=== PATIENT | female | born 1940 | race Caucasian/White ===

== ENCOUNTER 2019-12-07 14:29 | Observation (INO) ==
[2019-12-07 16:28] LABS: Basophils # (auto) 0.02 K/uL (0-0.2); Basophils % (auto) 0.3 %; Eosinophils # (auto) 0.17 K/uL (0-0.5); Eosinophils % (auto) 2.5 %; Hemoglobin 13.8 g/dL (12.0-16.0); Immature Granulocytes # (auto) 0.02 K/uL (0.00-0.02); Immature Granulocytes % (auto) 0.3 %; Lymphocytes # (auto) 1.48 K/uL (1.2-3.4); Lymphocytes % (auto) 22.1 %; Mean Corpuscular Hemoglobin 30.4 pg (25-34); Mean Corpuscular Hgb Conc 33.7 g/dL (32-36); Mean Corpuscular Volume 90.3 fL (80-100); Mean Platelet Volume 10.7 fL (7.4-10.4); Monocytes # (auto) 0.48 K/uL (0.11-0.59); Monocytes % (auto) 7.2 %; Neutrophils # (auto) 4.54 K/uL (1.4-6.5); Neutrophils % (auto) 67.6 %; Platelet Count 214 K/uL (130-400); RDW Coefficient of Variation 13.4 % (11.5-14.5); RDW Standard Deviation 44.2 fL (36.4-46.3); Red Blood Count 4.54 M/uL (4.2-5.4); White Blood Count 6.71 K/uL (4.8-10.8)
[2019-12-07 16:42] LABS: Partial Thromboplastin Ratio 0.8; Partial Thromboplastin Time 22.4 Seconds (21.0-31.0); Prothrombin Time 9.8 Seconds (9.0-12.0)
[2019-12-07] MEDS ORDERED: LABETALOL HCL IV 5 MG/ML 20ML IV STA ×2 (16:42→20:29)
[2019-12-07 16:46] LABS: Albumin Level 3.6 gm/dl (3.4-5.0); Aspartate Aminotransferase 15 U/L (15-37); BUN Creatinine Ratio 26.3 (10-20); Blood Urea Nitrogen 27 mg/dl (7-18); Calcium 9.4 mg/dl (8.5-10.1); Carbon Dioxide 31 mmol/L (21-32); Chloride 103 mmol/L (98-107); Est GFR (African American) 60.2; Est GFR (Non-African American) 51.9; Glucose 171 mg/dl (70-99); Magnesium 2.2 mg/dl (1.8-2.4); Potassium 4.3 mmol/L (3.5-5.1); Sodium 136 mmol/L (136-145)
[2019-12-07 16:51] LABS: Alanine Aminotransferase 18 U/L (12-78); Albumin Globulin Ratio 0.9 (0.9-2); Alkaline Phosphatase 70 U/L (45-117); Bilirubin,Total 0.3 mg/dl (0.2-1); Globulin 4.1 gm/dl (2.5-4.0); Total Protein 7.7 gm/dl (6.4-8.2); Troponin I < 0.015 ng/ml (0-0.045)
[2019-12-07] MEDS ORDERED: OPTIRAY 320 125ml IV PRN (17:33)
--- NOTE | 2019-12-07 18:11 | CT Scan Report ---
HEAD & NECK CTA HISTORY: Memory loss. Stroke symptoms. TECHNIQUE: Multiaxial CT images of the head were performed both before and after the intravenous admi nistration of contrast to evaluate the major cerebral vessels. Multiaxial CT images of the neck were also performed following the intravenous administration of contrast to evaluate the major cervical ve ssels. Maximum intensity projection images were also obtained. A dose lowering technique was utilized adhering to the principles of ALARA. COMPARISON: Head CT 12/05/2019. FINDINGS: There is no mass, hematoma, midline shift, or acute infarct. Moderate atrophy and microvascular ische brian changes are again noted. 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 Mild narrowing within the bilateral carotid siphons due to the atherosclerotic plaque. No significant alex nosis, occlusion, or aneurysm within the bilateral ACAs are MCAs. Hypoplastic bilateral distal verteb ral arteries, right greater than left. The basilar artery and bilateral metal drilling machine operator are also hypoplastic. Th ere is a persistent left posterior circulation considered to be a normal variant. Possible 2 mm aneurysm at the takeoff of the left posterior communicating artery best seen on image 110. The major dural venous sinuses appear patent. Mild calcified plaque within the normal caliber aortic arch. Mild focal narrowing at the takeoff of the left subclavian artery due to the calcified plaque. There is no significant stenosis, occlusion, or dissection identified within the bilateral common carotid, internal carotid, or vertebral arteries . The right vertebral artery is hypoplastic in comparison to the left. Mild calcified plaque within t he bilateral carotid bifurcations. Bilateral thyroid nodules with the largest on the left measuring 1 1 mm. IMPRESSION: 1. Mild narrowing within the bilateral carotid siphons due to the calcified plaque. Otherwise, no sig nificant stenosis or occlusion within the [facility]. 2. No significant stenosis, occlusion, or dissection identified within the carotid or vertebral arter ies. 3. Hypoplastic posterior circulation within the brain. 4. Possible 2 mm aneurysm at the takeoff of the left posterior communicating artery. ACT 112: Negative or not required by law. Electronically signed by: Rm Clay M.D. 12/07/2019 6:10 PM
--- NOTE | 2019-12-07 18:11 | CT Scan Report ---
HEAD & NECK CTA HISTORY: Memory loss. Stroke symptoms. TECHNIQUE: Multiaxial CT images of the head were performed both before and after the intravenous admi nistration of contrast to evaluate the major cerebral vessels. Multiaxial CT images of the neck were also performed following the intravenous administration of contrast to evaluate the major cervical ve ssels. Maximum intensity projection images were also obtained. A dose lowering technique was utilized adhering to the principles of ALARA. COMPARISON: Head CT 12/05/2019. FINDINGS: There is no mass, hematoma, midline shift, or acute infarct. Moderate atrophy and microvascular ische brian changes are again noted. 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 Mild narrowing within the bilateral carotid siphons due to the atherosclerotic plaque. No significant alex nosis, occlusion, or aneurysm within the bilateral ACAs are MCAs. Hypoplastic bilateral distal verteb ral arteries, right greater than left. The basilar artery and bilateral medical language specialist are also hypoplastic. Th ere is a persistent left posterior circulation considered to be a normal variant. Possible 2 mm aneurysm at the takeoff of the left posterior communicating artery best seen on image 110. The major dural venous sinuses appear patent. Mild calcified plaque within the normal caliber aortic arch. Mild focal narrowing at the takeoff of the left subclavian artery due to the calcified plaque. There is no significant stenosis, occlusion, or dissection identified within the bilateral common carotid, internal carotid, or vertebral arteries . The right vertebral artery is hypoplastic in comparison to the left. Mild calcified plaque within t he bilateral carotid bifurcations. Bilateral thyroid nodules with the largest on the left measuring 1 1 mm. IMPRESSION: 1. Mild narrowing within the bilateral carotid siphons due to the calcified plaque. Otherwise, no sig nificant stenosis or occlusion within the [place]. 2. No significant stenosis, occlusion, or dissection identified within the carotid or vertebral arter ies. 3. Hypoplastic posterior circulation within the brain. 4. Possible 2 mm aneurysm at the takeoff of the left posterior communicating artery. ACT 112: Negative or not required by law. Electronically signed by: Rm Clay M.D. 12/07/2019 6:10 PM
[2019-12-07] MEDS ORDERED: ACETAMINOPHEN 325 MG TAB PO PRN (18:48)
[2019-12-07] MEDS ORDERED: PHARMACIST DISCHARGE MED REC CONSULT PRN (18:48)
[2019-12-07] MEDS ORDERED: DEXTROSE 50% 50 ML SYRINGE IV PRN (18:48)
[2019-12-07] MEDS ORDERED: CARBOHYDRATES FOR HYPOGLYCEMIA PO PRN (18:48)
[2019-12-07] MEDS ORDERED: GLUCOSE 40% GEL 15 GM TUBE PO PRN (18:48)
[2019-12-07] MEDS ORDERED: GLUCAGON FOR INJ 1 MG VIAL SQ PRN (18:48)
[2019-12-07] MEDS ORDERED: GLUCOSE 10 TABS/TUBE PO PRN (18:48)
--- NOTE | 2019-12-07 19:31 | Emergency Department Note ---
Entered by Becky Moncada acting as a scribe for Juno Levy M.D. History of Present Illness General Chief complaint: Referred by Doctor Stated complaint: Referred by Doctor Time Seen by Provider: 12/07/19 15:40 Source: patient History of Present Illness Provider complaint: Stroke Onset (ago): day(s) 3 Location: head Relieved By: + none Exacerbated By: + none Associated symptoms: + confusion and + other (Numbness in extremity) The patient is a 79 year old female who presents to the Emergency Room with complaints of a stroke that occurred it is believed 3 days ago. The patient's states that the patient woke up confused 2 days ago and was not able to find her words. The patient states that her symptoms are not relieved nor exacerbated by anything specific. The patient reports experiencing numbness in extremities but the patient notes that she does have chronic neuropathy. The patient's notes that she did have a fall and hit her head about 2 weeks ago. Home Medications Home Medications Medication Instructions Recorded Confirmed Type acetaminophen [Tylenol Arthritis 650 mg PO TID PRN 03/05/19 12/07/19 History Pain] aspirin 81 mg PO QDL 03/05/19 12/07/19 History calcium carbonate-vitamin D3 1 tab PO DAILY 03/05/19 12/07/19 History [Caltrate 600 + D] metformin 1,000 mg PO DAILY 03/05/19 12/07/19 History metoprolol tartrate 50 mg PO BID 03/05/19 12/07/19 History quinapril 20 mg PO BID 03/05/19 12/07/19 History repaglinide See Rx Instructions .ROUTE .COMPLEX 03/05/19 12/07/19 History vitamin B complex-folic acid 1 tab PO HS 03/05/19 12/07/19 History [Super B Maxi Complex] ascorbic acid (vitamin C) 1,000 mg PO BID 12/07/19 12/07/19 History coenzyme [id number] [Co Q-10 1 cap PO DAILY 12/07/19 12/07/19 History (with Vit E)] cyclobenzaprine 5 mg PO HS PRN 12/07/19 12/07/19 History fexofenadine [Allergy Relief 180 mg PO DAILY 12/07/19 12/07/19 History (fexofenadine)] glucosamine-chondroitin [Cosamin 2 tab PO QDL 12/07/19 12/07/19 History DS] red yeast rice 600 mg PO BID 12/07/19 12/07/19 History triamcinolone acetonide [Nasacort] 1 spray INTRANASAL DAILY 12/07/19 12/07/19 History vitamin A 0 unit PO DAILY 12/07/19 12/07/19 History Allergies Allergy/AdvReac Type Severity Reaction Status Date / Time ragweed pollen Allergy Severe Breathing Verified 12/07/19 16:41 issues house dust mite Allergy Unknown Breathing Verified 12/07/19 16:41 issues Bevtekt-Iju-Tzy Reductase AdvReac Unknown Foot cramps Verified 12/07/19 16:41 Inhibitor Past Med/Surg History Medical History (Updated 12/07/19 @ 19:31 by Juno Levy M.D.) Diabetes type 2, controlled (Chronic) Hypertension (Chronic) Surgical History No pertinent past surgical history Family History Other Family history non-contributory Social History Preferred Language: Spanish Communication Ability: Effective 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 and A total of 10 systems reviewed and were otherwise negative Physical Exam Vital Signs Vital Signs - 24 hr 12/07/19 14:50 12/07/19 16:30 Temperature 36.3 C L Temperature Source Oral Pulse Rate 75 Pulse Rate [Apical] 69 Pulse Rhythm Regular Pulse Rhythm [Apical] Regular Pulse Strength Normal Pulse Strength [Apical] Normal Respiratory Rate 20 20 Respiratory Effort / Characteristics Non-Labored Spontaneous Non-Labored Spontaneous Respiratory Depth Normal Normal Respiratory Pattern Regular Regular Blood Pressure 208/78 H Blood Pressure [Right Arm] 166/78 H Blood Pressure Mean 121 Blood Pressure Mean [Right Arm] 107 Blood Pressure Position [Right Arm] Lying Pulse Oximetry 97 98 Oxygen Delivery Method Room Air Room Air Sepsis Recent Fever Within 48 Hours No Sepsis Action Taken by Nursing No Action Required GENERAL: Awake, alert, well-appearing, in no distress HENT: Normocephalic, atraumatic. EYES: Normal conjunctiva. Sclera non-icteric. RESPIRATORY: Clear to auscultation. No wheezes. Normal respiratory effort. CARDIAC: Normal rate. Normal rhythm. Extremities warm and well perfused. GI: Soft, non-distended. No tenderness to palpation. No rebound or guarding. MUSCULOSKELETAL: Atraumatic. Chest examination reveals no tenderness. LOWER EXTREMITIES: Calves are equal size bilaterally and non-tender. No edema NEURO: No sensory or motor deficits noted. No facial droop. No slurred speech. SKIN: Warm and dry. No jaundice noted. Course Course 1545: Past medical records reviewed. The patient was evaluated in room C02B. A complete history and physical exam was performed. 1625: I spoke with Susanna Lees PA-C about the patient's case and Dr. Booker- Hospitalist will accept the patient for further evaluation. Administered Medications Discontinued Medications Ioversol (Optiray 320 125ml) 120 ml IV ONCE PRN PRN Reason: Interaction Checking Stop: 12/11/19 17:32 Last Admin: 12/07/19 17:38 Dose: 120 ml Documented by: [id number] Labetalol HCl (Normodyne) 10 mg IV NOW STA Stop: 12/07/19 16:43 Last Admin: 12/07/19 16:48 Dose: Not Given Documented by: [id number] Medical Decision Making Differential Diagnosis Differential diagnoses includes but is not limited to toxic, metabolic, infectious, traumatic, cardiac, neurologic, hematologic, psychiatric and infl ammatory etiologies. Medical Records Attestation: I reviewed the patient's medical records. Home Medications Current Medication List: was personally reviewed by me Laboratory Data Attestation: I reviewed the patient's lab results. Result diagrams: 12/07/19 16:15 12/07/19 16:15 Lab Results 12/07/19 12/07/19 12/07/19 Range/Units 16:15 16:15 16:15 WBC 6.71 (4.8-10.8) K/uL RBC 4.54 (4.2-5.4) M/uL Hgb 13.8 (12.0-16.0) g/dL Hct 41.0 (37-47) % MCV 90.3 (80-100) fL MCH 30.4 (25-34) pg MCHC 33.7 (32-36) g/dL RDW Std Deviation 44.2 (36.4-46.3) fL RDW Coeff of Abner 13.4 (11.5-14.5) % Plt Count 214 (130-400) K/uL MPV 10.7 H (7.4-10.4) fL Immature Gran % (Auto) 0.3 % Neut % (Auto) 67.6 % Lymph % (Auto) 22.1 % [place] % (Auto) 7.2 % Eos % (Auto) 2.5 % Baso % (Auto) 0.3 % Immature Gran # (Auto) 0.02 (0.00-0.02) K/uL Neut # (Auto) 4.54 (1.4-6.5) K/uL Lymph # (Auto) 1.48 (1.2-3.4) K/uL [place] # (Auto) 0.48 (0.11-0.59) K/uL Eos # (Auto) 0.17 (0-0.5) K/uL Baso # (Auto) 0.02 (0-0.2) K/uL PT 9.8 (9.0-12.0) Seconds INR 1.0 (0.9-1.1) APTT 22.4 (21.0-31.0) Seconds PTT Ratio 0.8 Sodium 136 (136-145) mmol/L Potassium 4.3 (3.5-5.1) mmol/L Chloride 103 (98-107) mmol/L Carbon Dioxide 31 (21-32) mmol/L Anion Gap 2.0 L (3-11) BUN 27 H (7-18) mg/dl Creatinine 1.02 (0.6-1.2) mg/dl Est Cr Clr Drug Dosing Not Reportable Est GFR ( Amer) 60.2 Est GFR (Non-Af Amer) 51.9 BUN/Creatinine Ratio 26.3 H (10-20) Glucose 171 H (70-99) mg/dl Calcium 9.4 (8.5-10.1) mg/dl Magnesium 2.2 (1.8-2.4) mg/dl Total Bilirubin 0.3 (0.2-1) mg/dl AST 15 (15-37) U/L ALT 18 (12-78) U/L Alkaline Phosphatase 70 (45-117) U/L Troponin I < 0.015 (0-0.045) ng/ml Total Protein 7.7 (6.4-8.2) gm/dl Albumin 3.6 (3.4-5.0) gm/dl Globulin 4.1 H (2.5-4.0) gm/dl Albumin/Globulin Ratio 0.9 (0.9-2) Imaging Data Radiologist's Impression: Radiology results as stated below per my review and the radiologist's interpretation: HEAD & NECK CTA HISTORY: Memory loss. Stroke symptoms. TECHNIQUE: Multiaxial CT images of the head were performed both before and after the intravenous administration of contrast to evaluate the major cerebral vessels. Multiaxial CT images of the neck were also performed following the intravenous administration of contrast to evaluate the major cervical vessels. Maximum intensity projection images were also obtained. A dose lowering technique was utilized adhering to the principles of ALARA. COMPARISON: Head CT 12/05/2019. FINDINGS: There is no mass, hematoma, midline shift, or acute infarct. Moderate atrophy and microvascular ischemic changes are again noted. 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 Mild narrowing within the bilateral carotid siphons due to the atherosclerotic plaque. No significant stenosis, occlusion, or aneurysm within the bilateral ACAs are MCAs. Hypoplastic bilateral distal vertebral arteries, right greater than left. The basilar artery and bilateral blanket cutter hand are also hypoplastic. There is a persistent left posterior circulation considered to be a normal variant. Possible 2 mm aneurysm at the takeoff of the left posterior communicating artery best seen on image 110. The major dural venous sinuses appear patent. Mild calcified plaque within the normal caliber aortic arch. Mild focal narrowing at the takeoff of the left subclavian artery due to the calcified plaque. There is no significant stenosis, occlusion, or dissection identified within the bilateral common carotid, internal carotid, or vertebral arteries. The right vertebral artery is hypoplastic in comparison to the left. Mild calcified plaque within the bilateral carotid bifurcations. Bilateral thyroid nodules with the largest on the left measuring 11 mm. IMPRESSION: 1. Mild narrowing within the bilateral carotid siphons due to the calcified plaque. Otherwise, no significant stenosis or occlusion within the [place]. 2. No significant stenosis, occlusion, or dissection identified within the carotid or vertebral arteries. 3. Hypoplastic posterior circulation within the brain. 4. Possible 2 mm aneurysm at the takeoff of the left posterior communicating artery. ACT 112: Negative or not required by law. Electronically signed by: Rm Clay M.D. 12/07/2019 6:10 PM ECG Data Attestation: I personally reviewed and interpreted this ECG as follows: Indication: + other (Stroke) Rate (beats per minute): 67 Rhythm: + normal sinus ECG Intervals/blocks: + Normal QT-c ECG ST segments: no ST depression and no ST elevation ECG Findings: no PVCs Blood Pressure Blood Pressure Findings: Elevated blood pressure Blood Pressure Disposition: further management by hospitalist GÉNESIS Narrative Patient is a 79-year-old female presenting today with concerns for a stroke. Patient does have a past medical history significant for diabetes, hypertension seen in the outpatient setting by neurology and reportedly had an MRI this morning finding a stroke. There is been several days of confusional this recently but improving. Basic labs are completed here. No significant anemia, leukocytosis, or severe electrolyte abnormality. CT angiograms of the head and neck were completed. No significant stenosis or occlusion was noted. Blood pressure has been elevated varying degrees while here and she did not take her new medication. Patient was admitted for further stroke evaluation. Hospitalist contacted. Impression & Plan Stroke, Hypertension Discharge Plan Visit Data *Final* Discharge Date/Time: 12/07/19 17:44 Chief Complaint: Referred by Doctor Stated Complaint: Referred by Doctor ED Provider: Juno Levy Discharge Problem: Stroke, Hypertension Patient Disposition: Admitted As Inpatient Discharge Instructions Interventions: ED Discharge Assessment Last Done: 12/07/19 17:44 Discharge Problem: Stroke Qualifiers: CVA mechanism: unspecified Qualified Code(s): I63.9 - Cerebral infarction, unspecified Hypertension Qualifiers: Hypertension type: essential hypertension Qualified Code(s): I10 - Essential (primary) hypertension The scribe's documentation has been prepared under my direction and personally reviewed by me in its entirety. I confirm that the note above accurately reflects all work, treatment, procedures, and medical decision making performed by me.
[2019-12-07] MEDS: CLOPIDOGREL BISULFATE 75 MG TAB PO SCH (20:19)
[2019-12-07] MEDS: METOPROLOL TARTRATE 50 MG TAB PO SCH (20:19)
[2019-12-07] MEDS: ENALAPRIL MALEATE 10 MG TAB PO SCH (20:19)
--- NOTE | 2019-12-07 20:29 | History & Physical Report ---
Date of Service December 07, 2019 Assessment & Plan (1) CVA (cerebral vascular accident): -Admit to telemetry -Patient presenting by referral of outpatient neurologist after outpatient brain MRI showed small subacute left striatocapsular infarction -2 days ago, patient was experiencing confusion and word finding. Currently at baseline without any deficits. -Head and neck CTA negative for significant stenosis, possible small 2 mm aneurysm noted at the takeoff of the left posterior communicating artery -Currently takes aspirin 81 mg daily, will add Plavix -Patient is statin intolerant -Echo -Neurology consult, case discussed with Dr. Krishna (2) Hypertensive urgency: -Presenting BP 208/78 -Given that patient is 48 hours post acute CVA, will treat for BP 140/90 -Continue home doses of metoprolol and quinapril, Norvasc 10 mg added -PRN labetalol (3) Diabetes type 2, controlled: -Hgb A1c 7.3 11/2019 -Hold oral agents and utilize NovoLog per protocol while hospitalized (4) DVT prophylaxis: -SQ Lovenox History of Present Illness Chief Complaint: Referred by neurologist for CVA Primary Care Provider: Jhoan Maki DO 79-year-old female who was referred to the ED by outpatient neurologist for evaluation after outpatient brain MRI demonstrated a small subacute left striatocapsular infarct. Patient's is the bedside who provides some history. He reports that 2 days ago, the patient had a confusion and word finding. Reports that her symptoms had resolved by the evening. She was seen at her PCPs office where head CT was obtained that was negative for acute findings. She was referred to neurology. Brain MRI was obtained today demonstrating aforementioned findings. Patient symptoms have mostly resolved with the exception of some mild, occasional word finding. No reported unilateral weakness, numbness, tingling. Denies facial droop or drooling. No headache or blurred vision. Denies lightheadedness, dizziness, diaphoresis, syncopal events. Patient reports he otherwise been feeling well recently. No chest pain or shortness of breath. Has abdominal pain, nausea, vomiting, diarrhea. No urinary symptoms. In the ED, patient is found to be hypertensive. She was given labetalol 10 mg IV. Allergies Allergy/AdvReac Type Severity Reaction Status Date / Time ragweed pollen Allergy Severe Breathing Verified 12/07/19 16:41 issues house dust mite Allergy Unknown Breathing Verified 12/07/19 16:41 issues Kvtkdzk-Ljx-Leb Reductase AdvReac Unknown Foot cramps Verified 12/07/19 16:41 Inhibitor Home Medications Home Medications Medication Instructions Recorded Confirmed Type acetaminophen [Tylenol Arthritis 650 mg PO TID PRN 03/05/19 12/07/19 History Pain] aspirin 81 mg PO QDL 03/05/19 12/07/19 History calcium carbonate-vitamin D3 1 tab PO DAILY 03/05/19 12/07/19 History [Caltrate 600 + D] metformin 1,000 mg PO DAILY 03/05/19 12/07/19 History metoprolol tartrate 50 mg PO BID 03/05/19 12/07/19 History quinapril 20 mg PO BID 03/05/19 12/07/19 History repaglinide See Rx Instructions .ROUTE .COMPLEX 03/05/19 12/07/19 History vitamin B complex-folic acid 1 tab PO HS 03/05/19 12/07/19 History [Super B Maxi Complex] ascorbic acid (vitamin C) 1,000 mg PO BID 12/07/19 12/07/19 History coenzyme [id number] E [Co Q-10 1 cap PO DAILY 12/07/19 12/07/19 History (with Vit E)] cyclobenzaprine 5 mg PO HS PRN 12/07/19 12/07/19 History fexofenadine [Allergy Relief 180 mg PO DAILY 12/07/19 12/07/19 History (fexofenadine)] glucosamine-chondroitin [Cosamin 2 tab PO QDL 12/07/19 12/07/19 History DS] red yeast rice 600 mg PO BID 12/07/19 12/07/19 History triamcinolone acetonide [Nasacort] 1 spray INTRANASAL DAILY 12/07/19 12/07/19 History vitamin A 0 unit PO DAILY 12/07/19 12/07/19 History Past Med/Surg History Medical History CKD (chronic kidney disease), stage III Diabetes type 2, controlled (Chronic) Hypertension (Chronic) Neuropathy Surgical History No pertinent past surgical history Family History Mother Lung disease Father Lung disease Social History Preferred Language: Taiwanese Communication Ability: Effective 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 Beliefs That Will Affect Care: None marital status: Current Living Situation: Spouse current occupational status: retired Other Information That Helps Us Care for You: No Feels Safe at Home: Yes Safety Concerns: Feels Safe At This Time Smoking Status: Never smoker Do You Dip or Chew Tobacco: No ; Second Hand Exposure: No ; Tobacco Cessation Education Requested by Patient: No Hx Alcohol Use: Yes Alcohol Intake Frequency: Rarely Hx Substance Use: No Review of Systems Review of Systems: ROS per HPI, all other systems reviewed and negative Physical Exam Constitutional: WD/WN, vitals as above Eyes: PERRL, conjunctivae normal, anicteric sclerae ENMT: external ear and nose normal, oropharynx normal Respiratory: normal respiratory effort, lungs clear to auscultation Cardiovascular: Rate/Rhythm: regular rate and regular rhythm Vessels: normal peripheral pulses Extremities: + edema (Trace ankle edema noted) Gastrointestinal (Abdomen): normal bowel sounds, soft, nontender, no hepatosplenomegaly Musculoskeletal: no cyanosis or clubbing, extremities motor strength 5/5 Skin: no rashes, warm and dry Neurologic: PERRL, EOMI, accommodation nl, no face palsy, no dysarthria Psychiatric: A+Ox3, euthymic affect Results & Data Vital Signs (Past 12 Hours) Vital Signs Temp Pulse Pulse Pulse Resp BP BP 12/07/19 18:40 36.7 C 98 H 16 185/84 H 12/07/19 16:30 69 20 12/07/19 14:50 36.3 C L 75 20 208/78 H BP Pulse Ox 12/07/19 18:40 235/103 H 98 12/07/19 16:30 166/78 H 98 12/07/19 14:50 97 Laboratory Results Short CBC 12/07/19 Range/Units 16:15 WBC 6.71 (4.8-10.8) K/uL Hgb 13.8 (12.0-16.0) g/dL Hct 41.0 (37-47) % Plt Count 214 (130-400) K/uL BMP 12/07/19 16:15 Sodium 136 Potassium 4.3 Chloride 103 Carbon Dioxide 31 BUN 27 H Creatinine 1.02 Glucose 171 H Calcium 9.4 Cardiac Enzymes 12/07/19 Range/Units 16:15 Troponin I < 0.015 (0-0.045) ng/ml Liver Function 12/07/19 Range/Units 16:15 Total Bilirubin 0.3 (0.2-1) mg/dl AST 15 (15-37) U/L ALT 18 (12-78) U/L Alkaline Phosphatase 70 (45-117) U/L Albumin 3.6 (3.4-5.0) gm/dl Diagnostic Findings BRAIN MRI IMPRESSION ([facility]) 1. Small subacute left striatocapsular infarct without associated mass effect or hemorrhagic transformation. HEAD AND NECK CTA IMPRESSION: 1. Mild narrowing within the bilateral carotid siphons due to the calcified plaque. Otherwise, no significant stenosis or occlusion within the [place] of [place]. 2. No significant stenosis, occlusion, or dissection identified within the carotid or vertebral arteries. 3. Hypoplastic posterior circulation within the brain. 4. Possible 2 mm aneurysm at the takeoff of the left posterior communicating artery. Code Status & VTE Plan Code Status Patient is a full code as per my discussion with her. VTE Prophylaxis Plan VTE Prophylaxis will be ordered: Yes Supervising Physician Co-Signing Physician Notes I have seen and examined the patient and have discussed the case with the provider above. I agree with the assessment and plan as stated. 79 yo F presents for workup after acute stroke as outpatient. Persistent expressive aphasia that is sporadic but otherwise she is communicating well. My physical exam findings reflect those listed above. Agree with plan. Appreciate Neuro recommendations. DO Jhony
[2019-12-07] MEDS ORDERED: AMLODIPINE BESYLATE 5 MG TAB PO STA (20:32)
[2019-12-07] MEDS ORDERED: LABETALOL HCL IV 5 MG/ML 20ML IV PRN (20:48)
[2019-12-07] MEDS: ENOXAPARIN INJ 40 MG/0.4 ML SYR SQ SCH (21:23)
[2019-12-07] MEDS: INSULIN ASPART 100 UNITS/ML 3 ML PEN SC SCH (21:46)
[2019-12-08 06:11] LABS: Basophils # (auto) 0.02 K/uL (0-0.2); Basophils % (auto) 0.4 %; Eosinophils # (auto) 0.27 K/uL (0-0.5); Eosinophils % (auto) 5.2 %; Hematocrit (blood only) 40.3 % (37-47); Hemoglobin 13.4 g/dL (12.0-16.0); Immature Granulocytes # (auto) 0.01 K/uL (0.00-0.02); Immature Granulocytes % (auto) 0.2 %; Lymphocytes % (auto) 40.3 %; Mean Corpuscular Hemoglobin 30.2 pg (25-34); Mean Corpuscular Hgb Conc 33.3 g/dL (32-36); Mean Corpuscular Volume 90.8 fL (80-100); Mean Platelet Volume 10.9 fL (7.4-10.4); Monocytes # (auto) 0.43 K/uL (0.11-0.59); Monocytes % (auto) 8.3 %; Neutrophils # (auto) 2.38 K/uL (1.4-6.5); Neutrophils % (auto) 45.6 %; Platelet Count 208 K/uL (130-400); RDW Coefficient of Variation 13.5 % (11.5-14.5); RDW Standard Deviation 44.8 fL (36.4-46.3); Red Blood Count 4.44 M/uL (4.2-5.4); White Blood Count 5.21 K/uL (4.8-10.8)
[2019-12-08 06:45] LABS: Appearance Urine Clear (Clear); Bacteria Urine Automated Negative (Negative); Bilirubin Urine Negative (Negative); Blood Urine Negative (Negative); Cast Urine Automated 0 /lpf (0-5); Color Urine Yellow; Glucose Urine UA Negative (Negative); Ketones Urine Negative (Negative); Leukocyte Esterase Urine 1+ (Negative); Nitrite Urine Negative (Negative); Protein Urine Negative (Negative); RBC Urine Automated 0-4 /hpf (0-4); Specific Gravity Urine 1.043 (1.000-1.030); Urobilinogen Urine Negative (Negative); pH Urine 6.5 (4.5-7.5)
[2019-12-08 06:47] LABS: Calcium 9.4 mg/dl (8.5-10.1); Creatinine Clr Calc Pharmacy 37.6 ml/min; Est GFR (African American) 59.5; Est GFR (Non-African American) 51.3; Potassium 3.8 mmol/L (3.5-5.1)
[2019-12-08] MEDS: INSULIN ASPART 100 UNITS/ML 3 ML PEN SC SCH ×4 (08:10→20:30)
[2019-12-08] MEDS: AMLODIPINE BESYLATE 5 MG TAB PO SCH (08:11)
[2019-12-08] MEDS: METOPROLOL TARTRATE 50 MG TAB PO SCH ×2 (08:12→20:31)
[2019-12-08] MEDS: CLOPIDOGREL BISULFATE 75 MG TAB PO SCH (08:12)
[2019-12-08] MEDS: FEXOFENADINE HCL 180 MG TAB PO SCH (08:12)
[2019-12-08] MEDS: ENALAPRIL MALEATE 10 MG TAB PO SCH ×2 (08:12→20:31)
[2019-12-08 09:04] LABS: Estimated Average Glucose 163 mg/dl; Hemoglobin A1C 7.3 % (4.5-5.6)
--- NOTE | 2019-12-08 11:36 | CT Scan Report ---
HEAD CT NONCONTRAST CT DOSE: 614.27 mGy.cm HISTORY: L mca infarct, mild increase in aphasia, r/o bleed TECHNIQUE: Multiaxial CT images of the head were performed without the use of intravenous contrast. A utomated exposure control was utilized for this study. A dose lowering technique was utilized adheri ng to the principles of ALARA. Comparison: Head CT 12/05/2019. Findings: The paranasal sinuses and mastoid air cells are clear. The calvarium and skull base are int act. There is no mass, hematoma, midline shift, acute infarct. White matter hypodensity is nonspecifi c but suggestive of microvascular ischemic change. The ventricles and sulci demonstrate mild age-rela nils involutional changes. Stable hypodensity at the left caudate on image 18. Therefore, this favors an old lacunar infarct. Impression: No significant change compared to the prior study. No acute intracranial abnormality. Hypodensity wit hin the left caudate remains unchanged and favors an old lacunar infarct. ACT 112: Negative or not required by law. Electronically signed by: Rm Clay M.D. 12/08/2019 11:35 AM
--- NOTE | 2019-12-08 11:55 | Progress Note ---
DATE: 12/08/2019 REASON FOR CONSULTATION: Subacute left striatocapsular infarction, hypertensive urgency. HISTORY OF PRESENT ILLNESS: The patient is an 79-year-old female who was seen by my partner Dr. Krishna at an outside office visit on Tuesday because of the sudden onset of confusion and word finding difficulty. Symptoms have improved somewhat, although perhaps she has a little more word finding difficulty over the evening. An outpatient MRI was obtained showing the aforementioned findings. The patient has no prior history of transient ischemic attack or stroke. She has no history of rheumatic fever, murmur. No family history of stroke. PAST MEDICAL HISTORY: Notable for chronic kidney disease, diabetes, hypertension and neuropathy with statin intolerance. SURGICAL HISTORY: Not pertinent. FAMILY HISTORY: No family history of stroke. Family history of lung disease. SOCIAL HISTORY: Does not smoke, very rarely drinks alcohol. HOME MEDICATIONS: Tylenol, aspirin 81, Caltrate, metformin, metoprolol, quinapril, repaglinide, vitamin B complex, ascorbic acid, CoQ10, fexofenadine, cyclobenzaprine p.r.n., glucosamine-chondroitin, red yeast rice, Nasacort and vitamin A. Electrocardiogram on admission, normal sinus rhythm. LABORATORY DATA: White count, H and H and platelet count are normal. Glucose was 123, BUN and creatinine 30/1.0. Hemoglobin A1c 7.3. Total cholesterol 245, triglycerides 247, LDL 153. Urinalysis notable for 1+ leukocyte esterase, 10-30 white blood cells, 5-10 epithelial cells. CTA of head and neck showed a possible 2 mm aneurysm at the takeoff of the left [employer] SPECIALIST. No significant stenosis within the [place] of [place]. Hypoplastic posterior circulation. A followup CT this morning because of subjective worsening has not yet been read, but shows no acute infarction and no hemorrhage. Echo has not yet been performed. PHYSICAL EXAMINATION: GENERAL: The patient is awake and alert. There is a paucity of spontaneous speech. She is oriented x2. She has marked difficulty with expressive language, mild to moderate difficulty with receptive language, although repetitions are intact. NECK: There are no carotid bruits. HEART: No heart murmurs. Heart is regular rate and rhythm. VITAL SIGNS: Blood pressure 172/80, 72, 20, 36.6, 92%. NEUROLOGIC: Pupils are equal. There is no field cut. There is normal motility, facial sensation. Slight flattening of the right nasolabial fold. Strength appears symmetric. There is minor right drift and decreased rapid alternating movements. Lower extremity strength is full. Reflexes are symmetric. Toes are downgoing. Gcmjyb-kv-uwbe and vtij-cm-kdva are normal. Sensation is intact to light touch and temperature bilaterally. IMPRESSION: Left striatocapsular infarction with language dysfunction. No high grade MCA stenosis. PLAN: Permissive hypertension with gradual reduction of blood pressure over time. Agree with statin therapy as discussed with Dr. Agarwal. Dual antiplatelet therapy with aspirin and Plavix for 3 weeks and then Plavix alone. Echocardiography with a bubble study. Zio patch as an outpatient. 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 This is of no clinical significance, but may need to be followed as an outpatient. The patient can follow up with Dr. Krishna post-discharge. I do believe the patient will need a PT and a speech consult and may need inpatient therapy. CHRISTI
[2019-12-08] MEDS: ATORVASTATIN 40 MG TAB PO SCH (11:59)
[2019-12-08] MEDS: ASPIRIN 81 MG ECTAB PO SCH (11:59)
--- NOTE | 2019-12-08 15:28 | Hospitalist Progress Note ---
Date of Service December 08, 2019 Assessment & Plan (1) CVA (cerebral vascular accident): Dyslipidemia -Neuro deficit(s), subacute; slurring of words and trouble finding words x 36hrs, Fall Tuesday11/25/2019 on ASA with head trauma -patient subsequently had followed with outpatient [facility] Neurology. Dr. Krishna who ordered outpatient Brain MRI -BRAIN MRI WITHOUT AND WITH CONTRAST - 12/07/2019: Small subacute left striatocapsular infarct without associated mass effect or hemorrhagic trans formation. -admission 12/07/2019 Head and neck CTA negative for significant stenosis, possible small 2 mm aneurysm noted at the takeoff of the left posterior communicating artery -patient also noted to have hypertensive urgency on 12/07/2019 presentation -patient had been on aspirin and admitting medical team added clopidogrel as well, will continue dual anti-platelet therapy (aspirin and clopidogrel for 3 weeks and then clopidogrel alone.) -patient reports intolerance to statins such as leg cramps but given Dyslipidemia of Trigylceride 247 and Cholesterol 245 and LDL of 153 in context of stroke, the patient is agree able for trial of atorvastatin 40 mg daily patient able to eat the meals without dysphagia awaiting echocardiogram. awaiting formal PT/OT evaluations no acute telemetry events at this time; neurology recommends Zio patch as an outpatient. (2) Hypertensive urgency: -Presenting BP 208/78 on admission on 12/07/2019 -blood pressures are improved by 12/08/2019 -continue amlodidpine 10 mg daily as started on 12/07/2019 -Continue home doses of metoprolol 50 mg BID. Patient's home dose of quinapril 20 mg BID is currently substituted in the hospital as enalapril 20 mg BID (3) Diabetes type 2, controlled: -Hgb A1c 7.3 12/08/2019 -Hold oral agents and utilize NovoLog per protocol while hospitalized (4) DVT prophylaxis: -SQ Lovenox Admission and Anticipated Discharge Date Admission Date: December 07, 2019, discharge day undertemined Subjective no acute distress. no dizziness. no headache. patient able to speak without slurring speech but sometimes is poor historian. otherwise answers questions appropriately. no distress. no chest pain. no shortness of breath. no palpitations. no nause. no vomiting Review of Systems Review of Systems: All systems reviewed & are unremarkable except as noted in HPI & below Physical Exam 2 Constitutional: WD/WN, vitals as above comfortable Eyes: PERRL, conjunctivae normal, anicteric sclerae + conjunctival abnormality ENMT: external ear and nose normal, oropharynx normal Neck: normal visual inspection Respiratory: normal respiratory effort, lungs clear to auscultation Cardiovascular: Rate/Rhythm: regular rate and regular rhythm Gastrointestinal (Abdomen): normal bowel sounds, soft, nontender, no hepatosplenomegaly Musculoskeletal: Head/Neck/Chest: normocephalic and head atraumatic Neurologic: PERRL, EOMI, accommodation nl, no face palsy, no dysarthria moves all extremities Psychiatric: A+Ox3, euthymic affect Results & Data ([facility]) Vital Signs (Past 12 Hours) Vital Signs Temp Pulse Resp BP BP Pulse Ox 12/08/19 15:14 36.7 C 76 16 126/68 92 12/08/19 12:09 36.6 C 77 18 150/66 H 93 12/08/19 08:06 72 20 172/80 H 92
--- NOTE | 2019-12-08 18:03 | Electrocardiogram Report ---
Test Reason : Blood Pressure : / mmHG Vent. Rate : 067 BPM Atrial Rate : 067 BPM P-R Int : 130 ms QRS Dur : 080 ms QT Int : 412 ms P-R-T Axes : 063 032 083 degrees QTc Int : 435 ms Normal sinus rhythm Normal ECG When compared with ECG of 09-MAR-2019 09:51, No significant change was found Confirmed by Mychal Leiva ([id number]) on 12/08/2019 6:03:30 PM Referred By: Piyush Krishna Confirmed By:Aguilar Leiva
[2019-12-08] MEDS: ENOXAPARIN INJ 40 MG/0.4 ML SYR SQ SCH (20:32)
[2019-12-09 05:51] LABS: Basophils # (auto) 0.02 K/uL (0-0.2); Basophils % (auto) 0.3 %; Eosinophils # (auto) 0.36 K/uL (0-0.5); Eosinophils % (auto) 5.9 %; Hematocrit (blood only) 39.7 % (37-47); Hemoglobin 13.3 g/dL (12.0-16.0); Immature Granulocytes # (auto) 0.01 K/uL (0.00-0.02); Immature Granulocytes % (auto) 0.2 %; Lymphocytes % (auto) 26.1 %; Mean Corpuscular Hemoglobin 30.3 pg (25-34); Mean Corpuscular Hgb Conc 33.5 g/dL (32-36); Mean Corpuscular Volume 90.4 fL (80-100); Mean Platelet Volume 10.8 fL (7.4-10.4); Monocytes # (auto) 0.45 K/uL (0.11-0.59); Monocytes % (auto) 7.4 %; Neutrophils # (auto) 3.68 K/uL (1.4-6.5); Neutrophils % (auto) 60.1 %; Platelet Count 182 K/uL (130-400); RDW Coefficient of Variation 13.4 % (11.5-14.5); RDW Standard Deviation 44.4 fL (36.4-46.3); Red Blood Count 4.39 M/uL (4.2-5.4); White Blood Count 6.12 K/uL (4.8-10.8)
[2019-12-09 06:22] LABS: BUN Creatinine Ratio 29.3 (10-20); Calcium 9.1 mg/dl (8.5-10.1); Creatinine Clr Calc Pharmacy 39.1 ml/min; Est GFR (African American) 62.4; Est GFR (Non-African American) 53.8; Potassium 4.2 mmol/L (3.5-5.1)
[2019-12-09] MEDS: INSULIN ASPART 100 UNITS/ML 3 ML PEN SC SCH ×2 (08:30→12:03)
[2019-12-09] MEDS: ATORVASTATIN 40 MG TAB PO SCH (08:31)
[2019-12-09] MEDS: ENALAPRIL MALEATE 10 MG TAB PO SCH (08:31)
[2019-12-09] MEDS: METOPROLOL TARTRATE 50 MG TAB PO SCH (08:31)
[2019-12-09] MEDS: CLOPIDOGREL BISULFATE 75 MG TAB PO SCH (08:31)
[2019-12-09] MEDS: FEXOFENADINE HCL 180 MG TAB PO SCH (08:31)
[2019-12-09] MEDS: AMLODIPINE BESYLATE 5 MG TAB PO SCH (08:32)
--- NOTE | 2019-12-09 12:01 | Progress Note ---
DATE: 12/09/2019 SUBJECTIVE: I am seeing the patient in followup of a left striatocapsular infarct. A followup CT of the head was performed yesterday because of waxing and waning mental status that was unremarkable. It was unchanged. The patient is in a sinus rhythm. Echocardiogram interpretation summary; moderate concentric LVH, normal left ventricular wall motion, EF of 65-70. Minimal sclerotic changes of the aortic and mitral valve with otherwise normal valve structures. Left atrium is mildly enlarged, no ASD detected. PHYSICAL EXAMINATION: The patient is awake and alert, still with some lmkz-kx-pqalxvxh expressive language dysfunction. She had some hesitancy, but was able to name the items which were presented to her. Repetitions are normal and 3-step commands are mildly slow. There is a flattening of the right nasolabial fold. No dysarthria. No asymmetric weakness. There is a mild upward drift of the right hand and mildly decreased right rapid alternating movements. Lower extremities are symmetric. Reflexes are symmetric. Toes are downgoing. IMPRESSION AND PLAN: Left striatocapsular capsular infarction. Recommend dual antiplatelet therapy for 21 days and then Plavix. The patient will need a Zio patch as an outpatient. The patient has been agreeable to start a statin to which she previously had had an intolerance. The patient should see Dr. Krishna post discharge.
[2019-12-09] MEDS: ASPIRIN 81 MG ECTAB PO SCH (12:03)
[2019-12-09] MEDS ORDERED: STROKE PATIENT DISCHARGE STA (12:50)
--- NOTE | 2019-12-09 12:58 | Hospitalist Progress Note ---
Date of Service December 09, 2019 Assessment & Plan (1) CVA (cerebral vascular accident): Dyslipidemia -Neuro deficit(s), subacute; slurring of words and trouble finding words x 36hrs, Fall Tuesday11/25/2019 on ASA with head trauma -patient subsequently had followed with outpatient [facility]. Dr. Krishna who ordered outpatient Brain MRI -BRAIN MRI WITHOUT AND WITH CONTRAST - 12/07/2019: Small subacute left striatocapsular infarct without associated mass effect or hemorrhagic trans formation. -admission 12/07/2019 Head and neck CTA negative for significant stenosis, possible small 2 mm aneurysm noted at the takeoff of the left posterior communicating artery -patient also noted to have hypertensive urgency on 12/07/2019 presentation -patient had been on aspirin and admitting medical team added clopidogrel as well, will continue dual anti-platelet therapy (aspirin and clopidogrel for 3 weeks and then clopidogrel alone.) -patient reports intolerance to statins such as leg cramps but given Dyslipidemia of Trigylceride 247 and Cholesterol 245 and LDL of 153 in context of stroke, the patient is agree able for trial of atorvastatin 40 mg daily patient able to eat the meals without dysphagia awaiting echocardiogram. patient did well with formal PT/OT evaluations no acute telemetry events at this time; neurology recommends Zio patch as an outpatient. (2) Hypertensive urgency: -Presenting BP 208/78 on admission on 12/07/2019 -blood pressures are improved by 12/08/2019 -continue amlodidpine 10 mg daily as started on 12/07/2019 -Continue home doses of metoprolol 50 mg BID. Patient's home dose of quinapril 20 mg BID is currently substituted in the hospital as enalapril 20 mg BID (3) Diabetes type 2, controlled: -Hgb A1c 7.3 12/08/2019 -can resume home dose diabetes medications on discharge (4) DVT prophylaxis: -SQ Lovenox while inpatient Admission and Anticipated Discharge Date Admission Date: December 07, 2019 Subjective Patient seen and examined at bedside.no headache. no dizziness. no chest pain. no palpitations. no nausea. no vomiting Review of Systems Review of Systems: All systems reviewed & are unremarkable except as noted in HPI & below Physical Exam Constitutional: WD/WN, vitals as above comfortable Eyes: PERRL, conjunctivae normal, anicteric sclerae ENMT: external ear and nose normal, oropharynx normal Neck: normal visual inspection Respiratory: normal respiratory effort, lungs clear to auscultation Cardiovascular: Rate/Rhythm: regular rate and regular rhythm Gastrointestinal (Abdomen): normal bowel sounds, soft, nontender, no hepatosplenomegaly Musculoskeletal: Head/Neck/Chest: normocephalic and head atraumatic Neurologic: PERRL, EOMI, accommodation nl, no face palsy, no dysarthria moves all extremities Psychiatric: A+Ox3, euthymic affect Results & Data ([facility]) Vital Signs (Past 12 Hours) Vital Signs Temp Pulse Resp BP Pulse Ox 12/09/19 08:00 36.9 C 94 H 16 160/69 H 94 12/09/19 03:55 36.4 C L 77 18 155/68 H 95 12/09/19 02:49 36.4 C L 73 16 163/78 H 96
[2019-12-09] MEDS ORDERED: lisinopriL 5 MG TAB PO SCH (13:00)
--- NOTE | 2019-12-09 13:04 | Discharge Summary ---
Date of Service December 09, 2019 Admission HPI Per Admitting Provider 79-year-old female who was referred to the ED by outpatient neurologist for evaluation after outpatient brain MRI demonstrated a small subacute left striatocapsular infarct. Patient's is the bedside who provides some history. He reports that 2 days ago, the patient had a confusion and word finding. Reports that her symptoms had resolved by the evening. She was seen at her PCPs office where head CT was obtained that was negative for acute findings. She was referred to neurology. Brain MRI was obtained today demonstrating aforementioned findings. Patient symptoms have mostly resolved with the exception of some mild, occasional word finding. No reported unilateral weakness, numbness, tingling. Denies facial droop or drooling. No headache or blurred vision. Denies lightheadedness, dizziness, diaphoresis, syncopal events. Patient reports he otherwise been feeling well recently. No chest pain or shortness of breath. Has abdominal pain, nausea, vomiting, diarrhea. No urinary symptoms. In the ED, patient is found to be hypertensive. She was given labetalol 10 mg IV. Admission Exam Per Admitting Provider WD/WN, vitals as above Eyes: PERRL, conjunctivae normal, anicteric sclerae ENMT: external ear and nose normal, oropharynx normal Respiratory: normal respiratory effort, lungs clear to auscultation Cardiovascular: Rate/Rhythm: regular rate and regular rhythm Vessels: normal peripheral pulses Extremities: + edema (Trace ankle edema noted) Gastrointestinal (Abdomen): normal bowel sounds, soft, nontender, no hepatosplenomegaly Musculoskeletal: no cyanosis or clubbing, extremities motor strength 5/5 Skin: no rashes, warm and dry Neurologic: PERRL, EOMI, accommodation nl, no face palsy, no dysarthria Psychiatric: A+Ox3, euthymic affect Principal Diagnosis CVA (cerebral vascular accident): Dyslipidemia Hypertensive urgency Type 2 diabetes mellitus without manager intermediate current use of insulin Discharge Exam Constitutional WD/WN, vitals as above comfortable Eyes PERRL, conjunctivae normal, anicteric sclerae ENMT external ear and nose normal, oropharynx normal Neck normal visual inspection Respiratory normal respiratory effort, lungs clear to auscultation Cardiovascular Rate/Rhythm: regular rate and regular rhythm Gastrointestinal (Abdomen) normal bowel sounds, soft, nontender, no hepatosplenomegaly Musculoskeletal Head/Neck/Chest: normocephalic and head atraumatic Neurologic PERRL, EOMI, accommodation nl, no face palsy, no dysarthria moves all extremities Psychiatric A+Ox3, euthymic affect Discharge Data Allergies Allergy/AdvReac Type Severity Reaction Status Date / Time ragweed pollen Allergy Severe Breathing Verified 12/07/19 16:41 issues house dust mite Allergy Unknown Breathing Verified 12/07/19 16:41 issues Oocpmoe-Hgm-Ura Reductase AdvReac Unknown Foot cramps Verified 12/07/19 16:41 Inhibitor Consultations 12/07/19 16:27 ED Decision to Admit Stat 12/07/19 18:48 Consult Case Management - Discharge Planning Routine Consult Neurology Routine Ordered Studies 12/07/19 15:56 CT angio head wo/w Stat CT angio neck with con Stat 12/08/19 10:14 CT head/brain wo con Stat Hospital Course (1) CVA (cerebral vascular accident): Dyslipidemia -Neuro deficit(s), subacute; slurring of words and trouble finding words x 36hrs, Fall Tuesday11/25/2019 on ASA with head trauma -patient subsequently had followed with outpatient [facility]. Dr. Krishna who ordered outpatient Brain MRI -BRAIN MRI WITHOUT AND WITH CONTRAST - 12/07/2019: Small subacute left striatocapsular infarct without associated mass effect or hemorrhagic transformation. -admission 12/07/2019 Head and neck CTA negative for significant stenosis, possible small 2 mm aneurysm noted at the takeoff of the left posterior communicating artery -patient also noted to have hypertensive urgency on 12/07/2019 presentation -patient had been on aspirin and admitting medical team added clopidogrel as well, will continue dual anti-platelet therapy (aspirin and clopidogrel for 3 weeks and then clopidogrel alone.) -patient reports intolerance to statins such as leg cramps but given Dyslipidemia of Trigylceride 247 and Cholesterol 245 and LDL of 153 in context of stroke, the patient is agree able for trial of atorvastatin 40 mg daily patient able to eat the meals without dysphagia awaiting echocardiogram. patient did well with formal PT/OT evaluations no acute telemetry events at this time; neurology recommends Zio patch as an outpatient. (2) Hypertensive urgency: -Presenting BP 208/78 on admission on 12/07/2019 -blood pressures are improved by 12/08/2019 -continue amlodidpine 10 mg daily as started on 12/07/2019 -Continue home doses of metoprolol 50 mg BID. Patient's home dose of quinapril 20 mg BID is currently substituted in the hospital as enalapril 20 mg BID (3) Diabetes type 2, controlled: -Hgb A1c 7.3 12/08/2019 -can resume home dose diabetes medications on discharge (4) DVT prophylaxis: -SQ Lovenox while inpatient Total Time Total Time Spent Total Time Spent (In Minutes): 40 minutes Total Time Includes: Examination of the Patient, Discharge Planning, Medication Reconciliation and Communication With Other Providers Discharge Plan Discharge Items Patient Disposition: Home - Home Health Services Reason For Visit: CVA Discharge Diagnosis: CVA (cerebral vascular accident): Dyslipidemia Hypertensive urgency Type 2 diabetes mellitus without alf current use of insulin Condition on Discharge: Good Activity: Per Instructions section Non-emergency contact: Primary Care Provider and Neurologist Call non-emergency contact if: you have any medication questions Follow-up/Referrals: Jhoan Maki DO [Primary Care Provider] - 12/10/19 12:40 pm Diet: Carb Consistent or DM2 and Heart Healthy Addtl Attending Provider Instructions: aspirin 81 mg daily and clopidogrel (plavix) 75 daily for 3 weeks and then clopidogrel (plavix) alone patient reports intolerance to statins such as leg cramps but given Dyslipidemia of Trigylceride 247 and Cholesterol 245 and LDL of 153 in context of stroke, the patient is agree able for trial of atorvastatin 40 mg daily blood pressure medication of amlodipine as 10 mg daily. continue home dose of quinapril 20 mg BID discharge medication sent electronically to [facility] [address] [place] [place] [address] Add Marketing Sales Representative Provider Instructions: 12/10/2019 12:40 PM Provider Ramonita Dudley PA-C Department Family Practice [facility] 02/14/2020 2:20 PM Provider Piyush Krishna DO Department Neurology [facility] Pending Studies at Discharge: No Stand-Alone Forms: My [employer], Smoking Cessation Medications and DC Order Prescriptions: New atorvastatin 40 mg Tablet 40 mg PO QAM 30 Days Qty: 30 RF: 0 clopidogrel 75 mg Tablet 75 mg PO QAM 30 Days Qty: 30 RF: 1 amlodipine [Norvasc] 5 mg Tablet 10 mg PO QAM 30 Days Qty: 60 RF: 0 aspirin [Ecotrin Low Strength] 81 mg Tablet,Delayed Release (Dr/Ec) 81 mg PO DAILY 30 Days Qty: 30 RF: 0 Continued ascorbic acid (vitamin C) 1,000 mg Tablet 1,000 mg PO BID RF: 0 fexofenadine [Allergy Relief (fexofenadine)] 180 mg Tablet 180 mg PO DAILY RF: 0 glucosamine-chondroitin [Cosamin DS] 500-400 mg Tablet 2 tab PO QDL RF: 0 coenzyme Q14-vdbwlig E [Co Q-10 (with Vit E)] 100-5 mg-unit Capsule 1 cap PO DAILY RF: 0 vitamin A 8,000 unit Capsule 0 unit PO DAILY RF: 0 red yeast rice 600 mg Capsule 600 mg PO BID RF: 0 triamcinolone acetonide [Nasacort] 55 mcg Aerosol,Holmen 1 spray INTRANASAL DAILY RF: 0 cyclobenzaprine 5 mg tablet 5 mg PO HS PRN (Reason: Muscle Spasm) RF: 0 repaglinide 2 mg tablet See Rx Instructions .ROUTE .COMPLEX RF: 0 acetaminophen [Tylenol Arthritis Pain] 650 mg Tablet Extended Release 650 mg PO TID PRN (Reason: Pain) RF: 0 metformin 1,000 mg tablet 1,000 mg PO DAILY RF: 0 metoprolol tartrate 50 mg tablet 50 mg PO BID RF: 0 quinapril 20 mg tablet 20 mg PO BID RF: 0 vitamin B complex-folic acid [Super B Maxi Complex] 0.4 mg Tablet 1 tab PO HS RF: 0 Caltrate 600 plus D 600 mg (1,500 mg)-800 unit Tablet,Chewable 1 tab PO DAILY RF: 0 Discontinued aspirin 81 mg Tablet,Delayed Release (Dr/Ec) 81 mg PO QDL RF: 0 Discharge Orders: Discharge Order (Routine); Ordered 12/09/19 Ordered By: Prince Agarwal Admission Data Admit Date/Time: 12/07/19 16:56 Attending Provider: Prince Agarwal Admit Provider: Sheela Booker Primary Care Provider: Jhoan Maki Other Providers: Sheela Booker ; Diana Root
--- NOTE | 2019-12-09 14:07 | Pharmacy Report ---
Pharmacist Stroke Counseling - Date of Service December 09, 2019 - Scope: Pharmacy has been consulted to provide medication discharge counseling for this patient admitted with transient ischemic attack as per the Pharmacist Discharge Counseling for Stroke Patients Protocol. - Medications on Discharge: Home Medications Medication Instructions Recorded Confirmed acetaminophen [Tylenol Arthritis 650 mg PO TID PRN 03/05/19 12/07/19 Pain] aspirin 81 mg PO QDL 03/05/19 12/07/19 calcium carbonate-vitamin D3 1 tab PO DAILY 03/05/19 12/07/19 [Caltrate 600 + D] metformin 1,000 mg PO DAILY 03/05/19 12/07/19 metoprolol tartrate 50 mg PO BID 03/05/19 12/07/19 quinapril 20 mg PO BID 03/05/19 12/07/19 repaglinide See Rx Instructions .ROUTE .COMPLEX 03/05/19 12/07/19 vitamin B complex-folic acid 1 tab PO HS 03/05/19 12/07/19 [Super B Maxi Complex] ascorbic acid (vitamin C) 1,000 mg PO BID 12/07/19 12/07/19 coenzyme [id number] E [Co Q-10 1 cap PO DAILY 12/07/19 12/07/19 (with Vit E)] cyclobenzaprine 5 mg PO HS PRN 12/07/19 12/07/19 fexofenadine [Allergy Relief 180 mg PO DAILY 12/07/19 12/07/19 (fexofenadine)] glucosamine-chondroitin [Cosamin 2 tab PO QDL 12/07/19 12/07/19 DS] red yeast rice 600 mg PO BID 12/07/19 12/07/19 triamcinolone acetonide [Nasacort] 1 spray INTRANASAL DAILY 12/07/19 12/07/19 vitamin A 0 unit PO DAILY 12/07/19 12/07/19 New Rx's Medication Instructions Recorded amlodipine [Norvasc] 10 mg PO QAM 30 Days #60 tab 12/08/19 aspirin [Ecotrin Low Strength] 81 mg PO DAILY 30 Days #30 tab 12/08/19 atorvastatin 40 mg PO QAM 30 Days #30 tab 12/08/19 clopidogrel 75 mg PO QAM 30 Days #30 tab 12/08/19 - Action: The above medications, specifically ones for stroke treatment/prophylaxis, have been reviewed in detail with the patient and/or patient customer service representative teller(s) prior to discharge. This includes indication, common adverse reactions, drug interactions, and medication administration. Medication counseling has been employed using the teach-back method to ensure understanding. - Outcome: The patient has demonstrated limited understanding of the medications. Please note, they are aware that the pharmacist will call them within 72 hours post-discharge to confirm that the appropriate medications are being taken and answer any further medication related questions the patient might have at that time. Contact information Individual to be contacted: Julio Cesar Relationship to patient (if applicable): Phone number: [phone] Best time to call: after 1000 Additional comments: Patient was VERY confused during counseling, and was not available. Nurse states patient is intermittently confused at baseline. Please reiterate counseling information to during f/u phone call. Thanks! Thank you for allowing pharmacy to be involved in the care of this patient. Please call [phone] or [phone] with any additional questions
--- NOTE | 2019-12-12 11:53 | Pharmacy Report ---
Pharmacist Post D/C Phone Note - Phone Note: Date of phone call: December 12, 2019. Individual with whom pharmacist spoke to: Julio Cesar Melgoza () The following questions were reviewed during the phone call with responses listed below each: Can you tell me the medications that you are currently taking as well as when and how you take each medication? -See Table Below What side effects are you having from your medications, specifically, the new medications you were started on? - Patient with previous intolerance (muscle aches) to statin noted. Denied statin myopathy currently. What questions do you have about your medications? - None What problems are you having obtaining your medications? - None When is your next appointment with your primary care doctor? - Saw PCP on Tuesday. No significant changes to medications noted other than changing amlodipine to PM administration. Additional comments: - Julio Cesar was able to specify times, doses, and anticipated duration of the aspirin (plan d/c in a few weeks), clopidogrel, atorvastatin, and amlodipine with no prompting on my part [id number] - He noted Janay is doing well post-discharge and expressed gratitude for the care Janay received here at [facility] As per the Pharmacist Discharge Counseling for Stroke Patients Protocol, this p jen call has been completed within 72 hours of discharge. Thank you for allowing us to be involved in the care of this patient. - Home Medications: Home Medications Medication Instructions Recorded Confirmed Caltrate 600 plus D 1 tab PO DAILY 03/05/19 12/07/19 acetaminophen [Tylenol Arthritis 650 mg PO TID PRN 03/05/19 12/07/19 Pain] metformin 1,000 mg PO DAILY 03/05/19 12/07/19 metoprolol tartrate 50 mg PO BID 03/05/19 12/07/19 quinapril 20 mg PO BID 03/05/19 12/07/19 repaglinide See Rx Instructions .ROUTE .COMPLEX 03/05/19 12/07/19 vitamin B complex-folic acid 1 tab PO HS 03/05/19 12/07/19 [Super B Maxi Complex] ascorbic acid (vitamin C) 1,000 mg PO BID 12/07/19 12/07/19 coenzyme [id number] [Co Q-10 1 cap PO DAILY 12/07/19 12/07/19 (with Vit E)] cyclobenzaprine 5 mg PO HS PRN 12/07/19 12/07/19 fexofenadine [Allergy Relief 180 mg PO DAILY 12/07/19 12/07/19 (fexofenadine)] glucosamine-chondroitin [Cosamin 2 tab PO QDL 12/07/19 12/07/19 DS] red yeast rice 600 mg PO BID 12/07/19 12/07/19 triamcinolone acetonide [Nasacort] 1 spray INTRANASAL DAILY 12/07/19 12/07/19 vitamin A 0 unit PO DAILY 12/07/19 12/07/19 New Rx's Medication Instructions Recorded amlodipine [Norvasc] 10 mg PO QAM 30 Days #60 tab 12/08/19 aspirin [Ecotrin Low Strength] 81 mg PO DAILY 30 Days #30 tab 12/08/19 atorvastatin 40 mg PO QAM 30 Days #30 tab 12/08/19 clopidogrel 75 mg PO QAM 30 Days #30 tab 12/08/19
== END 2019-12-09 15:03 | disposition home health service (06) | DRG 66 ==
LOC: ED 14:29 → SUATTDRO 16:56 → INTOOBSV 16:56 → 2S 16:56

== ENCOUNTER 2022-07-13 20:55 | Inpatient (IN) ==
[2022-07-13 22:08] LABS: Basophils # (auto) 0.03 K/uL (0-0.2); Basophils % (auto) 0.6 %; Eosinophils # (auto) 0.08 K/uL (0-0.50); Eosinophils % (auto) 1.5 %; Hematocrit (blood only) 37.7 % (34.1-44.9); Hemoglobin 12.7 g/dl (12.0-16.0); Immature Granulocytes # (auto) 0.02 K/uL (0.00-0.02); Immature Granulocytes % (auto) 0.4 %; Lymphocytes # (auto) 0.75 K/uL (1.2-3.4); Mean Corpuscular Hemoglobin 29.7 pg (25.0-34.0); Mean Corpuscular Hgb Conc 33.7 g/dL (32.0-36.0); Mean Corpuscular Volume 88.3 fL (80.0-100.0); Mean Platelet Volume 11.2 fL (9.4-12.3); Monocytes # (auto) 0.69 K/uL (0.24-0.82); Monocytes % (auto) 12.9 %; Neutrophils # (auto) 3.79 K/uL (1.4-6.5); Neutrophils % (auto) 70.6 %; Platelet Count 195 K/uL (130-400); RDW Coefficient of Variation 13.8 % (11.5-14.5); RDW Standard Deviation 44.5 fL (36.4-46.3); Red Blood Count 4.27 M/uL (3.93-5.22); White Blood Count 5.36 K/ul (4.8-10.8)
[2022-07-13 22:18] LABS: Alanine Aminotransferase 25 U/L (7-52); Albumin Level 3.9 gm/dl (3.4-5.0); Alkaline Phosphatase 57 U/L (34-104); Anion Gap 8 (3-11); Aspartate Aminotransferase 24 U/L (13-39); BUN Creatinine Ratio 29.1 (10-20); Bilirubin,Total 0.4 mg/dl (0.2-1.0); Blood Urea Nitrogen 25 mg/dl (6-23); Calcium 9.6 mg/dl (8.5-10.1); Carbon Dioxide 25 mmol/L (21-32); Chloride 100 mmol/L (98-107); Est GFR (African American) 72.4 ml/min; Est GFR (Non-African American) 62.5 ml/min; Globulin 3.9 gm/dl (2.5-4.0); Glucose 143 mg/dl (70-99(Fasting)); Magnesium 2.1 mg/dl (1.7-2.4); Potassium 3.8 mmol/L (3.5-5.1); Sodium 133 mmol/L (136-145); Total Protein 7.8 gm/dl (6.0-8.3)
[2022-07-13 22:21] LABS: Partial Thromboplastin Time 28.2 Seconds (21.0-31.0); Prothrombin Time 10.3 Seconds (9.0-12.0)
[2022-07-13] MEDS ORDERED: SODIUM CHLORIDE 0.9% 1000ML 1,000 ML IV SCH (23:30)
--- NOTE | 2022-07-13 23:30 | Emergency Department Note ---
Impression & Plan COVID, Altered mental status, Hyponatremia ED Provider Note CHIEF COMPLAINT: Altered mental status, COVID-positive HISTORY OF PRESENT ILLNESS: This 82-year-old female patient presents to the e mergency department with complaints of altered mental status. The patient's states that she was here yesterday with some confusion and urinary symptoms. She was diagnosed as COVID-positive and UA was negative. Patient was sent home. She did spike a temperature of 101.5 today. She did wake up from a nap quite altered, unable to answer questions. gave her Tylenol and called the ambulance. He states she is a bit improved from 2 hours ago when that occurred. The patient also has new dentures which she states has been quite a predicament. She has been unable to close her mouth completely and has had great difficulty recently. History is limited secondary to AMS. REVIEW OF SYSTEMS: Review of systems is limited secondary to the patient's mental status, much of the history was obtained from the . ALLERGIES: see below MEDICATIONS: see below PMH: see below SOCIAL HISTORY: see below DDx: Infection, dehydration, metabolic abnormality, hypo/hyperglycemia, electrolyte disturbance, anemia, hypoxia, cardiac sources, intracerebral event, toxicologic, neurologic, as well as other pathologies. PHYSICAL EXAM: Vital signs reviewed. Noted to have a low-grade temperature in the axilla. Hypertensive General: Elderly, chronically ill-appearing 82-year-old female, in no significant distress. HEENT: No scleral icterus, PERRLA, neck supple. Dry mucous membranes. Cardiovascular: Regular rate and rhythm, no extra sounds. Pulmonary: Clear to auscultation bilaterally, normal work of breathing. Abdomen: Soft, nontender, nondistended, positive bowel sounds. Musculoskeletal: Atraumatic, no peripheral edema. Neurologic: Patient somnolent but arousable, answers most questions. Slow and deliberate speech. Skin: Warm, dry, no rash EMERGENCY DEPARTMENT COURSE/MDM: This patient was evaluated and appeared to be in no significant distress. IV access was obtained and laboratory work was drawn. The patient was hydrated with normal saline solution. Yesterday's records were reviewed. The patient did test positive for COVID-19. CT imaging of the head was performed and is negative for acute intracranial abnormality both yesterday and again today. She is noted to be febrile and was given Tylenol prior to coming to the hospital. Urinalysis was negative yesterday. Patient is slightly hyponatremic. She was started on IV normal saline solution. COVID swab is positive again today. Given the confusion, fevers and COVID- positive status, patient will be evaluated by the hospitalist service for further care. MONITORING: An order for cardiac monitoring was placed and the patient is noted to be in a NSR at 86 beats per minute. RADIOLOGY: To my interpretation is negative for focal infiltrate and failure. EKG: Normal sinus rhythm at 95 bpm. QTc is 434. Normal ST segments. No PVC, PAC. No significant change from previous dated 07/12/2022. 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 Required: No Beliefs That Will Affect Care: None marital status: Current Living Situation: Spouse current occupational status: retired Feels Safe at Home: Yes Assistive Devices: Cane Allergies Allergies Allergy/AdvReac Type Severity Reaction Status Date / Time ragweed pollen Allergy Severe Breathing Verified 07/10/22 16:07 issues house dust mite Allergy Unknown Breathing Verified 07/10/22 16:07 issues Vebudmh-AWP-ZhD Reductase AdvReac Unknown Foot cramps Verified 07/10/22 16:07 Inhibitor [Oodvoeo-Bmw-Wur Reductase Inhibitor] Home Meds Home Medications Medication Instructions Recorded Confirmed calcium carbonate 600 mg-vitamin 1 tab PO DAILY 03/05/19 07/13/22 D3 20 mcg (800 unit) chewable tablet (Caltrate 600 plus D) metformin 1,000 mg tablet 1,000 mg PO QAM 03/05/19 07/13/22 metoprolol tartrate 50 mg tablet 50 mg PO BID 03/05/19 07/13/22 quinapril 20 mg tablet 20 mg PO BID 03/05/19 07/13/22 fexofenadine 180 mg tablet 180 mg PO QAM 12/07/19 07/13/22 (Allergy Relief (fexofenadine)) Qunol 1 tab PO DAILY 07/10/22 07/13/22 acetaminophen 325 mg tablet See Rx Instructions .Route .COMPLEX 07/10/22 07/13/22 (Tylenol) amlodipine 5 mg tablet 10 mg PO HS 07/10/22 07/13/22 amoxicillin 500 mg capsule 500 mg PO Q8 07/10/22 07/13/22 atorvastatin 40 mg tablet 40 mg PO HS 07/10/22 07/13/22 empagliflozin 25 mg tablet 25 mg PO QAM 07/10/22 07/13/22 (Jardiance) furosemide 20 mg tablet 20 mg PO QAM 07/10/22 07/13/22 glucosamine-chondroitin 500 mg-400 1 tab PO DAILY 07/10/22 07/13/22 mg tablet (Cosamin DS) insulin glargine 100 unit/mL (3 8 unit subcut HS 07/10/22 07/13/22 mL) subcutaneous pen (Lantus Solostar U-100 Insulin) tramadol 50 mg tablet 50 mg PO Q4 PRN Pain 07/10/22 07/13/22 vitamin B complex 1 tab PO DAILY 07/10/22 07/13/22 Previous Rx's Medication Instructions Recorded clopidogrel 75 mg tablet 75 mg PO QAM 30 days #30 tabs 12/08/19 Results & Data (ED) Vital Signs Vital Signs - 24 hr 07/13/22 20:49 07/13/22 21:11 07/13/22 21:57 Temperature 37.9 C H Temperature Source Axillary Pulse Rate 100 H Pulse Rate [Right Finger] Pulse Rate from SpO2 Sensor Pulse Rhythm Regular Pulse Rhythm [Right Finger] Pulse Strength Normal Pulse Strength [Right Finger] Respiratory Rate 16 Respiratory Effort / Characteristics Non-Labored Respiratory Depth Normal Respiratory Pattern Regular Blood Pressure 208/90 H Blood Pressure [Right Arm] Blood Pressure Mean 129 Blood Pressure Mean [Right Arm] Blood Pressure Position [Right Arm] Pulse Oximetry 99 Oxygen Delivery Method Room Air Room Air Room Air Sepsis Recent Fever Within 48 Hours No Sepsis New/Unexplained Change in Mental Status Yes Sepsis Action Taken by Nursing No Action Required 07/13/22 21:57 07/13/22 23:11 07/13/22 21:06 Temperature 37.9 C H Temperature Source Rectal Pulse Rate 86 Pulse Rate [Right Finger] Pulse Rate from SpO2 Sensor Pulse Rhythm Regular Pulse Rhythm [Right Finger] Pulse Strength Pulse Strength [Right Finger] Respiratory Rate Respiratory Effort / Characteristics Respiratory Depth Respiratory Pattern Blood Pressure 208/90 H Blood Pressure [Right Arm] Blood Pressure Mean 129 Blood Pressure Mean [Right Arm] Blood Pressure Position [Right Arm] Pulse Oximetry 96 Oxygen Delivery Method Room Air Sepsis Recent Fever Within 48 Hours Sepsis New/Unexplained Change in Mental Status Sepsis Action Taken by Nursing 07/13/22 22:00 07/13/22 22:30 07/13/22 23:00 Temperature Temperature Source Pulse Rate Pulse Rate [Right Finger] Pulse Rate from SpO2 Sensor Pulse Rhythm Pulse Rhythm [Right Finger] Pulse Strength Pulse Strength [Right Finger] Respiratory Rate Respiratory Effort / Characteristics Respiratory Depth Respiratory Pattern Blood Pressure 147/67 H 119/62 129/56 L Blood Pressure [Right Arm] Blood Pressure Mean 93 81 80 Blood Pressure Mean [Right Arm] Blood Pressure Position [Right Arm] Pulse Oximetry Oxygen Delivery Method Sepsis Recent Fever Within 48 Hours Sepsis New/Unexplained Change in Mental Status Sepsis Action Taken by Nursing 07/13/22 23:31 07/14/22 01:00 07/14/22 01:07 Temperature 36.8 C Temperature Source Oral Pulse Rate Pulse Rate [Right Finger] 96 H Pulse Rate from SpO2 Sensor Pulse Rhythm Pulse Rhythm [Right Finger] Regular Pulse Strength Pulse Strength [Right Finger] Normal Respiratory Rate 18 Respiratory Effort / Characteristics Non-Labored Respiratory Depth Normal Respiratory Pattern Regular Blood Pressure 178/73 H 171/81 H Blood Pressure [Right Arm] 138/54 L Blood Pressure Mean 108 111 Blood Pressure Mean [Right Arm] 82 Blood Pressure Position [Right Arm] Lying Pulse Oximetry 95 Oxygen Delivery Method Room Air Sepsis Recent Fever Within 48 Hours Sepsis New/Unexplained Change in Mental Status Sepsis Action Taken by Nursing 07/14/22 01:30 07/14/22 02:00 07/14/22 02:00 Temperature Temperature Source Pulse Rate 63 Pulse Rate [Right Finger] Pulse Rate from SpO2 Sensor 63 Pulse Rhythm Pulse Rhythm [Right Finger] Pulse Strength Pulse Strength [Right Finger] Respiratory Rate 14 Respiratory Effort / Characteristics Respiratory Depth Respiratory Pattern Blood Pressure 137/61 126/56 L Blood Pressure [Right Arm] Blood Pressure Mean 86 79 Blood Pressure Mean [Right Arm] Blood Pressure Position [Right Arm] Pulse Oximetry 98 Oxygen Delivery Method Sepsis Recent Fever Within 48 Hours Sepsis New/Unexplained Change in Mental Status Sepsis Action Taken by Nursing 07/14/22 02:10 07/14/22 02:30 Temperature Temperature Source Pulse Rate 61 Pulse Rate [Right Finger] Pulse Rate from SpO2 Sensor 61 Pulse Rhythm Pulse Rhythm [Right Finger] Pulse Strength Pulse Strength [Right Finger] Respiratory Rate 15 Respiratory Effort / Characteristics Respiratory Depth Respiratory Pattern Blood Pressure 141/59 H Blood Pressure [Right Arm] Blood Pressure Mean 86 Blood Pressure Mean [Right Arm] Blood Pressure Position [Right Arm] Pulse Oximetry 98 Oxygen Delivery Method Sepsis Recent Fever Within 48 Hours Sepsis New/Unexplained Change in Mental Status Sepsis Action Taken by Correction Medications Current Medication List: was personally reviewed by me Laboratory Data Attestation: I reviewed the patient's lab results. Result diagrams: 07/13/22 21:08 07/13/22 21:08 Lab Results 07/13/22 07/13/22 07/13/22 Range/Units 21:08 21:08 21:08 WBC 5.36 (4.8-10.8) K/ul RBC 4.27 (3.93-5.22) M/uL Hgb 12.7 (12.0-16.0) g/dl Hct 37.7 (34.1-44.9) % MCV 88.3 (80.0-100.0) fL MCH 29.7 (25.0-34.0) pg MCHC 33.7 (32.0-36.0) g/dL RDW Std Deviation 44.5 (36.4-46.3) fL RDW Coeff of Abner 13.8 (11.5-14.5) % Plt Count 195 (130-400) K/uL MPV 11.2 (9.4-12.3) fL Immature Gran % (Auto) 0.4 % Neut % (Auto) 70.6 % Lymph % (Auto) 14.0 % [place] % (Auto) 12.9 % Eos % (Auto) 1.5 % Baso % (Auto) 0.6 % Neut # (Auto) 3.79 (1.4-6.5) K/uL Lymph # (Auto) 0.75 L (1.2-3.4) K/uL [place] # (Auto) 0.69 (0.24-0.82) K/uL Eos # (Auto) 0.08 (0-0.50) K/uL Baso # (Auto) 0.03 (0-0.2) K/uL Immature Gran # (Auto) 0.02 (0.00-0.02) K/uL PT 10.3 (9.0-12.0) Seconds INR 1.0 (0.9-1.1) APTT 28.2 (21.0-31.0) Seconds PTT Ratio 1.0 Sodium 133 L (136-145) mmol/L Potassium 3.8 (3.5-5.1) mmol/L Chloride 100 (98-107) mmol/L Carbon Dioxide 25 (21-32) mmol/L Anion Gap 8 (3-11) BUN 25 H (6-23) mg/dl Creatinine 0.86 (0.6-1.2) mg/dl Est Cr Clr Drug Dosing Not Reportable Est GFR ( Amer) 72.4 ml/min Est GFR (Non-Af Amer) 62.5 ml/min BUN/Creatinine Ratio 29.1 H (10-20) Glucose 143 H (70-99(Fasting)) mg/dl Calcium 9.6 (8.5-10.1) mg/dl Magnesium 2.1 (1.7-2.4) mg/dl Total Bilirubin 0.4 (0.2-1.0) mg/dl AST 24 (13-39) U/L ALT 25 (7-52) U/L Alkaline Phosphatase 57 (34-104) U/L Total Protein 7.8 (6.0-8.3) gm/dl Albumin 3.9 (3.4-5.0) gm/dl Globulin 3.9 (2.5-4.0) gm/dl Albumin/Globulin Ratio 1.0 (0.9-2) TSH (0.300-4.500) uIu/ml Urine Color Urine Appearance (Clear) Urine pH (4.5-7.5) Ur Specific [place] (1.000-1.030) Urine Protein (Negative) Urine Glucose (UA) (Negative) Urine Ketones (Negative) Urine Blood (Negative) Urine Nitrite (Negative) Urine Bilirubin (Negative) Urine Urobilinogen (Negative) Ur Leukocyte Esterase (Negative) Urine WBC (Auto) (0-5) /hpf Urine RBC (Auto) (0-4) /hpf U Hyaline Cast (Auto) (0-5) /lpf U Epithel Cells (Auto) (0-5) /lpf Urine Bacteria (Auto) (Negative) Urine Opiates Screen (Neg) Ur Methadone, Qual (Neg) Urine Barbiturates (Neg) Ur Phencyclidine (PCP) (Neg) U Amphetamin/Meth Scrn (Neg) MDMA (Ecstasy) Screen (Neg) U Benzodiazepines Scrn (Neg) Ur Cocaine Metabolite (Neg) U Marijuana (THC) Screen (Neg) SARS-CoV-2, RNA, NAAT (NEGATIVE) 07/13/22 07/13/22 07/13/22 Range/Units 21:08 Unknown Unknown WBC (4.8-10.8) K/ul RBC (3.93-5.22) M/uL Hgb (12.0-16.0) g/dl Hct (34.1-44.9) % MCV (80.0-100.0) fL MCH (25.0-34.0) pg MCHC (32.0-36.0) g/dL RDW Std Deviation (36.4-46.3) fL RDW Coeff of Abner (11.5-14.5) % Plt Count (130-400) K/uL MPV (9.4-12.3) fL Immature Gran % (Auto) % Neut % (Auto) % Lymph % (Auto) % [place] % (Auto) % Eos % (Auto) % Baso % (Auto) % Neut # (Auto) (1.4-6.5) K/uL Lymph # (Auto) (1.2-3.4) K/uL [place] # (Auto) (0.24-0.82) K/uL Eos # (Auto) (0-0.50) K/uL Baso # (Auto) (0-0.2) K/uL Immature Gran # (Auto) (0.00-0.02) K/uL PT (9.0-12.0) Seconds INR (0.9-1.1) APTT (21.0-31.0) Seconds PTT Ratio Sodium (136-145) mmol/L Potassium (3.5-5.1) mmol/L Chloride (98-107) mmol/L Carbon Dioxide (21-32) mmol/L Anion Gap (3-11) BUN (6-23) mg/dl Creatinine (0.6-1.2) mg/dl Est Cr Clr Drug Dosing Est GFR ( Amer) ml/min Est GFR (Non-Af Amer) ml/min BUN/Creatinine Ratio (10-20) Glucose (70-99(Fasting)) mg/dl Calcium (8.5-10.1) mg/dl Magnesium (1.7-2.4) mg/dl Total Bilirubin (0.2-1.0) mg/dl AST (13-39) U/L ALT (7-52) U/L Alkaline Phosphatase (34-104) U/L Total Protein (6.0-8.3) gm/dl Albumin (3.4-5.0) gm/dl Globulin (2.5-4.0) gm/dl Albumin/Globulin Ratio (0.9-2) TSH 0.536 (0.300-4.500) uIu/ml Urine Color Yellow Urine Appearance Cloudy A (Clear) Urine pH 6.5 (4.5-7.5) Ur Specific [place] 1.021 (1.000-1.030) Urine Protein Trace H (Negative) Urine Glucose (UA) 3+ H (Negative) Urine Ketones 1+ H (Negative) Urine Blood Negative (Negative) Urine Nitrite Negative (Negative) Urine Bilirubin Negative (Negative) Urine Urobilinogen Negative (Negative) Ur Leukocyte Esterase Negative (Negative) Urine WBC (Auto) 0 (0-5) /hpf Urine RBC (Auto) 0-4 (0-4) /hpf U Hyaline Cast (Auto) 0 (0-5) /lpf U Epithel Cells (Auto) >30 H (0-5) /lpf Urine Bacteria (Auto) Negative (Negative) Urine Opiates Screen Neg (Neg) Ur Methadone, Qual Neg (Neg) Urine Barbiturates Neg (Neg) Ur Phencyclidine (PCP) Neg (Neg) U Amphetamin/Meth Scrn Neg (Neg) MDMA (Ecstasy) Screen Neg (Neg) U Benzodiazepines Scrn Neg (Neg) Ur Cocaine Metabolite Neg (Neg) U Marijuana (THC) Screen Neg (Neg) SARS-CoV-2, RNA, NAAT (NEGATIVE) 07/14/22 07/14/22 Range/Units 00:27 01:04 WBC (4.8-10.8) K/ul RBC (3.93-5.22) M/uL Hgb (12.0-16.0) g/dl Hct (34.1-44.9) % MCV (80.0-100.0) fL MCH (25.0-34.0) pg MCHC (32.0-36.0) g/dL RDW Std Deviation (36.4-46.3) fL RDW Coeff of Abner (11.5-14.5) % Plt Count (130-400) K/uL MPV (9.4-12.3) fL Immature Gran % (Auto) % Neut % (Auto) % Lymph % (Auto) % [place] % (Auto) % Eos % (Auto) % Baso % (Auto) % Neut # (Auto) (1.4-6.5) K/uL Lymph # (Auto) (1.2-3.4) K/uL [place] # (Auto) (0.24-0.82) K/uL Eos # (Auto) (0-0.50) K/uL Baso # (Auto) (0-0.2) K/uL Immature Gran # (Auto) (0.00-0.02) K/uL PT (9.0-12.0) Seconds INR (0.9-1.1) APTT (21.0-31.0) Seconds PTT Ratio Sodium (136-145) mmol/L Potassium (3.5-5.1) mmol/L Chloride (98-107) mmol/L Carbon Dioxide (21-32) mmol/L Anion Gap (3-11) BUN (6-23) mg/dl Creatinine (0.6-1.2) mg/dl Est Cr Clr Drug Dosing Est GFR ( Amer) ml/min Est GFR (Non-Af Amer) ml/min BUN/Creatinine Ratio (10-20) Glucose (70-99(Fasting)) mg/dl Calcium (8.5-10.1) mg/dl Magnesium Cancelled (1.7-2.4) mg/dl Total Bilirubin (0.2-1.0) mg/dl AST (13-39) U/L ALT (7-52) U/L Alkaline Phosphatase (34-104) U/L Total Protein (6.0-8.3) gm/dl Albumin (3.4-5.0) gm/dl Globulin (2.5-4.0) gm/dl Albumin/Globulin Ratio (0.9-2) TSH (0.300-4.500) uIu/ml Urine Color Urine Appearance (Clear) Urine pH (4.5-7.5) Ur Specific [place] (1.000-1.030) Urine Protein (Negative) Urine Glucose (UA) (Negative) Urine Ketones (Negative) Urine Blood (Negative) Urine Nitrite (Negative) Urine Bilirubin (Negative) Urine Urobilinogen (Negative) Ur Leukocyte Esterase (Negative) Urine WBC (Auto) (0-5) /hpf Urine RBC (Auto) (0-4) /hpf U Hyaline Cast (Auto) (0-5) /lpf U Epithel Cells (Auto) (0-5) /lpf Urine Bacteria (Auto) (Negative) Urine Opiates Screen (Neg) Ur Methadone, Qual (Neg) Urine Barbiturates (Neg) Ur Phencyclidine (PCP) (Neg) U Amphetamin/Meth Scrn (Neg) MDMA (Ecstasy) Screen (Neg) U Benzodiazepines Scrn (Neg) Ur Cocaine Metabolite (Neg) U Marijuana (THC) Screen (Neg) SARS-CoV-2, RNA, NAAT POSITIVE A* (NEGATIVE) Administered Medications Sodium Chloride (Nss 1000ml) 1,000 mls @ 80 mls/hr IV .[id number] ONE Stop: 07/14/22 13:33 Last Admin: 07/14/22 01:48 Dose: 80 mls/hr Documented By: ES Discontinued Medications Acetaminophen (Acetaminophen 325 Mg Tab) 650 mg PO NOW STA Stop: 07/14/22 01:03 Last Admin: 07/14/22 01:05 Dose: 650 mg Documented By: ES Sodium Chloride (Nss 1000ml) 1,000 mls @ 125 mls/hr IV .Q8H NEYDA Stop: 08/12/22 23:29 Last Admin: 07/14/22 01:02 Dose: 125 mls/hr Documented By: ES Metoprolol Tartrate (Metoprolol Tartrate 50 Mg Tab) 50 mg PO NOW STA Stop: 07/14/22 01:04 Last Admin: 07/14/22 01:48 Dose: 50 mg Documented By: ES Imaging Data Attestation: I personally reviewed and interpreted this imaging study as follows: Discharge Plan Visit Data Chief Complaint: Confusion Stated Complaint: COVID Positive, AMS, Weakness ED Provider: Lilia Candelario Discharge Problem: COVID, Altered mental status, Hyponatremia Forms Stand Alone Forms: My [facility] Prescriptions Prescriptions: No Action fexofenadine [Allergy Relief (fexofenadine)] 180 mg Tablet 180 mg PO QAM clopidogrel 75 mg Tablet 75 mg PO QAM 30 Days Qty: 30 1RF metformin 1,000 mg tablet 1,000 mg PO QAM metoprolol tartrate 50 mg tablet 50 mg PO BID quinapril 20 mg tablet 20 mg PO BID Caltrate 600 plus D 600 mg (1,500 mg)-800 unit Tablet,Chewable 1 tab PO DAILY Rx Instructions: take with lunch amoxicillin 500 mg capsule 500 mg PO Q8 Rx Instructions: ordered 07/05/22 take for 7 days tramadol 50 mg tablet 50 mg PO Q4 PRN (Reason: Pain) atorvastatin 40 mg tablet 40 mg PO HS amlodipine 5 mg tablet 10 mg PO HS furosemide 20 mg tablet 20 mg PO QAM insulin glargine [Lantus Solostar U-100 Insulin] 100 unit/mL (3 mL) insulin pen 8 unit SUBCUT HS Jardiance 25 mg tablet 25 mg PO QAM vitamin B complex [Super B Complex] Tablet 1 tab PO DAILY Rx Instructions: take with lunch glucosamine-chondroitin [Cosamin DS] 500-400 mg Tablet 1 tab PO DAILY Rx Instructions: take with lunch Qunol 1 tab PO DAILY Rx Instructions: take with lunch acetaminophen [Tylenol] 325 mg Tablet See Rx Instructions .ROUTE .COMPLEX Rx Instructions: take 2 tablets orally in the morning, 1 tablet at 4pm and 2 tablets at bedtime Referrals Referrals: Jhoan Maki, [Primary Care Provider] -
[2022-07-14 00:03] LABS: Appearance Urine Cloudy (Clear); Bacteria Urine Automated Negative (Negative); Bilirubin Urine Negative (Negative); Blood Urine Negative (Negative); Cast Urine Automated 0 /lpf (0-5); Color Urine Yellow; Epithelial Cell Urine Auto >30 /lpf (0-5); Glucose Urine UA 3+ (Negative); Ketones Urine 1+ (Negative); Leukocyte Esterase Urine Negative (Negative); Nitrite Urine Negative (Negative); Protein Urine Trace (Negative); RBC Urine Automated 0-4 /hpf (0-4); Specific Gravity Urine 1.021 (1.000-1.030); Urobilinogen Urine Negative (Negative); WBC Urine Automated 0 /hpf (0-5); pH Urine 6.5 (4.5-7.5)
[2022-07-14 00:50] LABS: Amphetamines+Metham, Urine Neg (Neg); Barbiturates, Urine Neg (Neg); Benzodiazepine, Urine Neg (Neg); Cocaine, Urine Neg (Neg); MDMA (Ecstacy), Urine Neg (Neg); Methadone, Urine Neg (Neg); Opiate, Urine Neg (Neg); Phencyclidine, Urine Neg (Neg)
[2022-07-14] MEDS ORDERED: ACETAMINOPHEN 325 MG TAB PO STA (01:02)
[2022-07-14] MEDS ORDERED: METOPROLOL TARTRATE 50 MG TAB PO STA (01:03)
[2022-07-14] MEDS ORDERED: SODIUM CHLORIDE 0.9% 1000ML 1,000 ML IV ONE (01:04)
--- NOTE | 2022-07-14 01:55 | History & Physical Report ---
Date of Service July 14, 2022 Assessment & Plan (1) Encephalopathy: Plan: COVID-19 illness without respiratory symptoms in an elderly patient. Resolved after IVF administration at the ER. hx CVA hx cerebral aneurysm as per records, intervention not recommended as per [place] [facility] hypertension, currently elevated hyperlipidemia, statin intolerance hx PVD DM2 insulin requiring, reasonable control as of recent hemoglobin A1c of 7.21 June 2022 [facility] Supportive management for COVID-19 illness. No indication for antibiotics or antiviral Rx for now IVF Basal bolus insulin, ISS BG goal 1939, carb count coverage PT OT eval DVT prophylaxis. Lovenox subcu Full code Patient son requesting updates from providers. Mr. Julio Cesar Melgoza, contact #[phone]. Text document was generated using [employer] voice recognition software. It may contain grammatical or spelling errors. Kindly contact undersigned for clarification of any documentation item in question. History of Present Illness Chief Complaint: Confusion as per records Primary Care Provider: Jhoan Maki, History obtained from patient, family, and records. Limited history from patient secondary to chronic cognitive and hearing impairment Medical history significant for CVA, cerebral aneurysm as per records, hypertension, hyperlipidemia, statin intolerance, PVD, DM2 insulin requiring Last confinement November 2019 for CVA. MRI showed small subacute left posterior radial capsular infarct without associated mass-effect or hemorrhagic transformation. Patient had dental surgery last week. 2 ER visits since last week. July 10, patient seen for chest pain attributed to esophageal spasm. Patient discharged home. July 12, patient evaluated for confusion, fever, chills. Frequent urination. Symptoms attributed to COVID-19 infection. Patient completed COVID- 19 vaccination. Not sure about sick contacts. Patient sent home. Yesterday, patient noted to be febrile, 101.5. Patient took a nap and woke up somewhat confused as per . Patient denies headache, chest pain, s hortness of breath, cough, abdominal pain, dysuria symptoms. Improved mentation after receiving IVF bolus at the ER. 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 Allergies Allergy/AdvReac Type Severity Reaction Status Date / Time ragweed pollen Allergy Severe Breathing Verified 07/10/22 16:07 issues house dust mite Allergy Unknown Breathing Verified 07/10/22 16:07 issues Idiobop-GNT-NvZ Reductase AdvReac Unknown Foot cramps Verified 07/10/22 16:07 Inhibitor [Rbfordp-Mhz-Ahq Reductase Inhibitor] Home Medications Medication Instructions Recorded Confirmed Type calcium carbonate 600 mg-vitamin 1 tab PO DAILY 03/05/19 07/13/22 History D3 20 mcg (800 unit) chewable tablet (Caltrate 600 plus D) metformin 1,000 mg tablet 1,000 mg PO QAM 03/05/19 07/13/22 History metoprolol tartrate 50 mg tablet 50 mg PO BID 03/05/19 07/13/22 History quinapril 20 mg tablet 20 mg PO BID 03/05/19 07/13/22 History fexofenadine 180 mg tablet 180 mg PO QAM 12/07/19 07/13/22 History (Allergy Relief (fexofenadine)) clopidogrel 75 mg tablet 75 mg PO QAM 30 days #30 tabs 12/08/19 07/13/22 Rx Qunol 1 tab PO DAILY 07/10/22 07/13/22 History acetaminophen 325 mg tablet See Rx Instructions .Route .COMPLEX 07/10/22 07/13/22 History (Tylenol) amlodipine 5 mg tablet 10 mg PO HS 07/10/22 07/13/22 History amoxicillin 500 mg capsule 500 mg PO Q8 07/10/22 07/13/22 History atorvastatin 40 mg tablet 40 mg PO HS 07/10/22 07/13/22 History empagliflozin 25 mg tablet 25 mg PO QAM 07/10/22 07/13/22 History (Jardiance) furosemide 20 mg tablet 20 mg PO QAM 07/10/22 07/13/22 History glucosamine-chondroitin 500 mg-400 1 tab PO DAILY 07/10/22 07/13/22 History mg tablet (Cosamin DS) insulin glargine 100 unit/mL (3 8 unit subcut HS 07/10/22 07/13/22 History mL) subcutaneous pen (Lantus Solostar U-100 Insulin) tramadol 50 mg tablet 50 mg PO Q4 PRN Pain 07/10/22 07/13/22 History vitamin B complex 1 tab PO DAILY 07/10/22 07/13/22 History Past Med/Surg History Medical History (Updated 07/14/22 @ 08:30 by Rodriguez Walls MD) Anxiety CKD (chronic kidney disease), stage III Diabetes type 2, controlled Hypertension Neuropathy Surgical History No pertinent past surgical history Family History Mother Lung disease Father Lung disease Social History Smoking Status: Never smoker Second Hand Exposure: No; Hx Alcohol Use: Yes Hx Substance Use: No Preferred Language: Sudanese Communication Ability: Effective Grated Cheese Maker Required: No Beliefs That Will Affect Care: None marital status: Current Living Situation: Spouse current occupational status: retired Feels Safe at Home: Yes Assistive Devices: Cane Review of Systems Review of Systems: Could not be reliably obtained secondary to cognitive impairment Physical Exam Physical Exam: GENERAL: Comfortable, oriented to year, pleasant, slightly hard of hearing, no respiratory distress SKIN: Normal color, warm HEENT: [place] palpebral conjunctivae, no ptosis, dry buccal mucosa NECK : Supple, no tenderness CHEST : CTA, no tenderness HEART : RRR, no obvious murmurs ABDOMEN: no distention, nontender EXTREMITIES : Minimal LE swelling/tenderness, no other conspicuous deformities noted NEUROLOGIC : Oriented to year,, no facial asymmetry, slightly hard of hearing, gait and stance not assessed Results & Data Results & Data ([facility]) Vital Signs (Past 12 Hours) Vital Signs Temp Pulse Pulse Resp BP BP Pulse Ox 07/14/22 01:07 171/81 H 07/14/22 01:00 36.8 C 96 H 18 138/54 L 95 07/13/22 23:31 178/73 H 07/13/22 23:00 129/56 L 07/13/22 22:30 119/62 07/13/22 22:00 147/67 H 07/13/22 21:06 208/90 H 07/13/22 23:11 37.9 C H 07/13/22 21:57 86 96 07/13/22 21:57 07/13/22 21:11 07/13/22 20:49 37.9 C H 100 H 16 208/90 H 99 O2 Del Method 07/14/22 01:07 07/14/22 01:00 Room Air 07/13/22 23:31 07/13/22 23:00 07/13/22 22:30 07/13/22 22:00 07/13/22 21:06 07/13/22 23:11 07/13/22 21:57 Room Air 07/13/22 21:57 Room Air 07/13/22 21:11 Room Air 07/13/22 20:49 Room Air Laboratory Results CT head initial read: No ICH, mass effect or edema. No evidence of acute cortical stroke. Periventricular small vessel ischemic change. Visualized sinuses and mastoid air cells are clear. Chest x-ray as per my interpretation atelectasis EKG as per my interpretation :Rate 95, NSR, normal axis, no ischemia
[2022-07-14] MEDS ORDERED: LACTATED RINGER'S 1,000 ML IV ONE (02:47)
[2022-07-14] MEDS ORDERED: CARBOHYDRATES FOR HYPOGLYCEMIA PO PRN (05:11)
[2022-07-14] MEDS ORDERED: GLUCAGON FOR INJ 1 MG VIAL SQ PRN (05:11)
[2022-07-14] MEDS ORDERED: GLUCOSE 10 TAB/TUBE PO PRN (05:11)
[2022-07-14] MEDS ORDERED: DEXTROSE 50% 50 ML SYRINGE IV PRN (05:11)
[2022-07-14] MEDS ORDERED: GLUCOSE 40% GEL 15 GM TUBE PO PRN (05:11)
[2022-07-14] MEDS ORDERED: PROMETHAZINE HCL 6.25 MG in SODIUM CHLORIDE 0.9% 50 ML IV PRN (05:11)
[2022-07-14] MEDS ORDERED: traMADol HCL 50 MG TABLET PO PRN (05:11)
[2022-07-14] MEDS: INSULIN ASPART PER UNIT SC SCH ×4 (05:38→21:28)
[2022-07-14] MEDS: ACETAMINOPHEN 325 MG TAB PO PRN ×2 (06:44→23:34)
[2022-07-14 06:47] LABS: Basophils # (auto) 0.02 K/uL (0-0.2); Basophils % (auto) 0.5 %; Eosinophils # (auto) 0.06 K/uL (0-0.50); Eosinophils % (auto) 1.6 %; Hematocrit (blood only) 35.4 % (34.1-44.9); Hemoglobin 11.8 g/dl (12.0-16.0); Immature Granulocytes # (auto) 0.01 K/uL (0.00-0.02); Immature Granulocytes % (auto) 0.3 %; Lymphocytes # (auto) 0.97 K/uL (1.2-3.4); Lymphocytes % (auto) 26.4 %; Mean Corpuscular Hemoglobin 29.4 pg (25.0-34.0); Mean Corpuscular Hgb Conc 33.3 g/dL (32.0-36.0); Mean Corpuscular Volume 88.3 fL (80.0-100.0); Monocytes # (auto) 0.62 K/uL (0.24-0.82); Monocytes % (auto) 16.9 %; Neutrophils # (auto) 1.99 K/uL (1.4-6.5); Neutrophils % (auto) 54.3 %; Platelet Count 182 K/uL (130-400); RDW Coefficient of Variation 13.8 % (11.5-14.5); RDW Standard Deviation 44.9 fL (36.4-46.3); Red Blood Count 4.01 M/uL (3.93-5.22); White Blood Count 3.67 K/ul (4.8-10.8)
--- NOTE | 2022-07-14 07:23 | CT Scan Report ---
CT OF THE HEAD WITHOUT CONTRAST CLINICAL HISTORY: AMS, fever, COVID + COMPARISON STUDY: Head CT July 12, 2022 and December 25, 2019. CT DOSE: 1228.24 mGy.cm TECHNIQUE: Helical axial images of the head were obtained without IV contrast. Automated exposure con trol was utilized for the study. A dose lowering technique was utilized adhering to the principles o f ALARA. FINDINGS: No acute intracranial hemorrhage, midline shift or mass effect is present. The ventricular system is stable. White matter hypodensities are unchanged and favor small vessel disease. There is a n old infarct within the left external capsule. The basal cisterns are patent. No extra-axial collect ions are present. There are no findings to suggest acute dural sinus thrombosis or acute territorial infarct. No significant calvarial abnormalities are present. Polypoid mucosal thickening of the left maxillary sinus is noted. IMPRESSION: No acute intracranial findings. No change in appearance of the brain. ACT 112: Negative or not required by law. Electronically signed by: John Cantu M.D. 07/14/2022 7:21 AM
[2022-07-14 07:24] LABS: Anion Gap 6 (3-11); BUN Creatinine Ratio 26.3 (10-20); Blood Urea Nitrogen 20 mg/dl (6-23); Calcium 9.1 mg/dl (8.5-10.1); Carbon Dioxide 26 mmol/L (21-32); Chloride 107 mmol/L (98-107); Est GFR (African American) 84.1 ml/min; Est GFR (Non-African American) 72.5 ml/min; Glucose 100 mg/dl (70-99(Fasting)); Potassium 3.7 mmol/L (3.5-5.1); Sodium 139 mmol/L (136-145)
--- NOTE | 2022-07-14 07:46 | XRay Report ---
XR chest 1V portable CLINICAL HISTORY: COVID, AMS TECHNIQUE: Single frontal radiograph of the chest was obtained. Comparison: Comparison is made to chest radiograph 07/12/2022 FINDINGS: No lines and tubes are seen. Calcified aortic knob is seen. The lungs are clear. There is blunting of the right costophrenic angle. IMPRESSION: No radiographic evidence of pneumonia. Blunting of the right costophrenic angle may represent scarrin g versus trace effusion. ACT 112: Negative or not required by law. Electronically signed by: Sebastian Garcia M.D. 07/14/2022 7:45 AM
[2022-07-14] MEDS: ENALAPRIL MALEATE 10 MG TAB PO SCH ×2 (08:14→20:25)
[2022-07-14] MEDS ORDERED: INFLUENZA VACCINE HIGH DOSE PF 65+ 0.7 ML SYR IM ONE (08:46)
[2022-07-14] MEDS ORDERED: ENALAPRIL MALEATE 10 MG TAB PO SCH (09:00)
[2022-07-14] MEDS: ENOXAPARIN INJ 40 MG/0.4 ML SYR SQ SCH (09:48)
[2022-07-14] MEDS: FEXOFENADINE HCL 180 MG TAB PO SCH (09:49)
[2022-07-14] MEDS: METOPROLOL TARTRATE 25 MG TAB PO SCH ×2 (09:49→20:25)
[2022-07-14] MEDS: CLOPIDOGREL BISULFATE 75 MG TAB PO SCH (09:49)
[2022-07-14] MEDS: VITAMIN B COMPLEX TAB PO SCH (09:50)
--- NOTE | 2022-07-14 16:13 | Communication Note ---
Date of Service: July 14, 2022 Patient seen and examined at bedside as a follow-up of encephalopathy likely secondary to COVID-19 illness. Patient received IV fluid in the ED with improvement in her encephalopathy. Patient is on room air and hemodynamically stable. Low-grade fever overnight, afebrile since then. Admitting Pro-Jay negative. No indication of antibiotic or antiviral treatment for now. Continue to monitor. Upon exam, patient was alert and oriented to place and date of , heart/lung/abdomen examination WNL, BLE with 1+ pitting edema. For further information, refer to today's H&P note. PT/OT, recommending SNF, CM to assist with DC planning.
[2022-07-14] MEDS: amLODIPine BESYLATE 5 MG TAB PO SCH (20:24)
[2022-07-14] MEDS: ATORVASTATIN 40 MG TAB PO SCH (20:24)
[2022-07-14] MEDS: LANTUS PER UNIT CHARGE SQ SCH (21:28)
--- NOTE | 2022-07-14 22:52 | Electrocardiogram Report ---
Test Reason : Blood Pressure : / mmHG Vent. Rate : 095 BPM Atrial Rate : 095 BPM P-R Int : 126 ms QRS Dur : 082 ms QT Int : 346 ms P-R-T Axes : 061 039 048 degrees QTc Int : 434 ms Normal sinus rhythm Normal ECG When compared with ECG of 12-JUL-2022 20:24, No significant change was found Confirmed by Pepe Romo ([id number]) on 07/14/2022 10:52:45 PM Referred By: REFERRED SELF Confirmed By:Pepe Romo
[2022-07-15 07:16] LABS: Hematocrit (blood only) 37.2 % (34.1-44.9); Hemoglobin 12.4 g/dl (12.0-16.0); Mean Corpuscular Hemoglobin 29.4 pg (25.0-34.0); Mean Corpuscular Hgb Conc 33.3 g/dL (32.0-36.0); Mean Corpuscular Volume 88.2 fL (80.0-100.0); Mean Platelet Volume 10.6 fL (9.4-12.3); Platelet Count 200 K/uL (130-400); RDW Coefficient of Variation 13.8 % (11.5-14.5); RDW Standard Deviation 44.2 fL (36.4-46.3); Red Blood Count 4.22 M/uL (3.93-5.22); White Blood Count 3.89 K/ul (4.8-10.8)
[2022-07-15 07:35] LABS: Anion Gap 5 (3-11); BUN Creatinine Ratio 13.1 (10-20); Blood Urea Nitrogen 11 mg/dl (6-23); Calcium 9.1 mg/dl (8.5-10.1); Carbon Dioxide 30 mmol/L (21-32); Chloride 102 mmol/L (98-107); Est GFR (African American) 74.5 ml/min; Est GFR (Non-African American) 64.3 ml/min; Glucose 83 mg/dl (70-99(Fasting)); Magnesium 2.2 mg/dl (1.7-2.4); Potassium 3.8 mmol/L (3.5-5.1); Sodium 137 mmol/L (136-145)
[2022-07-15] MEDS: CLOPIDOGREL BISULFATE 75 MG TAB PO SCH (09:19)
[2022-07-15] MEDS: VITAMIN B COMPLEX TAB PO SCH (09:19)
[2022-07-15] MEDS: ENOXAPARIN INJ 40 MG/0.4 ML SYR SQ SCH (09:19)
[2022-07-15] MEDS: FEXOFENADINE HCL 180 MG TAB PO SCH (09:19)
[2022-07-15] MEDS: METOPROLOL TARTRATE 25 MG TAB PO SCH ×2 (09:19→19:56)
[2022-07-15] MEDS: INSULIN ASPART PER UNIT SC SCH ×4 (09:20→21:10)
[2022-07-15] MEDS: ENALAPRIL MALEATE 10 MG TAB PO SCH ×2 (10:00→19:55)
[2022-07-15] MEDS ORDERED: POLYETHYLENE (MIRALAX) 17 GM PACK PO PRN (11:28)
--- NOTE | 2022-07-15 14:48 | Hospitalist Progress Note ---
Date of Service July 15, 2022 Assessment & Plan (1) Encephalopathy: (2) COVID: (3) Diabetes type 2, controlled: (4) Hypertension: (5) Atypical chest pain: (6) Hyponatremia: (7) CKD (chronic kidney disease), stage III: Plan This is an 82-year-old female with PMH of hypertension, hyperlipidemia, PVD, type 2 diabetes, history of CVA and other medical problems below who presents with encephalopathy likely in the setting of COVID-19. Encephalopathy Likely in setting of covid 19 infection. Seems to have resolved after IV fluids. Currently A&Ox3 Head CT -No acute intracranial findings. No change in appearance of the brain Covid 19 infection No respiratory symptoms in an elderly patient. Saturating at 93% on RA No indication for antibiotics or antiviral medications for now Isolation precautions History of CVA Continue plavix, statin Hypertension Continue amlodipine, lasix, lopressor, quinapril DM2 Insulin requiring, reasonable control as of recent hemoglobin A1c of 7.21 June 2022 Hold home agents. Insulin per protocol while in-patient. BSG AC HS Updated Julio Cesar on the phone today ([phone]). Hoping for dc home with [facility] home health services. Not interested in rehab. Admission and Anticipated Discharge Date Admission Date: July 14, 2022 Supervising Physician Co-Signing Physician Notes Patient seen and examined Reports only weakness and constipation on ROS Exam notable for elderly woman, trace pedal edema PT/OT recommends SNF Continue COVID 19 isolation. Bowel regimen. Monitor However, patient stated she wants to go home on discharge CM made referral to HH. Awaiting acceptance prior to dc Agree with other plans as detailed by Christine Cadet PA-C Subjective Seen and examined in 301-1 in follow up for encephalopathy likely secondary to COVID-19 illness. Encephalopathy seemed to resolve after IV fluids given in the ED. Patient is A&Ox3. She is sitting in bedside chair and feels improved since yesterday. Biggest complaint is that she has not had a bowel movement since arrival. Denies any abdominal bloating, nausea or vomiting. No fever, chills, chest pain, shortness of breath dysuria or diarrhea. Lives at home with . Review of Systems Review of Systems: At least ten systems reviewed and negative except as noted in the HPI. Physical Exam Physical Exam: Gen: WD/WN, NAD, sitting in bedside chair, A&Ox3, anxious HEENT: Normocephalic, atraumatic, conjunctivae moist, sclerae anicteric, mucous membranes moist Lung: Clear to Auscultation bilaterally, no wheezes/rales/rhonchi Heart: Regular rate, regular rhythm, no murmurs, rubs, or gallops Abdomen: Soft with mild distension, NT, ND +BS x 4 Extremities: trace BLE edema Skin: Warm, no rash Results & Data Results & Data ([facility]) Vital Signs (Past 12 Hours) Vital Signs Temp Pulse Resp BP Pulse Ox O2 Del Method 07/15/22 10:03 Room Air 07/15/22 08:28 36.8 C 96 H 16 167/70 H 93 Laboratory Results Short CBC 07/15/22 Range/Units 07:04 WBC 3.89 L (4.8-10.8) K/ul Hgb 12.4 (12.0-16.0) g/dl Hct 37.2 (34.1-44.9) % Plt Count 200 (130-400) K/uL BMP 07/15/22 07:04 Sodium 137 Potassium 3.8 Chloride 102 Carbon Dioxide 30 BUN 11 Creatinine 0.84 Glucose 83 Calcium 9.[address] 07/13/22 23:14 CT OF THE HEAD WITHOUT CONTRAST CLINICAL HISTORY: AMS, fever, COVID + COMPARISON STUDY: Head CT July 12, 2022 and December 25, 2019. CT DOSE: 1228.24 mGy.cm TECHNIQUE: Helical axial images of the head were obtained without IV contrast. Automated exposure control was utilized for the study. A dose lowering technique was utilized adhering to the principles of ALARA. FINDINGS: No acute intracranial hemorrhage, midline shift or mass effect is present. The ventricular system is stable. White matter hypodensities are uncha nged and favor small vessel disease. There is an old infarct within the left external capsule. The basal cisterns are patent. No extra-axial collections are present. There are no findings to suggest acute dural sinus thrombosis or acute territorial infarct. No significant calvarial abnormalities are present. Polypoid mucosal thickening of the left maxillary sinus is noted. IMPRESSION: No acute intracranial findings. No change in appearance of the brain. ACT 112: Negative or not required by law. Electronically signed by: John Cantu M.D. 07/14/2022 7:21 AM Chest X-Ray 07/14/22 02:27 XR chest 1V portable CLINICAL HISTORY: COVID, AMS TECHNIQUE: Single frontal radiograph of the chest was obtained. Comparison: Comparison is made to chest radiograph 07/12/2022 FINDINGS: No lines and tubes are seen. Calcified aortic knob is seen. The lungs are clear. There is blunting of the right costophrenic angle. IMPRESSION: No radiographic evidence of pneumonia. Blunting of the right costophrenic angle may represent scarring versus trace effusion. ACT 112: Negative or not required by law. Electronically signed by: Sebastian Garcia M.D. 07/14/2022 7:45 AM (1) Hypertension Hypertension type: unspecified Qualified Code(s): I10 - Essential (primary) hypertension
[2022-07-15] MEDS: ATORVASTATIN 40 MG TAB PO SCH (19:55)
[2022-07-15] MEDS: amLODIPine BESYLATE 5 MG TAB PO SCH (19:55)
[2022-07-15] MEDS: LANTUS PER UNIT CHARGE SQ SCH (21:11)
[2022-07-15] MEDS: ACETAMINOPHEN 325 MG TAB PO PRN (21:15)
[2022-07-16 08:26] LABS: Basophils # (auto) 0.02 K/uL (0-0.2); Basophils % (auto) 0.4 %; Eosinophils # (auto) 0.03 K/uL (0-0.50); Eosinophils % (auto) 0.6 %; Hematocrit (blood only) 36.5 % (34.1-44.9); Hemoglobin 12.4 g/dl (12.0-16.0); Immature Granulocytes # (auto) 0.01 K/uL (0.00-0.02); Immature Granulocytes % (auto) 0.2 %; Lymphocytes # (auto) 1.24 K/uL (1.2-3.4); Lymphocytes % (auto) 26.2 %; Mean Corpuscular Hemoglobin 29.3 pg (25.0-34.0); Mean Corpuscular Volume 86.3 fL (80.0-100.0); Mean Platelet Volume 10.6 fL (9.4-12.3); Monocytes # (auto) 0.42 K/uL (0.24-0.82); Monocytes % (auto) 8.9 %; Neutrophils # (auto) 3.01 K/uL (1.4-6.5); Neutrophils % (auto) 63.7 %; Platelet Count 201 K/uL (130-400); RDW Coefficient of Variation 13.6 % (11.5-14.5); RDW Standard Deviation 42.5 fL (36.4-46.3); Red Blood Count 4.23 M/uL (3.93-5.22); White Blood Count 4.73 K/ul (4.8-10.8)
[2022-07-16 08:51] LABS: Alanine Aminotransferase 16 U/L (7-52); Albumin Level 3.3 gm/dl (3.4-5.0); Alkaline Phosphatase 48 U/L (34-104); Anion Gap 9 (3-11); Aspartate Aminotransferase 18 U/L (13-39); BUN Creatinine Ratio 18.5 (10-20); Bilirubin,Total 0.4 mg/dl (0.2-1.0); Blood Urea Nitrogen 15 mg/dl (6-23); Calcium 8.9 mg/dl (8.5-10.1); Carbon Dioxide 24 mmol/L (21-32); Chloride 103 mmol/L (98-107); Est GFR (African American) 77.8 ml/min; Est GFR (Non-African American) 67.2 ml/min; Globulin 3.4 gm/dl (2.5-4.0); Glucose 103 mg/dl (70-99(Fasting)); Magnesium 2.1 mg/dl (1.7-2.4); Phosphorus 3.4 mg/dl (2.5-4.9); Potassium 3.6 mmol/L (3.5-5.1); Sodium 136 mmol/L (136-145); Total Protein 6.7 gm/dl (6.0-8.3)
[2022-07-16] MEDS: METOPROLOL TARTRATE 25 MG TAB PO SCH (09:34)
[2022-07-16] MEDS: ENALAPRIL MALEATE 10 MG TAB PO SCH (09:34)
[2022-07-16] MEDS: FEXOFENADINE HCL 180 MG TAB PO SCH (09:50)
[2022-07-16] MEDS: VITAMIN B COMPLEX TAB PO SCH (09:50)
[2022-07-16] MEDS: CLOPIDOGREL BISULFATE 75 MG TAB PO SCH (09:50)
[2022-07-16] MEDS: ENOXAPARIN INJ 40 MG/0.4 ML SYR SQ SCH (09:50)
[2022-07-16] MEDS: INSULIN ASPART PER UNIT SC SCH ×2 (10:49→13:25)
--- NOTE | 2022-07-16 16:40 | Discharge Summary ---
Date of Service July 16, 2022 Admission HPI Per Admitting Provider History obtained from patient, family, and records. Limited history from patient secondary to chronic cognitive and hearing impairment Medical history significant for CVA, cerebral aneurysm as per records, hyperten fabby, hyperlipidemia, statin intolerance, PVD, DM2 insulin requiring Last confinement November 2019 for CVA. MRI showed small subacute left posterior radial capsular infarct without associated mass-effect or hemorrhagic transformation. Patient had dental surgery last week. 2 ER visits since last week. July 10, patient seen for chest pain attributed to esophageal spasm. Patient discharged home. July 12, patient evaluated for confusion, fever, chills. Frequent urination. Symptoms attributed to COVID-19 infection. Patient completed COVID- 19 vaccination. Not sure about sick contacts. Patient sent home. Yesterday, patient noted to be febrile, 101.5. Patient took a nap and woke up somewhat confused as per . Patient denies headache, chest pain, shortness of breath, cough, abdominal pain, dysuria symptoms. Improved mentation after receiving IVF bolus at the ER. 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 Admission Exam Per Admitting Provider GENERAL: Comfortable, oriented to year, pleasant, slightly hard of hearing, no respiratory distress SKIN: Normal color, warm HEENT: [place] palpebral conjunctivae, no ptosis, dry buccal mucosa NECK : Supple, no tenderness CHEST : CTA, no tenderness HEART : RRR, no obvious murmurs ABDOMEN: no distention, nontender EXTREMITIES : Minimal LE swelling/tenderness, no other conspicuous deformities noted NEUROLOGIC : Oriented to year,, no facial asymmetry, slightly hard of hearing, gait and stance not assessed Principal Diagnosis Metabolic encephalopathy, COVID-19 infection Discharge Exam Gen: WD/WN, NAD, sitting in bedside chair, A&Ox3, anxious HEENT: Normocephalic, atraumatic, conjunctivae moist, sclerae anicteric, mucous membranes moist Lung: Clear to Auscultation bilaterally, no wheezes/rales/rhonchi Heart: Regular rate, regular rhythm, no murmurs, rubs, or gallops Abdomen: Soft with mild distension, NT, ND +BS x 4 Extremities: trace BLE edema Skin: Warm, no rash Discharge Data Allergies Allergy/AdvReac Type Severity Reaction Status Date / Time ragweed pollen Allergy Severe Breathing Verified 07/10/22 16:07 issues house dust mite Allergy Unknown Breathing Verified 07/10/22 16:07 issues Pefbhwx-KNF-OtO Reductase AdvReac Unknown Foot cramps Verified 07/10/22 16:07 Inhibitor [Rjrglir-Imx-Qmt Reductase Inhibitor] Consultations 07/14/22 00:43 ED Decision to Admit Stat Ordered Studies 07/13/22 23:14 CT head/brain wo con Urgent Hospital Course (1) Encephalopathy: (2) COVID: (3) Diabetes type 2, controlled: (4) Hypertension: (5) Atypical chest pain: (6) Hyponatremia: (7) CKD (chronic kidney disease), stage III: Plan This is an 82-year-old female with PMH of hypertension, hyperlipidemia, PVD, type 2 diabetes, history of CVA and other medical problems below who presents with encephalopathy likely in the setting of COVID-19. Confusion seems to have resolved with IV fluids. Currently oriented to person, place and time. Head CT without any acute intracranial findings or change in appearance of the brain. No respiratory symptoms. Saturating 93% on room air. PT and OT services recommended rehab, but patient and prefer for her to return home with home health services. Continue fall precautions at home and all medications as prescribed. Requires assistance with transfer and ambulation. Discussed discharge plan with over the phone. Patient comfortable and hemodynamically stable at time of discharge. Total Time Total Time Spent Total Time Spent (In Minutes): 35 Discharge Plan Discharge Items Patient Disposition: Home - Home Health Services Reason For Visit: AMS, COVID Discharge Diagnosis: Metabolic encephalopathy, COVID-19 infection Activity: Resume your previous activity Non-emergency contact: Primary Care Provider Call non-emergency contact if: you have any medication questions, your symptoms worsen, your pain is not controlled and you have a fever Follow-up/Referrals: Jhoan Maki DO [Primary Care Provider] - 07/23/22 11:00 am (Date & Time 07/23/2022 11:00 AM Provider Jhoan Maki DO Department [facility] ) Diet: Carb Consistent or DM2 Addtl Attending Provider Instructions: You were admitted for confusion in the setting of COVID-19 infection. Confusion seems to have resolved with IV fluids. Currently oriented to person, place and time. Head CT without any acute intracranial findings or change in appearance of the brain. No respiratory symptoms. Saturating 93% on room air. Continue isolation precautions (additional instructions provided below). PT and OT services recommended rehab, but preference to return home with home health services who will start tomorrow. Continue fall precautions as home. Continue all home medications as prescribed. Discharge plan discussed over the phone with today. RECOMMENDATIONS FOR FOLLOW-UP: Please follow up with primary care provider as above. OTHER INSTRUCTIONS: Seek medical attention if you have: * temperature above 101 * chest pain or trouble breathing * abdominal pain, nausea, vomiting * diarrhea, dark stools or bloody stools * any unanswered questions or concerns Call 911 if symptoms are severe. Please take good care of yourself. Call if you have any questions or problems. You can reach a [facility] hospitalist on duty at [facility] 24 hours a day by calling [phone]. Pending Studies at Discharge: No Stand-Alone Forms: [facility], Smoking Cessation Medications and DC Order Prescriptions: Continued fexofenadine [Allergy Relief (fexofenadine)] 180 mg Tablet 180 mg PO QAM clopidogrel 75 mg Tablet 75 mg PO QAM 30 Days Qty: 30 1RF metformin 1,000 mg tablet 1,000 mg PO QAM metoprolol tartrate 50 mg tablet 50 mg PO BID quinapril 20 mg tablet 20 mg PO BID Caltrate 600 plus D 600 mg (1,500 mg)-800 unit Tablet,Chewable 1 tab PO DAILY Rx Instructions: take with lunch tramadol 50 mg tablet 50 mg PO Q4 PRN (Reason: Pain) atorvastatin 40 mg tablet 40 mg PO HS amlodipine 5 mg tablet 10 mg PO HS furosemide 20 mg tablet 20 mg PO QAM insulin glargine [Lantus Solostar U-100 Insulin] 100 unit/mL (3 mL) insulin pen 8 unit SUBCUT HS Jardiance 25 mg tablet 25 mg PO QAM vitamin B complex Tablet 1 tab PO DAILY Rx Instructions: take with lunch glucosamine-chondroitin [Cosamin DS] 500-400 mg Tablet 1 tab PO DAILY Rx Instructions: take with lunch Qunol 1 tab PO DAILY Rx Instructions: take with lunch acetaminophen [Tylenol] 325 mg Tablet See Rx Instructions .ROUTE .COMPLEX Rx Instructions: take 2 tablets orally in the morning, 1 tablet at 4pm and 2 tablets at bedtime Discontinued amoxicillin 500 mg capsule 500 mg PO Q8 Rx Instructions: ordered 07/05/22 take for 7 days Discharge Orders: Discharge Order (Routine); Ordered 07/16/22 Ordered By: Christine Landers/Other Patient Handouts: COVID-19 Home Care Admission Data Admit Date/Time: 07/14/22 02:43 Attending Provider: Linsday Rivas I. Admit Provider: Rodriguez Walls Primary Care Provider: Jhoan Maki Other Providers: Rodriguez Walls ; Zachariah Cabrales ; Christine Beltre ; [facility],Home Healthcare Other Interventions: Discharge Summary Assessment (RN) Last Done: 07/16/22 15:25 Supervising Physician Co-Signing Physician Notes Patient was seen and examined Patient adamantly refuses rehab recommended by PT/OT and wanted dc home CM arranged HH Provided education on fall precautions as well as home isolation for COVID. Advised to follow up PCP Agree with other plans as detailed by Christine Cadet PA-C
== END 2022-07-16 16:51 | disposition home health service (06) | DRG 177 ==
LOC: ED 20:55 → 3E 07-14 02:43 → SUATTDRO 07-14 02:43 → 3E 07-14 04:22

== ENCOUNTER 2023-08-19 10:26 | Inpatient (IN) ==
[2023-08-19] MEDS ORDERED: SODIUM CHLORIDE 0.9% 1,000 ML IV SCH (11:15)
--- NOTE | 2023-08-19 11:20 | Emergency Department Note ---
Impression & Plan Weakness, Hypertension, Ambulatory dysfunction ED Provider Note NAME: RACHEL WILKINSON AGE: 83 SEX: Female INFORMANT: Patient ED PROVIDER(S): Gurinder Ortiz MD CHIEF COMPLAINT: Weakness PLAN: Disposition: Admitted Outpatient prescription management: none Referral: None MEDICAL DECISION MAKING: Patient presented because of increasing weakness. noted that she had progressive weakness over the last 24 hours but noticeably today where she could not get out of bed. She slid out of bed overnight but did not injure herself. Initially on presentation she had no complaints of pain. She then noted some mild pain in her legs and was given Tylenol. She then complained of severe pain in both legs. I did reevaluate her. No new findings were noted that were not seen on initial examination. I did order x-ray imaging of her lumbar spine, and both legs. No acute fracture or traumatic issues were noted. I could not see any trauma on her physical examination either. She was given tramadol and felt significantly better with this. She was hypertensive but did not take her morning medications. She was given her morning medications. Her urinalysis was unremarkable. Given her history of electrolyte issues she had a full panel checked. She did not have any gross electrolyte abnormalities. The patient did undergo CT imaging of the head which was negative. ECG did not show any acute findings. Chest x-ray was negative as well. Further management in the hospital was deemed appropriate given her progressive weakness and lack of diagnosis here in the emergency department. Patient and felt comfortable with the plan. Consultation was made with the [facility] service. Patient was evaluated in the ER and admitted for further management Care/management discussed with: none Level of care consideration(s): After review of the information above and other included data, I feel the patient requires escalation of care to admission. Triage Nursing notes: reviewed and agree them. Vital Signs: reviewed and remarkable for hypertension Additional History obtained from: Patient's Chronic Medical/Social Conditions affecting care: Hypertension Prior/ Outside/ External records reviewed: none Differential Diagnosis: Trauma, infection, dehydration, metabolic abnormality, hypo/hyperglycemia, electrolyte disturbance, anemia, hypoxia, cardiac sources, intracerebral event, toxicologic, neurologic, as well as other pathologies. Diagnostics, independently interpreted by me: EC Lead ECG performed and revealed Normal sinus rhythm at 80, normal Gore, QRS normal. No elevation or depression. No PACs or PVCs Cardiac Monitoring: Cardiac monitoring ordered by me: The patient was placed on continuous cardiac monitoring and observed. It revealed a normal sinus rhythm at 64 beats per minute without ectopy or evidence of dysrhythmia. Medical decision rules: none Imaging studies: Head CT: A noncontrast CT scan of the head was performed and was negative for tumor, fracture, intracranial hemorrhage, or other acute pathology. Chest x-ray. Findings: A chest x-ray was performed and revealed no pneumothorax, effusion, infiltrate, pulmonary edema, free air under the diaphragm, or wide mediastinum. Impression: No acute disease. HPI: 83 year old Female arrives for evaluation of weakness. notes this started mildly yesterday. SHe slipped out of bed this morning but suffered no injury. noted she was generally weak and had trouble ambulating. Patient is diabetic. He notes fluctuating sugars this week. No URI symptoms. Did note some difficulty urinating. Pt denies LOC, headache, fevers, chills, diaphoresis, visual changes, neck pain, chest pain, breathing difficulties, nausea, vomiting, abdominal pain, back pain, melena, hematochezia, rash, or other complaints. PAST MEDICAL HISTORY: See Below, hypertension PAST SURGICAL HISTORY: See Below, SOCIAL HISTORY: See Below, HOME MEDICATIONS: See Below ALLERGIES: See Below VITALS: See Below PHYSICAL EXAMINATION: GENERAL: Awake, alert, well-appearing, in no distress HENT: Normocephalic, atraumatic. Oropharynx unremarkable. EYES: Normal conjunctiva. Sclera non-icteric. NECK: Inspection normal. Non-tender. Supple. No nuchal rigidity. FROM. No masses. RESPIRATORY: Clear to auscultation. No wheezes. No rales. Normal respiratory effort. CARDIAC: Normal rate. Normal rhythm. No murmurs. No rubs. Extremities warm and well perfused. Pulses equal. No JVD. GI: Soft, non-distended. No tenderness to palpation. No rebound or guarding. No masses. RECTAL: Deferred. MUSCULOSKELETAL: Atraumatic. Chest examination reveals no tenderness. The back is symmetrical on inspection without obvious abnormality. Mild lumbar tenderness to palpation. There is no CVA tenderness to palpation. No joint edema. LOWER EXTREMITIES: Calves are equal size bilaterally and non-tender. 1+ edema. No discoloration. NEURO: Normal sensorium. No sensory or motor deficits noted. SKIN: No rash or jaundice noted. PROCEDURES: none CRITICAL CARE: none OBSERVATION NOTE: none Past Med/Surg History Medical History History of CVA (cerebrovascular accident) Anxiety Neuropathy CKD (chronic kidney disease), stage III Diabetes type 2, controlled Hypertension Surgical History No pertinent past surgical history Family History Mother Lung disease Father Lung disease Social History Smoking Status: Never smoker Second Hand Exposure: No; Do You Dip or Chew Tobacco: No; Hx Alcohol Use: Yes Hx Substance Use: No Preferred Language: Kazakh Communication Ability: Effective Wire Technician Required: No Beliefs That Will Affect Care: None marital status: Current Living Situation: Spouse current occupational status: retired Feels Safe at Home: Yes Assistive Devices: Walker Allergies Allergies Allergy/AdvReac Type Severity Reaction Status Date / Time ragweed pollen Allergy Severe Breathing Verified 08/19/23 13:30 issues house dust mite Allergy Unknown Breathing Verified 08/19/23 13:30 issues Igiyaas-FNH-ZrH Reductase AdvReac Unknown Foot cramps Verified 08/19/23 13:30 Inhibitor [Wilebui-Ord-Uzh Reductase Inhibitor] Home Meds Home Medications Medication Instructions Recorded Confirmed calcium carbonate 600 mg-vitamin 1 tab PO DAILY 03/05/19 08/19/23 D3 20 mcg (800 unit) chewable tablet (Caltrate 600 plus D) metformin 1,000 mg tablet 1,000 mg PO QAM 03/05/19 08/19/23 metoprolol tartrate 50 mg tablet 50 mg PO BID 03/05/19 08/19/23 quinapril 20 mg tablet 20 mg PO BID 03/05/19 08/19/23 fexofenadine 180 mg tablet 180 mg PO QAM 12/07/19 08/19/23 (Allergy Relief (fexofenadine)) acetaminophen 325 mg tablet See Rx Instructions .Route .COMPLEX 07/10/22 08/19/23 (Tylenol) amlodipine 5 mg tablet 10 mg PO HS 07/10/22 08/19/23 atorvastatin 40 mg tablet 40 mg PO HS 07/10/22 08/19/23 empagliflozin 25 mg tablet 25 mg PO QAM 07/10/22 08/19/23 (Jardiance) furosemide 20 mg tablet 20 mg PO QAM 07/10/22 08/19/23 glucosamine-chondroitin 500 mg-400 1 tab PO DAILY 07/10/22 08/19/23 mg tablet (Cosamin DS) insulin glargine 100 unit/mL (3 8 unit subcut HS 07/10/22 08/19/23 mL) subcutaneous pen (Lantus Solostar U-100 Insulin) vitamin B complex 1 tab PO DAILY 07/10/22 08/19/23 coenzyme Q10 100 mg capsule 100 mg PO QAM 08/19/23 08/19/23 (CoQ-10) Previous Rx's Medication Instructions Recorded clopidogrel 75 mg tablet 75 mg PO QAM 30 days #30 tabs 12/08/19 Results & Data (ED) Vital Signs Vital Signs - 24 hr 08/19/23 10:33 08/19/23 10:49 08/19/23 10:50 Temperature 36.4 C Temperature Source Oral Pulse Rate 82 82 Pulse Rate [Right Finger] Pulse Rhythm Regular Pulse Strength Normal Respiratory Rate 20 Respiratory Effort / Characteristics Non-Labored Spontaneous Respiratory Depth Normal Respiratory Pattern Regular Blood Pressure 185/98 H Blood Pressure [Right Arm] Blood Pressure Mean 127 Blood Pressure Mean [Right Arm] Blood Pressure Position Semi-fowlers Pulse Oximetry 96 99 Oxygen Delivery Method Room Air Room Air Sepsis Recent Fever Within 48 Hours No Sepsis New/Unexplained Change in Mental Status N/A Sepsis Action Taken by Nursing No Action Required 08/19/23 10:50 08/19/23 11:29 08/19/23 12:32 Temperature Temperature Source Pulse Rate Pulse Rate [Right Finger] 68 78 Pulse Rhythm Pulse Strength Respiratory Rate 20 16 16 Respiratory Effort / Characteristics Non-Labored Spontaneous Non-Labored Respiratory Depth Normal Normal Respiratory Pattern Regular Blood Pressure Blood Pressure [Right Arm] 201/110 H Blood Pressure Mean Blood Pressure Mean [Right Arm] 140 Blood Pressure Position Pulse Oximetry 99 100 99 Oxygen Delivery Method Room Air Room Air Room Air Sepsis Recent Fever Within 48 Hours Sepsis New/Unexplained Change in Mental Status Sepsis Action Taken by Nursing 08/19/23 14:32 08/19/23 15:58 Temperature Temperature Source Pulse Rate Pulse Rate [Right Finger] 76 64 Pulse Rhythm Pulse Strength Respiratory Rate 16 12 Respiratory Effort / Characteristics Non-Labored Non-Labored Respiratory Depth Normal Normal Respiratory Pattern Blood Pressure Blood Pressure [Right Arm] 192/117 H 192/117 H Blood Pressure Mean Blood Pressure Mean [Right Arm] 142 142 Blood Pressure Position Pulse Oximetry 98 98 Oxygen Delivery Method Room Air Room Air Sepsis Recent Fever Within 48 Hours Sepsis New/Unexplained Change in Mental Status Sepsis Action Taken by Nursing Laboratory Data 08/19/23 10:55 08/19/23 10:55 Lab Results 08/19/23 08/19/23 Range/Units 10:55 14:07 WBC 5.23 (4.8-10.8) K/ul RBC 5.27 (4.20-5.40) M/uL Hgb 15.3 (12.0-16.0) g/dl Hct 45.7 (37.0-47.0) % MCV 86.7 (80.0-100.0) fL MCH 29.0 (25.0-34.0) pg MCHC 33.5 (32.0-36.0) g/dL RDW Std Deviation 44.1 (36.4-46.3) fL RDW Coeff of Abner 13.8 (11.5-14.5) % Plt Count 149 (130-400) K/uL MPV 11.9 (9.4-12.4) fL Immature Gran % (Auto) 0.2 % Neut % (Auto) 65.0 % Lymph % (Auto) 25.6 % Runnels % (Auto) 7.3 % Eos % (Auto) 1.3 % Baso % (Auto) 0.6 % Neut # (Auto) 3.40 (1.40-6.50) K/uL Lymph # (Auto) 1.34 (1.20-3.40) K/uL Runnels # (Auto) 0.38 (0.11-0.59) K/uL Eos # (Auto) 0.07 (0.00-0.50) K/uL Baso # (Auto) 0.03 (0.00-0.20) K/uL Immature Gran # (Auto) 0.01 (0.01-0.20) K/uL Sodium 137 (136-145) mmol/L Potassium 4.1 (3.5-5.1) mmol/L Chloride 102 (98-107) mmol/L Carbon Dioxide 27 (21-32) mmol/L Anion Gap 8 (3-11) BUN 24 H (6-23) mg/dl Creatinine 0.90 (0.6-1.2) mg/dl Est Cr Clr Drug Dosing 40.0 ml/min Est GFR ( Amer) 68.1 ml/min Est GFR (Non-Af Amer) 58.7 ml/min BUN/Creatinine Ratio 26.7 H (10-20) Glucose 188 H (70-99(Fasting)) mg/dl Calcium 10.6 H (8.6-10.3) mg/dl Magnesium 2.0 (1.7-2.4) mg/dl Total Bilirubin 0.7 (0.2-1.0) mg/dl AST 23 (13-39) U/L ALT 17 (7-52) U/L Alkaline Phosphatase 72 (34-104) U/L Troponin I High Sens 12.0 (0-14) pg/ml Total Protein 8.3 (6.0-8.3) gm/dl Albumin 4.3 (3.4-5.0) gm/dl Globulin 4.0 (2.5-4.0) gm/dl Albumin/Globulin Ratio 1.1 (0.9-2) TSH 1.178 (0.300-4.500) uIu/ml Urine Color Yellow Urine Appearance Clear (Clear) Urine pH 8.0 H (4.5-7.5) Ur Specific [facility] 1.008 (1.000-1.030) Urine Protein Trace H (Negative) Urine Glucose (UA) Negative (Negative) Urine Ketones Negative (Negative) Urine Blood Negative (Negative) Urine Nitrite Negative (Negative) Urine Bilirubin Negative (Negative) Urine Urobilinogen Negative (Negative) Ur Leukocyte Esterase Negative (Negative) Urine WBC (Auto) 1-5 (0-5) /hpf Urine RBC (Auto) 0-4 (0-4) /hpf U Hyaline Cast (Auto) 0 (0-5) /lpf U Epithel Cells (Auto) 10-20 H (0-5) /lpf Urine Bacteria (Auto) Negative (Negative) SARS-CoV-2 (PCR) NEGATIVE (Negative) Influenza Type A (PCR) Negative (Neg) Influenza Type B (PCR) Negative (Neg) RSV (RT-PCR) Negative (Neg) Administered Medications Discontinued Medications Enalapril Maleate (Enalapril Maleate 10 Mg Tab) 20 mg PO NOW STA Stop: 08/19/23 16:03 Last Admin: 08/19/23 16:39 Dose: 20 mg Documented By: NRJose D Sodium Chloride (Nss) 1,000 mls @ 125 mls/hr IV .Q8H NEYDA Stop: 08/19/23 19:14 Last Admin: 08/19/23 11:29 Dose: 125 mls/hr Documented By: DAVID Acetaminophen (Ofirmev) 1,000 mg in 100 mls @ 400 mls/hr IV NOW STA Stop: 08/19/23 12:48 Last Infusion: 08/19/23 13:40 Dose: Infused Documented By: NRJose D Admin: 08/19/23 12:38 Dose: 400 mls/hr Documented By: DAVID Metoprolol Tartrate (Metoprolol Tartrate 50 Mg Tab) 50 mg PO NOW STA Stop: 08/19/23 16:03 Last Admin: 08/19/23 16:10 Dose: 50 mg Documented By: DAVID Tramadol HCl (Tramadol Hcl 50 Mg Tablet) 50 mg PO NOW STA Stop: 08/19/23 13:44 Last Admin: 08/19/23 14:08 Dose: 50 mg Documented By: COSME Imaging Data Radiologist's Impression: Chest X-Ray 08/19/23 11:05 XR chest 1V portable HISTORY: 83 years-old Female weakness acute weakness COMPARISON: 07/14/2022 TECHNIQUE: AP view of the chest FINDINGS: A skin fold projects over the right hemithorax. Cardiomediastinal and hilar silhouettes are within normal limits. No pneumothorax, pleural effusion or airspace consolidation. Bones appear grossly intact. Sigmoidal thoracolumbar scoliosis. IMPRESSION: No acute process of the chest. ACT 112: Negative or not required by law. The above report was generated using voice recognition software. It may contain grammatical, syntax or spelling errors. Electronically signed by: Jatinder Padron M.D. 08/19/2023 11:[address] 08/19/23 11:24 CT OF THE HEAD WITHOUT CONTRAST CLINICAL HISTORY: confusion COMPARISON STUDY: MRI of the brain October 13, 2015. Head CT July 14, 2022. CT DOSE: 625.8 mGy.cm TECHNIQUE: Helical axial images of the head were obtained without IV contrast. Automated exposure control was utilized for the study. A dose lowering technique was utilized adhering to the principles of ALARA. FINDINGS: No acute intracranial hemorrhage, midline shift or mass effect is present. The ventricular system is stable. White matter hypodensities are unchanged and favor small vessel disease. Old left basal ganglia infarct is again noted. The basal cisterns are patent. No extra-axial collections are present. There are no findings to suggest acute dural sinus thrombosis or acute territorial infarct. No significant calvarial abnormalities are present. Visualized portions of the sinuses and mastoid air cells are clear. IMPRESSION: No acute intracranial findings. No change in appearance of the brain. ACT 112: Negative or not required by law. Electronically signed by: John Cantu M.D. 08/19/2023 12:01 PM Femur X-Ray 08/19/23 13:43 XR tibia fibula LT 2V, XR femur RT 2V routine CLINICAL HISTORY: fall. Left lower extremity pain. COMPARISON STUDY: None. FINDINGS: The bones are osteopenic. No fractures within the left femur, left tibia, or left tibia. No dislocation. No radiopaque foreign bodies. Soft tissue edema within the left lower leg. The visualized pelvic bones are intact. IMPRESSION: No fractures within the left femur or left lower leg. ACT 112: Negative or not required by law. Electronically signed by: Rm Clay M.D. 08/19/2023 4:03 PM Femur X-Ray 08/19/23 13:43 XR femur LT 2V routine HISTORY: 83 years-old Female fall acute left hip pain status post fall COMPARISON: None TECHNIQUE: 2 views of the left femur FINDINGS: Demineralized appearance of the bones. Moderate osteoarthritis of the left hip. No acute fracture, dislocation or avascular necrosis. Unremarkable soft tissues. Osteoarthritis of the knee. Arterial calcifications. IMPRESSION: Moderate osteoarthritis without acute fracture or dislocation. ACT 112: Negative or not required by law. The above report was generated using voice recognition software. It may contain grammatical, syntax or spelling errors. Electronically signed by: Jatinder Padron M.D. 08/19/2023 3:58 PM Lumbar Spine X-Ray 08/19/23 13:43 XR lumbar spine min 4V routine CLINICAL HISTORY: fall COMPARISON STUDY: No previous studies for comparison. FINDINGS: Mild dextroscoliosis of the lumbar spine is noted. There is also a 6 mm of anterolisthesis of L4 and L5. No lumbar spine fracture is present. There is moderate multilevel facet arthrosis. Moderate multilevel disc space narrowing is noted. 2 gallstones measure up to 6 mm. Bowel gas pattern is normal. IMPRESSION: 1. No lumbar spine fracture or subluxation identified. 2. Mild lumbar spine dextroscoliosis. 3. Moderate multilevel degenerative changes within the lumbar spine. ACT 112: Negative or not required by law. Electronically signed by: John Cantu M.D. 08/19/2023 3:43 PM Tibia/Fibula X-Ray 08/19/23 13:43 XR tibia fibula LT 2V, XR femur RT 2V routine CLINICAL HISTORY: fall. Left lower extremity pain. COMPARISON STUDY: None. FINDINGS: The bones are osteopenic. No fractures within the left femur, left tibia, or left tibia. No dislocation. No radiopaque foreign bodies. Soft tissue edema within the left lower leg. The visualized pelvic bones are intact. IMPRESSION: No fractures within the left femur or left lower leg. ACT 112: Negative or not required by law. Electronically signed by: Rm Clay M.D. 08/19/2023 4:03 PM Tibia/Fibula X-Ray 08/19/23 13:43 XR tibia fibula RT 2V CLINICAL HISTORY: fall COMPARISON: None FINDINGS: No acute fracture within the right tibia or fibula. There is probable osteopenia. Alignment of the right knee and ankle is anatomic. Plantar calcaneal spur is present. IMPRESSION: 1. No acute fracture within the right tibia or fibula. 2. Suspected osteopenia. ACT 112: Negative or not required by law. Electronically signed by: John Cantu M.D. 08/19/2023 3:45 PM Discharge Plan Visit Data Chief Complaint: Fall ED Provider: Gurinder Ortiz Discharge Problem: Weakness, Hypertension, Ambulatory dysfunction Forms Stand Alone Forms: [facility] [employer] Prescriptions Prescriptions: No Action fexofenadine [Allergy Relief (fexofenadine)] 180 mg Tablet 180 mg PO QAM clopidogrel 75 mg Tablet 75 mg PO QAM 30 Days Qty: 30 1RF metformin 1,000 mg tablet 1,000 mg PO QAM metoprolol tartrate 50 mg tablet 50 mg PO BID quinapril 20 mg tablet 20 mg PO BID Caltrate 600 plus D 600 mg (1,500 mg)-800 unit Tablet,Chewable 1 tab PO DAILY Rx Instructions: take with lunch coenzyme Q10 [CoQ-10] 100 mg Capsule 100 mg PO QAM atorvastatin 40 mg tablet 40 mg PO HS amlodipine 5 mg tablet 10 mg PO HS furosemide 20 mg tablet 20 mg PO QAM insulin glargine [Lantus Solostar U-100 Insulin] 100 unit/mL (3 mL) insulin pen 8 unit SUBCUT HS Jardiance 25 mg tablet 25 mg PO QAM vitamin B complex Tablet 1 tab PO DAILY Rx Instructions: take with lunch glucosamine-chondroitin [Cosamin DS] 500-400 mg Tablet 1 tab PO DAILY Rx Instructions: take with lunch acetaminophen [Tylenol] 325 mg Tablet See Rx Instructions .ROUTE .COMPLEX Rx Instructions: take 650mg by mouth in the morning, 325mg at 4pm and 650mg at bedtime Referrals Referrals: Jhoan Maki, [Primary Care Provider] -
[2023-08-19 11:27] LABS: Basophils # (auto) 0.03 K/uL (0.00-0.20); Basophils % (auto) 0.6 %; Eosinophils # (auto) 0.07 K/uL (0.00-0.50); Eosinophils % (auto) 1.3 %; Hematocrit (blood only) 45.7 % (37.0-47.0); Hemoglobin 15.3 g/dl (12.0-16.0); Immature Granulocytes # (auto) 0.01 K/uL (0.01-0.20); Immature Granulocytes % (auto) 0.2 %; Lymphocytes # (auto) 1.34 K/uL (1.20-3.40); Lymphocytes % (auto) 25.6 %; Mean Corpuscular Hgb Conc 33.5 g/dL (32.0-36.0); Mean Corpuscular Volume 86.7 fL (80.0-100.0); Mean Platelet Volume 11.9 fL (9.4-12.4); Monocytes # (auto) 0.38 K/uL (0.11-0.59); Monocytes % (auto) 7.3 %; Platelet Count 149 K/uL (130-400); RDW Coefficient of Variation 13.8 % (11.5-14.5); RDW Standard Deviation 44.1 fL (36.4-46.3); Red Blood Count 5.27 M/uL (4.20-5.40); White Blood Count 5.23 K/ul (4.8-10.8)
[2023-08-19 11:34] LABS: Appearance Urine Clear (Clear); Bacteria Urine Automated Negative (Negative); Bilirubin Urine Negative (Negative); Blood Urine Negative (Negative); Cast Urine Automated 0 /lpf (0-5); Color Urine Yellow; Glucose Urine UA Negative (Negative); Ketones Urine Negative (Negative); Leukocyte Esterase Urine Negative (Negative); Nitrite Urine Negative (Negative); RBC Urine Automated 0-4 /hpf (0-4); Specific Gravity Urine 1.008 (1.000-1.030); Urobilinogen Urine Negative (Negative)
[2023-08-19 11:35] LABS: Albumin Globulin Ratio 1.1 (0.9-2); Albumin Level 4.3 gm/dl (3.4-5.0); BUN Creatinine Ratio 26.7 (10-20); Bilirubin,Total 0.7 mg/dl (0.2-1.0); Calcium 10.6 mg/dl (8.6-10.3); Est GFR (African American) 68.1 ml/min; Est GFR (Non-African American) 58.7 ml/min; Potassium 4.1 mmol/L (3.5-5.1); Total Protein 8.3 gm/dl (6.0-8.3)
--- NOTE | 2023-08-19 11:47 | XRay Report ---
XR chest 1V portable HISTORY: 83 years-old Female weakness acute weakness COMPARISON: 07/14/2022 TECHNIQUE: AP view of the chest FINDINGS: A skin fold projects over the right hemithorax. Cardiomediastinal and hilar silhouettes are within no rmal limits. No pneumothorax, pleural effusion or airspace consolidation. Bones appear grossly intact . Sigmoidal thoracolumbar scoliosis. IMPRESSION: No acute process of the chest. ACT 112: Negative or not required by law. The above report was generated using voice recognition software. It may contain grammatical, syntax o r spelling errors. Electronically signed by: Jatinder Padron M.D. 08/19/2023 11:45 AM
[2023-08-19 11:50] LABS: Thyroid Stimulating Hormone 1.178 uIu/ml (0.300-4.500)
[2023-08-19 11:55] LABS: Protein Urine Trace (Negative)
--- NOTE | 2023-08-19 12:02 | CT Scan Report ---
CT OF THE HEAD WITHOUT CONTRAST CLINICAL HISTORY: confusion COMPARISON STUDY: MRI of the brain October 13, 2015. Head CT July 14, 2022. CT DOSE: 625.8 mGy.cm TECHNIQUE: Helical axial images of the head were obtained without IV contrast. Automated exposure con trol was utilized for the study. A dose lowering technique was utilized adhering to the principles o f ALARA. FINDINGS: No acute intracranial hemorrhage, midline shift or mass effect is present. The ventricular system is stable. White matter hypodensities are unchanged and favor small vessel disease. Old left b jeremie ganglia infarct is again noted. The basal cisterns are patent. No extra-axial collections are pr esent. There are no findings to suggest acute dural sinus thrombosis or acute territorial infarct. No significant calvarial abnormalities are present. Visualized portions of the sinuses and mastoid air cells are clear. IMPRESSION: No acute intracranial findings. No change in appearance of the brain. ACT 112: Negative or not required by law. Electronically signed by: John Cantu M.D. 08/19/2023 12:01 PM
[2023-08-19] MEDS ORDERED: ACETAMINOPHEN 1,000 MG/100 ML VIAL IV STA (12:34)
[2023-08-19] MEDS ORDERED: traMADol HCL 50 MG TABLET PO STA (13:43)
[2023-08-19 14:57] LABS: Influenza A virus by PCR Negative (Neg); Influenza B virus by PCR Negative (Neg); RSV by PCR Negative (Neg); SARS CoV2 RNA(COVID-19) Ceph NEGATIVE (Negative)
--- NOTE | 2023-08-19 15:44 | XRay Report ---
XR lumbar spine min 4V routine CLINICAL HISTORY: fall COMPARISON STUDY: No previous studies for comparison. FINDINGS: Mild dextroscoliosis of the lumbar spine is noted. There is also a 6 mm of anterolisthesis of L4 and L5. No lumbar spine fracture is present. There is moderate multilevel facet arthrosis. Mode rate multilevel disc space narrowing is noted. 2 gallstones measure up to 6 mm. Bowel gas pattern is normal. IMPRESSION: 1. No lumbar spine fracture or subluxation identified. 2. Mild lumbar spine dextroscoliosis. 3. Moderate multilevel degenerative changes within the lumbar spine. ACT 112: Negative or not required by law. Electronically signed by: John Cantu M.D. 08/19/2023 3:43 PM
--- NOTE | 2023-08-19 15:46 | XRay Report ---
XR tibia fibula RT 2V CLINICAL HISTORY: fall COMPARISON: None FINDINGS: No acute fracture within the right tibia or fibula. There is probable osteopenia. Alignmen t of the right knee and ankle is anatomic. Plantar calcaneal spur is present. IMPRESSION: 1. No acute fracture within the right tibia or fibula. 2. Suspected osteopenia. ACT 112: Negative or not required by law. Electronically signed by: John Cantu M.D. 08/19/2023 3:45 PM
--- NOTE | 2023-08-19 15:59 | XRay Report ---
XR femur LT 2V routine HISTORY: 83 years-old Female fall acute left hip pain status post fall COMPARISON: None TECHNIQUE: 2 views of the left femur FINDINGS: Demineralized appearance of the bones. Moderate osteoarthritis of the left hip. No acute fracture, di slocation or avascular necrosis. Unremarkable soft tissues. Osteoarthritis of the knee. Arterial calc ifications. IMPRESSION: Moderate osteoarthritis without acute fracture or dislocation. ACT 112: Negative or not required by law. The above report was generated using voice recognition software. It may contain grammatical, syntax o r spelling errors. Electronically signed by: Jatinder Padron M.D. 08/19/2023 3:58 PM
[2023-08-19] MEDS ORDERED: ENALAPRIL MALEATE 10 MG TAB PO STA (16:02)
[2023-08-19] MEDS ORDERED: METOPROLOL TARTRATE 50 MG TAB PO STA (16:02)
--- NOTE | 2023-08-19 16:05 | XRay Report ---
XR tibia fibula LT 2V, XR femur RT 2V routine CLINICAL HISTORY: fall. Left lower extremity pain. COMPARISON STUDY: None. FINDINGS: The bones are osteopenic. No fractures within the left femur, left tibia, or left tibia. No dislocation. No radiopaque foreign bodies. Soft tissue edema within the left lower leg. The visualiz ed pelvic bones are intact. IMPRESSION: No fractures within the left femur or left lower leg. ACT 112: Negative or not required by law. Electronically signed by: Rm Clay M.D. 08/19/2023 4:03 PM
--- NOTE | 2023-08-19 17:00 | History & Physical Report ---
Date of Service August 19, 2023 Assessment & Plan (1) Weakness: (2) Ambulatory dysfunction: Plan: Patient is 83 y/o F with PMH HTN, dyslipidemia, DM II, CKD III, stroke with residual right sided weakness, LE edema presented to ER with c/o weakness x 1 day. UA unremarkable. Glucose: 188,Ca: 10.6, otherwise no significant electrolyte abnormality CT head: No acute intracranial findings Bilateral femur x-ray: No acute fracture Bilateral tib/fib x-ray: No acute fracture L-spine x-ray: No lumbar spine fracture or subluxation identified. Mild lumbar spine dextroscoliosis. Moderate multilevel degenerative changes within the lumbar spine. CXR: No acute infiltrate Urine culture pending Blood culture pending Respiratory panel pending Fall precautions PT/OT eval CBC, BMP in a.m. (3) Hypertensive urgency: (4) Hypertension: Plan: History hypertension. In ER quite hypertensive. Patient did not have a.m. medicines In ER was given home dose metoprolol tartrate, enalapril with blood pressures significantly improving Resume home amlodipine, quinapril, metoprolol tartrate (5) Diabetes type 2, controlled: Plan: A1c: 7.3 on 03/21/2023 Hold home Jardiance, metformin Continue home Lantus NovoLog sliding scale per protocol (6) Stroke: Plan: Residual right sided weakness Continue atorvastatin, Plavix (7) CKD (chronic kidney disease), stage III: Plan: Cr: 0.9. Baseline (0.9-1) Monitor renal functions, avoid nephrotoxic agents when possible (8) Dyslipidemia: Plan: Continue atorvastatin (9) Leg edema: Plan: Continue Lasix DVT Prophylaxis Heparin SQ Full Code as per discussion with patient and patient's Follows with Dr Jhoan Maki for routine care Pt was seen and care coordinated with Dr Cabrales. See addendum History of Present Illness Chief Complaint: weakness Primary Care Provider: Jhoan Maki DO Patient is 83 y/o F with PMH HTN, dyslipidemia, DM II, CKD III, stroke, LE edema presented to ER with c/o weakness x 1 day. History obtained from patient, , chart review. At baseline patient has chronic right sided weakness from prior CVA as well as some delayed verbal responses from prior stroke reports at baseline some confusion. He states its worse when patient is anxious. feels patients speech and mental status are at baseline. She uses walker at baseline and typically able to ambulate through house and complete her ADLs of dressing, toileting and bathing without assistance. Patient states feeling very weak during the night and couldn't walk using her walker. states this morning she was so weak couldn't get up out of bed and when tried to stand and walk her legs started shaking and lowered her to the floor. Denies any fall. Has chronic tremor. States eating "ok" at home. Admits doesn't drink much. Did not have morning meds today. One week ago patient received recent [place] VID-19 vaccine. States last month had influenza vaccine. Has been having in home PT. Patient with fatigue, urinary urgency beginning of July 2023 and seen at urgent care treated with Bactrim for 3 days for suspected UTI. Urine culture 07/18/23 without significant growth. Denies fever/chills, diaphoresis, N/V/D/C, WYLIE, dizziness, syncope, vision changes, neck pain, CP, SOB, palpitations, cough, sore throat, otalgia, rhinorrhea, abdominal pain, paresthesias, extremity edema, rashes, dysuria, hematuria. Allergies Allergy/AdvReac Type Severity Reaction Status Date / Time ragweed pollen Allergy Severe Breathing Verified 08/19/23 13:30 issues house dust mite Allergy Unknown Breathing Verified 08/19/23 13:30 issues [id number]-DnQ Reductase AdvReac Unknown Foot cramps Verified 08/19/23 13:30 Inhibitor [Rtsqwod-Fdf-Dxk Reductase Inhibitor] Home Medications Medication Instructions Recorded Confirmed Type calcium carbonate 600 mg-vitamin 1 tab PO DAILY 03/05/19 08/19/23 History D3 20 mcg (800 unit) chewable tablet (Caltrate 600 plus D) metformin 1,000 mg tablet 1,000 mg PO QAM 03/05/19 08/19/23 History metoprolol tartrate 50 mg tablet 50 mg PO BID 03/05/19 08/19/23 History quinapril 20 mg tablet 20 mg PO BID 03/05/19 08/19/23 History fexofenadine 180 mg tablet 180 mg PO QAM 12/07/19 08/19/23 History (Allergy Relief (fexofenadine)) clopidogrel 75 mg tablet 75 mg PO QAM 30 days #30 tabs 12/08/19 08/19/23 Rx acetaminophen 325 mg tablet See Rx Instructions .Route .COMPLEX 07/10/22 08/19/23 History (Tylenol) amlodipine 5 mg tablet 10 mg PO HS 07/10/22 08/19/23 History atorvastatin 40 mg tablet 40 mg PO HS 07/10/22 08/19/23 History empagliflozin 25 mg tablet 25 mg PO QAM 07/10/22 08/19/23 History (Jardiance) furosemide 20 mg tablet 20 mg PO QAM 07/10/22 08/19/23 History glucosamine-chondroitin 500 mg-400 1 tab PO DAILY 07/10/22 08/19/23 History mg tablet (Cosamin DS) insulin glargine 100 unit/mL (3 8 unit subcut HS 07/10/22 08/19/23 History mL) subcutaneous pen (Lantus Solostar U-100 Insulin) vitamin B complex 1 tab PO DAILY 07/10/22 08/19/23 History coenzyme Q10 100 mg capsule 100 mg PO QAM 08/19/23 08/19/23 History (CoQ-10) Past Med/Surg History Medical History (Updated 08/19/23 @ 18:18 by Joseline Bill PA-C) Leg edema Dyslipidemia Stroke History of CVA (cerebrovascular accident) Anxiety Neuropathy CKD (chronic kidney disease), stage III Diabetes type 2, controlled Hypertension Surgical History (Updated 08/19/23 @ 18:18 by Joseline Bill PA-C) History of cataract surgery Family History Mother Lung disease Father Lung disease Social History Smoking Status: Never smoker Second Hand Exposure: No; Do You Dip or Chew Tobacco: No; Tobacco Cessation Education Requested by Patient: No Hx Alcohol Use: No Hx Substance Use: No Preferred Language: Lithuanian Communication Ability: Effective Workforce Planner Required: No Beliefs That Will Affect Care: None marital status: Current Living Situation: Spouse current occupational status: retired Other Information That Helps Us Care for You: No Feels Safe at Home: Yes Safety Concerns: Feels Safe At This Time Assistive Devices: Denture - Upper and Denture - Lower Review of Systems Review of Systems: Unobtainable due to cognitive status Physical Exam Physical Exam: PE per Dr Cabrales Results & Data Results & Data Vital Signs (Past 12 Hours) Vital Signs Temp Pulse Pulse Resp BP BP Pulse Ox 08/19/23 15:58 64 12 192/117 H 98 08/19/23 14:32 76 16 192/117 H 98 08/19/23 12:32 78 16 201/110 H 99 08/19/23 11:29 68 16 100 08/19/23 10:50 20 99 08/19/23 10:50 36.4 C 82 20 185/98 H 99 08/19/23 10:49 82 08/19/23 10:33 96 O2 Del Method 08/19/23 15:58 Room Air 08/19/23 14:32 Room Air 08/19/23 12:32 Room Air 08/19/23 11:29 Room Air 08/19/23 10:50 Room Air 08/19/23 10:50 Room Air 08/19/23 10:49 08/19/23 10:33 Room Air Laboratory Results Short CBC 08/19/23 Range/Units 10:55 WBC 5.23 (4.8-10.8) K/ul Hgb 15.3 (12.0-16.0) g/dl Hct 45.7 (37.0-47.0) % Plt Count 149 (130-400) K/uL BMP 08/19/23 10:55 Sodium 137 Potassium 4.1 Chloride 102 Carbon Dioxide 27 BUN 24 H Creatinine 0.90 Glucose 188 H Calcium 10.6 H Liver Function 08/19/23 Range/Units 10:55 Total Bilirubin 0.7 (0.2-1.0) mg/dl AST 23 (13-39) U/L ALT 17 (7-52) U/L Alkaline Phosphatase 72 (34-104) U/L Albumin 4.3 (3.4-5.0) gm/dl Urine 08/19/23 Range/Units 10:55 Urine Color Yellow Urine Appearance Clear (Clear) Urine pH 8.0 H (4.5-7.5) Ur Specific [place] 1.008 (1.000-1.030) Urine Protein Trace H (Negative) Urine Glucose (UA) Negative (Negative) Diagnostic Findings Chest X-Ray 08/19/23 11:05 XR chest 1V portable HISTORY: 83 years-old Female weakness acute weakness COMPARISON: 07/14/2022 TECHNIQUE: AP view of the chest FINDINGS: A skin fold projects over the right hemithorax. Cardiomediastinal and hilar silhouettes are within normal limits. No pneumothorax, pleural effusion or airspace consolidation. Bones appear grossly intact. Sigmoidal thoracolumbar scoliosis. IMPRESSION: No acute process of the chest. ACT 112: Negative or not required by law. The above report was generated using voice recognition software. It may contain grammatical, syntax or spelling errors. Electronically signed by: Jatinder Padron M.D. 08/19/2023 11:[address] 08/19/23 11:24 CT OF THE HEAD WITHOUT CONTRAST CLINICAL HISTORY: confusion COMPARISON STUDY: MRI of the brain October 13, 2015. Head CT July 14. CT DOSE: 625.8 mGy.cm TECHNIQUE: Helical axial images of the head were obtained without IV contrast. Automated exposure control was utilized for the study. A dose lowering technique was utilized adhering to the principles of ALARA. FINDINGS: No acute intracranial hemorrhage, midline shift or mass effect is present. The ventricular system is stable. White matter hypodensities are unch anged and favor small vessel disease. Old left basal ganglia infarct is again noted. The basal cisterns are patent. No extra-axial collections are present. There are no findings to suggest acute dural sinus thrombosis or acute territorial infarct. No significant calvarial abnormalities are present. Visualized portions of the sinuses and mastoid air cells are clear. IMPRESSION: No acute intracranial findings. No change in appearance of the brain. ACT 112: Negative or not required by law. Electronically signed by: John Cantu M.D. 08/19/2023 12:01 PM Femur X-Ray 08/19/23 13:43 XR tibia fibula LT 2V, XR femur RT 2V routine CLINICAL HISTORY: fall. Left lower extremity pain. COMPARISON STUDY: None. FINDINGS: The bones are osteopenic. No fractures within the left femur, left tibia, or left tibia. No dislocation. No radiopaque foreign bodies. Soft tissue edema within the left lower leg. The visualized pelvic bones are intact. IMPRESSION: No fractures within the left femur or left lower leg. ACT 112: Negative or not required by law. Electronically signed by: Rm Clay M.D. 08/19/2023 4:03 PM Femur X-Ray 08/19/23 13:43 XR femur LT 2V routine HISTORY: 83 years-old Female fall acute left hip pain status post fall COMPARISON: None TECHNIQUE: 2 views of the left femur FINDINGS: Demineralized appearance of the bones. Moderate osteoarthritis of the left hip. No acute fracture, dislocation or avascular necrosis. Unremarkable soft tissues. Osteoarthritis of the knee. Arterial calcifications. IMPRESSION: Moderate osteoarthritis without acute fracture or dislocation. ACT 112: Negative or not required by law. The above report was generated using voice recognition software. It may contain grammatical, syntax or spelling errors. Electronically signed by: Jatinder Padron M.D. 08/19/2023 3:58 PM Lumbar Spine X-Ray 08/19/23 13:43 XR lumbar spine min 4V routine CLINICAL HISTORY: fall COMPARISON STUDY: No previous studies for comparison. FINDINGS: Mild dextroscoliosis of the lumbar spine is noted. There is also a 6 mm of anterolisthesis of L4 and L5. No lumbar spine fracture is present. There is moderate multilevel facet arthrosis. Moderate multilevel disc space narrowing is noted. 2 gallstones measure up to 6 mm. Bowel gas pattern is normal. IMPRESSION: 1. No lumbar spine fracture or subluxation identified. 2. Mild lumbar spine dextroscoliosis. 3. Moderate multilevel degenerative changes within the lumbar spine. ACT 112: Negative or not required by law. Electronically signed by: John Cantu M.D. 08/19/2023 3:43 PM Tibia/Fibula X-Ray 08/19/23 13:43 XR tibia fibula LT 2V, XR femur RT 2V routine CLINICAL HISTORY: fall. Left lower extremity pain. COMPARISON STUDY: None. FINDINGS: The bones are osteopenic. No fractures within the left femur, left tibia, or left tibia. No dislocation. No radiopaque foreign bodies. Soft tissue edema within the left lower leg. The visualized pelvic bones are intact. IMPRESSION: No fractures within the left femur or left lower leg. ACT 112: Negative or not required by law. Electronically signed by: Rm Clay M.D. 08/19/2023 4:03 PM Tibia/Fibula X-Ray 08/19/23 13:43 XR tibia fibula RT 2V CLINICAL HISTORY: fall COMPARISON: None FINDINGS: No acute fracture within the right tibia or fibula. There is probable osteopenia. Alignment of the right knee and ankle is anatomic. Plantar calcaneal spur is present. IMPRESSION: 1. No acute fracture within the right tibia or fibula. 2. Suspected osteopenia. ACT 112: Negative or not required by law. Electronically signed by: John Cantu M.D. 08/19/2023 3:45 PM Supervising Physician Co-Signing Physician Notes 83-year-old lady with PMH of HTN, HLD, T2DM, CKD stage III, stroke with right- sided residual weakness presented to the ED secondary to controlled fall. At baseline, patient uses rollator for ambulation. Yesterday evening patient's noted her to be particularly weak, today morning she needed help to get up off bed, she then went to the bathroom using her rollator and then while coming back see needed help. Her approached her in an attempt to help for when her both legs gave up and she fell, this was a controlled fall. Of note, patient had recently gotten COVID-vaccine in the last week, flu vaccine in the last 5-week. Patient denies any febrile illness or sore throat or cough or pain or chest pain or palpitation. Patient does report poor appetite and poor fluid intake lately. Patient denies any pain burning while passing urine, reports moving bowels okay. Labs reviewed, imagings reviewed. Fairly WNL. Acute medical conditions in this admission: Hypertensive urgency: Patient has not taken her a.m. blood pressure medication, will resume her blood pressure medication, PCU telemetry, as needed blood pressure medication. Discontinue IV fluid. Generalized weakness: History is not suggestive of a stroke as of now, will get respiratory viral panel, PT/OT. On examination: GENERAL: Alert and oriented x3. NAD, on RA. Appears weak/frail. Slow to respond but appropriate likely 2/2 forgetfulness. HEENT: No pallor, no icterus. Pupils equal, round and reactive to light. Oral mucosa moist. NECK: No JVD, no neck masses. HEART: S1 and S2 heard. Regular rate and rhythm. No murmur, no gallop. RESPIRATORY SYSTEM: Normal AP diameter. No accessory muscle use. No wheezing, no crackles. ABDOMEN: Soft, bowel sounds present, nontender, no distention. CENTRAL NERVOUS SYSTEM: No facial droop. Speech is clear. Obeys simple commands. Moves extremities. EXTREMITIES: 1+ BLE edema, no erythema seen. b/l hand intention tremor noted. I have seen and examined the patient and have discussed the case with the provider above. I agree with the assessment and plan as stated. This is not
[2023-08-19] MEDS ORDERED: LABETALOL HCL IV 5 MG/ML 20ML IV PRN (17:29)
[2023-08-19] MEDS ORDERED: hydrALAZINE HCL 20 MG/ML VIAL IV PRN (17:29)
--- NOTE | 2023-08-19 20:34 | Electrocardiogram Report ---
Test Reason : Blood Pressure : / mmHG Vent. Rate : 080 BPM Atrial Rate : 080 BPM P-R Int : 140 ms QRS Dur : 084 ms QT Int : 398 ms P-R-T Axes : 078 072 027 degrees QTc Int : 459 ms Normal sinus rhythm Normal ECG When compared with ECG of 13-JUL-2022 21:05, No significant change was found Confirmed by Mychal Leiva ([id number]) on 08/19/2023 8:34:05 PM Referred By: REFERRED SELF Confirmed By:Aguilar Leiva
[2023-08-19 20:57] LABS: Adenovirus PCR Not Detected (NotDetected); Bordetella parapertussis PCR Not Detected (NotDetected); Bordetella pertussis PCR Not Detected (NotDetected); Chlamydia pneumoniae PCR Not Detected (NotDetected); Coronavirus 229E PCR Not Detected (NotDetected); Coronavirus CoV-2 (COVID19)PCR Not Detected (NotDetected); Coronavirus HKU1 PCR Not Detected (NotDetected); Coronavirus NL63 PCR Not Detected (NotDetected); Coronavirus OC43PCR Not Detected (NotDetected); Human Metapneumovirus PCR Not Detected (NotDetected); Influenza A PCR Not Detected (NotDetected); Influenza B PCR Not Detected (NotDetected); Mycoplasma pneumoniae PCR Not Detected (NotDetected); Parainfluenza Virus 1 PCR Not Detected (NotDetected); Parainfluenza Virus 2 PCR Not Detected (NotDetected); Parainfluenza Virus 3 PCR Not Detected (NotDetected); Parainfluenza Virus 4 PCR Not Detected (NotDetected); Respiratory Syncytial VirusPCR Not Detected (NotDetected); Rhinovirus/Enterovirus PCR Not Detected (NotDetected)
[2023-08-19] MEDS ORDERED: DEXTROSE 50% 50 ML SYRINGE IV PRN (22:22)
[2023-08-19] MEDS ORDERED: POLYETHYLENE (MIRALAX) 17 GM PACK PO PRN (22:22)
[2023-08-19] MEDS ORDERED: CARBOHYDRATES FOR HYPOGLYCEMIA PO PRN (22:22)
[2023-08-19] MEDS ORDERED: GLUCAGON FOR INJ 1 MG VIAL SQ PRN (22:22)
[2023-08-19] MEDS ORDERED: GLUCOSE 40% GEL 15 GM TUBE PO PRN (22:22)
[2023-08-19] MEDS ORDERED: ONDANSETRON INJ 2 MG/ML 2 ML VIAL IV PRN (22:22)
[2023-08-19] MEDS ORDERED: GLUCOSE 10 TAB/TUBE PO PRN (22:22)
[2023-08-19] MEDS: traMADol HCL 50 MG TABLET PO PRN (23:05)
[2023-08-19] MEDS: amLODIPine BESYLATE 5 MG TAB PO SCH (23:07)
[2023-08-19] MEDS: HEPARIN SOD 5,000 UNIT/0.5 ML VIAL SQ SCH (23:07)
[2023-08-19] MEDS: ATORVASTATIN 40 MG TAB PO SCH (23:08)
[2023-08-19] MEDS: CLOPIDOGREL BISULFATE 75 MG TAB PO SCH (23:09)
[2023-08-19] MEDS: METOPROLOL TARTRATE 50 MG TAB PO SCH (23:13)
[2023-08-19] MEDS: ENALAPRIL MALEATE 10 MG TAB PO SCH (23:14)
[2023-08-19] MEDS: INSULIN ASPART PER UNIT CHARGE SC SCH (23:26)
[2023-08-19] MEDS: LANTUS PER UNIT CHARGE SQ SCH (23:26)
[2023-08-20] MEDS: INSULIN ASPART PER UNIT CHARGE SC SCH ×4 (07:46→20:06)
[2023-08-20] MEDS: LANTUS PER UNIT CHARGE SQ SCH ×2 (07:53→20:06)
[2023-08-20] MEDS: CLOPIDOGREL BISULFATE 75 MG TAB PO SCH ×2 (07:54→19:44)
[2023-08-20] MEDS: METOPROLOL TARTRATE 50 MG TAB PO SCH ×2 (07:54→19:46)
[2023-08-20] MEDS: FEXOFENADINE HCL 180 MG TAB PO SCH (07:54)
[2023-08-20] MEDS: HEPARIN SOD 5,000 UNIT/0.5 ML VIAL SQ SCH ×2 (07:55→19:46)
[2023-08-20] MEDS: FUROSEMIDE 20 MG TAB PO SCH (07:55)
[2023-08-20] MEDS: ENALAPRIL MALEATE 10 MG TAB PO SCH ×2 (07:55→19:46)
[2023-08-20 08:17] LABS: Hematocrit (blood only) 41.2 % (37.0-47.0); Hemoglobin 13.5 g/dl (12.0-16.0); Mean Corpuscular Hemoglobin 29.3 pg (25.0-34.0); Mean Corpuscular Hgb Conc 32.8 g/dL (32.0-36.0); Mean Corpuscular Volume 89.6 fL (80.0-100.0); Mean Platelet Volume 11.4 fL (9.4-12.4); Platelet Count 150 K/uL (130-400); RDW Standard Deviation 45.1 fL (36.4-46.3); White Blood Count 4.61 K/ul (4.8-10.8)
[2023-08-20 08:39] LABS: Estimated Average Glucose 174 mg/dl; Hemoglobin A1C 7.7 % (4.5-5.6)
[2023-08-20] MEDS ORDERED: INFLUENZA VACCINE HIGH-DOSE (HD-IIV4) PF 65+ 0.7mL SYR IM ONE (09:00)
--- NOTE | 2023-08-20 16:09 | Hospitalist Progress Note ---
Date of Service August 20, 2023 Assessment & Plan (1) Weakness: (2) Ambulatory dysfunction: Plan: Patient is 83 y/o F with PMH HTN, dyslipidemia, DM II, CKD III, stroke with residual right sided weakness, LE edema presented to ER with c/o weakness x 1 day. Generalized weakness Ambulatory dysfunction Unclear etiology DD: Likely deconditioning due to comorbidities in setting of recent COVID/Flu vaccine administration Mechanical fall Recently received flu, COVID-vaccine Blood work, imaging studies not contributory Imaging studies showed no acute fractures Normal TSH Negative BioFire Urine culture, blood culture pending Check vitamin B12, CK levels Ambulates with a walker at baseline PT OT, fall precautions May need rehab placement (3) Hypertensive urgency: (4) Hypertension: Plan: Situational hypertension while in ED H/O Hypertension Continue amlodipine, DAYTON inhibitor, metoprolol tartrate Monitor BP (5) Diabetes type 2, controlled: Plan: A1c: 7.3 on 03/21/2023 Hold home Jardiance, metformin Continue home Lantus NovoLog sliding scale per protocol (6) Stroke: Plan: Residual right sided weakness Continue atorvastatin, Plavix (7) CKD (chronic kidney disease), stage III: Plan: Cr: 0.9. Baseline (0.9-1) Monitor renal functions avoid nephrotoxic agents when possible (8) Dyslipidemia: Plan: Continue atorvastatin (9) Leg edema: Plan: Continue Lasix DVT Px Heparin SQ Code Status Full Code Admission and Anticipated Discharge Date Admission Date: August 19, 2023 Subjective Patient is seen and examined at bedside States having generalized weakness, difficulty with ambulation Denies any chest pain, dyspnea, dizziness, nausea, vomiting, abdominal pain Discussed with patient's family at bedside No other complaints Review of Systems Review of Systems: All systems reviewed & are unremarkable except as noted in Subjective Physical Exam Physical Exam: Physical Exam: Vitals signs as noted above General Appearance: Thin, frail, elderly, no apparent distress Head: normocephalic, Atraumatic Eyes: normal inspection, EOMI Neck: supple, Trachea midline Respiratory/Chest: Normal breath sounds, CTA, No accessory muscle use Cardiovascular: S1, S2, No murmur Abdomen/GI:Soft, Non tender, protuberant, bowel sounds present Extremities/Musculoskeletal:normal inspection, trace pedal edema Neurologic/Psych:AAOX3, right-sided facial droop, RUE/RLE weakness, slow to respond Skin: normal color, warm Results & Data Results & Data Vital Signs (Past 12 Hours) Vital Signs Temp Pulse Pulse Resp BP Pulse Ox O2 Del Method 08/20/23 15:21 36.3 C L 82 18 121/64 96 Room Air 08/20/23 11:18 36.6 C 50 L 16 114/69 98 Room Air 08/20/23 08:00 66 08/20/23 07:45 36.4 C L 70 16 168/74 H 96 Room Air Laboratory Results Short CBC 08/20/23 Range/Units 07:54 WBC 4.61 L (4.8-10.8) K/ul Hgb 13.5 (12.0-16.0) g/dl Hct 41.2 (37.0-47.0) % Plt Count 150 (130-400) K/uL
[2023-08-20] MEDS: traMADol HCL 50 MG TABLET PO PRN (18:52)
[2023-08-20] MEDS: amLODIPine BESYLATE 5 MG TAB PO SCH (19:45)
[2023-08-20] MEDS: ATORVASTATIN 40 MG TAB PO SCH (19:45)
[2023-08-20] MEDS: ACETAMINOPHEN 325 MG TAB PO PRN (22:05)
[2023-08-21] MEDS: traMADol HCL 50 MG TABLET PO PRN ×3 (02:17→19:15)
[2023-08-21 08:03] LABS: Hematocrit (blood only) 41.9 % (37.0-47.0); Hemoglobin 13.8 g/dl (12.0-16.0); Mean Corpuscular Hemoglobin 29.1 pg (25.0-34.0); Mean Corpuscular Hgb Conc 32.9 g/dL (32.0-36.0); Mean Corpuscular Volume 88.4 fL (80.0-100.0); Mean Platelet Volume 12.1 fL (9.4-12.4); Platelet Count 144 K/uL (130-400); RDW Coefficient of Variation 13.9 % (11.5-14.5); RDW Standard Deviation 44.9 fL (36.4-46.3); Red Blood Count 4.74 M/uL (4.20-5.40); White Blood Count 5.41 K/ul (4.8-10.8)
[2023-08-21 08:21] LABS: BUN Creatinine Ratio 26.7 (10-20); Calcium 9.3 mg/dl (8.6-10.3); Creatinine Clr Calc Pharmacy 37.9 ml/min; Est GFR (African American) 68.1 ml/min; Est GFR (Non-African American) 58.7 ml/min; Magnesium 1.9 mg/dl (1.7-2.4)
[2023-08-21] MEDS: FUROSEMIDE 20 MG TAB PO SCH (08:31)
[2023-08-21] MEDS: ENALAPRIL MALEATE 10 MG TAB PO SCH ×2 (08:31→19:18)
[2023-08-21] MEDS: METOPROLOL TARTRATE 50 MG TAB PO SCH ×2 (08:31→19:17)
[2023-08-21] MEDS: FEXOFENADINE HCL 180 MG TAB PO SCH (08:32)
[2023-08-21] MEDS: CLOPIDOGREL BISULFATE 75 MG TAB PO SCH (08:32)
[2023-08-21] MEDS: INSULIN ASPART PER UNIT CHARGE SC SCH ×4 (08:33→20:47)
[2023-08-21] MEDS: LANTUS PER UNIT CHARGE SQ SCH ×2 (08:37→20:46)
[2023-08-21] MEDS: HEPARIN SOD 5,000 UNIT/0.5 ML VIAL SQ SCH ×2 (08:37→20:48)
--- NOTE | 2023-08-21 16:43 | Hospitalist Progress Note ---
Date of Service August 21, 2023 Assessment & Plan (1) Weakness: (2) Ambulatory dysfunction: Plan: Patient is 83 y/o F with PMH HTN, dyslipidemia, DM II, CKD III, stroke with residual right sided weakness, LE edema presented to ER with c/o weakness x 1 day. Generalized weakness Ambulatory dysfunction Unclear etiology DD: Likely deconditioning due to comorbidities in setting of recent COVID/Flu vaccine administration Mechanical fall Recently received flu, COVID-vaccine Blood work, imaging studies not contributory Imaging studies showed no acute fractures Normal TSH Negative BioFire Urine culture, blood culture pending vitamin B12, CK levels normal Ambulates with a walker at baseline PT OT, fall precautions Needs SNF placement (3) Hypertensive urgency: (4) Hypertension: Plan: Situational hypertension while in ED H/O Hypertension Continue amlodipine, DAYTON inhibitor, metoprolol tartrate IV hydralazine as needed Monitor BP (5) Diabetes type 2, controlled: Plan: A1c: 7.3 on 03/21/2023 Hold home Jardiance, metformin Continue home Lantus NovoLog sliding scale per protocol Started on gabapentin 100 mg at bedtime per peripheral neuropathy (6) Stroke: Plan: Residual right sided weakness Continue atorvastatin, Plavix (7) CKD (chronic kidney disease), stage III: Plan: Cr: 0.9. Baseline (0.9-1) Monitor renal functions avoid nephrotoxic agents when possible (8) Dyslipidemia: Plan: Continue atorvastatin (9) Leg edema: Plan: Continue Lasix DVT Px Heparin SQ Code Status Full Code Disposition SNF as able Admission and Anticipated Discharge Date Admission Date: August 21, 2023 Subjective Patient is seen and examined at bedside Reports bilateral lower extremity neuropathic pain Discussed with patient's family at bedside Still has generalized weakness Evaluated by PT today Denies any chest pain, dyspnea, dizziness, nausea, vomiting, abdominal pain Review of Systems Review of Systems: All systems reviewed & are unremarkable except as noted in Subjective Physical Exam Physical Exam: Physical Exam: Vitals signs as noted above General Appearance: Thin, frail, elderly, no apparent distress Head: normocephalic, Atraumatic Eyes: normal inspection, EOMI Neck: supple, Trachea midline Respiratory/Chest: Normal breath sounds, CTA, No accessory muscle use Cardiovascular: S1, S2, No murmur Abdomen/GI:Soft, Non tender, protuberant, bowel sounds present Extremities/Musculoskeletal:normal inspection, trace pedal edema Neurologic/Psych:AAOX3, right-sided facial droop, RUE/RLE weakness, slow to respond Skin: normal color, warm Results & Data Results & Data Vital Signs (Past 12 Hours) Vital Signs Temp Pulse Pulse Resp BP Pulse Ox O2 Del Method 08/21/23 15:16 37.1 C 64 18 185/76 H 99 Room Air 08/21/23 11:22 36.6 C 50 L 20 109/63 93 Room Air 08/21/23 08:00 52 L 08/21/23 07:37 36.5 C 60 18 146/62 H 98 Room Air Laboratory Results Short CBC 08/21/23 Range/Units 07:17 WBC 5.41 (4.8-10.8) K/ul Hgb 13.8 (12.0-16.0) g/dl Hct 41.9 (37.0-47.0) % Plt Count 144 (130-400) K/uL BMP 08/21/23 07:17 Sodium 136 Potassium 4.0 Chloride 102 Carbon Dioxide 30 BUN 24 H Creatinine 0.90 Glucose 130 H Calcium 9.3 Cardiac Enzymes 08/21/23 Range/Units 07:17 Total Creatine Kinase 167 (26-192) U/L
[2023-08-21] MEDS: ATORVASTATIN 40 MG TAB PO SCH (19:18)
[2023-08-21] MEDS: amLODIPine BESYLATE 5 MG TAB PO SCH (19:18)
[2023-08-21] MEDS: GABAPENTIN 100 MG CAP PO SCH (19:18)
[2023-08-22] MEDS: traMADol HCL 50 MG TABLET PO PRN (04:06)
[2023-08-22 07:24] LABS: Hematocrit (blood only) 42.5 % (37.0-47.0); Hemoglobin 14.1 g/dl (12.0-16.0); Mean Corpuscular Hemoglobin 28.8 pg (25.0-34.0); Mean Corpuscular Hgb Conc 33.2 g/dL (32.0-36.0); Mean Corpuscular Volume 86.7 fL (80.0-100.0); Mean Platelet Volume 11.9 fL (9.4-12.4); Platelet Count 168 K/uL (130-400); RDW Coefficient of Variation 13.9 % (11.5-14.5); RDW Standard Deviation 44.3 fL (36.4-46.3); White Blood Count 7.35 K/ul (4.8-10.8)
[2023-08-22 07:45] LABS: BUN Creatinine Ratio 30.5 (10-20); Calcium 9.3 mg/dl (8.6-10.3); Creatinine Clr Calc Pharmacy 41.1 ml/min; Est GFR (African American) 76.2 ml/min; Est GFR (Non-African American) 65.7 ml/min; Potassium 4.2 mmol/L (3.5-5.1)
[2023-08-22] MEDS: METOPROLOL TARTRATE 50 MG TAB PO SCH ×2 (08:59→20:43)
[2023-08-22] MEDS: INSULIN ASPART PER UNIT CHARGE SC SCH ×4 (08:59→20:56)
[2023-08-22] MEDS: FEXOFENADINE HCL 180 MG TAB PO SCH (08:59)
[2023-08-22] MEDS: FUROSEMIDE 20 MG TAB PO SCH (08:59)
[2023-08-22] MEDS: ENALAPRIL MALEATE 10 MG TAB PO SCH ×2 (08:59→20:42)
[2023-08-22] MEDS: VITAMIN B COMPLEX TAB PO SCH (09:00)
[2023-08-22] MEDS: HEPARIN SOD 5,000 UNIT/0.5 ML VIAL SQ SCH ×2 (09:00→20:42)
[2023-08-22] MEDS: LANTUS PER UNIT CHARGE SQ SCH ×2 (09:02→20:56)
[2023-08-22] MEDS: CEROVITE ADV FORMULA TAB PO SCH (09:03)
[2023-08-22] MEDS: busPIRone 5 MG TAB PO SCH ×2 (13:05→20:41)
[2023-08-22 16:11] LABS: A calco-baum cmplx NotReported Not Detected (NotDetected); Bact fragilis Not Reported Not Detected (NotDetected); C auris Not Reported Not Detected (NotDetected); Calbicans Not Reported Not Detected (NotDetected); Candida glabrata Not Reported Not Detected (NotDetected); Candida krusei Not Reported Not Detected (NotDetected); Cneoformans/gatti Not Reported Not Detected (NotDetected); Cparapsilosis Not Reported Not Detected (NotDetected); E cloacae compx Not Reported Not Detected (NotDetected); Efaecalis Not Reported Not Detected (NotDetected); Efaecium Not Reported Not Detected (NotDetected); Enterobacterales Not Reported Not Detected (NotDetected); Escherichia coli Not Reported Not Detected (NotDetected); H influenzae Not Reported Not Detected (NotDetected); K aerogenes Not Reported Not Detected (NotDetected); Koxytoca Not Reported Not Detected (NotDetected); Kpneumoniae grp Not Reported Not Detected (NotDetected); Lmonocyt Not Reported Not Detected (NotDetected); N meningitidis Not Reported Not Detected (NotDetected); P aeruginosa Not Reported Not Detected (NotDetected); Proteus spp Not Reported Not Detected (NotDetected); Salmonella spp Not Reported Not Detected (NotDetected); Smarcescens Not Reported Not Detected (NotDetected); Staph lugdunensis Not Reported Not Detected (NotDetected); Staph spp. Not Reported Not Detected (NotDetected); Staphaureus Not Reported Not Detected (NotDetected); Staphepi Not Reported Not Detected (NotDetected); Stenmaltophilia Not Reported Not Detected (NotDetected); Strep agal(GrpB) Not Reported Not Detected (NotDetected); Strep pneum Not Reported Not Detected (NotDetected); Strep pyog (GrpA) Not Reported Not Detected (NotDetected); Strep spp Not Reported Not Detected (NotDetected)
--- NOTE | 2023-08-22 17:01 | Hospitalist Progress Note ---
Date of Service August 22, 2023 Assessment & Plan (1) Weakness: (2) Ambulatory dysfunction: Plan: Patient is 83 y/o F with PMH HTN, dyslipidemia, DM II, CKD III, stroke with residual right sided weakness, LE edema presented to ER with c/o weakness x 1 day. Generalized weakness Ambulatory dysfunction Unclear etiology DD: Likely deconditioning due to comorbidities in setting of recent COVID/Flu vaccine administration Mechanical fall Recently received flu, COVID-vaccine Blood work, imaging studies not contributory Imaging studies showed no acute fractures Normal TSH Negative BioFire Urine culture negative Reviewed blood cultures vitamin B12, CK levels normal Ambulates with a walker at baseline PT OT, fall precautions Needs SNF placement Case management to help with discharge planning (3) Hypertensive urgency: (4) Hypertension: Plan: Situational hypertension while in ED H/O Hypertension Continue amlodipine, DAYTON inhibitor, metoprolol tartrate IV hydralazine as needed Monitor BP Anxiety disorder Started on BuSpar Adjust medications as needed Abnormal blood cultures 1/4 blood cultures growing gram-negative bacilli Bio fire negative Likely contamination Afebrile, normal WBC count Will consider to repeat blood cultures if needed (5) Diabetes type 2, controlled: Plan: A1c: 7.3 on 03/21/2023 Hold home Jardiance, metformin Continue home Lantus NovoLog sliding scale per protocol Started on gabapentin 100 mg at bedtime per peripheral neuropathy (6) Stroke: Plan: Residual right sided weakness Continue atorvastatin, Plavix (7) CKD (chronic kidney disease), stage III: Plan: Cr: 0.9. Baseline (0.9-1) Monitor renal functions avoid nephrotoxic agents when possible (8) Dyslipidemia: Plan: Continue atorvastatin (9) Leg edema: Plan: Continue Lasix DVT Px Heparin SQ Code Status Full Code Disposition SNF as able Admission and Anticipated Discharge Date Admission Date: August 21, 2023 Subjective Patient is seen and examined at bedside lower extremity neuropathic pain improved per patient Feels anxious intermittently Discussed with patient's family at bedside Generalized weakness better Denies any chest pain, dyspnea, dizziness, nausea, vomiting, abdominal pain Review of Systems Review of Systems: All systems reviewed & are unremarkable except as noted in Subjective Physical Exam Physical Exam: Physical Exam: Vitals signs as noted above General Appearance: Thin, frail, elderly, no apparent distress Head: normocephalic, Atraumatic Eyes: normal inspection, EOMI Neck: supple, Trachea midline Respiratory/Chest: Normal breath sounds, CTA, No accessory muscle use Cardiovascular: S1, S2, No murmur Abdomen/GI:Soft, Non tender, protuberant, bowel sounds present Extremities/Musculoskeletal:normal inspection, trace pedal edema Neurologic/Psych:AAOX3, right-sided facial droop, RUE/RLE weakness, slow to respond Skin: normal color, warm Results & Data Results & Data Vital Signs (Past 12 Hours) Vital Signs Temp Pulse Pulse Resp BP Pulse Ox O2 Del Method 08/22/23 15:18 36.9 C 71 18 157/64 H 96 Room Air 08/22/23 11:28 37.0 C 66 18 177/77 H 96 Room Air 08/22/23 08:00 89 08/22/23 08:00 Room Air 08/22/23 07:55 36.8 C 83 19 178/65 H 93 Room Air Laboratory Results Short CBC 08/22/23 Range/Units 06:40 WBC 7.35 (4.8-10.8) K/ul Hgb 14.1 (12.0-16.0) g/dl Hct 42.5 (37.0-47.0) % Plt Count 168 (130-400) K/uL BMP 08/22/23 06:40 Sodium 132 L Potassium 4.2 Chloride 99 Carbon Dioxide 24 BUN 25 H Creatinine 0.82 Glucose 217 H Calcium 9.3
[2023-08-22] MEDS: amLODIPine BESYLATE 5 MG TAB PO SCH (20:43)
[2023-08-22] MEDS: GABAPENTIN 100 MG CAP PO SCH (20:43)
[2023-08-22] MEDS: ATORVASTATIN 40 MG TAB PO SCH (20:43)
[2023-08-23] MEDS: INSULIN ASPART PER UNIT CHARGE SC SCH ×4 (08:31→20:41)
[2023-08-23] MEDS: CEROVITE ADV FORMULA TAB PO SCH (08:31)
[2023-08-23] MEDS: FEXOFENADINE HCL 180 MG TAB PO SCH (08:31)
[2023-08-23] MEDS: METOPROLOL TARTRATE 50 MG TAB PO SCH ×2 (08:31→20:40)
[2023-08-23] MEDS: FUROSEMIDE 20 MG TAB PO SCH (08:32)
[2023-08-23] MEDS: ENALAPRIL MALEATE 10 MG TAB PO SCH ×2 (08:32→20:40)
[2023-08-23] MEDS: HEPARIN SOD 5,000 UNIT/0.5 ML VIAL SQ SCH ×2 (08:33→20:40)
[2023-08-23] MEDS: LANTUS PER UNIT CHARGE SQ SCH ×2 (08:33→20:41)
[2023-08-23 08:47] LABS: BUN Creatinine Ratio 27.8 (10-20); Calcium 9.3 mg/dl (8.6-10.3); Creatinine Clr Calc Pharmacy 40.8 ml/min; Est GFR (African American) 79.7 ml/min; Est GFR (Non-African American) 68.7 ml/min; Potassium 3.8 mmol/L (3.5-5.1)
[2023-08-23] MEDS: busPIRone 5 MG TAB PO SCH (09:57)
[2023-08-23] MEDS: CLOPIDOGREL BISULFATE 75 MG TAB PO SCH (11:11)
[2023-08-23] MEDS: VITAMIN B COMPLEX TAB PO SCH (12:46)
--- NOTE | 2023-08-23 16:58 | Hospitalist Progress Note ---
Date of Service August 23, 2023 Assessment & Plan (1) Weakness: (2) Ambulatory dysfunction: Plan: Patient is 83 y/o F with PMH HTN, dyslipidemia, DM II, CKD III, stroke with residual right sided weakness, LE edema presented to ER with c/o weakness x 1 day. Generalized weakness Ambulatory dysfunction Unclear etiology DD: Likely deconditioning due to comorbidities in setting of recent COVID/Flu vaccine administration Mechanical fall Recently received flu, COVID-vaccine Blood work, imaging studies not contributory Imaging studies showed no acute fractures Normal TSH Negative BioFire Urine culture negative Reviewed blood cultures vitamin B12, CK levels normal Ambulates with a walker at baseline PT OT, fall precautions Case management to help with discharge planning Waiting for rehab placement (3) Hypertensive urgency: (4) Hypertension: Plan: Situational hypertension while in ED H/O Hypertension Continue amlodipine, DAYTON inhibitor, metoprolol tartrate IV hydralazine as needed Monitor BP Anxiety disorder Discontinued Buspar due to Intolerance Adjust medications as needed Abnormal blood cultures 1/4 blood cultures growing gram-negative bacilli Bio fire negative Likely contamination Afebrile, normal WBC count Discussed with microbiology Lab on 08/23/2023: No significant growth noted (5) Diabetes type 2, controlled: Plan: A1c: 7.3 on 03/21/2023 Hold home Jardiance, metformin Continue home Lantus NovoLog sliding scale per protocol Started on gabapentin 100 mg at bedtime per peripheral neuropathy (6) Stroke: Plan: Residual right sided weakness Continue atorvastatin, Plavix (7) CKD (chronic kidney disease), stage III: Plan: Cr: 0.9. Baseline (0.9-1) Monitor renal functions avoid nephrotoxic agents when possible (8) Dyslipidemia: Plan: Continue atorvastatin (9) Leg edema: Plan: Continue Lasix DVT Px Heparin SQ Code Status Full Code Disposition Rehab when accepted Admission and Anticipated Discharge Date Admission Date: August 21, 2023 Subjective Patient is seen and examined at bedside Had intolerance to BuSpar overnight Doing well this morning No new complaints Waiting for rehab placement Denies any chest pain, dyspnea, dizziness, nausea, vomiting, abdominal pain Review of Systems Review of Systems: All systems reviewed & are unremarkable except as noted in Subjective Physical Exam Physical Exam: Physical Exam: Vitals signs as noted above General Appearance: Thin, frail, elderly, no apparent distress Head: normocephalic, Atraumatic Eyes: normal inspection, EOMI Neck: supple, Trachea midline Respiratory/Chest: Normal breath sounds, CTA, No accessory muscle use Cardiovascular: S1, S2, No murmur Abdomen/GI:Soft, Non tender, protuberant, bowel sounds present Extremities/Musculoskeletal:normal inspection, trace pedal edema Neurologic/Psych:AAOX3, right-sided facial droop, RUE/RLE weakness, slow to respond Skin: normal color, warm Results & Data Results & Data Vital Signs (Past 12 Hours) Vital Signs Temp Pulse Pulse Resp BP Pulse Ox O2 Del Method 08/23/23 12:03 37.2 C 57 L 17 117/67 96 Room Air 08/23/23 11:23 Room Air 08/23/23 07:16 36.6 C 84 20 146/72 H 93 Room Air 08/23/23 05:58 70 Laboratory Results [facility] 08/23/23 07:57 Sodium 136 Potassium 3.8 Chloride 102 Carbon Dioxide 28 BUN 22 Creatinine 0.79 Glucose 152 H Calcium 9.3
[2023-08-23] MEDS: traMADol HCL 50 MG TABLET PO PRN (18:05)
[2023-08-23] MEDS: ATORVASTATIN 40 MG TAB PO SCH (20:39)
[2023-08-23] MEDS: amLODIPine BESYLATE 5 MG TAB PO SCH (20:39)
[2023-08-23] MEDS: ACETAMINOPHEN 325 MG TAB PO PRN (20:40)
[2023-08-23] MEDS: GABAPENTIN 100 MG CAP PO SCH (20:40)
[2023-08-24 07:32] LABS: Hematocrit (blood only) 44.1 % (37.0-47.0); Hemoglobin 14.6 g/dl (12.0-16.0); Mean Corpuscular Hemoglobin 29.3 pg (25.0-34.0); Mean Corpuscular Hgb Conc 33.1 g/dL (32.0-36.0); Mean Corpuscular Volume 88.4 fL (80.0-100.0); Mean Platelet Volume 11.9 fL (9.4-12.4); Platelet Count 142 K/uL (130-400); RDW Coefficient of Variation 14.4 % (11.5-14.5); RDW Standard Deviation 46.4 fL (36.4-46.3); Red Blood Count 4.99 M/uL (4.20-5.40); White Blood Count 7.01 K/ul (4.8-10.8)
[2023-08-24 08:06] LABS: Calcium 9.1 mg/dl (8.6-10.3); Potassium 4.3 mmol/L (3.5-5.1)
[2023-08-24 08:12] LABS: BUN Creatinine Ratio 28.4 (10-20); Creatinine Clr Calc Pharmacy 37.6 ml/min; Est GFR (African American) 69.9 ml/min; Est GFR (Non-African American) 60.3 ml/min
[2023-08-24] MEDS: INSULIN ASPART PER UNIT CHARGE SC SCH ×4 (09:47→20:34)
[2023-08-24] MEDS: METOPROLOL TARTRATE 50 MG TAB PO SCH ×2 (09:59→20:18)
[2023-08-24] MEDS: FEXOFENADINE HCL 180 MG TAB PO SCH (09:59)
[2023-08-24] MEDS: CEROVITE ADV FORMULA TAB PO SCH (09:59)
[2023-08-24] MEDS: CLOPIDOGREL BISULFATE 75 MG TAB PO SCH (10:00)
[2023-08-24] MEDS: FUROSEMIDE 20 MG TAB PO SCH (10:00)
[2023-08-24] MEDS: HEPARIN SOD 5,000 UNIT/0.5 ML VIAL SQ SCH ×2 (10:00→20:18)
[2023-08-24] MEDS: ENALAPRIL MALEATE 10 MG TAB PO SCH ×2 (10:00→20:18)
[2023-08-24] MEDS: LANTUS PER UNIT CHARGE SQ SCH ×2 (10:08→20:35)
[2023-08-24] MEDS: VITAMIN B COMPLEX TAB PO SCH (12:41)
--- NOTE | 2023-08-24 12:44 | Hospitalist Progress Note ---
Date of Service August 24, 2023 Assessment & Plan (1) Weakness: (2) Ambulatory dysfunction: Plan: Patient is 83 y/o F with PMH HTN, dyslipidemia, DM II, CKD III, stroke with residual right sided weakness, LE edema presented to ER with c/o weakness x 1 day. Generalized weakness Ambulatory dysfunction Unclear etiology DD: Likely deconditioning due to comorbidities in setting of recent COVID/Flu vaccine administration Mechanical fall Recently received flu, COVID-vaccine Blood work, imaging studies not contributory Imaging studies showed no acute fractures Normal TSH Negative BioFire Urine culture negative Reviewed blood cultures vitamin B12, CK levels normal Ambulates with a walker at baseline PT OT, fall precautions Case management to help with discharge planning Waiting for rehab placement Stable for discharge (3) Hypertensive urgency: (4) Hypertension: Plan: Situational hypertension while in ED H/O Hypertension Continue amlodipine, DAYTON inhibitor, metoprolol tartrate BP improved Anxiety disorder Discontinued Buspar due to Intolerance Adjust medications as needed Abnormal blood cultures 1/4 blood cultures growing gram-negative bacilli Bio fire negative Likely contamination Afebrile, normal WBC count Discussed with microbiology Lab on 08/23/2023: No significant growth noted (5) Diabetes type 2, controlled: Plan: A1c: 7.3 on 03/21/2023 Hold home Jardiance, metformin Continue home Lantus NovoLog sliding scale per protocol Started on gabapentin 100 mg at bedtime per peripheral neuropathy Clinically improved (6) Stroke: Plan: Residual right sided weakness Continue atorvastatin, Plavix (7) CKD (chronic kidney disease), stage III: Plan: Cr: 0.9. Baseline (0.9-1) Monitor renal functions avoid nephrotoxic agents when possible (8) Dyslipidemia: Plan: Continue atorvastatin (9) Leg edema: Plan: Continue Lasix DVT Px Heparin SQ Code Status Full Code Disposition Rehab when accepted Admission and Anticipated Discharge Date Admission Date: August 21, 2023 Subjective Patient is seen and examined at bedside No events overnight States feeling well today Offers no new complaints Discussed with patient's family at bedside Waiting for rehab placement Denies any chest pain, dyspnea, dizziness, nausea, vomiting, abdominal pain Review of Systems Review of Systems: All systems reviewed & are unremarkable except as noted in Subjective Physical Exam Physical Exam: Physical Exam: Vitals signs as noted above General Appearance: Thin, frail, elderly, no apparent distress Head: normocephalic, Atraumatic Eyes: normal inspection, EOMI Neck: supple, Trachea midline Respiratory/Chest: Normal breath sounds, CTA, No accessory muscle use Cardiovascular: S1, S2, No murmur Abdomen/GI:Soft, Non tender, protuberant, bowel sounds present Extremities/Musculoskeletal:normal inspection, trace pedal edema Neurologic/Psych:AAOX3, right-sided facial droop, RUE/RLE weakness, slow to respond Skin: normal color, warm Results & Data Results & Data Vital Signs (Past 12 Hours) Vital Signs Temp Pulse Pulse Resp BP Pulse Ox O2 Del Method 08/24/23 11:41 36.9 C 57 L 20 123/71 97 Room Air 08/24/23 07:40 36.4 C L 67 18 136/73 93 Room Air 08/24/23 07:39 66 08/24/23 03:00 36.6 C 63 20 156/68 H 95 Room Air Laboratory Results Short CBC 08/24/23 Range/Units 07:12 WBC 7.01 (4.8-10.8) K/ul Hgb 14.6 (12.0-16.0) g/dl Hct 44.1 (37.0-47.0) % Plt Count 142 (130-400) K/uL BMP 08/24/23 07:12 Sodium 135 L Potassium 4.3 Chloride 100 Carbon Dioxide 30 BUN 25 H Creatinine 0.88 Glucose 152 H Calcium 9.1
[2023-08-24] MEDS: GABAPENTIN 100 MG CAP PO SCH (20:18)
[2023-08-24] MEDS: amLODIPine BESYLATE 5 MG TAB PO SCH (20:18)
[2023-08-24] MEDS: ATORVASTATIN 40 MG TAB PO SCH (20:19)
[2023-08-25] MEDS: traMADol HCL 50 MG TABLET PO PRN
[2023-08-25 06:41] LABS: Hematocrit (blood only) 41.4 % (37.0-47.0); Mean Corpuscular Hemoglobin 29.4 pg (25.0-34.0); Mean Corpuscular Hgb Conc 33.8 g/dL (32.0-36.0); Mean Platelet Volume 12.1 fL (9.4-12.4); Platelet Count 156 K/uL (130-400); RDW Standard Deviation 45.3 fL (36.4-46.3); Red Blood Count 4.76 M/uL (4.20-5.40)
[2023-08-25] MEDS: FUROSEMIDE 20 MG TAB PO SCH (08:52)
[2023-08-25] MEDS: CEROVITE ADV FORMULA TAB PO SCH (08:52)
[2023-08-25] MEDS: CLOPIDOGREL BISULFATE 75 MG TAB PO SCH (08:53)
[2023-08-25] MEDS: ENALAPRIL MALEATE 10 MG TAB PO SCH ×2 (08:53→21:36)
[2023-08-25] MEDS: METOPROLOL TARTRATE 50 MG TAB PO SCH ×2 (08:53→21:36)
[2023-08-25] MEDS: FEXOFENADINE HCL 180 MG TAB PO SCH (08:53)
[2023-08-25] MEDS: HEPARIN SOD 5,000 UNIT/0.5 ML VIAL SQ SCH ×2 (08:54→21:35)
[2023-08-25] MEDS: LANTUS PER UNIT CHARGE SQ SCH ×2 (09:11→21:34)
[2023-08-25] MEDS: INSULIN ASPART PER UNIT CHARGE SC SCH ×4 (09:11→21:35)
[2023-08-25] MEDS: VITAMIN B COMPLEX TAB PO SCH (11:49)
--- NOTE | 2023-08-25 14:56 | Hospitalist Progress Note ---
Date of Service August 25, 2023 Assessment & Plan (1) Weakness: (2) Ambulatory dysfunction: Plan: Patient is 83 y/o F with PMH HTN, dyslipidemia, DM II, CKD III, stroke with residual right sided weakness, LE edema presented to ER with c/o weakness x 1 day. Generalized weakness Ambulatory dysfunction Unclear etiology DD: Likely deconditioning due to comorbidities in setting of recent COVID/Flu vaccine administration Mechanical fall Recently received flu, COVID-vaccine Blood work, imaging studies not contributory Imaging studies showed no acute fractures Normal TSH Negative BioFire Urine culture negative Reviewed blood cultures vitamin B12, CK levels normal Ambulates with a walker at baseline PT OT, fall precautions Case management to help with discharge planning Stable for discharge Waiting for rehab placement. (3) Hypertensive urgency: (4) Hypertension: Plan: Situational hypertension while in ED H/O Hypertension Continue amlodipine, DAYTON inhibitor, metoprolol tartrate BP Variable Monitor BP and adjust medications as needed Anxiety disorder Discontinued Buspar due to Intolerance Adjust medications as needed Abnormal blood cultures 1/4 blood cultures growing gram-negative bacilli Bio fire negative Likely contamination Afebrile, normal WBC count Discussed with microbiology Lab on 08/23/2023: No significant growth noted (5) Diabetes type 2, controlled: Plan: A1c: 7.3 on 03/21/2023 Hold home Jardiance, metformin Continue home Lantus NovoLog sliding scale per protocol Started on gabapentin 100 mg at bedtime per peripheral neuropathy Elevated blood glucose levels today. Insulin adjusted. Monitor BGs (6) Stroke: Plan: Residual right sided weakness Continue atorvastatin, Plavix (7) CKD (chronic kidney disease), stage III: Plan: Cr: 0.9. Baseline (0.9-1) Monitor renal functions avoid nephrotoxic agents when possible (8) Dyslipidemia: Plan: Continue atorvastatin (9) Leg edema: Plan: Continue Lasix DVT Px Heparin SQ Code Status Full Code Disposition Rehab when accepted Admission and Anticipated Discharge Date Admission Date: August 21, 2023 Subjective Patient is seen and examined at bedside No new complaints Waiting for rehab placement Discussed with patient's family at bedside Denies any chest pain, dyspnea, dizziness, nausea, vomiting, abdominal pain Review of Systems Review of Systems: All systems reviewed & are unremarkable except as noted in Subjective Physical Exam Physical Exam: Physical Exam: Vitals signs as noted above General Appearance: Thin, frail, elderly, no apparent distress Head: normocephalic, Atraumatic Eyes: normal inspection, EOMI Neck: supple, Trachea midline Respiratory/Chest: Normal breath sounds, CTA, No accessory muscle use Cardiovascular: S1, S2, No murmur Abdomen/GI:Soft, Non tender, protuberant, bowel sounds present Extremities/Musculoskeletal:normal inspection, trace pedal edema Neurologic/Psych:AAOX3, right-sided facial droop, RUE/RLE weakness, slow to respond Skin: normal color, warm Results & Data Results & Data Vital Signs (Past 12 Hours) Vital Signs Temp Pulse Pulse Resp BP Pulse Ox O2 Del Method 08/25/23 14:01 77 08/25/23 11:31 36.7 C 57 L 20 92/54 L 98 Room Air 08/25/23 07:28 37.0 C 67 20 156/68 H 93 Room Air 08/25/23 05:54 68 08/25/23 03:13 36.6 C 65 18 118/59 L 94 Room Air Laboratory Results Short CBC 08/25/23 Range/Units 06:05 WBC 6.10 (4.8-10.8) K/ul Hgb 14.0 (12.0-16.0) g/dl Hct 41.4 (37.0-47.0) % Plt Count 156 (130-400) K/uL
--- OUTSIDE RECORDS SUMMARY | 2023-08-25 21:02 | External Medical Summary | Summary of Care ---
Author Name Unknown Organization [facility] Address [address] [place] [address] Phone [phone] Care Team Providers Care Pool Servicer Name Role Phone Jhoan Maki DO Primary Care Provider [phone] Reason for Visit * Reason Onset Date Comments Medication Refill 07/08/2023 Encounter Details Date Type Department Care Team Description 07/08/2023 Refill [facility] [address] [facility] [place] [address] Jhoan Maki DO [address] [place] [address] Allergies Active Allergy Reactions Severity Noted Date Comments Dust Medium 02/09/2012 Penicillins 09/04/2003 Ragweed 10/05/2012 Breathing problems Ezetimibe Edema face/lips/tongue Medium 12/24/2008 documented as of this encounter (statuses as of 07/08/2023) Medications Medication Sig Dispensed Refills Start Date End Date Status CALTRATE 600 + D 600-125 MG-IU PO TABSIndications:Loss of height 1 po bid 60 12 01/02/2008 Active COSAMIN DS 500-400 MG PO CAPS 2 cap daily at night 0 Active JASON 180 MG PO TABSIndications:Allerg ic rhinitis due to other allergen one tab by mouth daily 90 Tab 3 12/18/2010 Active COENZYME Q10 200 MG PO CAPSIndications:Dyslip idemia, goal LDL below 100,Statin intolerance one tablet daily 30 Cap 11 04/21/2012 Active ONE DAILY FOR WOMEN PO TABS once daily 0 Active B Complex-C (SUPER B COMPLEX) Tablet Take by mouth daily. 0 11/13/2015 Active Acetaminophen ER 650 MG Oral Tablet Extended Release Take 1 Tablet by mouth every 8 hours as needed for Fever. 0 Active Calcium Carb-Cholecalciferol 600-800 MG-UNIT CHEW 1 Tab. 0 03/05/2019 Acti ve Blood Glucose Monitoring Suppl ([employer]) w/Device KIT Use up to 4 times a day E11.9 1 Kit 0 12/18/2019 Active Glucose Blood ([employer]) STRP Use up to 4 times a day E11.9 100 Strip 11 12/18/2019 Active Blood Glucose Monitoring Suppl ([employer]) w/Device KIT Use up to 4 times a day E11.9 1 Kit 0 12/17/2019 Active Glucose Blood STRP Use as directed. 100 Strip 11 12/17/2019 Active exsulinTOUCH DELICA LANCETS 33G MISC Check 4 times daily 100 Each 6 12/18/2019 Active Quinapril HCl 20 MG Oral Tablet (Accupril) Take 1 tablet by mouth twice daily 180 Tablet 3 07/14/2022 Active metFORMIN HCl 1000 MG Oral Tablet (Glucophage)Indication s:DM type 2, not at goal (HCC) Take 1 tablet by mouth once daily 90 Tablet 3 09/07/2022 Active Misc. Devices AFO, right ankle/foot Weakness, right side; Balance issues 1 Each 0 09/22/2022 Active Zoster Vac Recomb Adjuvanted 50 MCG/0.5ML Intramuscular Suspension Reconstituted (Shingrix) Inject 0.5 mL into a large muscle now and repeat dose in 60 to 180 days 1 Each 1 09/27/2022 Active Empagliflozin 25 MG Oral Tablet (Jardiance) Take 1 Tablet by mouth in the morning. 90 Tablet 3 10/27/2022 Active amLODIPine Besylate 5 MG Oral Tablet (Norvasc)Indications:H ypertensive kidney disease with CKD stage III (HCC) TAKE 2 TABLETS BY MOUTH IN THE MORNING 180 Tablet 2 11/25/2022 Active Atorvastatin Calcium 40 MG Oral Tablet (Lipitor) TAKE 1 TABLET BY MOUTH BEFORE BEDTIME 90 Tablet 2 11/25/2022 Active Clopidogrel Bisulfate 75 MG Oral Tablet (pLAVix)Indications:Ce rebrovascular disease, arteriosclerotic, post-stroke,Stroke with cerebral ischemia (HCC) TAKE 1 TABLET BY MOUTH IN THE MORNING 90 Tablet 2 11/25/2022 Active Insulin Glargine Solostar 100 UNIT/ML Subcutaneous Solution Pen-injector (Lantus SoloStar) Inject 8 Units under the skin every night at bedtime. 15 mL 3 04/01/2023 Active Furosemide 20 MG Oral Tablet (Lasix)Indications:Mikael ateral lower extremity edema Take 1 Tablet by mouth in the morning. 90 Tablet 2 05/09/2023 Active Pen [place] 32G X 4 MMIndications:Type 2 diabetes mellitus with hemoglobin A1c goal of less than 8.0% (HCC) Use to inject insulin once daily. 100 Each 3 05/30/2023 Active Metoprolol Tartrate 50 MG Oral Tablet (Lopressor)Indications :Kidney disease, chronic, stage III (GFR 30-59 ml/min) (HCC),HTN, goal below 140/90 Take 1 tablet by mouth twice daily 180 Tablet 1 06/17/2023 Active documented as of this encounter (statuses as of 07/08/2023) Active Problems Problem Noted Date Hypertensive kidney disease with stage 3 a chronic kidney disease 08/25/2020 Overview: Per CKD protocol Need for prophylactic vaccination and in oculation against influenza 07/17/2020 Type 2 diabetes, controlled, with periph eral neuropathy 05/08/2019 Thalamic stroke 05/08/2019 Brain aneurysm 05/08/2019 Neurologic gait dysfunction 01/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 Type 2 diabetes mellitus with peripheral vascular disease 11/07/2018 Diabetes mellitus with stage 3 chronic k idney disease 03/28/2018 Overview: Per CKD protocol #1 PVD (peripheral vascular disease) 2017 Type 2 diabetes mellitus with hemoglobin A1c goal of less than 8.0% 01/12/2015 Overview: ICD-10 update of inactive term HTN, goal below 150/90 06/18/2014 Dyslipidemia, goal LDL below 100 012 Other allergic rhinitis 09/04/2003 Overview: ICD-10 update of inactive term Essential and other specified forms of t remor 09/04/2003 documented as of this encounter (statuses as of 07/08/2023) Resolved Problems Problem Noted Date Resolved Date Hypertensive kidney disease with CKD stage III 0 11/07/2018 08/28/2020 Overview: Per CKD protocol Statin intolerance 09/15/2015 02/18/2021 Kidney disease, chronic, stage III (GFR 30-59 ml /min) 10/03/2014 02/24/2017 Statin intolerance 04/21/2012 12/06/2012 Acute sinusitis 07/31/2011 11/22/2017 HTN, goal below 130/80 11/13/2009 4 Overview: Per HTN Taxonomy. Type 2 diabetes mellitus wit h hemoglobin A1c goal of less than 7.0% 08/14/2009 01/12/2015 Overview: Per Diabetes Taxonomy. ICD-10 update of inactive term KIDNEY DZ,CHRONIC (GFR>30-59) STAGE III 11/03/19 08 10/03/2014 Overview: Dx added based on GFR 52.5 on BMP from 6.30.07 Type 2 diabetes mellitus wit h hemoglobin A1c goal of less than 7.0% 09/04/2003 08/14/2009 Overview: Per Diabetes Taxonomy. ICD-10 update of inactive term HTN, goal below 140/90 09/04/2003 0 Overview: Per HTN Taxonomy. documented as of this encounter (statuses as of 07/08/2023) Immunizations Name Administration Dates Next Due COVID-19 mRNA, LNP-s, No Pre serve, 2-Dose Series (Pfizer) 02/03/2022,07/15/2021,12/22/2020,2020 Covid-19, Mrna, Lnp-s, Pf, B ivalent, 30 Mcg, IM, 12 yrs and above (Pfizer) 10/15/2022 PPD 04/11/2014, 1,02/17/2009,2006 Pneumococcal Conjugate Vacc, 13 Valent (Prevnar) 09/14/2016 Season Influenza, Quad, PF, Adjuvanted, 65+ Yrs, IM (FLUAD) 07/17/2020 Seasonal Influenza, PF, 6 mo ns & Above, IM , (Flulaval) 08/14/2018 Seasonal Influenza, Quadriva lent Hd (Fluzone Hd) 08/02/2022,07/24/2021 Seasonal Influenza, Quadriva lent, No Preserve, IM 09/14/2016,07/16/2015 Seasonal Influenza, Split, I IV3, With Preserve, Inj 09/25/2014,09/14/2013,09/01/2012,2010,08/10/2010,12/06/2007,09/07/2006 Seasonal Influenza, Trivalen t, Adjuvanted, 65+ yrs 09/06/2019 Seasonal Influenza, Trivalen t, High Dose, No Preserve, IM 07/25/2017 TD, Preservative Free 02/17/2009 TDAP (age 10 and older)(Boostrix) 05/05/2017 Zoster Vaccine Recombinant (Shingrix) 02/10/2021 documented as of this encounter Social History Tobacco Use Types Packs/Day Years Used Date Smoking Tobacco: Never Smokeless Tobacco: Never Alcohol Use Standard Drinks/Week Comments Yes 0 (1 standard drink = 0.6 oz pur e alcohol) rare Food Insecurity Answer Date Recorded Within the past 12 months, y ou worried that your food would run out before you got money to buy more. Never true 11/25/2020 Within the past 12 months, t he food you bought just didn't last and you didn't have money to get more. Never true 11/25/2020 Sex Assigned at Date Recorded Not on file Job Start Date Occupation Industry Not on file Not on file Not on file documented as of this encounter Miscellaneous Notes * Telephone Encounter - Otilia Padgett [facility] - 07/08/2023 1:47 PM EDTRefused Prescriptions: Disp Refills Insulin Glargine Solostar 100 UNIT/ML Subc*15 mL 3 Sig: Inject 8 Units under the skin every night at bedtime.Refused By: Valerie PADGETT for Refusal: Too soon--- documented in this encounter Plan of Treatment Upcoming Encounters Date Type Specialty Care Team Description 11/11/2023 Office Visit Pharmacy Pharmacist1, [facility] [address] [facility] [place] [address] 11/11/2023 Office Visit Family Medicine Jhoan Maki, DO [address] [place] [address] Health Maintenance Due Date Last Done Comments Depression Screening 12/05/2020 12/05/2019 Zoster Vaccines (2 of 2) 04/07/2021 02/10/2021 CKD HGB USE SMARTSET 00860 03/09/202303/09, 11/25/2020, 12/06/2019, Additional history exists CKD PHOS USE SMARTSET 48183 03/09/202302/15, 11/25/2020, 03/09/2019, Additional history exists Diabetic Foot Exam 03/09/2023 03/09/2022, 0 11/25/2020, 05/08/2019, Additional history exists Influenza Vaccine (FLU shot) (#1) 2023 08/02/2022, 07/24/2021, 07/17/2020, Additional history exists GFR 09/20/2023 03/21/2023, 02/15, 09/08/2021, Additional history exists HbA1c 09/20/2023 03/21/2023, 09/16, 06/28/2022, Additional history exists DIABETES-EYE EXAM 02/04/2024 02/03/2023, , 12/01/2017, Additional history exists Albumin/Creatinine Ratio 03/21/2024 023, 03/09/2022, 12/15/2020, Additional history exists B-12 03/21/2024 03/21/2023, 08/18, 01/17/2019, Additional history exists DTaP,Tdap,and Td Vaccines (2 - Td or Tdap) 05/05/2027 05/05/2017, 02/17/2009, 02/14/1994 Pneumococcal Vaccine: 65+ Years Completed 09/14/2016, 09/22/2005 COVID-19 Vaccine Completed 10/15/2022, , 07/15/2021, Additional history exists GARDASIL-HPV IMMUNIZATION SERIES Aged Out No longer eligible based on patient's age to complete this topic Hepatitis B Aged Out No longer eligi ble based on patient's age to complete this topic MENINGOCOCCAL (MENACTRA/MENVEO) Aged Out No longer eligible based on patient's age to complete this topic documented as of this encounter Medical Devices Implanted Type Area Appeals Specialist Device Identifier Shelf Expiration Date Model / Serial / Lot Lens Intraoc 23.0 - [id number] - [id number] Implanted:Qty: 1 on 12/22/2021 by Long Huddleston MD at OR [facility] Left: Eye [employer] 06/16/2026 [id number] / [id number] / [id number] Lens Intraoc 22.0 - [id number] - [id number] Implanted:Qty: 1 on 01/05/2022 by Long Huddleston MD at OR [facility] Right: Eye [employer] 07/16/2026 [id number] / [id number] / [id number] documented as of this encounter Care Teams Pool Servicer Relationship Specialty Start Date End Date Jhoan Maki, DO [address] [place] [address] PCP - General Family Medicine 11/07/18 documented as of this encounter
--- OUTSIDE RECORDS SUMMARY | 2023-08-25 21:02 | External Medical Summary | Summary of Care ---
Author Name Unknown Organization [facility] Address [address] [place] [address] Phone [phone] Care Team Providers Care Slab Stripper Name Role Phone CrJhoan noriega Gudelia WHITTAKER Primary Care Provider [phone] Reason for Visit * Reason Onset Date Comments Test Results 07/19/2023 Encounter Details Date Type Department Care Team Description 07/19[facility] [facility] [place] [address] [place] [address] Ángel Leon PA-C [address], [place] [id number] Test Results Allergies Active Allergy Reactions Severity Noted Date Comments Dust Medium 02/09/2012 Penicillins 09/04/2003 Ragweed 10/05/2012 Breathing problems Ezetimibe Edema face/lips/tongue Medium 12/24/2008 documented as of this encounter (statuses as of 07/20/2023) Medications Medication Sig Dispensed Refills Start Date End Date Status CALTRATE 600 + D 600-125 MG-IU PO TABSIndications:[place] s of height 1 po bid 60 12 01/02/2008 Active COSAMIN DS 500-400 MG PO CAPS 2 cap daily at night 0 Active JASON 180 MG PO TABSIndications:All ergic rhinitis due to other allergen one tab by mouth daily 90 Tab 3 12/18/2010 Active COENZYME Q10 200 MG PO CAPSIndications:Dys lipidemia, goal LDL below 100,Statin intolerance one tablet daily 30 Cap 11 04/21/2012 Active ONE DAILY FOR WOMEN PO TABS once daily 0 Active B Complex-C (SUPER B COMPLEX) Tablet Take by mouth daily. 0 11/13/2015 Active Acetaminophen ER 650 MG Oral Tablet Extended Release Take 1 Tablet by mouth every 8 hours as needed for Fever. 0 Active Calcium Carb-Cholecalcifero l 600-800 MG-UNIT CHEW 1 Tab. 0 03/05/2019 Active Blood Glucose Monitoring Suppl ([employer]) w/Device KIT Use up to 4 times a day E11.9 1 Kit 0 12/18/2019 Active Glucose Blood ([employer]) STRP Use up to 4 times a day E11.9 100 Strip 11 12/18/2019 Active Blood Glucose Monitoring Suppl ([employer]) w/Device KIT Use up to 4 times a day E11.9 1 Kit 0 12/17/2019 Active Glucose Blood STRP Use as directed. 100 Strip 11 12/17/2019 Active ONETOUCH DELICA LANCETS 33G MISC Check 4 times daily 100 Each 6 12/18/2019 Active Quinapril HCl 20 MG Oral Tablet (Accupril) Take 1 tablet by mouth twice daily 180 Tablet 3 07/14/2022 Active Additional Information Patient not taking.Reported on 07/18/2023 metFORMIN HCl 1000 MG Oral Tablet (Glucophage)Indicat ions:DM type 2, not at goal (HCC) Take [...] Active amLODIPine Besylate 5 MG Oral Tablet (Norvasc)Indication s:Hypertensive kidney disease with CKD stage III (HCC) TAKE 2 TABLETS BY MOUTH IN THE MORNING 180 Tablet 2 11/25/2022 Active Atorvastatin Calcium 40 MG Oral Tablet (Lipitor) TAKE 1 TABLET BY MOUTH BEFORE BEDTIME 90 Tablet 2 11/25/2022 Active Clopidogrel Bisulfate 75 MG Oral Tablet (pLAVix)Indications :Cerebrovascular disease, arteriosclerotic, post-stroke,Stroke with cerebral ischemia (HCC) TAKE 1 TABLET BY MOUTH IN THE MORNING 90 Tablet 2 11/25/2022 Active Insulin Glargine Solostar 100 UNIT/ML Subcutaneous Solution Pen-injector (Lantus SoloStar) Inject 8 Units under the skin every night at bedtime. 15 mL 3 04/01/2023 Active Furosemide 20 MG Oral Tablet (Lasix)Indications: Bilateral lower extremity edema Take 1 Tablet by mouth in the morning. 90 Tablet 2 05/09/2023 Active Pen [place] 32G X 4 MMIndications:Type 2 diabetes mellitus with hemoglobin A1c goal of less than 8.0% (HCC) Use to inject insulin once daily. 100 Each 3 05/30/2023 Active Metoprolol Tartrate 50 MG Oral Tablet (Lopressor)Indicati ons:Kidney disease, chronic, stage III (GFR 30-59 ml/min) (HCC),HTN, goal below 140/90 Take 1 tablet by mouth twice daily 180 Tablet 1 06/17/2023 Active Sulfamethoxazole-Tr imethoprim 800-160 MG Oral Tablet (Bactrim DS)Indications:UTI symptoms Take 1 Tablet by mouth in the morning and 1 Tablet before bedtime. Do all this for 3 days. Until gone. 6 Tablet 0 07/18/2023 07/21/2023 Active documented as of this encounter (statuses as of 07/20/2023) Active Problems Problem Noted Date Hypertensive kidney [...] as of this encounter (statuses as of 07/20/2023) Resolved Problems Problem Noted Date Resolved Date [...] as of this encounter (statuses as of 07/20/2023) Immunizations Name Administration Dates Next Due COVID-19 mRNA, LNP-s, No Pre serve, 2-Dose Series ([employer]) 02/03/2022,07/15/2021,12/22/2020,11/24 Covid-19, Mrna, Lnp-s, Pf, B ivalent, 30 Mcg, IM, 12 yrs and above (Pfizer) 10/15/2022 Diptheria/Tetanus Adult (TD) 02/14/1994 PPD 04/11/2014, 1,02/17/2009,03/08,03/25/2003 Pneumococcal Conjugate Vacc, 13 Valent (Prevnar) 09/14/2016 Pneumococcal Polysaccharide PPV23 (Pneumovax) 09/22/2005 SEASONAL INFLUENZA, PF, 6 M & Above, IM , (FLULAVAL or FLUZONE) 08/14/2018 Season Influenza, Quad, PF, Adjuvanted, 65+ Yrs, IM (FLUAD) 07/17/2020 Seasonal Influenza, Quadriva lent Hd (Fluzone Hd) 08/02/2022,07/24/2021 Seasonal Influenza, Quadriva lent, No Preserve, IM 09/14/2016,07/16/2015 Seasonal Influenza, Split, I IV3, With Preserve, Inj 09/25/2014,09/14/2013,09/01/2012,07/12,08/10/2010,12/06/2007,09/07/2006 ,09/22/2005 Seasonal Influenza, Trivalen t, Adjuvanted, 65+ yrs [...] encounter Miscellaneous Notes * Telephone Encounter - Josette Contreras LPN - 07/20/2023 10:38 AM EDT Incoming call from patient. Verified by name and . Informed as requested. Patient vocalized understanding and had no further questions. Done. * Telephone Encounter - RT Melanie - 07/20/2023 10:33 AM EDT Left message for patient to return call. * Telephone Encounter - Ángel Leon PA-C - 07/19/2023 6:10 PM EDT Please advise the patient that her urine culture was negative. There is minimal bacteria in urine on this test, not a confirmed UTI. Recommend finishing antibiotic if symptoms improving. If not, can discontinue meds. Recommend follow-up with primary care provider for persistent symptoms. Thank you! Ángel Leon PA-C documented in this encounter Plan of Treatment Upcoming Encounters Date Type Specialty Care Team Description 11/11/2023 Office Visit Pharmacy Pharmacist1, [facility] [address] [place] [address] 11/11/2023 Office Visit Family Medicine Jhoan Maki, DO [address] [place] [address] Health Maintenance Due Date Last Done Comments Depression Screening 12/05/2020 12/05/2019 Zoster Vaccines (2 of 2) 04/07/2021 02/10/2021 CKD HGB USE SMARTSET 73106 03/09/202303/09, 11/25/2020, 12/06/2019, Additional history exists CKD PHOS USE SMARTSET 34079 03/09/202302/15, 11/25/2020, 03/09/2019, Additional history exists Diabetic Foot Exam 03/09/2023 03/09/2022, 0 11/25/2020, 05/08/2019, Additional history exists COVID-19 Vaccine ( season) 2023 10/15/2022, 02/03/2022, 07/15/2021, Additional history exists Influenza Vaccine (FLU shot) [...] Pneumococcal Vaccine: 65+ Years Completed 09/14/2016, 09/22/2005 GARDASIL-HPV IMMUNIZATION SERIES Aged Out No longer eligible based on patient's age to complete this topic Hepatitis B Aged Out No longer eligi ble based on patient's age to complete this topic MENINGOCOCCAL (MENACTRA/MENVEO) Aged Out No longer eligible based on patient's age to complete this topic documented as of this encounter Medical Devices Implanted Type Area Hospitality Specialist Device Identifier Shelf Expiration Date Model / Serial / Lot Lens Intraoc 23.0 - [id number] - [id number] Implanted:Qty: 1 on 12/22/2021 by Long Huddleston MD at OR [facility] Left: Eye [employer] 06/16/2026 [id number] / [id number] / [id number] Lens Intraoc 22.0 - [id number] - [id number] Implanted:Qty: 1 on 01/05/2022 by Long Huddleston MD at OR [facility] Right: Eye [employer] 07/16/2026 [id number] / [id number] / [id number] documented as of this encounter Care Teams Slab Stripper Relationship Specialty Start Date End Date Jhoan Maki, DO [address] [facility] [place] [address] PCP - General Family Medicine 11/07/18 documented as of this encounter
--- OUTSIDE RECORDS SUMMARY | 2023-08-25 21:02 | External Medical Summary | Summary of Care ---
Author Name Unknown Organization [facility] Address [address] [place] [address] Phone [phone] Care Team Providers Care Loan And Credit Manager Name Role Phone ShanthiJhoan Gudelia WHITTAKER Primary Care Provider [phone] Reason for Visit * Reason Comments Diabetes Follow-Up Dosage Adjustment In Person (Anticoag Cl inic) Encounter Details Date Type Department Care Team Description 06/13/2023 Office Visit Pharmacy, [facility] [address] [place] [address] Pharmacist1, [facility] [address] [facility] [place] [address] Type 2 diabetes mellitus with hemoglobin A1c goal of less than 8.0% ([facility])*; Diabetes mellitus with stage 3 chronic kidney disease ([facility]); Type 2 diabetes mellitus with peripheral vascular disease ([facility]); Type 2 diabetes, controlled, with peripheral neuropathy ([facility]) Allergies Active Allergy Reactions Severity Noted Date Comments Dust Medium 02/09/2012 Penicillins 09/04/2003 Ragweed 10/05/2012 Breathing problems Ezetimibe Edema face/lips/tongue Medium 12/24/2008 documented as of this encounter (statuses as of 06/13/2023) Medications Medication Sig Dispensed Refills Start Date [...] 03/05/2019 Acti ve Blood Glucose Monitoring Suppl (Ingresse) w/Device KIT Use up to 4 times a day E11.9 1 Kit 0 12/18/2019 Active Glucose Blood (Melanie [employer] VERRoleStar) STRP Use up to 4 times a day E11.9 100 Strip 11 12/18/2019 Active Blood Glucose Monitoring Suppl (Ingresse) w/Device KIT Use up to 4 times [...] THE MORNING 90 Tablet 2 11/25/2022 Active Metoprolol Tartrate 50 MG Oral Tablet (Lopressor)Indications :Kidney disease, chronic, stage III (GFR 30-59 ml/min) (HCC),HTN, goal below 140/90 Take 1 tablet by mouth twice daily 180 Tablet 1 12/24/2022 Active Insulin Glargine Solostar 100 UNIT/ML Subcutaneous Solution Pen-injector (Lantus SoloStar) Inject 8 Units under the skin every night at bedtime. 15 mL 3 04/01/2023 Active Furosemide 20 MG Oral Tablet (Lasix)Indications:Mikael ateral lower extremity edema Take 1 Tablet by mouth in the morning. 90 Tablet 2 05/09/2023 Active Pen [place] 32G X 4 MMIndications:Type 2 diabetes mellitus with hemoglobin A1c goal of less than 8.0% (HCC) Use to inject insulin once daily. 100 Each 3 05/30/2023 Active documented as of this encounter (statuses as of 06/13/2023) Active Problems Problem Noted Date Hypertensive kidney [...] 150/90 06/18/2014 Dyslipidemia, goal LDL below 100 07/06/2 012 Other allergic rhinitis 09/04/2003 Overview: ICD-10 update of inactive term Essential and other specified forms of t remor 09/04/2003 documented as of this encounter (statuses as of 06/13/2023) Resolved Problems Problem Noted Date Resolved Date [...] as of this encounter (statuses as of 06/13/2023) Immunizations Name Administration Dates Next Due COVID-19 mRNA, LNP-s, No Pre serve, 2-Dose Series ([employer]) 02/03/2022,07/15/2021,12/22/2020,2020 Covid-19, Mrna, Lnp-s, Pf, B ivalent, 30 Mcg, IM, 12 yrs and above ([employer]) 10/15/2022 PPD 04/11/2014, 1,02/17/2009,2006 Pneumococcal Conjugate Vacc, [...] on file documented as of this encounter Progress Notes * Kike Ly V, [facility] - 06/13/2023 11:04 AM EDT Medication Therapy Disease Management [facility] - Diabetes Management Progress Note Janay Melgoza, identified by name and date of , is a 83 year old female being seen for diabetes management/education. Patient presents for return diabetic visit. DIABETES: Current diabetic medications: Jardiance 25mg daily Metformin 1000mg once daily Lantus 8 units QHS Medication Injection Site: Abdomen Lifestyle: Diet: unchanged History of Treatment Barriers: Lifestyle: None Therapy considerations: None Medication: None Glucose Review/SMBG: Readings obtained from patient documented BG logbook Bedtime readings only 30 minutes post dinner Pre am Pre Lunch Pre pm HS 5-Ranulfo 100 117 111 281 102 118 143 243 105 116 141 263 101 111 133 328 117 114 139 254 121 122 140 299 107 115 117 277 111 116 177 290 139 118 157 318 106 116 130 278 99 117 131 273 89 119 127 322 140 121 128 133 146 177 123 157 195 279 130 137 247 127 141 160 279 90 140 178 307 114 158 275 104 127 154 255 102 133 169 278 93 Pre am Pre Lunch Pre pm HS Average 112 124 148 281 Hi 140 157 195 328 Lo 89 111 111 243 Range 51 46 84 85 Hypoglycemia: Does your blood sugar go below 70 mg/dL? No Hyperglycemia symptoms present: none Recent Labs Units 03/21/23 1133 09/27/22 1325 06/28/22 1301 HEMOGLOBIN A1C - [facility] % 7.3* -- -- HEMOGLOBIN A1C POCT - [facility] % -- 7.2* 7.5* Recent Labs Units 03/21/23 1133 03/09/22 1614 09/08/21 1612 ESTIMATED GLOMERULAR FILTRATION RATE - [facility] mL/min 67 52* 60 CREATININE - [facility] mg/dL 0.9 1.1* 0.9 Lab Results Component Value Date/Time CREATININE - [facility] 0.9 03/21/2023 11:33 AM CREATININE - [facility] 1.1 (H) 03/09/2022 04:14 PM CREATININE - [facility] 0.9 09/08/2021 04:12 PM CREATININE - [facility] 1.1 (H) 12/06/2019 10:32 AM CREATININE - [facility] 1.0 05/08/2019 04:06 PM CREATININE - [facility] 1.0 04/11/2019 01:21 PM CREATININE, RANDOM URINE - [facility] 29 03/21/2023 11:33 AM CREATININE, RANDOM URINE - [facility] 27 03/09/2022 04:19 PM CREATININE, RANDOM URINE - [facility] 51 12/15/2020 11:33 AM CREATININE, RANDOM URINE - [facility] 27 12/06/2019 10:36 AM CREATININE, RANDOM URINE - [facility] 59 12/25/2018 08:55 AM CREATININE, RANDOM URINE - [facility] 62 11/21/2017 08:38 AM CREATININE-OUTSIDE LAB 1.18 03/09/2019 12:00 AM CREATININE-OUTSIDE LAB 1.19 03/13/2018 12:00 AM CREATININE-OUTSIDE LAB 0.89 10/13/2015 12:00 AM HYPERTENSION: Patient on ACEi/ARB: yes, Quinapril 20mg daily BP Readings from Last 3 Encounters: 04/01/23 140/74 09/27/22 128/62 07/23/22 136/78 Blood pressure at goal: yes HYPERLIPIDEMIA: Patient is taking moderate or high intensity statin: yes, Atorvastatin 40mg daily HEALTH MAINTENANCE REVIEW: Health Maintenance Due Topic Date Due Depression Screening, Annual for Pts 12 and Over 12/05/2020 Zoster Vaccines (2 of 2) 04/07/2021 DIABETES-FOOT EXAM 03/09/2023 CKD HGB USE SMARTSET 76858 03/09/2023 CKD PHOS USE SMARTSET 08062 03/09/2023 ASSESSMENT & PLAN: ICD-10-CM 1. Type 2 diabetes mellitus with hemoglobin A1c goal of less than 8.0% ([facility]) E11.9 2. Diabetes mellitus with stage 3 chronic kidney disease (HCC) E11.22 N18.30 3. Type 2 diabetes mellitus with peripheral vascular disease ([facility]) E11.51 4. Type 2 diabetes, controlled, with peripheral neuropathy ([facility]) E11.42 BG Readings - Blood sugars controlled. Bedtime readings are only 30 minutes post meal. Medications - Reviewed current regimen, patient is adherent to regimen. Diet, Exercise, Lifestyle - No significant lifestyle changes since last visit. Discussed with patient today. Patient is agreeable to SMBG 1 time(s) daily. Patient aware to contact clinic if any hypoglycemia before next visit. MEDICATION CHANGES: no change Diabetic Medications: Jardiance 25mg daily Metformin 1000mg once daily Lantus 8 units [facility] HEALTH MAINTENANCE INTERVENTIONS: Labs: Up to Date Immunizations: needs shingles vaccine Foot Exam: Complete with next PCP visit on 11/11/23 Eye Exam: Up to Date Annual Wellness Visit: Up to Date FOLLOW UP: Return to clinic in 5 months Visit date not found Kike Ly RPh, LETY Clinical Pharmacist - [facility] Care Worker Medication Therapy Management Clinic 06/13/2023, 11:04 AM documented in this encounter Plan of Treatment Upcoming Encounters Date Type Specialty Care Team Description 11/11/2023 Office Visit Pharmacy Pharmacist1, [facility] [address] [place] [address] 11/11/2023 Office Visit Family Medicine Jhoan Maki, DO [address] [place] [address] Health Maintenance Due Date Last Done Comments Depression Screening, Annual for Pts 12 and Over 12/05/2020 12/05/2019 Zoster Vaccines (2 of 2) 04/07/2021 02/10/2021 CKD HGB USE SMARTSET 12113 03/09/202303/09, 11/25/2020, 12/06/2019, Additional history exists CKD PHOS USE SMARTSET 43718 03/09/202302/15, 11/25/2020, 03/09/2019, Additional history exists DIABETES-FOOT EXAM 03/09/2023 03/09/2022, 0 11/25/2020, 05/08/2019, Additional history exists Influenza Vaccine (FLU shot) (#1) 2023 08/02/2022, 07/24/2021, 07/17/2020, Additional history exists GFR 09/20/2023 03/21/2023, 02/15, 09/08/2021, Additional history exists HbA1c 09/20/2023 03/21/2023, 1211/2021, 06/28/2022, Additional history exists DIABETES-EYE EXAM 02/04/2024 [...] this encounter Medical Devices Implanted Type Area Civil Celebrant Device Identifier Shelf Expiration Date Model / Serial / Lot Lens Intraoc 23.0 - [id number] - [id number] Implanted:Qty: 1 on 12/22/2021 by Long Huddleston MD at OR [facility] Left: Eye BAUSCH & LOMB 06/16/2026 [id number] / [id number] / [id number] Lens Intraoc 22.0 - [id number] - [id number] Implanted:Qty: 1 on 01/05/2022 by Long Huddleston MD at OR [facility] Right: Eye BAUSCH & LOMB 07/16/2026 [id number] / [id number] / [id number] documented as of this encounter Visit Diagnoses Diagnosis Type 2 diabetes mellitus with hemoglobin A1c goal of less than 8.0% (HCC)- Primary Diabetes mellitus with stage 3 chronic kidney disease (HCC) Type II or unspecified type diabetes mellitus with renal manifestations, not stated as uncontrolled Type 2 diabetes mellitus with peripheral vascular disease (HCC) Type 2 diabetes, controlled, with peripheral neuropathy (HCC) Type II or unspecified type diabetes mellitus with neurological manifestations, not stated as uncontrolled documented in this encounter Care Teams Loan And Credit Manager Relationship Specialty Start Date End Date Jhoan Maki, DO [address] [place] [address] PCP - General Family Medicine 11/07/18 documented as of this encounter
--- OUTSIDE RECORDS SUMMARY | 2023-08-25 21:02 | External Medical Summary | Summary of Care ---
Author Name Unknown Organization [facility] Address [address] [place] [address] Phone [phone] Care Team Providers Care Cash Posting Clerk Name Role Phone Shanthi Jhoan Gudelia WHITTAKER Primary Care Provider [phone] Encounter Details Date Type Department Care Team Description [facility] [address] [place] [address] Ángel Leon PA-C [address] [place], [place] [id number] Allergies Active Allergy Reactions Severity Noted Date Comments Dust Medium 02/09/2012 Penicillins 09/04/2003 Ragweed 10/05/2012 Breathing problems Ezetimibe Edema face/lips/tongue Medium 12/24/2008 documented as of this encounter (statuses as of 07/19/2023) Medications Medication Sig Dispensed Refills Start Date [...] 0 03/05/2019 Active Blood Glucose Monitoring Suppl (Aardvark) w/Device KIT Use up to 4 times a day E11.9 1 Kit 0 12/18/2019 Active Glucose Blood ([employer]ardvark) STRP Use up to 4 times a day E11.9 100 Strip 11 12/18/2019 Active Blood Glucose Monitoring Suppl (Aardvark) w/Device KIT Use up to 4 times [...] morning. 90 Tablet 2 05/09/2023 Active Pen [place] 32G X 4 MMIndications:Type 2 diabetes mellitus [...] as of this encounter (statuses as of 07/19/2023) Active Problems Problem Noted Date Hypertensive kidney [...] as of this encounter (statuses as of 07/19/2023) Resolved Problems Problem Noted Date Resolved Date [...] as of this encounter (statuses as of 07/19/2023) Immunizations Name Administration Dates Next Due COVID-19 mRNA, LNP-s, No Pre serve, 2-Dose Series ([employer]) 02/03/2022,07/15/2021,12/22/2020,2020 Covid-19, Mrna, Lnp-s, Pf, B ivalent, 30 Mcg, IM, 12 yrs and above (Pfizer) 10/15/2022 PPD 04/11/2014, 1,02/17/2009,2006 Pneumococcal Conjugate Vacc, 13 Valent (Prevnar) 09/14/2016 SEASONAL INFLUENZA, PF, 6 M & Above, [...] encounter Miscellaneous Notes * Telephone Encounter - Ángel Leon PA-C [...] Team Description 11/11/2023 Office Visit Pharmacy Pharmacist1, [facility] [address] [facility] [place] [address] 11/11/2023 Office Visit Family Medicine Jhoan Maki, DO [address] [facility] [place] [address] Health Maintenance Due Date Last Done Comments Depression Screening 12/05/2020 12/05/2019 Zoster Vaccines (2 of 2) 04/07/2021 02/10/2021 CKD HGB USE SMARTSET 44144 03/09/202303/09, 11/25/2020, 12/06/2019, Additional history exists CKD PHOS USE SMARTSET 02599 03/09/202302/15, 11/25/2020, 03/09/2019, Additional history exists Diabetic [...] this encounter Medical Devices Implanted Type Area Data Assistant Device Identifier Shelf Expiration Date Model / Serial / Lot Lens Intraoc 23.0 - [id number] - [id number] Implanted:Qty: 1 on 12/22/2021 by Long Huddleston MD at OR [facility] Left: Eye BAUSCH & LOMB 06/16/2026 [id number] / [id number] / [id number] Lens Intraoc 22.0 - [id number] - [id number] Implanted:Qty: 1 on 01/05/2022 by Long Huddleston MD at OR [facility] Right: Eye BAUSCH & LOMB 07/16/2026 [id number] / [id number] / [id number] documented as of this encounter Care Teams Cash Posting Clerk Relationship Specialty Start Date End Date Jhoan Maki, DO [address] [place] [address] PCP - General Family Medicine 11/07/18 documented as of this encounter
--- OUTSIDE RECORDS SUMMARY | 2023-08-25 21:02 | External Medical Summary ---
Author Name Unknown Address Unknown Organization K01:[facility] [place] [address] [place] [address] Laboratory Report Ordering Provider Test Date Status SERENE MAHMOOD 07/18/2023 17:32:00 Final Observation Date Value Abnormality Reference (Units) Status Bacteria identified in Specimen by Culture 07/18/2023 17:32:00 No significant growth Final Test: Culture, Urine, Quanti tative
Specimen Source: Urine, Clean Catch
Specimen Type: Urine
Specimen Date: 07/18/2023 5:32 PM
Result Date: 07/19/2023 4:31 PM
Result Status: Final result
Resulting Lab: [facility]
[address]
[facility] [address]

CULTURE

No significant growth

null Performing Location [facility] - [address] [place] [id number]
--- OUTSIDE RECORDS SUMMARY | 2023-08-25 21:02 | External Medical Summary | Summary of Care ---
Author Name Unknown Organization [facility] Address [address] [place] [address] Phone [phone] Care Team Providers Care Community Services Coordinator Name Role Phone Shanthi Jhoan Gudelia WHITTAKER Primary Care Provider [phone] Encounter Details Date Type Department Care Team Description [facility] [address] [place] [address] Ángel Leon PA-C [address] [place], [place] [id number] Allergies Active Allergy Reactions Severity Noted Date [...] 0 03/05/2019 Active Blood Glucose Monitoring Suppl (StrikeIron) w/Device KIT Use up to 4 times a day E11.9 1 Kit 0 12/18/2019 Active Glucose Blood ([employer]) STRP Use up to 4 times a day E11.9 100 Strip 11 12/18/2019 Active Blood Glucose Monitoring Suppl (St[employer]) w/Device KIT Use up to 4 times [...] morning. 90 Tablet 2 05/09/2023 Active Pen [place] 32G X 4 MMIndications:Type 2 diabetes mellitus [...] mRNA, LNP-s, No Pre serve, 2-Dose Series ([employer]) 02/03/2022,07/15/2021,12/22/2020,11/24 Covid-19, Mrna, Lnp-s, Pf, B ivalent, [...] encounter Miscellaneous Notes * Telephone Encounter - RT Melanie - [...] Team Description 11/11/2023 Office Visit Pharmacy Pharmacist1, [facility] [address] [facility] [place] [address] 11/11/2023 Office Visit Family Medicine Jhoan Maki, DO [address] [facility] [place] [address] Health Maintenance Due Date Last Done Comments Depression Screening 12/05/2020 12/05/2019 Zoster Vaccines (2 of 2) 04/07/2021 02/10/2021 CKD HGB USE SMARTSET 28075 03/09/202303/09, 11/25/2020, 12/06/2019, Additional history exists CKD PHOS USE SMARTSET 72760 03/09/2023 0501/2022, 11/25/2020, 03/09/2019, Additional history exists Diabetic Foot [...] this encounter Medical Devices Implanted Type Area Training Executive Device Identifier Shelf Expiration Date Model / Serial / Lot Lens Intraoc 23.0 - [id number] - [id number] Implanted:Qty: 1 on 12/22/2021 by Long Huddleston MD at OR [facility] Left: Eye BAUSCH & LOMB 06/16/2026 [id number] / [id number] / [id number] Lens Intraoc 22.0 - [id number] - [id number] Implanted:Qty: 1 on 01/05/2022 by Long Huddleston MD at OR [facility] Right: Eye BAUSCH & LOMB 07/16/2026 [id number] / [id number] / [id number] documented as of this encounter Care Teams Community Services Coordinator Relationship Specialty Start Date End Date Jhoan Maki, DO [address] [place] [address] PCP - General Family Medicine 11/07/18 documented as of this encounter
--- OUTSIDE RECORDS SUMMARY | 2023-08-25 21:02 | External Medical Summary | Summary of Care ---
Author Name Unknown Organization [facility] Address [address] [place] [address] Phone [phone] Care Team Providers Care Automotive Generator Repairer Name Role Phone Lisbet Roque DO Primary Care Provider [phone] Reason for Visit * Reason Onset Date Comments Medication Refill 05/07/2023 Encounter Details Date Type Department Care Team Description 05/07/2023 Refill [facility] [address] [facility] [place] [address] Lisbet Roque DO [address] [facility] [place] [address] Bilateral lower extremity edema Allergies Active Allergy Reactions Severity Noted Date Comments Dust Medium 02/09/2012 Penicillins 09/04/2003 Ragweed 10/05/2012 Breathing problems Ezetimibe Edema face/lips/tongue Medium 12/24/2008 documented as of this encounter (statuses as of 05/09/2023) Medications Medication Sig Dispensed Refills Start Date [...] 0 03/05/2019 Active Blood Glucose Monitoring Suppl ([employer]) w/Device KIT Use up to 4 times a day E11.9 1 Kit 0 12/18/2019 Active Glucose Blood ([employer]ACE[employer]) STRP Use up to 4 times a day E11.9 100 Strip 11 12/18/2019 Active Blood Glucose Monitoring Suppl ([employer]) w/Device KIT Use up to 4 times a day E11.9 1 Kit 0 12/17/2019 Active Glucose Blood STRP Use as directed. 100 Strip 11 12/17/2019 Active ONETOUCH DELICA LANCETS 33G MISC Check 4 times daily 100 Each 6 12/18/2019 Active Pen [place] 32G X 4 MMIndications:Type 2 diabetes mellitus with hemoglobin A1c goal of less than 8.0% (HCC) Use to inject insulin once daily. 100 Each 3 05/03/2022 Active Quinapril HCl 20 MG Oral Tablet (Accupril) Take 1 tablet by mouth twice daily 180 Tablet 3 07/14/2022 Active metFORMIN HCl 1000 MG Oral Tablet (Glucophage)Indicat [...] the morning. 90 Tablet 2 05/09/2023 Active Furosemide 20 MG Oral Tablet (Lasix)Indications: Bilateral lower extremity edema Take by mouth 1 Tablet in the morning. 90 Tablet 3 07/07/2022 05/07/2023 Discontinue d(Refill) documented as of this encounter (statuses as of 05/09/2023) Active Problems Problem Noted Date Hypertensive kidney [...] as of this encounter (statuses as of 05/09/2023) Resolved Problems Problem Noted Date Resolved Date [...] as of this encounter (statuses as of 05/09/2023) Immunizations Name Administration Dates Next Due COVID-19 mRNA, LNP-s, No Pre serve, 2-Dose Series ([employer]) 02/03/2022,07/15/2021,12/22/2020,2020 Covid-19, Mrna, Lnp-s, Pf, B ivalent, 30 Mcg, IM, 12 yrs and above ([employer]) 10/15/2022 PPD 04/11/2014, 1,02/17/2009,2006 Pneumococcal Conjugate Vacc, 13 Valent (Prevnar) 09/14/2016 Seasonal Influenza, Quadriva lent Hd (Fluzone Hd) 08/02/2022,07/24/2021 Seasonal Influenza, Quadriva lent, No Preserve, 6 Mons & Above, IM 08/14/2018 Seasonal Influenza, Quadriva lent, No Preserve, Adjuvanted, 65+ Yrs, IM 07/17/2020 Seasonal Influenza, Quadriva lent, No Preserve, IM [...] encounter Miscellaneous Notes * Telephone Encounter - Micky Carroll RPh - 05/09/2023 12:02 PM EDT Signed Prescriptions: Disp Refills Furosemide 20 MG Oral Tablet (Lasix) 90 Tab*2 Sig: Take 1 Tablet by mouth in the morning.Authorizing Provider: LISBET ROQUE User: MICKY CARROLL TT documented in this encounter Plan of Treatment Upcoming Encounters Date Type Specialty Care Team Description 06/13/2023 Office Visit Pharmacy Pharmacist1, [facility] [address] [place], [place] [address] 11/11/2023 Office Visit Family Medicine Lisbet Roque, DO [address] [place], [place] [address] Health Maintenance Due Date Last Done Comments Depression Screening, Annual for Pts 12 and Over 12/05/2020 12/05/2019 Zoster Vaccines (2 of 2) 04/07/2021 02/10/2021 CKD HGB USE SMARTSET 46540 03/09/202303/09, 11/25/2020, 12/06/2019, Additional history exists CKD PHOS USE SMARTSET 85927 03/09/202302/15, 11/25/2020, 03/09/2019, Additional history exists DIABETES-FOOT [...] this encounter Medical Devices Implanted Type Area Oracle Wms Consultant Device Identifier Shelf Expiration Date Model / Serial / Lot Lens Intraoc 23.0 - [id number] - [id number] Implanted:Qty: 1 on 12/22/2021 by Long Huddleston MD at OR [facility] Left: Eye BAUSCH & LOMB 06/16/2026 [id number] / [id number] / [id number] Lens Intraoc 22.0 - [id number] - [id number] Implanted:Qty: 1 on 01/05/2022 by Long Huddleston MD at OR [facility] Right: Eye BAUSCH & LOMB 07/16/2026 [id number] / [id number] / [id number] documented as of this encounter Visit Diagnoses Diagnosis Bilateral lower extremity edema Edema documented in this encounter Care Teams Automotive Generator Repairer Relationship Specialty Start Date End Date Lisbet Roque, DO [address] [facility] [place] [address] PCP - General Family Medicine 11/07/18 documented as of this encounter
--- OUTSIDE RECORDS SUMMARY | 2023-08-25 21:02 | External Medical Summary | Summary of Care ---
Author Name Unknown Organization [facility] Address [address] [place] [address] Phone [phone] Care Team Providers Care Sugar Chipper Machine Operator Name Role Phone Lisbet Roque DO Primary Care Provider [phone] Reason for Visit * Reason Onset Date Comments Medication Refill 05/30/2023 Encounter Details Date Type Department Care Team Description 05/30/2023 Refill Pharmacy, [facility] [address] [facility] [address] Lisbet Roque DO [address] [place] [address] Type 2 diabetes mellitus with hemoglobin A1c goal of less than 8.0% ([facility]) Allergies Active Allergy Reactions Severity Noted Date Comments Dust Medium 02/09/2012 Penicillins 09/04/2003 Ragweed 10/05/2012 Breathing problems Ezetimibe Edema face/lips/tongue Medium 12/24/2008 documented as of this encounter (statuses as of 05/30/2023) Medications Medication Sig Dispensed Refills Start Date [...] 0 03/05/2019 Active Blood Glucose Monitoring Suppl (JustSpotted) w/Device KIT Use up to 4 times a day E11.9 1 Kit 0 12/18/2019 Active Glucose Blood (JustSpotted) STRP Use up to 4 times a day E11.9 100 Strip 11 12/18/2019 Active Blood Glucose Monitoring Suppl (JustSpotted) w/Device KIT Use up to 4 times [...] morning. 90 Tablet 2 05/09/2023 Active Pen [place] 32G X 4 MMIndications:Type 2 diabetes mellitus with hemoglobin A1c goal of less than 8.0% (HCC) Use to inject insulin once daily. 100 Each 3 05/30/2023 Active Pen [place] 32G X 4 MMIndications:Type 2 diabetes mellitus with hemoglobin A1c goal of less than 8.0% ([facility]) Use to inject insulin once daily. 100 Each 3 05/03/2022 05/30/2023 Discontinue d(Refill) documented as of this encounter (statuses as of 05/30/2023) Active Problems Problem Noted Date Hypertensive kidney [...] as of this encounter (statuses as of 05/30/2023) Resolved Problems Problem Noted Date Resolved Date [...] as of this encounter (statuses as of 05/30/2023) Immunizations Name Administration Dates Next Due COVID-19 mRNA, LNP-s, No Pre serve, 2-Dose Series ([employer]) 02/03/2022,07/15/2021,12/22/2020,2020 Covid-19, Mrna, Lnp-s, Pf, B ivalent, [...] encounter Miscellaneous Notes * Telephone Encounter - Mychal Carrillo, [facility] - 05/30/2023 11:35 AM EDT Signed Prescriptions: Disp Refills Pen [place] 32G X 4 MM 100 Ea*3 Sig: Use to inject insulin once daily.Authorizing Provider: LISBET ROQUE User: MYCHAL CARRILLO documented in this encounter Plan of Treatment Upcoming Encounters Date Type Specialty Care Team Description 06/13/2023 Office Visit Pharmacy Pharmacist1, [facility] [address] [place] [address] 11/11/2023 Office Visit Family Medicine Lisbet Roque, DO [address] [place], [place] [address] Health Maintenance Due Date Last Done Comments Depression Screening, Annual for Pts 12 and Over 12/05/2020 12/05/2019 Zoster Vaccines (2 of 2) 04/07/2021 02/10/2021 CKD HGB USE SMARTSET 69679 03/09/202303/09, 11/25/2020, 12/06/2019, Additional history exists CKD PHOS USE SMARTSET 12830 03/09/202302/15, 11/25/2020, 03/09/2019, Additional history exists DIABETES-FOOT [...] this encounter Medical Devices Implanted Type Area Maintenance Worker Municipal Device Identifier Shelf Expiration Date Model / Serial / Lot Lens Intraoc 23.0 - [id number] - [id number] Implanted:Qty: 1 on 12/22/2021 by Long Huddleston MD at OR [facility] Left: Eye [employer]OM[employer] 06/16/2026 [id number] / [id number] / [id number] Lens Intraoc 22.0 - [id number] - [id number] Implanted:Qty: 1 on 01/05/2022 by Long Huddleston MD at OR [facility] Right: Eye BAUSCH [employer] LOMB 07/16/2026 [id number] / [id number] / [id number] documented as of this encounter Visit Diagnoses Diagnosis Type 2 diabetes mellitus with hemoglobin A1c goal of less than 8.0% (HCC) documented in this encounter Care Teams Sugar Chipper Machine Operator Relationship Specialty Start Date End Date Lisbet Roque, [address] [place] [address] PCP - General Family Medicine 11/07/18 documented as of this encounter
--- OUTSIDE RECORDS SUMMARY | 2023-08-25 21:02 | External Medical Summary | Summary of Care ---
Author Name Unknown Organization [facility] Address [address] [place] [address] Phone [phone] Care Team Providers Care Storage Battery Tester Name Role Phone CrJhoan noriega Gudelia WHITTAKER Primary Care Provider [phone] Reason for Visit * Reason Comments Dosage Adjustment In Person (Anticoag Cl inic) Diabetes Follow-Up Encounter Details Date Type Department Care Team Description 03/21/2023 Office Visit Pharmacy, [facility] [address] [place] [address] Pharmacist2, [facility] [address] [facility] [address] Type 2 diabetes mellitus with hemoglobin A1c goal of less than 8.0% ([facility])*; Type 2 diabetes mellitus with peripheral vascular disease ([facility]); Type 2 diabetes, controlled, with peripheral neuropathy ([facility]); Diabetes mellitus with stage 3 chronic kidney disease ([facility]) Allergies Active Allergy Reactions Severity Noted Date Comments Dust Medium 02/09/2012 Penicillins 09/04/2003 Ragweed 10/05/2012 Breathing problems Ezetimibe Edema face/lips/tongue Medium 12/24/2008 documented as of this encounter (statuses as of 03/21/2023) Medications Medication Sig Dispensed Refills Start Date [...] mouth daily. 0 11/13/2015 Active Acetaminophen ER (TYLENOL 8 HOUR ARTHRITIS PAIN) 650 MG TBCR Take 650 mg by mouth every 8 hours as needed for Fever. 0 Active Calcium Carb-Cholecalciferol 600-800 MG-UNIT CHEW 1 Tab. 0 03/05/2019 Acti ve Blood Glucose Monitoring Suppl ([employer]) w/Device KIT Use up to 4 times a day E11.9 1 Kit 0 12/18/2019 Active Glucose Blood (Jybe [employer]) STRP Use up to 4 times a day E11.9 100 Strip 11 12/18/2019 Active Blood Glucose Monitoring Suppl ([employer]) w/Device KIT Use up to 4 times a day E11.9 1 Kit 0 12/17/2019 Active Glucose Blood STRP Use as directed. 100 Strip 11 12/17/2019 Active ONETOUCH DELICA LANCETS 33G MISC Check 4 times daily 100 Each 6 12/18/2019 Active Lantus SoloStar 100 UNIT/ML Subcutaneous Solution Pen-injector (Insulin Glargine) Inject under the skin 8 Units before bedtime. 15 mL 3 05/03/2022 Active Pen [place] 32G X 4 MMIndications:Type 2 diabetes mellitus with hemoglobin A1c goal of less than 8.0% ([facility]) Use to inject insulin once daily. 100 Each 3 05/03/2022 Active Furosemide 20 MG Oral Tablet (Lasix)Indications:Mikael ateral lower extremity edema Take by mouth 1 Tablet in the morning. 90 Tablet 3 07/07/2022 Active Quinapril HCl 20 MG Oral Tablet [...] twice daily 180 Tablet 1 12/24/2022 Active documented as of this encounter (statuses as of 03/21/2023) Active Problems Problem Noted Date Hypertensive kidney [...] as of this encounter (statuses as of 03/21/2023) Resolved Problems Problem Noted Date Resolved Date [...] as of this encounter (statuses as of 03/21/2023) Immunizations Name Administration Dates Next Due COVID-19 mRNA, LNP-s, No Pre serve, 2-Dose Series ([employer]) 02/03/2022,07/15/2021,12/22/2020,2020 Covid-19, Mrna, Lnp-s, Pf, B ivalent, [...] as of this encounter Progress Notes * Merlene Bah, [facility] - 03/21/2023 11:00 AM EDT Images from the original note were not included. Medication Therapy [facility] - Diabetes Management Progress Note Janay Ramon Melgoza, identified by name and date of , is a 83 year old female being seen for diabetes management/education. Patient presents for return diabetic visit. DIABETES: Current diabetic medications: Jardiance 25mg daily Metformin 1000mg once daily Lantus 8 units QHS Medication Injection Site: Abdomen Lifestyle: Diet: improved Glucose Review/SMBG: Readings obtained from patient documented BG logbook Hypoglycemia: Does your blood sugar go below 70 mg/dL? No Hyperglycemia symptoms present: none Recent Labs Units 09/27/22 1325 06/28/22 1301 03/09/22 1614 HEMOGLOBIN A1C - [facility] % -- -- 8.6* HEMOGLOBIN A1C POCT - [facility] % 7.2* 7.5* -- Recent Labs Units 03/09/22 1614 09/08/21 1612 ESTIMATED GLOMERULAR FILTRATION RATE - [facility] mL/min 52* 60 CREATININE - [facility] mg/dL 1.1* 0.9 HYPERTENSION: Patient on ACEi/ARB: yes BP Readings from Last 3 Encounters: 09/27/22 128/62 07/23/22 136/78 03/09/22 140/62 HYPERLIPIDEMIA: Patient is taking moderate or high intensity statin: yes HEALTH MAINTENANCE REVIEW: Health Maintenance Due Topic Date Due Depression Screening, Annual for Pts 12 and Over 12/05/2020 Zoster Vaccines (2 of 2) 04/07/2021 Albumin/Creatinine Ratio 12/15/2021 Yearly B-12 09/08/2022 GFR 09/09/2022 DIABETES-FOOT EXAM 03/09/2023 CKD HGB USE SMARTSET 77866 03/09/2023 CKD PHOS USE SMARTSET 32929 03/09/2023 HbA1c 03/28/2023 ASSESSMENT & PLAN: ICD-10-CM 1. Type 2 diabetes mellitus with hemoglobin A1c goal of less than 8.0% (HCC) E11.9 2. Type 2 diabetes mellitus with peripheral vascular disease (HCC) E11.51 3. Type 2 diabetes, controlled, with peripheral neuropathy ([facility]) E11.42 BG Readings - Blood sugars controlled. Patient to repeat A1c today. Medications - Reviewed current regimen, patient is adherent to regimen. Denies any concerns. Diet, Exercise, Lifestyle - No significant lifestyle changes since last visit. Patient is agreeable to SMBG 1 time(s) daily. Patient aware to contact clinic if any hypoglycemia before next visit. MEDICATION CHANGES: no change Diabetic Medications: Jardiance 25mg daily Metformin 1000mg once daily Lantus 8 units [facility] HEALTH MAINTENANCE INTERVENTIONS: Labs: Ordered & Scheduled: HgA1c and Urine Microalbumin Immunizations: 2nd Shingles Foot Exam: Complete with next PCP visit on 04/01/23 Eye Exam: Up to Date Annual Wellness Visit: N/A FOLLOW UP: Return to clinic in 12 weeks 06/13/2023 Merlene Bah PharmD, [facility] PGY1 Dry Cure Worker Medication Therapy Management [facility] 03/21/23, 12:37 PM documented in this encounter Plan of Treatment Upcoming Encounters Date Type Specialty Care Team Description 04/01/2023 Office Visit Family Medicine Jhoan Maki, DO [address] [facility] [place] [address] 06/13/2023 Office Visit Pharmacy Pharmacist, [facility] [address] [facility] [place] [address] Pending Results Name Type Priority Associated Diagnoses Date /Time ALBUMIN / CREATININE RATIO, URINE Lab Routine Type 2 diabetes mellitus with hemoglobin A1c goal of less than 8.0% ([facility]) 03/21/2023 11:33 AM EDT HEMOGLOBIN A1C Lab Routine Type 2 diabetes mellitus with hemoglobin A1c goal of less than 8.0% ([facility]) 03/21/2023 11:33 AM EDT Scheduled Orders Name Type Priority Associated Diagnoses Orde r Schedule ALBUMIN / CREATININE RATIO, URINE Lab Routine Type 2 diabetes mellitus with hemoglobin A1c goal of less than 8.0% (HCC) Expected: 03/28/2023 (Approximate), Expires: 03/21/2024 HEMOGLOBIN A1C Lab Routine Type 2 diabetes mellitus with hemoglobin A1c goal of less than 8.0% (HCC) Expected: 03/28/2023 (Approximate), Expires: 03/21/2024 Health Maintenance Due Date Last Done Comments Depression Screening, Annual for Pts 12 and Over 12/05/2020 12/05/2019 Zoster Vaccines (2 of 2) 04/07/2021 02/10/2021 Albumin/Creatinine Ratio 12/15/2021 021, 12/06/2019, 12/25/2018, Additional history exists Yearly B-12 09/08/2022 09/08/2021, 04/0 12/2018, 12/25/2018, Additional history exists GFR 09/09/2022 03/09/2022, 08/18, 01/06/2021, Additional history exists CKD HGB USE SMARTSET 13542 03/09/202303/09, 11/25/2020, 12/06/2019, Additional history exists CKD PHOS USE SMARTSET 59077 03/09/202302/15, 11/25/2020, 03/09/2019, Additional history exists DIABETES-FOOT EXAM 03/09/2023 03/09/2022, 0 11/25/2020, 05/08/2019, Additional history exists HbA1c 03/28/2023 09/27/2022, 06/17, 03/09/2022, Additional history exists DIABETES-EYE EXAM 02/04/2024 02/03/2023, , 12/01/2017, Additional history exists DTaP,Tdap,and Td Vaccines (2 - Td or Tdap) 05/05/2027 05/05/2017, 02/17/2009, 02/14/1994 Pneumococcal Vaccine: 65+ Years Completed 09/14/2016, 09/22/2005 Influenza Vaccine (FLU shot) Completed , 07/24/2021, 07/17/2020, Additional history exists COVID-19 Vaccine Completed 10/15/2022, , 07/15/2021, Additional [...] this encounter Medical Devices Implanted Type Area Chain Maker Device Identifier Shelf Expiration Date Model / Serial / Lot Lens Intraoc 23.0 - [id number] - [id number] Implanted:Qty: 1 on 12/22/2021 by Long Huddleston MD at OR [facility] Left: Eye [employer]CH [employer]OMB 06/16/2026 [id number] / [id number] / [id number] Lens Intraoc 22.0 - [id number] - [id number] Implanted:Qty: 1 on 01/05/2022 by Long Huddleston MD at OR [facility] Right: Eye BAUSCH & LOMB 07/16/2026 [id number] / [id number] / [id number] documented as of this encounter Visit Diagnoses Diagnosis Type 2 diabetes mellitus with hemoglobin A1c goal of less than 8.0% (HCC)- Primary Type 2 diabetes mellitus with peripheral vascular disease (HCC) Type 2 diabetes, controlled, with peripheral neuropathy (HCC) Type II or unspecified type diabetes mellitus with neurological manifestations, not stated as uncontrolled Diabetes mellitus with stage 3 chronic kidney disease (HCC) Type II or unspecified type diabetes mellitus with renal manifestations, not stated as uncontrolled documented in this encounter Care Teams Storage Battery Tester Relationship Specialty Start Date End Date Jhoan Maki, DO [address] [facility] [address] PCP - General Family Medicine 11/07/18 documented as of this encounter
--- OUTSIDE RECORDS SUMMARY | 2023-08-25 21:02 | External Medical Summary | Summary of Care ---
Author Name Unknown Organization [facility] Address [address] [place] [address] Phone [phone] Care Team Providers Care Icu Clerk Name Role Phone Jhoan Maki DO Primary Care Provider [phone] Reason for Visit * Reason Comments Re-Check Encounter Details Date Type Department Care Team Description 04/01/2023 Office Visit Family Practice [facility] [place] [address] [facility] [place] [address] Jhoan Maki DO 200 [place] [address] Type 2 diabetes mellitus with hemoglobin A1c goal of less than 8.0% ([facility])*; Dyslipidemia, goal LDL below 100; HTN, goal below 150/90; Diabetes mellitus with stage 3 chronic kidney disease ([facility]); Hypertensive kidney disease with stage 3a chronic kidney disease ([facility]); Type 2 diabetes, controlled, with peripheral neuropathy ([facility]); Type 2 diabetes mellitus with peripheral vascular disease ([facility]); Thalamic stroke ([facility]) Allergies Active Allergy Reactions Severity Noted Date Comments Dust Medium 02/09/2012 Penicillins 09/04/2003 Ragweed 10/05/2012 Breathing problems Ezetimibe Edema face/lips/tongue Medium 12/24/2008 documented as of this encounter (statuses as of 04/01/2023) Medications Medication Sig Dispensed Refills Start Date [...] 0 03/05/2019 Active Blood Glucose Monitoring Suppl ([employer] w/Device KIT Use up to 4 times a day E11.9 1 Kit 0 12/18/2019 Active Glucose Blood ([employer] STRP Use up to 4 times a day E11.9 100 Strip 11 12/18/2019 Active Blood Glucose Monitoring Suppl ([employer] w/Device KIT Use up to 4 times a day E11.9 1 Kit 0 12/17/2019 Active Glucose Blood STRP Use as directed. 100 Strip 11 12/17/2019 Active [employer] DELICA LANCETS 33G MISC Check 4 times daily 100 Each 6 12/18/2019 Active Pen [place] 32G X 4 MMIndications:Type 2 diabetes mellitus with hemoglobin A1c goal of less than 8.0% (HCC) Use to inject insulin once daily. 100 Each 3 05/03/2022 Active Furosemide 20 MG Oral Tablet (Lasix)Indications: [...] at bedtime. 15 mL 3 04/01/2023 Active Lantus SoloStar 100 UNIT/ML Subcutaneous Solution Pen-injector (Insulin Glargine) Inject under the skin 8 Units before bedtime. 15 mL 3 05/03/2022 04/01/2023 Discontinue d(Refill) documented as of this encounter (statuses as of 04/01/2023) Active Problems Problem Noted Date Hypertensive kidney [...] as of this encounter (statuses as of 04/01/2023) Resolved Problems Problem Noted Date Resolved Date [...] as of this encounter (statuses as of 04/01/2023) Immunizations Name Administration Dates Next Due COVID-19 mRNA, LNP-s, No Pre serve, 2-Dose Series ([employer]) 02/03/2022,07/15/2021,12/22/2020,2020 Covid-19, Mrna, Lnp-s, Pf, B ivalent, 30 Mcg, IM, 12 yrs and above ([employer]) 10/15/2022 PPD 04/11/2014, 1,02/17/2009,2006 Pneumococcal Conjugate Vacc, [...] on file documented as of this encounter Last Filed Vital Signs Vital Sign Reading Time Taken Comments Blood Pressure 140/74 04/01/2023 1:10 PM EDT Pulse 74 04/01/2023 1:10 PM EDT Temperature 37.1 C (98.7 F) 04/01/2023 1:10 PM ED T Respiratory Rate 16 04/01/2023 1:10 PM EDT Oxygen Saturation 95% 04/01/2023 1:10 PM EDT Inhaled Oxygen Concentration - - Weight 49.7 kg (109 lb 9.6 oz) 04/01/2023 1:10 P M EDT Height - - Body Mass Index 20.17 03/09/2022 3:41 PM EDT documented in this encounter Progress Notes * Jhoan Maki, DO - 04/01/2023 1:24 PM EDT Subjective: Janay Melgoza is a 83 year old female. Chief Complaint Patient presents with Re-Check HPI: Pt here for a follow-up., Eating more over time. More of what's on the table. BG looking good also. Checking BG regularly. 100 before breakfast, 110 before lunch. 115 before dinner. Highest before bed. Doing okay with her walker. Gets around alright with it. She has new shoes to give more support. She had her second shot for her retina and already helping. 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 2 diabetes, controlled, with peripheral neuropathy (HCC) E11.42 Thalamic stroke ([facility]) I63.81 Brain aneurysm I67.1 Need for prophylactic vaccination and inoculation against influenza Z23 Hypertensive kidney disease with stage 3a chronic kidney disease I12.9, N18.31 Current Outpatient Medications Medication Sig Dispense Refill CALTRATE 600 + D 600-125 MG-IU PO TABS 1 po bid 60 12 COSAMIN DS 500-400 MG PO CAPS 2 cap daily at night JASON 180 MG PO TABS one tab by mouth daily 90 Tab 3 COENZYME Q10 200 MG PO CAPS one tablet daily 30 Cap 11 ONE DAILY FOR WOMEN PO TABS once daily B Complex-C (SUPER B COMPLEX) Tablet Take by mouth daily. Acetaminophen ER 650 MG Oral Tablet Extended Release Take 1 Tablet by mouth every 8 hours as needed for Fever. Calcium Carb-Cholecalciferol 600-800 MG-UNIT CHEW 1 Tab. Blood Glucose Monitoring Suppl ([employer] w/Device KIT Use up to 4 times a day E11.9 1 Kit 0 Glucose Blood ([employer] STRP Use up to 4 times a day E11.9 100 Strip 11 Blood Glucose Monitoring Suppl ([employer] w/Device KIT Use up to 4 times a day E11.9 1 Kit 0 Glucose Blood STRP Use as directed. 100 Strip 11 [employer] LANCETS 33G MISC Check 4 times daily 100 Each 6 Lantus SoloStar 100 UNIT/ML Subcutaneous Solution Pen-injector (Insulin Glargine) Inject under the skin 8 Units before bedtime. 15 mL 3 [place] 32G X 4 MM Use to inject insulin once daily. 100 Each 3 Furosemide 20 MG Oral Tablet (Lasix) Take by mouth 1 Tablet in the morning. 90 Tablet 3 Quinapril HCl 20 MG Oral Tablet (Accupril) Take 1 tablet by mouth twice daily 180 Tablet 3 metFORMIN HCl 1000 MG Oral Tablet (Glucophage) Take 1 tablet by mouth once daily 90 Tablet 3 Misc. Devices AFO, right ankle/foot Weakness, right side; Balance issues 1 Each 0 Zoster Vac Recomb Adjuvanted 50 MCG/0.5ML Intramuscular Suspension Reconstituted (Shingrix) Inject 0.5 mL into a large muscle now and repeat dose in 60 to 180 days 1 Each 1 Empagliflozin 25 MG Oral Tablet (Jardiance) Take 1 Tablet by mouth in the morning. 90 Tablet 3 amLODIPine Besylate 5 MG Oral Tablet (Norvasc) TAKE 2 TABLETS BY MOUTH IN THE MORNING 180 Tablet 2 Atorvastatin Calcium 40 MG Oral Tablet (Lipitor) TAKE 1 TABLET BY MOUTH BEFORE BEDTIME 90 Tablet 2 Clopidogrel Bisulfate 75 MG Oral Tablet (pLAVix) TAKE 1 TABLET BY MOUTH IN THE MORNING 90 Tablet 2 Metoprolol Tartrate 50 MG Oral Tablet (Lopressor) Take 1 tablet by mouth twice daily 180 Tablet1 No current facility-administered medications for this visit. Review of patient's allergies indicates: Allergen Reactions Environmental [Dust] Zetia [Ezetimibe] Edema face/lips/tongue Penicillins Ragweed Breathing problems OBJECTIVE: BP 140/74 | Pulse 74 | Temp 37.1 C (98.7 F) (Tympanic) | Resp 16 | Wt 49.7 kg (109 lb 9.6 oz) | SpO2 95% | BMI 20.17 kg/m | BSA 1.47 m Estimated body mass index is 20.17 kg/m as calculated from the following: Height as of 03/09/22: 1.57 m (5' 1.81"). Weight as of this encounter: 49.7 kg (109 lb 9.6 oz). BP Readings from Last 3 Encounters: 04/01/23 140/74 09/27/22 128/62 07/23/22 136/78 Wt Readings from Last 3 Encounters: 04/01/23 49.7 kg (109 lb 9.6 oz) 09/27/22 47.6 kg (105 lb) 07/23/22 45.7 kg (100 lb 12.8 oz) ROS: Negative except for above PHYSICAL EXAM: General: alert, healthy and no distress Head: Normocephalic, No masses, lesions, tenderness or abnormalities Heart: regular rate & rhythm, no murmur and no gallops Lungs: chest symmetric with normal AP diameter, no chest deformities noted, no chest wall tenderness, lungs clear to auscultation Extremities: less than 2 second capillary refill, and trace edema ASSESSMENT/Plan Type 2 diabetes mellitus with hemoglobin A1c goal of less than 8.0% ([facility]) (Primary) - HEMOGLOBIN A1C; Future; Expected date: 10/01/2023 Dyslipidemia, goal LDL below 100 - LIPID PANEL WITH DIRECT LDL IF TG IS HIGH; Future; Expected date: 10/01/2023 - COMPREHENSIVE METABOLIC PANEL; Future; Expected date: 10/01/2023 HTN, goal below 150/90 Diabetes mellitus with stage 3 chronic kidney disease (HCC) - HGB; Future; Expected date: 10/01/2023 - PHOSPHORUS; Future; Expected date: 10/01/2023 Hypertensive kidney disease with stage 3a chronic kidney disease (HCC) Type 2 diabetes, controlled, with peripheral neuropathy (HCC) Type 2 diabetes mellitus with peripheral vascular disease (HCC) Thalamic stroke (HCC) Other orders - Insulin Glargine Solostar 100 UNIT/ML Subcutaneous Solution Pen-injector (Lantus SoloStar); Inject 8 Units under the skin every night at bedtime. I spent a total of 30 minutes on the date of service in preparation, delivery, and documentation ofthe care provided to this patient, excluding any time spent on the performance of any procedure or separately billable services. Overall doing well with weight, BG and active as able COVID booster discussed. The above was discussed and understanding was expressed. Jhoan Maki DO documented in this encounter Nursing Notes * Maryellen Ellison LPN - 04/01/2023 1:06 PM EDT Janay Melgoza presents for 6 month recheck. Medications & HM reviewed. No concerns at this time. Being treated at retina specialist for right eye. documented in this encounter Plan of Treatment Upcoming Encounters Date Type Specialty Care Team Description 06/13/2023 Office Visit Pharmacy Pharmacist1, [facility] [address] [facility] [place] [address] 11/11/2023 Office Visit Family Medicine Jhoan Maki DO 200 [facility] [place] [address] Scheduled Orders Name Type Priority Associated Diagnoses Orde r Schedule HEMOGLOBIN A1C Lab Routine Type 2 diabetes mellitus with hemoglobin A1c goal of less than 8.0% (HCC) Expected: 10/01/2023 (Approximate), Expires: 04/01/2024 LIPID PANEL WITH DIRECT LDL IF TG IS HIGH Lab Routine Dyslipidemia, goal LDL below 100 Expected: 10/01/2023, Expires: 04/01/2024 COMPREHENSIVE METABOLIC PANEL Lab Routine Dyslipidemia, goal LDL below 100 Expected: 10/01/2023 (Approximate), Expires: 04/01/2024 HGB Lab Routine Diabetes mellitus with stage 3 chronic kidney disease (HCC) Expected: 10/01/2023 (Approximate), Expires: 03/31/2024 PHOSPHORUS Lab Routine Diabetes mellitus with stage 3 chronic kidney disease (HCC) Expected: 10/01/2023 (Approximate), Expires: 03/31/2024 Health Maintenance Due Date Last Done Comments Depression Screening, Annual for Pts 12 and Over 12/05/2020 12/05/2019 Zoster Vaccines (2 of 2) 04/07/2021 02/10/2021 CKD HGB USE SMARTSET 58047 03/09/202303/09, 11/25/2020, 12/06/2019, Additional history exists CKD PHOS USE SMARTSET 41077 03/09/202302/15, 11/25/2020, 03/09/2019, Additional history exists DIABETES-FOOT EXAM 03/09/2023 03/09/2022, 0 11/25/2020, 05/08/2019, Additional history exists GFR 09/20/2023 03/21/2023, 02/15, 09/08/2021, Additional history exists HbA1c 09/20/2023 03/21/2023, 09/16, 06/28/2022, Additional history exists DIABETES-EYE EXAM 02/04/2024 02/03/2023, , 12/01/2017, Additional history exists Albumin/Creatinine Ratio 03/21/2024 023, 03/09/2022, 12/15/2020, Additional history exists Yearly B-12 03/21/2024 03/21/2023, 08/18, 01/17/2019, Additional history [...] this encounter Medical Devices Implanted Type Area Business Lawyer Device Identifier Shelf Expiration Date Model / Serial / Lot Lens Intraoc 23.0 - [id number] - [id number] Implanted:Qty: 1 on 12/22/2021 by Long Huddleston MD at OR [facility] Left: Eye [employer]OM[employer] 06/16/2026 [id number] / [id number] / [id number] Lens Intraoc 22.0 - [id number] - [id number] Implanted:Qty: 1 on 01/05/2022 by Long Huddleston MD at OR [facility] Right: Eye BA[employer]CH & LOMB 07/16/2026 [id number] / [id number] / [id number] documented as of this encounter Visit Diagnoses Diagnosis Type 2 diabetes mellitus with hemoglobin A1c goal of less than 8.0% (HCC)- Primary Dyslipidemia, goal LDL below 100 Other and unspecified hyperlipidemia HTN, goal below 150/90 Diabetes mellitus with stage 3 chronic kidney disease (HCC) Type II or unspecified type diabetes mellitus with renal manifestations, not stated as uncontrolled Hypertensive kidney disease with stage 3a chronic kidney disease (HCC) Type 2 diabetes, controlled, with peripheral neuropathy (HCC) Type II or unspecified type diabetes mellitus with neurological manifestations, not stated as uncontrolled Type 2 diabetes mellitus with peripheral vascular disease (HCC) Thalamic stroke (HCC) documented in this encounter Care Teams Icu Clerk Relationship Specialty Start Date End Date Jhoan Maki, DO 200 [facility] [place] [address] PCP - General Family Medicine 11/07/18 documented as of this encounter
--- OUTSIDE RECORDS SUMMARY | 2023-08-25 21:02 | External Medical Summary | Summary of Care ---
Author Name Unknown Organization [facility] Address [address] [place] [address] Phone [phone] Care Team Providers Care Medical Legal Investigator Name Role Phone Lisbet Roque DO Primary Care Provider [phone] Reason for Visit * Reason Comments eRx-Medication Refill Encounter Details Date Type Department Care Team Description 06/17/2023 Refill Family Practice [facility] [place] [address] [facility] [place] [address] [facility] DO [facility] [address] Kidney disease, chronic, stage III (GFR 30-59 ml/min) ([facility]); HTN, goal below 140/90 Allergies Active Allergy Reactions Severity Noted Date Comments Dust Medium 02/09/2012 Penicillins 09/04/2003 Ragweed 10/05/2012 Breathing problems Ezetimibe Edema face/lips/tongue Medium 12/24/2008 documented as of this encounter (statuses as of 06/17/2023) Medications Medication Sig Dispensed Refills Start Date [...] 0 03/05/2019 Active Blood Glucose Monitoring Suppl ([employer]) w/Device KIT Use up to 4 times a day E11.9 1 Kit 0 12/18/2019 Active Glucose Blood ([employer]) STRP Use up to 4 times a day E11.9 100 Strip 11 12/18/2019 Active Blood Glucose Monitoring Suppl ([employer]) w/Device KIT Use up to 4 times a day E11.9 1 Kit 0 12/17/2019 Active Glucose Blood STRP Use as directed. 100 Strip 11 12/17/2019 Active [employer] DELICA LANCETS 33G MISC Check 4 times [...] morning. 90 Tablet 2 05/09/2023 Active Pen [place] 32G X 4 MMIndications:Type 2 diabetes mellitus with hemoglobin A1c goal of less than 8.0% (HCC) Use to inject insulin once daily. 100 Each 3 05/30/2023 Active Metoprolol Tartrate 50 MG Oral Tablet (Lopressor)Indicati ons:Kidney disease, chronic, stage III (GFR 30-59 ml/min) (HCC),HTN, goal below 140/90 Take 1 tablet by mouth twice daily 180 Tablet 1 06/17/2023 Active Metoprolol Tartrate 50 MG Oral Tablet (Lopressor)Indicati ons:Kidney disease, chronic, stage III (GFR 30-59 ml/min) (HCC),HTN, goal below 140/90 Take 1 tablet by mouth twice daily 180 Tablet 1 12/24/2022 3 Discontinued documented as of this encounter (statuses as of 06/17/2023) Active Problems Problem Noted Date Hypertensive kidney [...] as of this encounter (statuses as of 06/17/2023) Resolved Problems Problem Noted Date Resolved Date [...] as of this encounter (statuses as of 06/17/2023) Immunizations Name Administration Dates Next Due COVID-19 mRNA, LNP-s, No Pre serve, 2-Dose Series ([employer]) 02/03/2022,07/15/2021,12/22/2020,2020 Covid-19, Mrna, Lnp-s, Pf, B ivalent, [...] encounter Miscellaneous Notes * Telephone Encounter - Vonda Zaman, [facility] - 06/17/2023 12:03 PM EDTSigned Prescriptions: Disp Refills Metoprolol Tartrate 50 MG Oral Tablet (Lop*180 Ta*1 Sig: Take 1 tablet by mouth twice dailyAuthorizing Provider: LISBET ROQUE User: VONDA ZAMAN documented in this encounter Plan of Treatment Upcoming Encounters Date Type Specialty Care Team Description 11/11/2023 Office Visit Pharmacy Pharmacist1, [facility] [address] [place], [place] [address] 11/11/2023 Office Visit Family Medicine Lisbet Roque, DO [address] [place], [place] [address] Health Maintenance Due Date Last Done Comments Depression Screening, Annual for Pts 12 and Over 12/05/2020 12/05/2019 Zoster Vaccines (2 of 2) 04/07/2021 02/10/2021 CKD HGB USE SMARTSET 56692 03/09/202303/09, 11/25/2020, 12/06/2019, Additional history exists CKD PHOS USE SMARTSET 67415 03/09/202302/15, 11/25/2020, 03/09/2019, Additional history exists DIABETES-FOOT [...] this encounter Medical Devices Implanted Type Area Head Waiter/Waitress Banquet Device Identifier Shelf Expiration Date Model / Serial / Lot Lens Intraoc 23.0 - [id number] - [id number] Implanted:Qty: 1 on 12/22/2021 by Long Huddleston MD at OR [facility] Left: Eye [employer] 06/16/2026 [id number] / [id number] / [id number] Lens Intraoc 22.0 - [id number] - [id number] Implanted:Qty: 1 on 01/05/2022 by Long Huddleston MD at OR [facility] Right: Eye [employer]OMB 07/16/2026 [id number] / [id number] / [id number] documented as of this encounter Visit Diagnoses Diagnosis Kidney disease, chronic, stage III (GFR 30-59 ml/min) (HCC) Chronic kidney disease, Stage III (moderate) HTN, goal below 140/90 Unspecified essential hypertension documented in this encounter Care Teams Medical Legal Investigator Relationship Specialty Start Date End Date Lisbet Roque, DO 200 [facility] [place] [address] PCP - General Family Medicine 11/07/18 documented as of this encounter
--- OUTSIDE RECORDS SUMMARY | 2023-08-25 21:02 | External Medical Summary | Summary of Care ---
Author Name Unknown Organization [facility] Address [address] [place] [address] Phone [phone] Care Team Providers Care Property Clerk Name Role Phone CrJhoan noriega Primary Care Provider [phone] Reason for Visit * Reason Onset Date Comments Urinary Tract Infection Symptoms Urinary Tract Infection Symptoms 07/18/2023 Encounter Details Date Type Department Care Team Description 07/18/2023 Convenient Care Visit [facility] [address] [place] [address] Ángel Leon PA-C [address] [place], [place] [id number] UTI symptoms* Allergies Active Allergy Reactions Severity Noted Date Comments Dust Medium 02/09/2012 Penicillins 09/04/2003 Ragweed 10/05/2012 Breathing problems Ezetimibe Edema face/lips/tongue Medium 12/24/2008 documented as of this encounter (statuses as of 07/18/2023) Medications Medication Sig Dispensed Refills Start Date [...] 0 03/05/2019 Active Blood Glucose Monitoring Suppl ([employer]) w/Device KIT Use up to 4 times a day E11.9 1 Kit 0 12/18/2019 Active Glucose Blood ([employer]) STRP Use up to 4 times a day E11.9 100 Strip 11 12/18/2019 Active Blood Glucose Monitoring Suppl ([employer]urbed[employer]) w/Device KIT Use up to 4 times [...] morning. 90 Tablet 2 05/09/2023 Active Pen [place] 32G X 4 MMIndications:Type 2 diabetes mellitus [...] as of this encounter (statuses as of 07/18/2023) Active Problems Problem Noted Date Hypertensive kidney [...] as of this encounter (statuses as of 07/18/2023) Resolved Problems Problem Noted Date Resolved Date [...] as of this encounter (statuses as of 07/18/2023) Immunizations Name Administration Dates Next Due COVID-19 mRNA, LNP-s, No Pre serve, 2-Dose Series ([employer]) 02/03/2022,07/15/2021,12/22/2020,2020 Covid-19, Mrna, Lnp-s, Pf, B ivalent, [...] Sign Reading Time Taken Comments Blood Pressure 132/70 07/18/2023 5:11 PM EDT Pulse 54 07/18/2023 5:11 PM EDT Temperature 36.1 C (97 F) 07/18/2023 5:11 PM EDT Respiratory Rate 16 07/18/2023 5:11 PM EDT Oxygen Saturation 97% 07/18/2023 5:11 PM EDT Inhaled Oxygen Concentration - - Weight 49.4 kg (109 lb) 07/18/2023 5:11 PM EDT Height 157 cm (5' 1.81") 07/18/2023 5:11 PM EDT Body Mass Index 20.06 07/18/2023 5:11 PM EDT documented in this encounter Patient Instructions * Patient Instructions* Ángel Leon PA-C - 07/18/2023 5:44 PM EDT Ultrasound at [facility] Please call [phone] to schedule your study If you cannot get through on this line, you may call . When you go, please get labs and Xray as well Drink plenty of fluids and increase fluid intake over next 48-72 hours. Take all medications as prescribed, even if you are feeling better sooner so as to reduce risk of reinfection and to reduce the chance of antibiotic resistance developing. We will notify you of your urine culture results. F/U with PCP with no improvement in 3-5 days. Go immediately to the ED with any change or worsening symptoms including chills, fevers, back pain. documented in this encounter Progress Notes * Ángel Leon PA-C - 07/18/2023 5:13 PM EDT CONVENIENT CARE PROGRESS NOTE Nursing Notes: Zulema Lonnie Pugh, RT 07/18/23 [id number] Signed 83 y/o F presents with urinary urgency and little ouput. Denies dsyuria but had lower back pain earlier in the week. Symptoms started a few day ago. She is very tired and is normally energetic. Denies fever. She has a past Hx of UTIs. She hasn't taken anything otc for relief. Janay Melgoza is a 83 year old female who presents with urinary tract symptoms. Patient was accompanied by Spouse. HPI: Severity of Symptoms: Moderate Modifying Factors (what was done since onset of Symptoms): see above Timing (How often does it occur): intermittent Quality (Feels Like): low back pain intermittently, frequency, urgency. Denies f/s/ch n/v/d/c, hematuria, abn discharge. Denies h/o nephrolithiasis. Last BM yesterday, normal. (vaginal). denies abn confusion/amnesia Reports fatigue ROS: See HPI HISTORY: Past Medical History: Diagnosis Date Allergic rhinitis due to other allergen DM type 2, goal A1C below 8.0 01/12/2015 Essential and other specified forms of tremor HTN, goal below 140/90 OTHER 07/22/06 dilated fundus examination showed no diabetic retinopathy Past Surgical History: Procedure Laterality Date COLONOSCOPY pt unsure when, normal per pt COLONOSCOPY, DIAGNOSTIC (RECTUM) 08/26/2011 normal colon exam repeat in 10 years DIABETIC EYE EXAM 02/06/09 neg for diabetic retinopathy, Dr [place] NONE REMOVE CATARACT, INSERT LENS PROSTH Left 12/22/2021 Left EXTRACAPSULAR CATARACT REMOVAL WITH INTRAOCULAR LENS performed by Long Huddleston MD at OR [facility] REMOVE CATARACT, INSERT LENS PROSTH Right 01/05/2022 Right EXTRACAPSULAR CATARACT REMOVAL WITH INTRAOCULAR LENS performed by Long Huddleston MD at OR [facility] Social History Socioeconomic History Marital status: Spouse name: Not on file Number of children: Not on file Years of education: Not on file Highest education level: Not on file Occupational History Not on file Tobacco Use Smoking status: Never Smokeless tobacco: Never Vaping Use Vaping Use: Never used Substance and Sexual Activity Alcohol use: Yes Comment: rare Drug use: No Sexual activity: Yes Partners: Male Other Topics Concern Service Not Asked Blood Transfusions Not Asked Caffeine Concern Not Asked Occupational Exposure Not Asked Hobby Hazards Not Asked Sleep Concern Not Asked Stress Concern Not Asked Weight Concern Not Asked Special Diet Not Asked Back Care Not Asked Exercise Not Asked Bike Helmet Not Asked Seat Belt Yes Self-Exams Not Asked Social History Narrative Janay Melgoza denies falls or difficulties with ambulation. 02/19/2020 Ramonita Dudley PA-C Social Determinants of Health Financial Resource Strain: Not on file Food Insecurity: Not on file Transportation Needs: Not on file Physical Activity: Not on file Stress: Not on file Social Connections: Not on file Intimate Partner Violence: Not on file Housing Stability: Not on file Current Outpatient Medications Medication Sig Dispense Refill [...] Tablet by mouth every 8 hours as neededfor Fever. Calcium Carb-Cholecalciferol 600-800 MG-UNIT CHEW 1 Tab. Blood Glucose Monitoring Suppl (Curbed.com) w/Device KIT Use up to 4 times a day E11.9 1 Kit 0 Glucose Blood ([employer]urbed[employer]) STRP Use up to 4 times a day E11.9 100 Strip 11 Blood Glucose Monitoring Suppl (Curbed[employer]) w/Device KIT Use up to 4 times a day E11.9 1 Kit 0 Glucose Blood STRP Use as directed. 100 Strip 11 [employer] DELICA LANCETS 33G MISC Check 4 times daily 100 Each 6 metFORMIN HCl 1000 MG Oral Tablet (Glucophage) [...] MOUTH IN THE MORNING 90 Tablet 2 Insulin Glargine Solostar 100 UNIT/ML Subcutaneous Solution Pen-injector (Lantus SoloStar) Inject 8Units under the skin every night at bedtime. 15 mL 3 Furosemide 20 MG Oral Tablet (Lasix) Take 1 Tablet by mouth in the morning. 90 Tablet 2 Pen [place] 32G X 4 MM Use to inject insulin once daily. 100 Each 3 Metoprolol Tartrate 50 MG Oral Tablet (Lopressor) Take 1 tablet by mouth twice daily 180 Tablet 1 Sulfamethoxazole-Trimethoprim 800-160 MG Oral Tablet (Bactrim DS) Take 1 Tablet by mouth in the morning and 1 Tablet before bedtime. Do all this for 3 days. Until gone. 6 Tablet 0 Quinapril HCl 20 MG Oral Tablet (Accupril) Take 1 tablet by mouth twice daily (Patient not taking: Reported on 07/18/2023) 180 Tablet 3 No current facility-administered medications for this visit. Review of patient's allergies indicates: Allergen Reactions Environmental [Dust] Zetia [Ezetimibe] Edema face/lips/tongue Penicillins Ragweed Breathing problems Family History Problem Relation Age of Onset Lung Disorder Mother smoker Lung Disorder Father smoker Other (Other) Sister schizophrenia Other (Other) Other etoh abuse Other (CKD, ESRD) None Other (HTN) None Schizophrenia Daughter OBJECTIVE: BP 132/70 (BP Site: Left Arm, BP Position: Sitting, BP Cuff Size: Regular) | Pulse 54 | Temp 36.1 C (97 F) (Tympanic) | Resp 16 | Ht 1.57 m (5' 1.81") | Wt 49.4 kg (109 lb) | SpO2 97% | BMI 20.06kg/m | BSA 1.47 m Wt Readings from Last 1 Encounters: 07/18/23 49.4 kg (109 lb) General appearance: awake, alert, no apparent distress Abdominal Exam: back: no CVA tenderness and abd: no suprapubic tenderness to palpation, no R/R/G, +BS Respiratory: clear to auscultation, no rhonchi, no wheezes, and no crackles Heart: regular rate, regular rhythm, no murmurs , no rubs, and no gallops Skin/Integumentary: warm, dry Results for orders placed or performed in visit on 07/18/23 URINALYSIS, POINT OF CARE (ENTER/EDIT) Result Value Ref Range Color, Urine Yellow Yellow or Light Yellow Clarity, Urine Clear Clear Glucose, Urine 500 (A) Negative mg/dL Bilirubin, Urine Negative Negative Ketone, Urine Negative Negative mg/dL Specific Brady, Urine 1.020 1.003 - 1.030 Blood, Urine Negative Negative pH, Urine 5.5 5.0 - 7.5 units Protein, Urine Negative Negative mg/dL Urobilinogen, Urine 0.2 0.2 - 1.0 mg/dL Nitrite, Urine Negative Negative Esterase, Urine Negative Negative Patient Instructions Ultrasound at [facility] Please call [phone] to schedule your study If you cannot get through on this line, you may call . When you go, please get labs and Xray as well Drink plenty of fluids and increase fluid intake over next 48-72 hours. Take all medications as prescribed, even if you are feeling better sooner so as to reduce risk of reinfection and to reduce the chance of antibiotic resistance developing. We will notify you of your urine culture results. F/U with PCP with no improvement in 3-5 days. Go immediately to the ED with any change or worsening symptoms including chills, fevers, back pain. Assessment: UTI symptoms (Primary) - URINALYSIS, POINT OF CARE (ENTER/EDIT) - CULTURE, URINE, QUANTITATIVE - Sulfamethoxazole-Trimethoprim 800-160 MG Oral Tablet (Bactrim DS); Take 1 Tablet by mouth in the morning and 1 Tablet before bedtime. Do all this for 3 days. Until gone. - CBC WITH WBC DIFFERENTIAL; Future; Expected date: 07/18/2023 - COMPREHENSIVE METABOLIC PANEL; Future; Expected date: 07/18/2023 - XR ABDOMEN OBSTRUCT SERIES W CHEST 1 VIEW; Future; Expected date: 07/18/2023 - US RENAL; Future; Expected date: 07/18/2023 UA largely negative, save glucose 500 She is diabetic, and during the day her sugar is usually 100-150, around dinner time or evening it can be >200-300. Will start 3 days of bactrim, get labs and imaging. She has h/o hyponatremia that has landed her in the hospital as well in the past, when she had a UTI at the same time, per Follow Up: Return for Patient to follow up with Primary Care Provider as directed. | For: Patient to follow up with Primary Care Provider as directed Patient goals for plan of care were discussed Ángel Leon PA-C [facility] [address] [facility] [address] documented in this encounter Nursing Notes * Zulema Pugh RT - 07/18/2023 5:07 PM EDT 83 y/o F presents with urinary urgency and little ouput. Denies dsyuria but had lower back pain earlier in the week. Symptoms started a few day ago. She is very tired and is normally energetic. Denies fever. She has a past Hx of UTIs. She hasn't taken anything otc for relief. documented in this encounter Plan of Treatment Upcoming Encounters Date Type Specialty Care Team Description 11/11/2023 Office Visit Pharmacy Pharmacist1, [facility] [address] [facility] [place] [address] 11/11/2023 Office Visit Family Medicine Jhoan Maki DO [address] [facility] [place] [address] Pending Results Name Type Priority Associated Diagnoses Date /Time CULTURE, URINE, QUANTITATIVE Lab STAT UTI symptoms 07/18/2023 5:12 PM EDT Scheduled Orders Name Type Priority Associated Diagnoses Orde r Schedule CBC WITH WBC DIFFERENTIAL Lab STAT UTI symptoms Expected: 07/18/2023, Expires: 08/18/2023 COMPREHENSIVE METABOLIC PANEL Lab STAT UTI symptoms Expected: 07/18/2023, Expires: 08/18/2023 XR ABDOMEN OBSTRUCT SERIES W CHEST 1 VIEW Medical Imaging STAT UTI symptoms Expected: 07/18/2023, Expires: 08/18/2023 US RENAL Medical Imaging STAT UTI symptoms Expected: 07/18/2023, Expires: 08/18/2023 Health Maintenance Due Date Last Done Comments Depression Screening 12/05/2020 12/05/2019 Zoster Vaccines (2 of 2) 04/07/2021 02/10/2021 CKD HGB USE SMARTSET 85886 03/09/202303/09, 11/25/2020, 12/06/2019, Additional history exists CKD PHOS USE SMARTSET 35208 03/09/202302/15, 11/25/2020, 03/09/2019, Additional history exists Diabetic [...] this encounter Medical Devices Implanted Type Area Political Science Research Assistant Device Identifier Shelf Expiration Date Model / Serial / Lot Lens Intraoc 23.0 - [id number] - [id number] Implanted:Qty: 1 on 12/22/2021 by Long Huddleston MD at OR [facility] Left: Eye [employer] 06/16/2026 [id number] / [id number] / [id number] Lens Intraoc 22.0 - [id number] - [id number] Implanted:Qty: 1 on 01/05/2022 by Long Huddleston MD at OR [facility] Right: Eye [employer] 07/16/2026 [id number] / [id number] / [id number] documented as of this encounter Procedures Procedure Name Priority Date/Time Associated Diagnosis Comments URINALYSIS, POINT OF CARE (ENTER/EDIT) Routine 07/18/2023 UTI symptoms documented in this encounter Results * (ABNORMAL) URINALYSIS, POINT OF CARE (ENTER/EDIT) (07/18/2023) Color, Urine Yellow Yellow or Light Yellow Clarity, Urine Clear Clear Glucose, Urine 500(A) Negative mg/dL Bilirubin, Urine Negative Negative Ketone, Urine Negative Negative mg/dL Specific Brady, Urine 1.020 1.003 - 1.030 Blood, Urine Negative Negative pH, Urine 5.5 5.0 - 7.5 units Protein, Urine Negative Negative mg/dL Urobilinogen, Urine 0.2 0.2 - 1.0 mg/dL Nitrite, Urine Negative Negative Esterase, Urine Negative Negative Urine 07/18/2023 Ángel Leon PA-C LAB POINT O F CARE TEST ENTER/EDIT ORDERABLES documented in this encounter Visit Diagnoses Diagnosis UTI symptoms- Primary Other symptoms involving urinary system documented in this encounter Care Teams Property Clerk Relationship Specialty Start Date End Date Jhoan Maki, DO [address] [place] [address] PCP - General Family Medicine 11/07/18 documented as of this encounter
--- OUTSIDE RECORDS SUMMARY | 2023-08-25 21:03 | External Medical Summary ---
Author Name Unknown Address Unknown Organization [id number]:[facility] [place] [address] Laboratory Report Ordering Provider Test Date Status JUDE FRAUSTO 03/21/2023 11:33:14 Final Observation Date Value Abnormality Reference (Units ) Status BUN 03/21/2023 11:33:14 30 Above high normal 6-20 (mg/dL) Final Creatinine 03/21/2023 11:33:14 0.9 0.5-1.0 (mg/dL) Final Glomerular filtration rate/1.73 sq M.predicted [Volume Rate/Area] in Serum, Plasma or Blood by Creatinine-based formula (CKD-EPI) 03/21/2023 11:33:14 67 >=60 (mL/min) Final eGFR is calculated based on the CKD-EPI 2020 equation SODIUM 03/21/2023 11:33:14 141 135-146 (m mol/L) Final Potassium 03/21/2023 11:33:14 4.5 3.5-5.1 (m mol/L) Final Cl 03/21/2023 11:33:14 99 98-107 (mm ol/L) Final CO2 03/21/2023 11:33:14 29 22-32 (mmo l/L) Final Anion gap 03/21/2023 11:33:14 13 7-15 (mmol /L) Final Glucose 03/21/2023 11:33:14 197 Above high normal 70 -120 (mg/dL) Final Calcium 03/21/2023 11:33:14 10.3 Above high normal 8. 4-10.2 (mg/dL) Final Performing Location [facility] [place] [address]
--- OUTSIDE RECORDS SUMMARY | 2023-08-25 21:03 | External Medical Summary ---
Author Name Unknown Address Unknown Organization [id number]:[facility] - [address] [facility] [address] Laboratory Report Ordering Provider Test Date Status YFN CASTILLO 03/21/2023 11:33:14 Final Normal: <30 mg/g creatinine< br/>High: 30-300 mg/g creatinine
Very High: >300 mg/g creatinine
Nephrotic: >2200 mg/g creatinine Observation Date Value Abnormality Reference (Units ) Status Albumin, Urine 03/21/2023 11:33:14 1.41 (mg/dL) Final Creatinine, Urine 03/21/2023 11:33:14 29 (mg/dL) Final Albumin/Creatinine [Mass Ratio] in Urine 03/21/2023 11:33:14 49 Above high normal <30 (mg/g Creat) Final Performing Location [facility] - [address] [place] [address]
--- OUTSIDE RECORDS SUMMARY | 2023-08-25 21:03 | External Medical Summary | Summary of Care ---
Author Name Unknown Organization [facility] Address [address] [place] [address] Phone [phone] Care Team Providers Care Dye Reel Operator Helper Name Role Phone Christian Makie Gudelia WHITTAKER Primary Care Provider [phone] Reason for Visit * Reason Comments Outpatient Testing Encounter Details Date Type Department Care Team Description 03/21/2023 Laboratory [facility] [place] [address] [place] [address] [place] [address] [place] [address] Hypertensive kidney disease with stage 3a chronic kidney disease (HCC); Encounter for long-term (current) use of medications; Type 2 diabetes mellitus with hemoglobin A1c goal of less than 8.0% ([facility]) Allergies Active Allergy Reactions Severity Noted Date [...] 03/05/2019 Acti ve Blood Glucose Monitoring Suppl ([employer]) w/Device KIT Use up to 4 times a day E11.9 1 Kit 0 12/18/2019 Active Glucose Blood ([employer]) STRP Use up to 4 times a day E11.9 100 Strip 11 12/18/2019 Active Blood Glucose Monitoring Suppl ([employer]) w/Device KIT Use up to 4 times a day E11.9 1 Kit 0 12/17/2019 Active Glucose Blood STRP Use as directed. 100 Strip 11 12/17/2019 Active [employer] DELICA LANCETS 33G MISC Check 4 times daily 100 Each 6 12/18/2019 Active Lantus SoloStar 100 UNIT/ML Subcutaneous Solution Pen-injector (Insulin Glargine) Inject under the skin 8 Units before bedtime. 15 mL 3 05/03/2022 Active Pen [place] 32G X 4 MMIndications:Type 2 diabetes mellitus [...] mRNA, LNP-s, No Pre serve, 2-Dose Series ([employer]) 02/03/2022,07/15/2021,12/22/2020,2020 Covid-19, Mrna, Lnp-s, Pf, B ivalent, 30 Mcg, IM, 12 yrs and above ([employer]) 10/15/2022 PPD 04/11/2014, 1,02/17/2009,2006 Pneumococcal Conjugate Vacc, [...] on file documented as of this encounter Plan of Treatment Upcoming Encounters Date Type Specialty Care Team Description 04/01/2023 Office Visit Family Medicine Jhoan Maki, DO [address] [place] [address] 06/13/2023 Office Visit Pharmacy Pharmacist2, [facility] [address] [place] [address] Pending Results Name Type Priority Associated Diagnoses Date /Time BASIC METABOLIC PANEL Lab Routine Hypertensive kidney disease with stage 3a chronic kidney disease (HCC) 03/21/2023 11:33 AM EDT VITAMIN B12 Lab Routine Encounter for long-term (current) use of medications 03/21/2023 11:33 AM EDT ALBUMIN / CREATININE RATIO, URINE Lab Routine Type 2 diabetes mellitus with hemoglobin A1c goal of less than 8.0% ([facility]) 03/21/2023 11:33 AM EDT HEMOGLOBIN A1C Lab Routine Type 2 diabetes mellitus with hemoglobin A1c goal of less than 8.0% ([facility]) 03/21/2023 11:33 AM EDT Health Maintenance Due Date Last Done Comments Depression Screening, Annual for Pts 12 and Over 12/05/2020 12/05/2019 Zoster Vaccines (2 of 2) 04/07/2021 02/10/2021 Albumin/Creatinine Ratio 12/15/2021 021, 12/06/2019, 12/25/2018, Additional history exists Yearly B-12 09/08/2022 09/08/2021, 04/0 12/2018, 12/25/2018, Additional history exists GFR 09/09/2022 03/09/2022, 08/18, 01/06/2021, Additional history exists CKD HGB USE SMARTSET 71321 03/09/202303/09, 11/25/2020, 12/06/2019, Additional history exists CKD PHOS USE SMARTSET 37596 03/09/202302/15, 11/25/2020, 03/09/2019, Additional history exists DIABETES-FOOT [...] this encounter Medical Devices Implanted Type Area General Accountant Device Identifier Shelf Expiration Date Model / Serial / Lot Lens Intraoc 23.0 - [id number] - [id number] Implanted:Qty: 1 on 12/22/2021 by Long Huddleston MD at OR [facility] Left: Eye [employer] 06/16/2026 [id number] / [id number] / [id number] Lens Intraoc 22.0 - [id number] - [id number] Implanted:Qty: 1 on 01/05/2022 by Long Huddleston MD at OR [facility] Right: Eye [employer] 07/16/2026 [id number] / [id number] / [id number] documented as of this encounter Visit Diagnoses Diagnosis Hypertensive kidney disease with stage 3a chronic kidney disease (HCC) Encounter for long-term (current) use of medications Encounter for long-term (current) use of other medications Type 2 diabetes mellitus with hemoglobin A1c goal of less than 8.0% (HCC) documented in this encounter Care Teams Dye Reel Operator Helper Relationship Specialty Start Date End Date Jhoan Maki, DO [address] [place] [address] PCP - General Family Medicine 11/07/18 documented as of this encounter
--- OUTSIDE RECORDS SUMMARY | 2023-08-25 21:03 | External Medical Summary ---
Author Name Unknown Address Unknown Organization [id number]:[facility]ATORY [facility] - [address] [facility] [address] Laboratory Report Ordering Provider Test Date Status YFN CASTILLO 03/21/2023 11:33:14 Final Observation Date Value Abnormality Reference (Units ) Status HbA1C 03/21/2023 11:33:14 7.3 Above high normal 4. 0-5.6 (%) Final The use of HbA1c to monitor glycemic status is based on normal hemoglobin and HbA composition. This test should not be used in patients with abnormal hemoglobin that affects the half life of the red blood cell or the in vivo glycation rates. Glucose, estimated average 03/21/2023 11:33:14 163 Above high normal <126 (mg/dL) Karlo castellano Performing Location [facility]ATORY [facility] - [address] [facility] [address]
--- OUTSIDE RECORDS SUMMARY | 2023-08-25 21:03 | External Medical Summary ---
Author Name Unknown Address Unknown Organization [id number]:[facility] - [address] [place] [address] Laboratory Report Ordering Provider Test Date Status JUDE FRAUSTO 03/21/2023 11:33:14 Final Observation Date Value Abnormality Reference (Units ) Status Vitamin B12 03/21/2023 11:33:14 [phone] (pg/mL) Final Performing Location [facility] - [address] [place] [address]
[2023-08-25] MEDS: ACETAMINOPHEN 325 MG TAB PO PRN (21:35)
[2023-08-25] MEDS: GABAPENTIN 100 MG CAP PO SCH (21:36)
[2023-08-25] MEDS: ATORVASTATIN 40 MG TAB PO SCH (21:36)
[2023-08-25] MEDS: amLODIPine BESYLATE 5 MG TAB PO SCH (21:36)
[2023-08-26 06:22] LABS: BUN Creatinine Ratio 34.1 (10-20); Calcium 9.7 mg/dl (8.6-10.3); Est GFR (African American) 76.2 ml/min; Est GFR (Non-African American) 65.7 ml/min; Potassium 4.2 mmol/L (3.5-5.1)
[2023-08-26] MEDS: LANTUS PER UNIT CHARGE SQ SCH ×2 (09:05→20:40)
[2023-08-26] MEDS: HEPARIN SOD 5,000 UNIT/0.5 ML VIAL SQ SCH ×2 (09:06→20:41)
[2023-08-26] MEDS: CLOPIDOGREL BISULFATE 75 MG TAB PO SCH (09:07)
[2023-08-26] MEDS: METOPROLOL TARTRATE 50 MG TAB PO SCH ×2 (09:07→20:42)
[2023-08-26] MEDS: ENALAPRIL MALEATE 10 MG TAB PO SCH ×2 (09:07→20:41)
[2023-08-26] MEDS: VITAMIN B COMPLEX TAB PO SCH (09:08)
[2023-08-26] MEDS: FUROSEMIDE 20 MG TAB PO SCH (09:08)
[2023-08-26] MEDS: CEROVITE ADV FORMULA TAB PO SCH (09:08)
[2023-08-26] MEDS: FEXOFENADINE HCL 180 MG TAB PO SCH (09:08)
[2023-08-26] MEDS: INSULIN ASPART PER UNIT CHARGE SC SCH ×4 (09:11→20:37)
--- NOTE | 2023-08-26 15:05 | Hospitalist Progress Note ---
Date of Service August 26, 2023 Assessment & Plan (1) Weakness: (2) Ambulatory dysfunction: Plan: Patient is 83 y/o F with PMH HTN, dyslipidemia, DM II, CKD III, stroke with residual right sided weakness, LE edema presented to ER with c/o weakness x 1 day. Generalized weakness Ambulatory dysfunction Unclear etiology DD: Likely deconditioning due to comorbidities in setting of recent COVID/Flu vaccine administration Mechanical fall Recently received flu, COVID-vaccine Blood work, imaging studies not contributory Imaging studies showed no acute fractures Normal TSH Negative BioFire Urine culture negative Reviewed blood cultures vitamin B12, CK levels normal Ambulates with a walker at baseline PT OT, fall precautions Case management to help with discharge planning Stable for discharge Waiting for rehab placement - plan to discharge to center care on tuesday (3) Hypertensive urgency: (4) Hypertension: Plan: Situational hypertension while in ED H/O Hypertension Continue amlodipine, DAYTON inhibitor, metoprolol tartrate BP Variable Monitor BP and adjust medications as needed Anxiety disorder Discontinued Buspar due to Intolerance Adjust medications as needed Abnormal blood cultures 1/4 blood cultures growing gram-negative bacilli Bio fire negative Likely contamination Afebrile, normal WBC count Discussed with microbiology Lab on 08/23/2023: No significant growth noted (5) Diabetes type 2, controlled: Plan: A1c: 7.3 on 03/21/2023 Hold home Jardiance, metformin Continue home Lantus NovoLog sliding scale per protocol Started on gabapentin 100 mg at bedtime per peripheral neuropathy Monitor BGs (6) Stroke: Plan: Residual right sided weakness Continue atorvastatin, Plavix (7) CKD (chronic kidney disease), stage III: Plan: Cr: 0.9. Baseline (0.9-1) Monitor renal functions avoid nephrotoxic agents when possible (8) Dyslipidemia: Plan: Continue atorvastatin (9) Leg edema: Plan: Continue Lasix DVT Px Heparin SQ Code Status Full Code Disposition Rehab when accepted - plan to DC to center care on tuesday Admission and Anticipated Discharge Date Admission Date: August 21, 2023 Subjective Patient is seen and examined at bedside No new complaints Waiting for rehab placement -> plan for center [facility] on tuesday Discussed with patient's at bedside Denies any chest pain, dyspnea, dizziness, nausea, vomiting, abdominal pain Review of Systems Review of Systems: All systems reviewed & are unremarkable except as noted in Subjective Physical Exam Physical Exam: General Appearance: Thin, frail, elderly F in no apparent distress Head: normocephalic, Atraumatic Eyes: normal inspection, EOMI Neck: supple, Trachea midline Respiratory/Chest: Normal breath sounds, CTA, No accessory muscle use Cardiovascular: S1, S2, No murmur Abdomen/GI: Soft, Non tender, protuberant, bowel sounds present Extremities/Musculoskeletal: normal inspection, trace pedal edema Neurologic/Psych:AAOX3, right-sided facial droop, RUE/RLE weakness, slow to respond Skin: normal color, warm Results & Data Results & Data Vital Signs (Past 12 Hours) Vital Signs Temp Pulse Pulse Resp BP Pulse Ox O2 Del Method 08/26/23 14:01 73 08/26/23 11:29 36.4 C L 59 L 18 104/57 L 96 Room Air 08/26/23 07:46 36.6 C 75 18 136/71 94 Room Air 08/26/23 05:57 64 Laboratory Results 08/26/23 08/26/23 08/26/23 Range/Units 11:52 08:26 05:47 Sodium 133 L (136-145) mmol/L Potassium 4.2 (3.5-5.1) mmol/L Chloride 99 (98-107) mmol/L Carbon Dioxide 28 (21-32) mmol/L Anion Gap 6 (3-11) BUN 28 H (6-23) mg/dl Creatinine 0.82 (0.6-1.2) mg/dl Est Cr Clr Drug Dosing 41.0 ml/min Est GFR ( Amer) 76.2 ml/min Est GFR (Non-Af Amer) 65.7 ml/min BUN/Creatinine Ratio 34.1 H (10-20) Glucose 141 H (70-99(Fasting)) mg/dl POC Glucose 288 H 243 H (70-99) mg/dl Calcium 9.7 (8.6-10.3) mg/dl Misc Micro Test 08/25/23 08/25/23 08/19/23 Range/Units 20:08 17:34 18:26 Sodium (136-145) mmol/L Potassium (3.5-5.1) mmol/L Chloride (98-107) mmol/L Carbon Dioxide (21-32) mmol/L Anion Gap (3-11) BUN (6-23) mg/dl Creatinine (0.6-1.2) mg/dl Est Cr Clr Drug Dosing ml/min Est GFR ( Amer) ml/min Est GFR (Non-Af Amer) ml/min BUN/Creatinine Ratio (10-20) Glucose (70-99(Fasting)) mg/dl POC Glucose 212 H 177 H (70-99) mg/dl Calcium (8.6-10.3) mg/dl Misc Micro Test Pending Medications Administered Current Inpatient Medications Acetaminophen (Acetaminophen 325 Mg Tab) 650 mg PO Q4H PRN PRN Reason: Pain or Fever Stop: 09/18/23 22:21 Last Admin: 08/25/23 21:35 Dose: 650 mg Amlodipine Besylate (Amlodipine Besylate 5 Mg Tab) 10 mg PO [facility] Stop: 09/18/23 22:21 Last Admin: 08/25/23 21:36 Dose: 10 mg Atorvastatin Calcium (Atorvastatin 40 Mg Tab) 40 mg PO [facility] Stop: 09/18/23 22:21 Last Admin: 08/25/23 21:36 Dose: 40 mg Clopidogrel Bisulfate (Clopidogrel Bisulfate 75 Mg Tab) 75 mg PO [facility] Stop: 09/18/23 22:21 Last Admin: 08/26/23 09:07 Dose: 75 mg Dextrose (Dextrose 50% 50 Ml Syringe) 25 - 50 ml IV UD PRN; Protocol PRN Reason: Hypoglycemia Protocol Stop: 09/18/23 22:21 Enalapril Maleate (Enalapril Maleate 10 Mg Tab) 20 mg PO BID [facility] Stop: 09/18/23 22:21 Last Admin: 08/26/23 09:07 Dose: 20 mg Fexofenadine HCl (Fexofenadine Hcl 180 Mg Tab) 180 mg PO [facility] Stop: 09/19/23 08:59 Last Admin: 08/26/23 09:08 Dose: 180 mg Furosemide (Furosemide 20 Mg Tab) 20 mg PO [facility] Stop: 09/19/23 08:59 Last Admin: 08/26/23 09:08 Dose: 20 mg Gabapentin (Gabapentin 100 Mg Cap) 100 mg PO [facility] Stop: 09/20/23 20:59 Last Admin: 08/25/23 21:36 Dose: 100 mg Glucagon (Glucagon For Inj 1 Mg Vial) 1 mg SQ UD PRN; Protocol PRN Reason: Hypoglycemia Protocol Stop: 09/18/23 22:21 Glucose (Glucose 10 Tab/Tube) 4 - 8 tab PO UD PRN; Protocol PRN Reason: Hypoglycemia Treatment Stop: 09/18/23 22:21 Glucose (Glucose 40% Gel 15 Gm Tube) 15 - 30 gm PO UD PRN; Protocol PRN Reason: Hypoglycemia Protocol Stop: 09/18/23 22:21 Heparin Sodium (Porcine) (Heparin Sod 5,000 Unit/0.5 Ml Vial) 5,000 units SQ Q12 [facility] Stop: 09/18/23 22:21 Last Admin: 08/26/23 09:06 Dose: 5,000 units Hydralazine HCl (Hydralazine Hcl 20 Mg/Ml Vial) 5 mg IV Q4H PRN PRN Reason: hypertension Stop: 09/18/23 17:28 Last Admin: 08/21/23 23:04 Dose: 5 mg Insulin Aspart (Insulin Aspart Per Unit Charge) 0 units SC ACHS [facility] Stop: 09/18/23 22:21 Last Admin: 08/26/23 12:54 Dose: 10 units Insulin Glargine (Lantus Per Unit Charge) 6 units SQ BID [facility] Stop: 09/24/23 20:59 Last Admin: 08/26/23 09:05 Dose: 6 units Metoprolol Tartrate (Metoprolol Tartrate 50 Mg Tab) 50 mg PO BID [facility] Stop: 09/18/23 22:21 Last Admin: 08/26/23 09:07 Dose: 50 mg Miscellaneous (Carbohydrates For Hypoglycemia ) 15 - 30 gm PO UD PRN PRN Reason: Hypoglycemia Protocol Stop: 09/18/23 22:21 Multivitamins/Minerals (Cerovite Adv Formula Tab) 1 tab PO DAILY [facility] Stop: 09/21/23 08:59 Last Admin: 08/26/23 09:08 Dose: 1 tab Ondansetron HCl (Ondansetron Inj 2 Mg/Ml 2 Ml Vial) 4 mg IV Q6H PRN PRN Reason: Nausea Stop: 09/18/23 22:21 Polyethylene Glycol (Polyethylene (Miralax) 17 Gm Pack) 17 gm PO DAILY PRN PRN Reason: Constipation Stop: 09/18/23 22:21 Last Admin: 08/26/23 09:05 Dose: 17 gm Tramadol HCl (Tramadol Hcl 50 Mg Tablet) 50 mg PO Q6H PRN PRN Reason: Mod-Sev Pain (Scale 4-10) Stop: 09/18/23 22:21 Last Admin: 08/25/23 00:00 Dose: 50 mg Vitamin B Complex (Vitamin B Complex Tab) 1 tab PO QDL [facility] Stop: 09/21/23 11:29 Last Admin: 08/26/23 09:08 Dose: 1 tab
[2023-08-26] MEDS: traMADol HCL 50 MG TABLET PO PRN (18:36)
[2023-08-26] MEDS: amLODIPine BESYLATE 5 MG TAB PO SCH (20:41)
[2023-08-26] MEDS: ATORVASTATIN 40 MG TAB PO SCH (20:41)
[2023-08-26] MEDS: GABAPENTIN 100 MG CAP PO SCH (20:41)
[2023-08-26] MEDS: ACETAMINOPHEN 325 MG TAB PO PRN (20:42)
[2023-08-27] MEDS: HEPARIN SOD 5,000 UNIT/0.5 ML VIAL SQ SCH (08:30)
[2023-08-27] MEDS: CLOPIDOGREL BISULFATE 75 MG TAB PO SCH (08:30)
[2023-08-27] MEDS: METOPROLOL TARTRATE 50 MG TAB PO SCH (08:30)
[2023-08-27] MEDS: FUROSEMIDE 20 MG TAB PO SCH (08:30)
[2023-08-27] MEDS: FEXOFENADINE HCL 180 MG TAB PO SCH (08:30)
[2023-08-27] MEDS: CEROVITE ADV FORMULA TAB PO SCH (08:31)
[2023-08-27] MEDS: ENALAPRIL MALEATE 10 MG TAB PO SCH (08:31)
[2023-08-27] MEDS: LANTUS PER UNIT CHARGE SQ SCH (09:27)
[2023-08-27] MEDS: INSULIN ASPART PER UNIT CHARGE SC SCH (09:28)
--- NOTE | 2023-08-27 09:37 | Discharge Summary ---
Date of Service August 27, 2023 Admission HPI Per Admitting Provider Patient is 83 y/o F with PMH HTN, dyslipidemia, DM II, CKD III, stroke, LE edema presented to ER with c/o weakness x 1 day. History obtained from patient, , chart review. At baseline patient has chronic right sided weakness from prior CVA as well as some delayed verbal responses from prior stroke reports at baseline some confusion. He states its worse when patient is anxious. feels patients speech and mental status are at baseline. She uses walker at baseline and typically able to ambulate through house and complete her ADLs of dressing, toileting and bathing without assistance. Patient states feeling very weak during the night and couldn't walk using her walker. states this morning she was so weak couldn't get up out of bed and when tried to stand and walk her legs started shaking and lowered her to the floor. Denies any fall. Has chronic tremor. States eating "ok" at home. Admits doesn't drink much. Did not have morning meds today. One week ago patient received recent COVID-19 vaccine. States last month had influenza vaccine. Has been having in home PT. Patient with fatigue, urinary urgency beginning of July 2023 and seen at urgent care treated with Bactrim for 3 days for suspected UTI. Urine culture 07/18/23 without significant growth. Denies fever/chills, diaphoresis, N/V/D/C, WYLIE, dizziness, syncope, vision changes, neck pain, CP, SOB, palpitations, cough, sore throat, otalgia, rhinorrhea, abdominal pain, paresthesias, extremity edema, rashes, dysuria, hematuria. Admission Exam Per Admitting Provider GENERAL: Alert and oriented x3. NAD, on RA. Appears weak/frail. Slow to respond but appropriate likely 2/2 forgetfulness. HEENT: No pallor, no icterus. Pupils equal, round and reactive to light. Oral mucosa moist. NECK: No JVD, no neck masses. HEART: S1 and S2 heard. Regular rate and rhythm. No murmur, no gallop. RESPIRATORY SYSTEM: Normal AP diameter. No accessory muscle use. No wheezing, no crackles. ABDOMEN: Soft, bowel sounds present, nontender, no distention. CENTRAL NERVOUS SYSTEM: No facial droop. Speech is clear. Obeys simple commands. Moves extremities. EXTREMITIES: 1+ BLE edema, no erythema seen. b/l hand intention tremor noted. Principal Diagnosis Generalized weakness Ambulatory dysfunction Hypertension H/O CVA with residual right-sided weakness Discharge Exam General Appearance: Thin, frail, elderly F in no apparent distress Head: normocephalic, Atraumatic Eyes: normal inspection, EOMI Neck: supple, Trachea midline Respiratory/Chest: Normal breath sounds, CTA, No accessory muscle use Cardiovascular: S1, S2, No murmur Abdomen/GI: Soft, Non tender, protuberant, bowel sounds present Extremities/Musculoskeletal: normal inspection, trace pedal edema Neurologic/Psych:AAOX3, mild right-sided facial droop, RUE/RLE weakness, sometimes slow to respond Skin: normal color, warm Discharge Data Allergies Allergy/AdvReac Type Severity Reaction Status Date / Time ragweed pollen Allergy Severe Breathing Verified 08/19/23 13:30 issues house dust mite Allergy Unknown Breathing Verified 08/19/23 13:30 issues Jhnyoey-BQC-PrJ Reductase AdvReac Unknown Foot cramps Verified 08/19/23 13:30 Inhibitor [Tmkrqer-Mbp-Ovy Reductase Inhibitor] Ordered Studies 08/19/23 11:24 CT head/brain wo con Stat FINDINGS: No acute intracranial hemorrhage, midline shift or mass effect is present. The ventricular system is stable. White matter hypodensities are unchanged and favor small vessel disease. Old left basal ganglia infarct is again noted. The basal cisterns are patent. No extra-axial collections are present. There are no findings to suggest acute dural sinus thrombosis or acute territorial infarct. No significant calvarial abnormalities are present. Visualized portions of the sinuses and mastoid air cells are clear. IMPRESSION: No acute intracranial findings. No change in appearance of the brain. Hospital Course (1) Weakness: (2) Ambulatory dysfunction: Patient is 83 y/o F with PMH HTN, dyslipidemia, DM II, CKD III, stroke with residual right sided weakness, LE edema presented to ER with c/o weakness x 1 day. Generalized weakness Ambulatory dysfunction Unclear etiology DD: Likely deconditioning due to comorbidities in setting of recent COVID/Flu vaccine administration Mechanical fall Recently received flu, COVID-vaccine Blood work, imaging studies not contributory Imaging studies showed no acute fractures Normal TSH Negative BioFire Urine culture negative Reviewed blood cultures vitamin B12, CK levels normal Ambulates with a walker at baseline PT OT, fall precautions Case management to help with discharge planning Stable for discharge plan to discharge to [facility] (3) Hypertensive urgency: (4) Hypertension: Situational hypertension while in ED H/O Hypertension Continue amlodipine, DAYTON inhibitor, metoprolol tartrate BP Variable Monitor BP and adjust medications as needed Anxiety disorder Discontinued Buspar due to Intolerance Adjust medications as needed Abnormal blood cultures / blood cultures growing gram-negative bacilli Bio fire negative Likely contamination Afebrile, normal WBC count discussed with microbiology Lab on 08/23/2023: No significant growth noted (5) Diabetes type 2, controlled: A1c: 7.3 on 03/21/2023 Hold home Jardiance, metformin Continue home Lantus NovoLog sliding scale per protocol Started on gabapentin 100 mg at bedtime for peripheral neuropathy Monitor BGs (6) Stroke: Residual right sided weakness Continue atorvastatin, Plavix (7) CKD (chronic kidney disease), stage III: Cr: 0.9. Baseline (0.9-1) Monitor renal functions avoid nephrotoxic agents when possible (8) Dyslipidemia: Continue atorvastatin (9) Leg edema: Continue Lasix Total Time Total Time Spent Total Time Spent (In Minutes): 40 Discharge Plan Discharge Items Patient Disposition: Transfer Snf Fac Reason For Visit: WEAKNESS Discharge Diagnosis: Generalized weakness Ambulatory dysfunction Hypertension H/O CVA with residual right-sided weakness Activity: Per Instructions section Exercise/Sports: Gradually increase as tolerated Non-emergency contact: Primary Care Provider Call non-emergency contact if: you have any medication questions, your symptoms worsen and your pain is concerning for you Follow-up/Referrals: Jhoan Maki, [Primary Care Provider] - Diet: Carb Consistent or DM2 and Heart Healthy Addtl Attending Provider Instructions: Follow up with primary care physician within 1 week. Follow-up with your primary care physician Dr. Maki in 1 week upon discharge from [facility]. You were started on a new medication - gabapentin for neuropathic pain. You can also use Tylenol (up to 3,000 mg max daily dose). For more severe pain, you can take tramadol as needed as prescribed. Take miralax daily as needed for constipation. Pending Studies at Discharge: Yes Stand-Alone Forms: [facility] [place] [place] Patient informed of condition?: Yes DNR: No Discharge Level of Care: Skilled Communicable Disease: No Discharge Prognosis: Stable Lines: None Urinary Catheter: No Medications and DC Order Prescriptions: New gabapentin 100 mg Capsule 100 mg PO HS Qty: 10 0RF tramadol 50 mg Tablet 50 mg PO Q6H PRN (Reason: pain) Qty: 14 0RF polyethylene glycol 3350 [Miralax] 17 gram Powder In Packet 17 g PO DAILY PRN (Reason: constipation) Qty: 14 0RF Continued fexofenadine [Allergy Relief (fexofenadine)] 180 mg Tablet 180 mg PO QAM clopidogrel 75 mg Tablet 75 mg PO QAM 30 Days Qty: 30 1RF metformin 1,000 mg tablet 1,000 mg PO QAM metoprolol tartrate 50 mg tablet 50 mg PO BID quinapril 20 mg tablet 20 mg PO BID Caltrate 600 plus D 600 mg (1,500 mg)-800 unit Tablet,Chewable 1 tab PO DAILY Rx Instructions: take with lunch coenzyme Q10 [CoQ-10] 100 mg Capsule 100 mg PO QAM Ocuvite See Rx Instructions .ROUTE .COMPLEX Patient Comments: home med Rx Instructions: BID atorvastatin 40 mg tablet 40 mg PO HS amlodipine 5 mg tablet 10 mg PO HS furosemide 20 mg tablet 20 mg PO QAM insulin glargine [Lantus Solostar U-100 Insulin] 100 unit/mL (3 mL) insulin pen 8 unit SUBCUT HS Jardiance 25 mg tablet 25 mg PO QAM vitamin B complex Tablet 1 tab PO DAILY Rx Instructions: take with lunch glucosamine-chondroitin [Cosamin DS] 500-400 mg Tablet 1 tab PO DAILY Rx Instructions: take with lunch acetaminophen [Tylenol] 325 mg Tablet See Rx Instructions .ROUTE .COMPLEX Rx Instructions: take 650mg by mouth in the morning, 325mg at 4pm and 650mg at bedtime Discharge Orders: Discharge Order (Routine); Ordered 08/27/23 Ordered By: Torres Landers/Other Patient Handouts: High Blood Sugar (Hyperglycemia), Hypoglycemia (Low Blood Sugar), Managing Type 2 Diabetes Admission Data Admit Date/Time: 08/21/23 11:43 Attending Provider: Torres Lovett Admit Provider: Zachariah Cabrales Primary Care Provider: Jhoan Mkai Other Providers: Trevor Covarrubias [place]; [place]; Ovi Borden
[2023-08-27] MEDS: VITAMIN B COMPLEX TAB PO SCH (12:41)
== END 2023-08-27 13:37 | DRG 948 ==
LOC: 2S 10:26 → ED 10:26 → SUATTDRO 17:22 → 2S 22:00 → SUATTDRO 08-21 11:43 → 2W 08-24 23:45

== ENCOUNTER 2023-12-02 14:58 | Inpatient (IN) ==
--- NOTE | 2023-12-02 15:23 | Emergency Department Note ---
Impression & Plan Generalized weakness, C. difficile diarrhea ED Provider Note HISTORY OF PRESENT ILLNESS: Patient is an 83-year-old female presenting with hyperglycemia and lethargy. provides history. Reports that the patient became very lethargic and had difficulty staying awake around 11 AM. He took her blood sugar and it was over 300. He states that the patient seemed slightly weak on her left side but this only lasted for a few minutes and then improved. He states that he did forget to give her her dose of Lantus 8 units last night. However, he reports that she woke up her normal self today. On arrival to the ER, the patient has no complaints. reports that she is back to her baseline. ROS: as above PHYSICAL EXAM: Constitutional: Patient appears in no acute distress. HENT: Head: Normocephalic and atraumatic. Eyes: EOMI, PERRL Mouth/Throat: Mucous membranes moist. Neck: Trachea midline. Neck supple. Cardiovascular: RRR, No murmurs, rubs or gallops. Intact distal pulses. Pulmonary/Chest: No respiratory distress. Breath sounds clear and equal bilaterally. No wheezes or rales. Abdominal: Abdomen soft, no tenderness, rebound or guarding. Musculoskeletal: No edema, tenderness or deformity noted. Skin: Warm and dry. No rash, erythema, pallor or cyanosis Psychiatric: Appropriate mood and affect for situation. Neurological: Alert to person and place. CN II-XII grossly intact. Patient has weakness in the right upper and right lower extremities from her previous stroke. Strength 4 out of 5 in the left upper and left lower extremities. MDM: - Vitals signs showed hypertension. - History obtained via patient's , given patient's dementia. Patient presents with lethargy and hyperglycemia. states that patient was very lethargic and had difficulty staying awake around 11 AM today. He took her sugar and it was over 300. States that the patient is back to her baseline at this time. However, he did forget to give her her Lantus last night. Patient has no complaints on arrival to the ER. - Chronic conditions affecting care: CVA; PVD; HTN; DM-2; CKD; HLD - Differential diagnoses include, but are not limited to: CVA; UTI; hyperglycemia; electrolyte abnormality; ACS; pneumonia - Order placed for continuous cardiac monitoring. At this time, monitor showed rate of 80 bpm with normal sinus rhythm, per my interpretation. - External medical records reviewed. EMS run sheet was reviewed. Patient was vitally stable and route. She was hyperglycemic for EMS with a fingerstick of 279. - EKG interpreted by myself showed normal sinus rhythm. Rate 73 bpm. QT 392. No acute ischemic changes. - Laboratory workup interpreted by myself showed normal WBC; hyponatremia (Na 128 - likely pseudohyponatremia); hyperglycemia (glucose 295); normal troponin - UA showed evidence of UTI. - Viral respiratory panel negative. - CXR negative for pneumonia, per my interpretation. - Patient had an episode of foul-smelling diarrhea in the emergency department. It was sent for testing for C. difficile and came back positive. - CT head wo contrast negative for acute intracranial pathology. - expresses concern about his ability to care for the patient at home. - Discussion was had with customer care specialist about patient's case and need for admission - Hospitalist consulted for admission - Patient admitted to [facility] service for further evaluation and management. ASSESSMENT AND PLAN: Diagnosis: Generalized weakness; C. difficile diarrhea Plan: Admit Past Med/Surg History Medical History (Updated 12/02/23 @ 21:22 by Ciarra Ramos MD) SHAYY (obstructive sleep apnea) PVD (peripheral vascular disease) Leg edema Dyslipidemia Stroke History of CVA (cerebrovascular accident) Anxiety Neuropathy CKD (chronic kidney disease), stage III Diabetes type 2, controlled Hypertension Surgical History (Updated 12/02/23 @ 20:28 by Joseline Bill PA-C) H/O angioplasty 10/04/23, LLE angioplasty and stent. Dr Ramirez History of cataract surgery Family History Mother Lung disease Father Lung disease Social History Smoking Status: Never smoker Second Hand Exposure: No; Do You Dip or Chew Tobacco: No; Hx Alcohol Use: No Hx Substance Use: No Preferred Language: Faroese Communication Ability: Impaired County Historian Required: No Beliefs That Will Affect Care: None marital status: Current Living Situation: Spouse current occupational status: retired Feels Safe at Home: Yes Diet: diabetic caffeine: Yes Physical Activity Frequency: 1-2 Times per Week Do you think of yourself as: straight/heterosexual Gender Identity: Female Assistive Devices: Wheelchair Allergies Allergies Allergy/AdvReac Type Severity Reaction Status Date / Time house dust mite Allergy Severe Breathing Verified 11/28/23 11:13 issues ragweed pollen Allergy Severe Breathing Verified 11/28/23 11:13 issues buspirone Allergy Unknown Verified 11/28/23 11:13 ezetimibe [From Zetia] Allergy Unknown Verified 11/28/23 11:13 Penicillins Allergy Unknown Verified 11/28/23 11:13 Bgepzjy-YXD-KjZ Reductase AdvReac Intermediate Foot cramps Verified 11/28/23 11:13 Inhibitor [Swcegce-Avo-Duo Reductase Inhibitor] Home Meds Home Medications Medication Instructions Recorded Confirmed calcium carbonate 600 mg-vitamin 1 tab PO QDL 03/05/19 12/02/23 D3 20 mcg (800 unit) chewable tablet (Caltrate 600 plus D) metformin 1,000 mg tablet 1,000 mg PO QAM 03/05/19 12/02/23 metoprolol tartrate 50 mg tablet 50 mg PO BID 03/05/19 12/02/23 fexofenadine 180 mg tablet 180 mg PO QAM 12/07/19 12/02/23 (Allergy Relief (fexofenadine)) acetaminophen 325 mg tablet 650 mg PO .QAM & HS 07/10/22 12/02/23 (Tylenol) amlodipine 5 mg tablet 10 mg PO HS 07/10/22 12/02/23 atorvastatin 40 mg tablet 40 mg PO HS 07/10/22 12/02/23 empagliflozin 25 mg tablet 25 mg PO QAM 07/10/22 12/02/23 (Jardiance) furosemide 20 mg tablet 20 mg PO QAM 07/10/22 12/02/23 glucosamine-chondroitin 500 mg-400 1 tab PO QDL 07/10/22 12/02/23 mg tablet (Cosamin DS) insulin glargine 100 unit/mL (3 8 unit subcut HS 07/10/22 12/02/23 mL) subcutaneous pen (Lantus Solostar U-100 Insulin) vitamin B complex 1 tab PO QDL 07/10/22 12/02/23 coenzyme Q10 100 mg capsule 200 mg PO QDL 08/19/23 12/02/23 (CoQ-10) escitalopram oxalate 10 mg tablet 10 mg PO HS 09/20/23 12/02/23 (Lexapro) aspirin 81 mg tablet,delayed 81 mg PO HS 10/09/23 12/02/23 release vit C 250 mg-vit E 90 mg-zinc 40 1 tab PO BID 10/09/23 12/02/23 mg-copper 1 ua-kjoqva-zsokck capsule (PreserVision AREDS-2) acetaminophen 325 mg tablet 325 mg PO .QAFTERNOON 10/15/23 12/02/23 multivitamin 1 tab PO DAILYBL 10/15/23 12/02/23 Previous Rx's Medication Instructions Recorded clopidogrel 75 mg tablet 75 mg PO QAM 30 days #30 tabs 12/08/19 Results & Data (ED) Vital Signs Vital Signs - 24 hr 12/02/23 15:22 12/02/23 15:30 12/02/23 15:32 Temperature 36.7 C Temperature Source Oral Pulse Rate 75 74 77 Pulse Rate [Apical] Pulse Rate from SpO2 Sensor 74 Pulse Rhythm Regular Pulse Strength Normal Respiratory Rate 27 H 16 16 Respiratory Effort / Characteristics Non-Labored Respiratory Depth Normal Blood Pressure 141/69 H Blood Pressure Mean 93 Pulse Oximetry 96 96 Oxygen Delivery Method Room Air Sepsis Recent Fever Within 48 Hours No Sepsis New/Unexplained Change in Mental Status N/A Sepsis Action Taken by Nursing No Action Required 12/02/23 15:32 12/02/23 15:32 12/02/23 15:40 Temperature Temperature Source Pulse Rate 72 Pulse Rate [Apical] 69 Pulse Rate from SpO2 Sensor 72 Pulse Rhythm Pulse Strength Respiratory Rate 14 16 22 Respiratory Effort / Characteristics Respiratory Depth Normal Blood Pressure Blood Pressure Mean Pulse Oximetry 94 96 93 Oxygen Delivery Method Room Air Room Air Sepsis Recent Fever Within 48 Hours Sepsis New/Unexplained Change in Mental Status Sepsis Action Taken by Nursing 12/02/23 15:50 12/02/23 16:08 12/02/23 16:10 Temperature Temperature Source Pulse Rate 70 72 Pulse Rate [Apical] Pulse Rate from SpO2 Sensor 71 72 Pulse Rhythm Pulse Strength Respiratory Rate 22 12 10 L Respiratory Effort / Characteristics Respiratory Depth Blood Pressure Blood Pressure Mean Pulse Oximetry 94 94 Oxygen Delivery Method Sepsis Recent Fever Within 48 Hours Sepsis New/Unexplained Change in Mental Status Sepsis Action Taken by Nursing 12/02/23 16:12 12/02/23 16:20 12/02/23 16:30 Temperature Temperature Source Pulse Rate 70 71 80 Pulse Rate [Apical] Pulse Rate from SpO2 Sensor 72 80 Pulse Rhythm Pulse Strength Respiratory Rate 18 32 H Respiratory Effort / Characteristics Respiratory Depth Blood Pressure Blood Pressure Mean Pulse Oximetry 96 98 Oxygen Delivery Method Sepsis Recent Fever Within 48 Hours Sepsis New/Unexplained Change in Mental Status Sepsis Action Taken by Nursing 12/02/23 16:40 12/02/23 16:50 12/02/23 17:00 Temperature Temperature Source Pulse Rate 72 67 66 Pulse Rate [Apical] Pulse Rate from SpO2 Sensor 71 66 65 Pulse Rhythm Pulse Strength Respiratory Rate 18 13 14 Respiratory Effort / Characteristics Respiratory Depth Blood Pressure Blood Pressure Mean Pulse Oximetry 96 97 94 Oxygen Delivery Method Sepsis Recent Fever Within 48 Hours Sepsis New/Unexplained Change in Mental Status Sepsis Action Taken by Nursing 12/02/23 17:10 12/02/23 17:20 12/02/23 17:30 Temperature Temperature Source Pulse Rate 64 66 70 Pulse Rate [Apical] Pulse Rate from SpO2 Sensor 64 66 71 Pulse Rhythm Pulse Strength Respiratory Rate 14 18 13 Respiratory Effort / Characteristics Respiratory Depth Blood Pressure Blood Pressure Mean Pulse Oximetry 95 98 97 Oxygen Delivery Method Sepsis Recent Fever Within 48 Hours Sepsis New/Unexplained Change in Mental Status Sepsis Action Taken by Nursing 12/02/23 17:40 12/02/23 17:50 12/02/23 18:00 Temperature Temperature Source Pulse Rate 83 73 Pulse Rate [Apical] Pulse Rate from SpO2 Sensor Pulse Rhythm Pulse Strength Respiratory Rate 17 17 Respiratory Effort / Characteristics Respiratory Depth Blood Pressure 190/100 H Blood Pressure Mean 120 Pulse Oximetry Oxygen Delivery Method Sepsis Recent Fever Within 48 Hours Sepsis New/Unexplained Change in Mental Status Sepsis Action Taken by Nursing 12/02/23 18:00 12/02/23 18:10 12/02/23 18:20 Temperature Temperature Source Pulse Rate 76 73 90 Pulse Rate [Apical] Pulse Rate from SpO2 Sensor Pulse Rhythm Pulse Strength Respiratory Rate 19 15 20 Respiratory Effort / Characteristics Respiratory Depth Blood Pressure Blood Pressure Mean Pulse Oximetry Oxygen Delivery Method Sepsis Recent Fever Within 48 Hours Sepsis New/Unexplained Change in Mental Status Sepsis Action Taken by Nursing 12/02/23 18:30 12/02/23 18:40 12/02/23 18:50 Temperature Temperature Source Pulse Rate 77 79 81 Pulse Rate [Apical] Pulse Rate from SpO2 Sensor Pulse Rhythm Pulse Strength Respiratory Rate 23 20 15 Respiratory Effort / Characteristics Respiratory Depth Blood Pressure Blood Pressure Mean Pulse Oximetry Oxygen Delivery Method Sepsis Recent Fever Within 48 Hours Sepsis New/Unexplained Change in Mental Status Sepsis Action Taken by Nursing 12/02/23 19:00 12/02/23 19:10 12/02/23 19:20 Temperature Temperature Source Pulse Rate 78 78 81 Pulse Rate [Apical] Pulse Rate from SpO2 Sensor Pulse Rhythm Pulse Strength Respiratory Rate 17 22 22 Respiratory Effort / Characteristics Respiratory Depth Blood Pressure Blood Pressure Mean Pulse Oximetry Oxygen Delivery Method Sepsis Recent Fever Within 48 Hours Sepsis New/Unexplained Change in Mental Status Sepsis Action Taken by Nursing 12/02/23 19:30 12/02/23 19:40 12/02/23 19:50 Temperature Temperature Source Pulse Rate 79 79 80 Pulse Rate [Apical] Pulse Rate from SpO2 Sensor Pulse Rhythm Pulse Strength Respiratory Rate 18 15 21 Respiratory Effort / Characteristics Respiratory Depth Blood Pressure Blood Pressure Mean Pulse Oximetry Oxygen Delivery Method Sepsis Recent Fever Within 48 Hours Sepsis New/Unexplained Change in Mental Status Sepsis Action Taken by Nursing 12/02/23 20:00 12/02/23 20:10 12/02/23 20:20 Temperature Temperature Source Pulse Rate 77 84 80 Pulse Rate [Apical] Pulse Rate from SpO2 Sensor Pulse Rhythm Pulse Strength Respiratory Rate 15 19 20 Respiratory Effort / Characteristics Respiratory Depth Blood Pressure Blood Pressure Mean Pulse Oximetry Oxygen Delivery Method Sepsis Recent Fever Within 48 Hours Sepsis New/Unexplained Change in Mental Status Sepsis Action Taken by Nursing 12/02/23 20:24 12/02/23 20:30 12/02/23 20:40 Temperature Temperature Source Pulse Rate 75 84 76 Pulse Rate [Apical] Pulse Rate from SpO2 Sensor Pulse Rhythm Pulse Strength Respiratory Rate 23 21 Respiratory Effort / Characteristics Respiratory Depth Blood Pressure Blood Pressure Mean Pulse Oximetry Oxygen Delivery Method Sepsis Recent Fever Within 48 Hours Sepsis New/Unexplained Change in Mental Status Sepsis Action Taken by Nursing 12/02/23 20:50 12/02/23 21:00 12/02/23 21:10 Temperature Temperature Source Pulse Rate 76 77 80 Pulse Rate [Apical] Pulse Rate from SpO2 Sensor Pulse Rhythm Pulse Strength Respiratory Rate 22 23 18 Respiratory Effort / Characteristics Respiratory Depth Blood Pressure Blood Pressure Mean Pulse Oximetry Oxygen Delivery Method Sepsis Recent Fever Within 48 Hours Sepsis New/Unexplained Change in Mental Status Sepsis Action Taken by Nursing Laboratory Data 12/02/23 15:25 12/02/23 15:25 Lab Results 12/02/23 12/02/23 12/02/23 Range/Units 15:25 15:28 16:16 WBC 5.30 (4.8-10.8) K/ul RBC 4.39 (4.20-5.40) M/uL Hgb 12.5 (12.0-16.0) g/dl Hct 38.9 (37.0-47.0) % MCV 88.6 (80.0-100.0) fL MCH 28.5 (25.0-34.0) pg MCHC 32.1 (32.0-36.0) g/dL RDW Std Deviation 43.1 (36.4-46.3) fL RDW Coeff of Abner 13.2 (11.5-14.5) % Plt Count 160 (130-400) K/uL MPV 12.1 (9.4-12.4) fL Immature Gran % (Auto) 0.9 % Neut % (Auto) 86.1 % Lymph % (Auto) 7.9 % Bates % (Auto) 4.3 % Eos % (Auto) 0.4 % Baso % (Auto) 0.4 % Neut # (Auto) 4.56 (1.40-6.50) K/uL Lymph # (Auto) 0.42 L (1.20-3.40) K/uL Bates # (Auto) 0.23 (0.11-0.59) K/uL Eos # (Auto) 0.02 (0.00-0.50) K/uL Baso # (Auto) 0.02 (0.00-0.20) K/uL Immature Gran # (Auto) 0.05 (0.01-0.20) K/uL Sodium 128 L (136-145) mmol/L Potassium 4.4 (3.5-5.1) mmol/L Chloride 94 L (98-107) mmol/L Carbon Dioxide 26 (21-32) mmol/L Anion Gap 8 (3-11) BUN 33 H (6-23) mg/dl Creatinine 0.92 (0.6-1.2) mg/dl Est Cr Clr Drug Dosing 35.7 ml/min Est GFR ( Amer) 66.3 ml/min Est GFR (Non-Af Amer) 57.2 ml/min BUN/Creatinine Ratio 35.9 H (10-20) Glucose 295 H (70-99(Fasting)) mg/dl POC Glucose 335 H* (70-99) mg/dl Calcium 9.3 (8.6-10.3) mg/dl Magnesium 1.7 (1.7-2.4) mg/dl Total Bilirubin 0.6 (0.2-1.0) mg/dl AST 14 (13-39) U/L ALT 11 (7-52) U/L Alkaline Phosphatase 69 (34-104) U/L Troponin I High Sens 14.0 (0-14) pg/ml Total Protein 6.8 (6.0-8.3) gm/dl Albumin 3.3 L (3.4-5.0) gm/dl Globulin 3.5 (2.5-4.0) gm/dl Albumin/Globulin Ratio 0.9 (0.9-2) Urine Color Yellow Urine Appearance Cloudy A (Clear) Urine pH 5.0 (4.5-7.5) Ur Specific Jenners 1.017 (1.000-1.030) Urine Protein Negative (Negative) Urine Glucose (UA) 3+ H (Negative) Urine Ketones Negative (Negative) Urine Blood Trace H (Negative) Urine Nitrite Negative (Negative) Urine Bilirubin Negative (Negative) Urine Urobilinogen Negative (Negative) Ur Leukocyte Esterase 2+ H (Negative) Urine WBC (Auto) >30 H (0-5) /hpf Urine RBC (Auto) 0-4 (0-4) /hpf U Hyaline Cast (Auto) 1-5 (0-5) /lpf U Epithel Cells (Auto) 0-5 (0-5) /lpf Urine Bacteria (Auto) 2+ H (Negative) Stl C. diff Tox B Gene (Neg) Stl C.difficile Tox A&B (Negative) Adenovirus (PCR) Not Detected (NotDetected) B. pertussis DNA (PCR) Not Detected (NotDetected) B.parapertussis DNA PCR Not Detected (NotDetected) C. pneumoniae DNA (PCR) Not Detected (NotDetected) Coronavirus OC43 (PCR) Not Detected (NotDetected) Coronavirus HKU1 (PCR) Not Detected (NotDetected) Coronavirus 229E (PCR) Not Detected (NotDetected) SARS-CoV-2 (PCR) Not Detected (NotDetected) Coronavirus NL63 (PCR) Not Detected (NotDetected) Human Metapneumovir PCR Not Detected (NotDetected) Influenza Type A (PCR) Not Detected (NotDetected) Influenza Type B (PCR) Not Detected (NotDetected) M. pneumoniae (PCR) Not Detected (NotDetected) Parainfluenza 1 (PCR) Not Detected (NotDetected) Parainfluenza 2 (PCR) Not Detected (NotDetected) Parainfluenza 3 (PCR) Not Detected (NotDetected) Parainfluenza 4 (PCR) Not Detected (NotDetected) RSV (PCR) Not Detected (NotDetected) Entero/Rhino (PCR) Not Detected (NotDetected) 12/02/23 12/02/23 Range/Units 17:44 19:48 WBC (4.8-10.8) K/ul RBC (4.20-5.40) M/uL Hgb (12.0-16.0) g/dl Hct (37.0-47.0) % MCV (80.0-100.0) fL MCH (25.0-34.0) pg MCHC (32.0-36.0) g/dL RDW Std Deviation (36.4-46.3) fL RDW Coeff of Abner (11.5-14.5) % Plt Count (130-400) K/uL MPV (9.4-12.4) fL Immature Gran % (Auto) % Neut % (Auto) % Lymph % (Auto) % Bates % (Auto) % Eos % (Auto) % Baso % (Auto) % Neut # (Auto) (1.40-6.50) K/uL Lymph # (Auto) (1.20-3.40) K/uL Bates # (Auto) (0.11-0.59) K/uL Eos # (Auto) (0.00-0.50) K/uL Baso # (Auto) (0.00-0.20) K/uL Immature Gran # (Auto) (0.01-0.20) K/uL Sodium (136-145) mmol/L Potassium (3.5-5.1) mmol/L Chloride (98-107) mmol/L Carbon Dioxide (21-32) mmol/L Anion Gap (3-11) BUN (6-23) mg/dl Creatinine (0.6-1.2) mg/dl Est Cr Clr Drug Dosing ml/min Est GFR ( Amer) ml/min Est GFR (Non-Af Amer) ml/min BUN/Creatinine Ratio (10-20) Glucose (70-99(Fasting)) mg/dl POC Glucose 177 H (70-99) mg/dl Calcium (8.6-10.3) mg/dl Magnesium (1.7-2.4) mg/dl Total Bilirubin (0.2-1.0) mg/dl AST (13-39) U/L ALT (7-52) U/L Alkaline Phosphatase (34-104) U/L Troponin I High Sens (0-14) pg/ml Total Protein (6.0-8.3) gm/dl Albumin (3.4-5.0) gm/dl Globulin (2.5-4.0) gm/dl Albumin/Globulin Ratio (0.9-2) Urine Color Urine Appearance (Clear) Urine pH (4.5-7.5) Ur Specific Jenners (1.000-1.030) Urine Protein (Negative) Urine Glucose (UA) (Negative) Urine Ketones (Negative) Urine Blood (Negative) Urine Nitrite (Negative) Urine Bilirubin (Negative) Urine Urobilinogen (Negative) Ur Leukocyte Esterase (Negative) Urine WBC (Auto) (0-5) /hpf Urine RBC (Auto) (0-4) /hpf U Hyaline Cast (Auto) (0-5) /lpf U Epithel Cells (Auto) (0-5) /lpf Urine Bacteria (Auto) (Negative) Stl C. diff Tox B Gene Positive Cdiff Gene H (Neg) Stl C.difficile Tox A&B Positive Cdiff Toxin A* (Negative) Adenovirus (PCR) (NotDetected) B. pertussis DNA (PCR) (NotDetected) B.parapertussis DNA PCR (NotDetected) C. pneumoniae DNA (PCR) (NotDetected) Coronavirus OC43 (PCR) (NotDetected) Coronavirus HKU1 (PCR) (NotDetected) Coronavirus 229E (PCR) (NotDetected) SARS-CoV-2 (PCR) (NotDetected) Coronavirus NL63 (PCR) (NotDetected) Human Metapneumovir PCR (NotDetected) Influenza Type A (PCR) (NotDetected) Influenza Type B (PCR) (NotDetected) M. pneumoniae (PCR) (NotDetected) Parainfluenza 1 (PCR) (NotDetected) Parainfluenza 2 (PCR) (NotDetected) Parainfluenza 3 (PCR) (NotDetected) Parainfluenza 4 (PCR) (NotDetected) RSV (PCR) (NotDetected) Entero/Rhino (PCR) (NotDetected) Administered Medications Discontinued Medications Sodium Chloride (Nss) 500 mls @ 999 mls/hr IV .Q31M ONE Stop: 12/02/23 16:59 Last Infusion: 12/02/23 21:10 Dose: Infused Documented By: Admin: 12/02/23 16:45 Dose: 999 mls/hr Documented By: [facility] Imaging Data Radiologist's Impression: Chest X-Ray 12/02/23 15:22 XR chest 1V portable HISTORY: weakness COMPARISON: Chest 11/27/2023. FINDINGS: No pneumothorax. No pleural effusions. No focal lung consolidations to suggest a pneumonia. No evidence for pulmonary edema. The cardiac silhouette is normal in size. There are calcifications within the aortic knob. No acute fractures identified. IMPRESSION: No acute process. ACT 112: Negative or not required by law. Electronically signed by: Rm Clay M.D. 12/02/2023 4:[address] 12/02/23 15:[address] DOSE: 547.75 mGy.cm HISTORY: confusion TECHNIQUE: Multiaxial CT images of the head were performed without the use of intravenous contrast. Automated exposure control was utilized for this study. A dose lowering technique was utilized adhering to the principles of ALARA. Comparison: Head CT 11/27/2023. Findings: The paranasal sinuses and mastoid air cells are clear. The calvarium and skull base are intact. There is no mass, hematoma, midline shift, acute infarct. White matter hypodensity is nonspecific but suggestive of microvascular ischemic change. The ventricles and sulci demonstrate mild age-related involutional changes. Impression: No significant change compared to the prior study. No acute intracranial abnormality. ACT 112: Negative or not required by law. Electronically signed by: Rm Clay M.D. 12/02/2023 4:30 PM Discharge Plan Visit Data Chief Complaint: Lethargic Stated Complaint: LETHARGIC, HYPERGLYCEMIA ED Provider: Ciarra Ramos Discharge Problem: Generalized weakness, C. difficile diarrhea Forms Stand Alone Forms: [facility] [place] [employer] Prescriptions Prescriptions: No Action escitalopram oxalate [Lexapro] 10 mg tablet 10 mg PO HS fexofenadine [Allergy Relief (fexofenadine)] 180 mg Tablet 180 mg PO QAM clopidogrel 75 mg Tablet 75 mg PO QAM 30 Days Qty: 30 1RF metformin 1,000 mg tablet 1,000 mg PO QAM metoprolol tartrate 50 mg tablet 50 mg PO BID Caltrate 600 plus D 600 mg (1,500 mg)-800 unit Tablet,Chewable 1 tab PO QDL coenzyme Q10 [CoQ-10] 100 mg Capsule 200 mg PO QDL PreserVision AREDS-2 250-90-40-1 mg Capsule 1 tab PO BID aspirin 81 mg tablet,delayed release (DR/EC) 81 mg PO HS multivitamin [Multiple Vitamin] Tablet 1 tab PO DAILYBL acetaminophen 325 mg Tablet 325 mg PO .QAFTERNOON atorvastatin 40 mg tablet 40 mg PO HS amlodipine 5 mg tablet 10 mg PO HS furosemide 20 mg tablet 20 mg PO QAM insulin glargine [Lantus Solostar U-100 Insulin] 100 unit/mL (3 mL) insulin pen 8 unit SUBCUT HS Jardiance 25 mg tablet 25 mg PO QAM vitamin B complex Tablet 1 tab PO QDL glucosamine-chondroitin [Cosamin DS] 500-400 mg Tablet 1 tab PO QDL acetaminophen [Tylenol] 325 mg Tablet 650 mg PO .QAM & HS Referrals Referrals: Jhoan Maki, [Primary Care Provider] -
--- NOTE | 2023-12-02 16:04 | XRay Report ---
XR chest 1V portable HISTORY: weakness COMPARISON: Chest 11/27/2023. FINDINGS: No pneumothorax. No pleural effusions. No focal lung consolidations to suggest a pneumonia. No evidence for pulmonary edema. The cardiac silhouette is normal in size. There are calcifications within the aortic knob. No acute fractures identified. IMPRESSION: No acute process. ACT 112: Negative or not required by law. Electronically signed by: Rm Clay M.D. 12/02/2023 4:02 PM
[2023-12-02 16:17] LABS: Basophils # (auto) 0.02 K/uL (0.00-0.20); Basophils % (auto) 0.4 %; Eosinophils # (auto) 0.02 K/uL (0.00-0.50); Eosinophils % (auto) 0.4 %; Hematocrit (blood only) 38.9 % (37.0-47.0); Hemoglobin 12.5 g/dl (12.0-16.0); Immature Granulocytes # (auto) 0.05 K/uL (0.01-0.20); Immature Granulocytes % (auto) 0.9 %; Lymphocytes # (auto) 0.42 K/uL (1.20-3.40); Lymphocytes % (auto) 7.9 %; Mean Corpuscular Hemoglobin 28.5 pg (25.0-34.0); Mean Corpuscular Hgb Conc 32.1 g/dL (32.0-36.0); Mean Corpuscular Volume 88.6 fL (80.0-100.0); Mean Platelet Volume 12.1 fL (9.4-12.4); Monocytes # (auto) 0.23 K/uL (0.11-0.59); Monocytes % (auto) 4.3 %; Neutrophils # (auto) 4.56 K/uL (1.40-6.50); Neutrophils % (auto) 86.1 %; Platelet Count 160 K/uL (130-400); RDW Coefficient of Variation 13.2 % (11.5-14.5); RDW Standard Deviation 43.1 fL (36.4-46.3); Red Blood Count 4.39 M/uL (4.20-5.40)
[2023-12-02 16:20] LABS: Albumin Globulin Ratio 0.9 (0.9-2); Albumin Level 3.3 gm/dl (3.4-5.0); BUN Creatinine Ratio 35.9 (10-20); Bilirubin,Total 0.6 mg/dl (0.2-1.0); Calcium 9.3 mg/dl (8.6-10.3); Creatinine Clr Calc Pharmacy 35.7 ml/min; Est GFR (African American) 66.3 ml/min; Est GFR (Non-African American) 57.2 ml/min; Globulin 3.5 gm/dl (2.5-4.0); Magnesium 1.7 mg/dl (1.7-2.4); Potassium 4.4 mmol/L (3.5-5.1); Total Protein 6.8 gm/dl (6.0-8.3)
--- NOTE | 2023-12-02 16:32 | CT Scan Report ---
HEAD CT NONCONTRAST CT DOSE: 547.75 mGy.cm HISTORY: confusion TECHNIQUE: Multiaxial CT images of the head were performed without the use of intravenous contrast. A utomated exposure control was utilized for this study. A dose lowering technique was utilized adheri ng to the principles of ALARA. Comparison: Head CT 11/27/2023. Findings: The paranasal sinuses and mastoid air cells are clear. The calvarium and skull base are int act. There is no mass, hematoma, midline shift, acute infarct. White matter hypodensity is nonspecifi c but suggestive of microvascular ischemic change. The ventricles and sulci demonstrate mild age-rela nils involutional changes. Impression: No significant change compared to the prior study. No acute intracranial abnormality. ACT 112: Negative or not required by law. Electronically signed by: Rm Clay M.D. 12/02/2023 4:30 PM
[2023-12-02] MEDS: SODIUM CHLORIDE 0.9% 500 ML IV ONE (16:45)
[2023-12-02 18:23] LABS: Adenovirus PCR Not Detected (NotDetected); Bordetella parapertussis PCR Not Detected (NotDetected); Bordetella pertussis PCR Not Detected (NotDetected); Chlamydia pneumoniae PCR Not Detected (NotDetected); Coronavirus 229E PCR Not Detected (NotDetected); Coronavirus CoV-2 (COVID19)PCR Not Detected (NotDetected); Coronavirus HKU1 PCR Not Detected (NotDetected); Coronavirus NL63 PCR Not Detected (NotDetected); Coronavirus OC43PCR Not Detected (NotDetected); Human Metapneumovirus PCR Not Detected (NotDetected); Influenza A PCR Not Detected (NotDetected); Influenza B PCR Not Detected (NotDetected); Mycoplasma pneumoniae PCR Not Detected (NotDetected); Parainfluenza Virus 1 PCR Not Detected (NotDetected); Parainfluenza Virus 2 PCR Not Detected (NotDetected); Parainfluenza Virus 3 PCR Not Detected (NotDetected); Parainfluenza Virus 4 PCR Not Detected (NotDetected); Respiratory Syncytial VirusPCR Not Detected (NotDetected); Rhinovirus/Enterovirus PCR Not Detected (NotDetected)
[2023-12-02 18:39] LABS: Appearance Urine Cloudy (Clear); Bacteria Urine Automated 2+ (Negative); Bilirubin Urine Negative (Negative); Blood Urine Trace (Negative); Color Urine Yellow; Epithelial Cell Urine Auto 0-5 /lpf (0-5); Glucose Urine UA 3+ (Negative); Ketones Urine Negative (Negative); Leukocyte Esterase Urine 2+ (Negative); Nitrite Urine Negative (Negative); Protein Urine Negative (Negative); RBC Urine Automated 0-4 /hpf (0-4); Specific Gravity Urine 1.017 (1.000-1.030); Urobilinogen Urine Negative (Negative); WBC Urine Automated >30 /hpf (0-5)
[2023-12-02 18:56] LABS: Cdiff Toxin B Gene (2yr or >) Positive Cdiff Gene (Neg)
[2023-12-02 18:57] LABS: Cdiff Antigen Positive
[2023-12-02 18:58] LABS: Cdiff Toxin A+B Positive Cdiff Toxin (Negative)
--- NOTE | 2023-12-02 19:04 | History & Physical Report ---
Date of Service December 02, 2023 Assessment & Plan (1) Diarrhea: (2) C. difficile diarrhea: Plan: Patient is 83 year old female with PMH HTN, dyslipidemia, DM II, CKD III, stroke, LE edema, PVD, SHAYY, foot wounds presented to ER with complaint of lethargy and watery diarrhea x 3 days. Denies fever, chills, abdominal pain. Recent oral antibiotic treatment with clindamycin, doxycycline in 10/2023 for foot wounds In ER given 500 mL NSS + C. difficile gene and toxin Isolation precautions Start oral vancomycin Gentle IVF CBC, BMP in am (3) Lethargy: Plan: Increased lethargy noticed past day Likely secondary to underlying infection Monitor PT/OT eval Patient receiving home physical therapy currently (4) Abnormal urinalysis: Plan: UA: 2+ leuk esterase,> 30 WBC, 2+ bacteria Patient reported dysuria Will treat for possible UTI Rocephin Urine culture pending (5) Hyperglycemia: (6) Diabetes mellitus, type II, insulin dependent: Plan: A1c: 7.4 on 11/11/2023 In ER noted to be hyperglycemic with glucose of 335. Was given 500 mL NSS with repeat BSG 177 Continue home Lantus NovoLog sliding scale per protocol Hold home oral glycemic agents (7) Hyponatremia: Plan: Na 131 corrected for glucose 295 Received NSS Monitor (8) CKD (chronic kidney disease), stage III: Plan: Cr: 0.9. Baseline creatinine 0.9 Monitor renal functions, avoid nephrotoxic agents when possible (9) Hypertension: Plan: Continue amlodipine, Toprol tartrate (10) Peripheral arterial disease: Plan: S/p left lower extremity angioplasty stent in 10/08 Continue aspirin, Plavix, atorvastatin (11) Pressure ulcer of left heel, unstageable: (12) Unstageable pressure ulcer of right foot: Plan: Treated with clindamycin, doxycycline in 10/2023 Following with [facility] wound clinic Today no signs acute infection Continue offloading Wound nurse consult (13) Stroke: Plan: History of stroke with residual right-sided weakness Continue atorvastatin, aspirin (14) Leg edema: Plan: Continue Lasix (15) SHAYY (obstructive sleep apnea): Plan: CPAP at bedtime DVT Prophylaxis Lovenox SQ Full Code as per discussion with pt and pt's Follows with Dr Jhoan Maki for routine care Pt was seen and care coordinated with Dr Enamorado. See addendum I spent a total of 77 minutes reviewing notes, outpatient records, labs, medication, coordinating, documenting and providing care for this patient excluding time spent in the performance of separately billed services. History of Present Illness Chief Complaint: Lethargy Primary Care Provider: Jhoan Maki DO Patient is 83 year old female with PMH HTN, dyslipidemia, DM II, CKD III, stroke, LE edema, PVD, SHAYY, foot wounds presented to ER with complaint of lethargy and diarrhea. History obtained from patient, as well as outpatient and inpatient chart review. Has chronic right and left foot wounds. Is following with wound clinic. Was on clindamycin and doxycycline in 10/2023. reports has been dressing wounds daily at home and has improvement. Has boots for offloading that she has been wearing. Patient's states she receives home physical therapy and has home nursing. States that she is able to ambulate with use of walker and is able to do transfers. Has been has not noticed any increased weakness. States past 3 days has had watery foul-smelling diarrhea with 4 episodes daily. Patient denies any nausea, vomiting or abdominal pain. Reports patient has been eating and drinking well. states today patient was more lethargic than usual and he was concerned and brought patient to ER. He feels patient is at baseline currently. reports forgot to give patient her insulin last night. He noted her blood sugar was in the 300s today prior to ER arrival. Denies any falls. Patient reports has had some dysuria. Has chronic edema lower extremities and has been feels this is at baseline and has not noticed any increased edema. Denies fever /chills, diaphoresis, melena, hematochezia, WYLIE, dizziness, syncope, vision changes, neck pain, CP, SOB, palpitations, cough, sore throat, choking, rhinorrhea, abdominal pain, paresthesias, increased extremity edema, rashes, hematuria. Allergies Allergy/AdvReac Type Severity Reaction Status Date / Time house dust mite Allergy Severe Breathing Verified 11/28/23 11:13 issues ragweed pollen Allergy Severe Breathing Verified 11/28/23 11:13 issues buspirone Allergy Unknown Verified 11/28/23 11:13 ezetimibe [From Zetia] Allergy Unknown Verified 11/28/23 11:13 Penicillins Allergy Unknown Verified 11/28/23 11:13 Qsjhpet-GNU-[id number] Reductase AdvReac Intermediate Foot cramps Verified 11/28/23 11:13 Inhibitor [Kdugieb-Nps-Ffe Reductase Inhibitor] Home Medications Medication Instructions Recorded Confirmed Type calcium carbonate 600 mg-vitamin 1 tab PO QDL 03/05/19 12/02/23 History D3 20 mcg (800 unit) chewable tablet (Caltrate 600 plus D) metformin 1,000 mg tablet 1,000 mg PO QAM 03/05/19 12/02/23 History metoprolol tartrate 50 mg tablet 50 mg PO BID 03/05/19 12/02/23 History fexofenadine 180 mg tablet 180 mg PO QAM 12/07/19 12/02/23 History (Allergy Relief (fexofenadine)) clopidogrel 75 mg tablet 75 mg PO QAM 30 days #30 tabs 12/08/19 12/02/23 Rx acetaminophen 325 mg tablet 650 mg PO .QAM & HS 07/10/22 12/02/23 History (Tylenol) amlodipine 5 mg tablet 10 mg PO HS 07/10/22 12/02/23 History atorvastatin 40 mg tablet 40 mg PO HS 07/10/22 12/02/23 History empagliflozin 25 mg tablet 25 mg PO QAM 07/10/22 12/02/23 History (Jardiance) furosemide 20 mg tablet 20 mg PO QAM 07/10/22 12/02/23 History glucosamine-chondroitin 500 mg-400 1 tab PO QDL 07/10/22 12/02/23 History mg tablet (Cosamin DS) insulin glargine 100 unit/mL (3 8 unit subcut HS 07/10/22 12/02/23 History mL) subcutaneous pen (Lantus Solostar U-100 Insulin) vitamin B complex 1 tab PO QDL 07/10/22 12/02/23 History coenzyme Q10 100 mg capsule 200 mg PO QDL 08/19/23 12/02/23 History (CoQ-10) escitalopram oxalate 10 mg tablet 10 mg PO HS 09/20/23 12/02/23 History (Lexapro) aspirin 81 mg tablet,delayed 81 mg PO HS 10/09/23 12/02/23 History release vit C 250 mg-vit E 90 mg-zinc 40 1 tab PO BID 10/09/23 12/02/23 History mg-copper 1 pn-ejrlnq-zospil capsule (PreserVision AREDS-2) acetaminophen 325 mg tablet 325 mg PO .QAFTERNOON 10/15/23 12/02/23 History multivitamin 1 tab PO DAILYBL 10/15/23 12/02/23 History Past Med/Surg History Medical History (Updated 12/02/23 @ 21:22 by Ciarra Ramos MD) SHAYY (obstructive sleep apnea) PVD (peripheral vascular disease) Leg edema Dyslipidemia Stroke History of CVA (cerebrovascular accident) Anxiety Neuropathy CKD (chronic kidney disease), stage III Diabetes type 2, controlled Hypertension Surgical History (Updated 12/02/23 @ 20:28 by Joseline Bill PA-C) H/O angioplasty 10/04/23, LLE angioplasty and stent. Dr Ramirez History of cataract surgery Family History Mother Lung disease Father Lung disease Social History Smoking Status: Never smoker Second Hand Exposure: No; Do You Dip or Chew Tobacco: No; Hx Alcohol Use: No Hx Substance Use: No Preferred Language: Prydeinig Communication Ability: Impaired Green Chain Marker Required: No Beliefs That Will Affect Care: None marital status: Current Living Situation: Spouse current occupational status: retired Other Information That Helps Us Care for You: No Feels Safe at Home: Yes Safety Concerns: Feels Safe At This Time Diet: diabetic caffeine: Yes Physical Activity Frequency: 1-2 Times per Week Do you think of yourself as: straight/heterosexual Gender Identity: Female Assistive Devices: Wheelchair Review of Systems Review of Systems: All systems reviewed & are unremarkable except as noted in HPI & below Physical Exam Physical Exam: General: no acute distress, thin elderly female Head: normocephalic, atraumatic Eyes: PERRL, EOM's intact, conjunctiva non-injected, anicteric ENT: normal inspection external ears, nose, mucous membranes moist Neck: supple, trachea midline Lungs: clear, no respiratory distress, no wheezing/rhonchi/rales CV: RRR, no murmur, 1+ pretibial edema Abd: normal BS, soft, non-tender to palpation Ext: no cyanosis, no erythema, +diffuse tenderness to palpation BLE worse to right. Neuro: A&O x 3, Slow to respond to questions, but responds with appropriate answers, +chronic right sided weakness, no other focal deficits noted, normal affect Skin: warm, dry, Left foot on heel with ulcer greatest dimension approximately 1.5 cm with slough without surrounding erythema or discharge. Right foot ulcer to plantar surface foot over distal 5th metatarsal approximately 2cm greatest dimension with serosanguineous drainage with slight erythema surrounding wound Results & Data Results & Data Vital Signs (Past 12 Hours) Vital Signs Temp Pulse Pulse Resp BP Pulse Ox O2 Del Method 12/02/23 16:12 70 12/02/23 15:32 16 96 Room Air 12/02/23 15:32 69 14 94 Room Air 12/02/23 15:32 36.7 C 77 16 141/69 H 96 Room Air Laboratory Results Short CBC 12/02/23 Range/Units 15:25 WBC 5.30 (4.8-10.8) K/ul Hgb 12.5 (12.0-16.0) g/dl Hct 38.9 (37.0-47.0) % Plt Count 160 (130-400) K/uL BMP 12/02/23 15:25 Sodium 128 L Potassium 4.4 Chloride 94 L Carbon Dioxide 26 BUN 33 H Creatinine 0.92 Glucose 295 H Calcium 9.3 Liver Function 12/02/23 Range/Units 15:25 Total Bilirubin 0.6 (0.2-1.0) mg/dl AST 14 (13-39) U/L ALT 11 (7-52) U/L Alkaline Phosphatase 69 (34-104) U/L Albumin 3.3 L (3.4-5.0) gm/dl Urine 12/02/23 Range/Units 16:16 Urine Color Yellow Urine Appearance Cloudy A (Clear) Urine pH 5.0 (4.5-7.5) Ur Specific [place] 1.017 (1.000-1.030) Urine Protein Negative (Negative) Urine Glucose (UA) 3+ H (Negative) Diagnostic Findings Chest X-Ray 12/02/23 15:22 XR chest 1V portable HISTORY: weakness COMPARISON: Chest 11/27/2023. FINDINGS: No pneumothorax. No pleural effusions. No focal lung consolidations to suggest a pneumonia. No evidence for pulmonary edema. The cardiac silhouette is normal in size. There are calcifications within the aortic knob. No acute fractures identified. IMPRESSION: No acute process. ACT 112: Negative or not required by law. Electronically signed by: Rm Clay M.D. 12/02/2023 4:[address] 12/02/23 15:[address] DOSE: 547.75 mGy.cm HISTORY: confusion TECHNIQUE: Multiaxial CT images of the head were performed without the use of intravenous contrast. Automated exposure control was utilized for this study. A dose lowering technique was utilized adhering to the principles of ALARA. Comparison: Head CT 11/27/2023. Findings: The paranasal sinuses and mastoid air cells are clear. The calvarium and skull base are intact. There is no mass, hematoma, midline shift, acute infarct. White matter hypodensity is nonspecific but suggestive of microvascular ischemic change. The ventricles and sulci demonstrate mild age-related involutional changes. Impression: No significant change compared to the prior study. No acute intracranial abnormality. ACT 112: Negative or not required by law. Electronically signed by: Rm Clay M.D. 12/02/2023 4:30 PM ECG Additional Comments: Normal sinus rhythm, rate 73, no significant ST changes per my interpretation Supervising Physician Co-Signing Physician Notes Care coordinated with Joseline Bill PA-C. Agree with above note. Patient seen and examined. Please refer to her notes for full details. Vital signs reviewed. Physical exam: General exam: Alert and awake. Speaking in low volume Not in acute distress. CVS: S1 and S2 heard, regular rate and rhythm, no murmurs. RS: Clear to auscultation, no wheezing or crackles. ABD: Soft, bowel sounds present, nontender, no distention. POLYSOMNOGRAPHER: Nonfocal. EXT: b/l heel ulcers seen no erythema or drainage seen. Labs: Reviewed. Assessment and plan:83F was brought in from home by because of patient been lethargic and having diarrhea for last few days. Denies any fevers. No cough. No chest pain or sob. No abdominal pain.Hemodynamics ok. Stool studies came back c diff positive. UA positive. Lethargy mostly from c diff and uti started on po vanco and rocephin follow urine cx. gentle fluids close monitor pt/ot when stable B/L heel pressure ulcers Was been treated with clindamycin and doxy doesn't seem to have active infection wound care Other diagnosis and plan of care as per Joseline Bill PA-C. Ketan alejandra MD. (9) Hypertension Hypertension type: unspecified Qualified Code(s): I10 - Essential (primary) hypertension
[2023-12-02] MEDS: cefTRIAXone SODIUM 1,000 MG in DEXTROSE 5 % MINI-B 50 ML IV ONE (21:31)
[2023-12-02] MEDS ORDERED: CARBOHYDRATES FOR HYPOGLYCEMIA PO PRN (22:47)
[2023-12-02] MEDS ORDERED: GLUCAGON FOR INJ 1 MG VIAL SQ PRN (22:47)
[2023-12-02] MEDS ORDERED: GLUCOSE 10 TAB/TUBE PO PRN (22:47)
[2023-12-02] MEDS ORDERED: GLUCOSE 40% GEL 15 GM TUBE PO PRN (22:47)
[2023-12-02] MEDS ORDERED: DEXTROSE 50% 50 ML SYRINGE IV PRN (22:47)
[2023-12-02] MEDS: ACETAMINOPHEN 325 MG TAB PO SCH (23:53)
[2023-12-02] MEDS: amLODIPine BESYLATE 5 MG TAB PO SCH (23:55)
[2023-12-02] MEDS: ATORVASTATIN 40 MG TAB PO SCH (23:57)
[2023-12-03] MEDS: ESCITALOPRAM OXALATE 10 MG TAB PO SCH (00:01)
[2023-12-03] MEDS: METOPROLOL TARTRATE 50 MG TAB PO SCH (00:02)
[2023-12-03] MEDS: SODIUM CHLORIDE 0.9% 1,000 ML IV SCH (00:03)
[2023-12-03] MEDS: ENOXAPARIN INJ 30 MG/0.3 ML SYR SQ SCH (00:04)
[2023-12-03] MEDS: VANCOMYCIN HCL 125 MG/2.5ML SOLN PO SCH (00:06)
[2023-12-03] MEDS: CHERRY SYRUP 5 ML UDP PO SCH (00:06)
[2023-12-03] MEDS: LANTUS PER UNIT CHARGE SQ SCH (00:24)
[2023-12-03] MEDS: INSULIN ASPART PER UNIT CHARGE SC SCH (00:25)
[2023-12-03] MEDS: ASPIRIN 81 MG ECTAB PO SCH (00:36)
[2023-12-03 06:51] LABS: Hematocrit (blood only) 38.4 % (37.0-47.0); Hemoglobin 12.8 g/dl (12.0-16.0); Mean Corpuscular Hgb Conc 33.3 g/dL (32.0-36.0); Mean Corpuscular Volume 86.9 fL (80.0-100.0); Mean Platelet Volume 11.4 fL (9.4-12.4); Platelet Count 182 K/uL (130-400); RDW Coefficient of Variation 13.2 % (11.5-14.5); RDW Standard Deviation 41.9 fL (36.4-46.3); Red Blood Count 4.42 M/uL (4.20-5.40); White Blood Count 5.03 K/ul (4.8-10.8)
[2023-12-03 07:11] LABS: BUN Creatinine Ratio 29.3 (10-20); Calcium 8.9 mg/dl (8.6-10.3); Creatinine Clr Calc Pharmacy 35.7 ml/min; Est GFR (African American) 66.3 ml/min; Est GFR (Non-African American) 57.2 ml/min; Potassium 3.4 mmol/L (3.5-5.1)
[2023-12-03] MEDS: ADVANCED PROBIOTIC 625 MG CAPSULE PO SCH (08:36)
[2023-12-03] MEDS: FEXOFENADINE HCL 180 MG TAB PO SCH (08:36)
[2023-12-03] MEDS: FUROSEMIDE 20 MG TAB PO SCH (08:37)
[2023-12-03] MEDS: CLOPIDOGREL BISULFATE 75 MG TAB PO SCH (08:37)
--- NOTE | 2023-12-03 08:54 | Hospitalist Progress Note ---
Date of Service December 03, 2023 Assessment & Plan (1) Diarrhea: (2) C. difficile diarrhea: Plan: Patient is 83 yo F with PMH HTN, dyslipidemia, DM II, CKD III, stroke, LE edema, PVD, SHAYY, foot wounds presented to ER with complaint of lethargy and watery diar felicita x 3 days. Denies fever, chills, abdominal pain. Recent oral antibiotic treatment with clindamycin, doxycycline in 10/2023 for foot wounds In ER given 500 mL NSS + C. difficile gene and toxin Isolation precautions Start oral vancomycin Gentle IVF - continue as BP still on lower side monitor CBC, BMP in am (3) Lethargy: Plan: Increased lethargy noticed past day Likely secondary to underlying infection Monitor PT/OT eval Patient receiving home physical therapy currently Pt is laying in bed, somewhat drowsy, but per pt she is looking better and was eating breakfast earlier. (4) Abnormal urinalysis: Plan: UA: 2+ leuk esterase,> 30 WBC, 2+ bacteria Patient reported dysuria Will treat for possible UTI cont. Rocephin Urine culture pending (5) Hyperglycemia: (6) Diabetes mellitus, type II, insulin dependent: Plan: A1c: 7.4 on 11/11/2023 In ER noted to be hyperglycemic with glucose of 335. Was given 500 mL NSS with repeat BSG 177 Continue home Lantus NovoLog sliding scale per protocol Hold home oral glycemic agents (7) Hyponatremia: Plan: Na 131 corrected for glucose 295 Received NSS Monitor (8) CKD (chronic kidney disease), stage III: Plan: Cr: 0.9. Baseline creatinine 0.9 Monitor renal functions, avoid nephrotoxic agents when possible (9) Hypertension: Plan: Continue amlodipine, Toprol tartrate (10) Peripheral arterial disease: Plan: S/p left lower extremity angioplasty stent in 10/08 Continue aspirin, Plavix, atorvastatin (11) Pressure ulcer of left heel, unstageable: (12) Unstageable pressure ulcer of right foot: Plan: Treated with clindamycin, doxycycline in 10/2023 Following with [facility] wound clinic Today no signs acute infection Continue offloading Wound nurse consult (13) Stroke: Plan: History of stroke with residual right-sided weakness Continue atorvastatin, aspirin (14) Leg edema: Plan: Continue Lasix (15) SHAYY (obstructive sleep apnea): Plan: CPAP at bedtime DVT Prophylaxis Lovenox SQ Full Code as per discussion with pt and pt's Follows with Dr Jhoan Maki for routine care Admission and Anticipated Discharge Date Admission Date: December 02, 2023 Subjective Pt seen in follow up of c. diff colitis and UTI Laying in bed in ED, in NAD. Appears tired, but per at the bedside, she appears better than yesterday. Has some abdominal discomfort, and continues to have loose stools. No fevers chills chest pain shortness of breath. No nausea vomiting. Per patient has had decent appetite. Review of Systems Review of Systems: All systems reviewed & are unremarkable except as noted in Subjective Physical Exam Physical Exam: General: no acute distress, thin elderly female Head: normocephalic, atraumatic Eyes: PERRL, EOM's intact, conjunctiva non-injected, anicteric ENT: normal inspection external ears, nose, mucous membranes moist Neck: supple Lungs: clear, no respiratory distress, no wheezing/rhonchi/rales CV: RRR, no murmur, 1+ pretibial edema Abd: normal BS, soft, non-tender to palpation Ext: + some tenderness to palpation BLE worse to right. Neuro: A&O x 3, Slow to respond to questions, but responds with appropriate answers, +chronic right sided weakness, no other focal deficits noted, normal affect Skin: warm, dry, Left foot on heel with ulcer greatest dimension approximately 1.5 cm with slough without surrounding erythema or discharge. Right foot ulcer to plantar surface foot over distal 5th metatarsal approximately 2cm greatest dimension with serosanguineous drainage with slight erythema surrounding wound Results & Data Results & Data Vital Signs (Past 12 Hours) Vital Signs Pulse Pulse Resp BP Pulse Ox Pulse Ox O2 Del Method 12/03/23 08:31 82 22 141/62 H 98 Room Air 12/03/23 08:31 97 12/03/23 07:14 72 12/03/23 04:00 65 20 107/47 L 92 Room Air 12/02/23 23:51 102 H 12/02/23 23:01 98 H 30 H 154/73 H 96 Room Air 12/02/23 21:10 80 18 12/02/23 21:00 77 23 O2 Del Method 12/03/23 08:31 12/03/23 08:31 Room Air 12/03/23 07:14 12/03/23 04:00 12/02/23 23:51 12/02/23 23:01 12/02/23 21:10 12/02/23 21:00 Laboratory Results 12/03/23 12/03/23 12/03/23 Range/Units 07:31 06:31 00:12 WBC 5.03 (4.8-10.8) K/ul RBC 4.42 (4.20-5.40) M/uL Hgb 12.8 (12.0-16.0) g/dl Hct 38.4 (37.0-47.0) % MCV 86.9 (80.0-100.0) fL MCH 29.0 (25.0-34.0) pg MCHC 33.3 (32.0-36.0) g/dL RDW Std Deviation 41.9 (36.4-46.3) fL RDW Coeff of Abner 13.2 (11.5-14.5) % Plt Count 182 (130-400) K/uL MPV 11.4 (9.4-12.4) fL Immature Gran % (Auto) % Neut % (Auto) % Lymph % (Auto) % Nolan % (Auto) % Eos % (Auto) % Baso % (Auto) % Neut # (Auto) (1.40-6.50) K/uL Lymph # (Auto) (1.20-3.40) K/uL Nolan # (Auto) (0.11-0.59) K/uL Eos # (Auto) (0.00-0.50) K/uL Baso # (Auto) (0.00-0.20) K/uL Immature Gran # (Auto) (0.01-0.20) K/uL Sodium 134 L (136-145) mmol/L Potassium 3.4 L D (3.5-5.1) mmol/L Chloride 101 (98-107) mmol/L Carbon Dioxide 25 (21-32) mmol/L Anion Gap 8 (3-11) BUN 27 H (6-23) mg/dl Creatinine 0.92 (0.6-1.2) mg/dl Est Cr Clr Drug Dosing 35.7 ml/min Est GFR ( Amer) 66.3 ml/min Est GFR (Non-Af Amer) 57.2 ml/min BUN/Creatinine Ratio 29.3 H (10-20) Glucose 136 H (70-99(Fasting)) mg/dl POC Glucose 134 H 131 H (70-99) mg/dl Calcium 8.9 (8.6-10.3) mg/dl Magnesium (1.7-2.4) mg/dl Total Bilirubin (0.2-1.0) mg/dl AST (13-39) U/L ALT (7-52) U/L Alkaline Phosphatase (34-104) U/L Troponin I High Sens (0-14) pg/ml Total Protein (6.0-8.3) gm/dl Albumin (3.4-5.0) gm/dl Globulin (2.5-4.0) gm/dl Albumin/Globulin Ratio (0.9-2) Urine Color Urine Appearance (Clear) Urine pH (4.5-7.5) Ur Specific Reserve (1.000-1.030) Urine Protein (Negative) Urine Glucose (UA) (Negative) Urine Ketones (Negative) Urine Blood (Negative) Urine Nitrite (Negative) Urine Bilirubin (Negative) Urine Urobilinogen (Negative) Ur Leukocyte Esterase (Negative) Urine WBC (Auto) (0-5) /hpf Urine RBC (Auto) (0-4) /hpf U Hyaline Cast (Auto) (0-5) /lpf U Epithel Cells (Auto) (0-5) /lpf Urine Bacteria (Auto) (Negative) Stl C. diff Tox B Gene (Neg) Stl C.difficile Tox A&B (Negative) Adenovirus (PCR) (NotDetected) B. pertussis DNA (PCR) (NotDetected) B.parapertussis DNA PCR (NotDetected) C. pneumoniae DNA (PCR) (NotDetected) Coronavirus OC43 (PCR) (NotDetected) Coronavirus HKU1 (PCR) (NotDetected) Coronavirus 229E (PCR) (NotDetected) SARS-CoV-2 (PCR) (NotDetected) Coronavirus NL63 (PCR) (NotDetected) Human Metapneumovir PCR (NotDetected) Influenza Type A (PCR) (NotDetected) Influenza Type B (PCR) (NotDetected) M. pneumoniae (PCR) (NotDetected) Parainfluenza 1 (PCR) (NotDetected) Parainfluenza 2 (PCR) (NotDetected) Parainfluenza 3 (PCR) (NotDetected) Parainfluenza 4 (PCR) (NotDetected) RSV (PCR) (NotDetected) Entero/Rhino (PCR) (NotDetected) 12/02/23 12/02/23 12/02/23 Range/Units 19:48 17:44 16:16 WBC (4.8-10.8) K/ul RBC (4.20-5.40) M/uL Hgb (12.0-16.0) g/dl Hct (37.0-47.0) % MCV (80.0-100.0) fL MCH (25.0-34.0) pg MCHC (32.0-36.0) g/dL RDW Std Deviation (36.4-46.3) fL RDW Coeff of Abner (11.5-14.5) % Plt Count (130-400) K/uL MPV (9.4-12.4) fL Immature Gran % (Auto) % Neut % (Auto) % Lymph % (Auto) % Nolan % (Auto) % Eos % (Auto) % Baso % (Auto) % Neut # (Auto) (1.40-6.50) K/uL Lymph # (Auto) (1.20-3.40) K/uL Nolan # (Auto) (0.11-0.59) K/uL Eos # (Auto) (0.00-0.50) K/uL Baso # (Auto) (0.00-0.20) K/uL Immature Gran # (Auto) (0.01-0.20) K/uL Sodium (136-145) mmol/L Potassium (3.5-5.1) mmol/L Chloride (98-107) mmol/L Carbon Dioxide (21-32) mmol/L Anion Gap (3-11) BUN (6-23) mg/dl Creatinine (0.6-1.2) mg/dl Est Cr Clr Drug Dosing ml/min Est GFR ( Amer) ml/min Est GFR (Non-Af Amer) ml/min BUN/Creatinine Ratio (10-20) Glucose (70-99(Fasting)) mg/dl POC Glucose 177 H (70-99) mg/dl Calcium (8.6-10.3) mg/dl Magnesium (1.7-2.4) mg/dl Total Bilirubin (0.2-1.0) mg/dl AST (13-39) U/L ALT (7-52) U/L Alkaline Phosphatase (34-104) U/L Troponin I High Sens (0-14) pg/ml Total Protein (6.0-8.3) gm/dl Albumin (3.4-5.0) gm/dl Globulin (2.5-4.0) gm/dl Albumin/Globulin Ratio (0.9-2) Urine Color Yellow Urine Appearance Cloudy A (Clear) Urine pH 5.0 (4.5-7.5) Ur Specific Reserve 1.017 (1.000-1.030) Urine Protein Negative (Negative) Urine Glucose (UA) 3+ H (Negative) Urine Ketones Negative (Negative) Urine Blood Trace H (Negative) Urine Nitrite Negative (Negative) Urine Bilirubin Negative (Negative) Urine Urobilinogen Negative (Negative) Ur Leukocyte Esterase 2+ H (Negative) Urine WBC (Auto) >30 H (0-5) /hpf Urine RBC (Auto) 0-4 (0-4) /hpf U Hyaline Cast (Auto) 1-5 (0-5) /lpf U Epithel Cells (Auto) 0-5 (0-5) /lpf Urine Bacteria (Auto) 2+ H (Negative) Stl C. diff Tox B Gene Positive Cdiff Gene H (Neg) Stl C.difficile Tox A&B Positive Cdiff Toxin A* (Negative) Adenovirus (PCR) (NotDetected) B. pertussis DNA (PCR) (NotDetected) B.parapertussis DNA PCR (NotDetected) C. pneumoniae DNA (PCR) (NotDetected) Coronavirus OC43 (PCR) (NotDetected) Coronavirus HKU1 (PCR) (NotDetected) Coronavirus 229E (PCR) (NotDetected) SARS-CoV-2 (PCR) (NotDetected) Coronavirus NL63 (PCR) (NotDetected) Human Metapneumovir PCR (NotDetected) Influenza Type A (PCR) (NotDetected) Influenza Type B (PCR) (NotDetected) M. pneumoniae (PCR) (NotDetected) Parainfluenza 1 (PCR) (NotDetected) Parainfluenza 2 (PCR) (NotDetected) Parainfluenza 3 (PCR) (NotDetected) Parainfluenza 4 (PCR) (NotDetected) RSV (PCR) (NotDetected) Entero/Rhino (PCR) (NotDetected) 12/02/23 12/02/23 Range/Units 15:28 15:25 WBC 5.30 (4.8-10.8) K/ul RBC 4.39 (4.20-5.40) M/uL Hgb 12.5 (12.0-16.0) g/dl Hct 38.9 (37.0-47.0) % MCV 88.6 (80.0-100.0) fL MCH 28.5 (25.0-34.0) pg MCHC 32.1 (32.0-36.0) g/dL RDW Std Deviation 43.1 (36.4-46.3) fL RDW Coeff of Abner 13.2 (11.5-14.5) % Plt Count 160 (130-400) K/uL MPV 12.1 (9.4-12.4) fL Immature Gran % (Auto) 0.9 % Neut % (Auto) 86.1 % Lymph % (Auto) 7.9 % Nolan % (Auto) 4.3 % Eos % (Auto) 0.4 % Baso % (Auto) 0.4 % Neut # (Auto) 4.56 (1.40-6.50) K/uL Lymph # (Auto) 0.42 L (1.20-3.40) K/uL Nolan # (Auto) 0.23 (0.11-0.59) K/uL Eos # (Auto) 0.02 (0.00-0.50) K/uL Baso # (Auto) 0.02 (0.00-0.20) K/uL Immature Gran # (Auto) 0.05 (0.01-0.20) K/uL Sodium 128 L (136-145) mmol/L Potassium 4.4 (3.5-5.1) mmol/L Chloride 94 L (98-107) mmol/L Carbon Dioxide 26 (21-32) mmol/L Anion Gap 8 (3-11) BUN 33 H (6-23) mg/dl Creatinine 0.92 (0.6-1.2) mg/dl Est Cr Clr Drug Dosing 35.7 ml/min Est GFR ( Amer) 66.3 ml/min Est GFR (Non-Af Amer) 57.2 ml/min BUN/Creatinine Ratio 35.9 H (10-20) Glucose 295 H (70-99(Fasting)) mg/dl POC Glucose 335 H* (70-99) mg/dl Calcium 9.3 (8.6-10.3) mg/dl Magnesium 1.7 (1.7-2.4) mg/dl Total Bilirubin 0.6 (0.2-1.0) mg/dl AST 14 (13-39) U/L ALT 11 (7-52) U/L Alkaline Phosphatase 69 (34-104) U/L Troponin I High Sens 14.0 (0-14) pg/ml Total Protein 6.8 (6.0-8.3) gm/dl Albumin 3.3 L (3.4-5.0) gm/dl Globulin 3.5 (2.5-4.0) gm/dl Albumin/Globulin Ratio 0.9 (0.9-2) Urine Color Urine Appearance (Clear) Urine pH (4.5-7.5) Ur Specific Reserve (1.000-1.030) Urine Protein (Negative) Urine Glucose (UA) (Negative) Urine Ketones (Negative) Urine Blood (Negative) Urine Nitrite (Negative) Urine Bilirubin (Negative) Urine Urobilinogen (Negative) Ur Leukocyte Esterase (Negative) Urine WBC (Auto) (0-5) /hpf Urine RBC (Auto) (0-4) /hpf U Hyaline Cast (Auto) (0-5) /lpf U Epithel Cells (Auto) (0-5) /lpf Urine Bacteria (Auto) (Negative) Stl C. diff Tox B Gene (Neg) Stl C.difficile Tox A&B (Negative) Adenovirus (PCR) Not Detected (NotDetected) B. pertussis DNA (PCR) Not Detected (NotDetected) B.parapertussis DNA PCR Not Detected (NotDetected) C. pneumoniae DNA (PCR) Not Detected (NotDetected) Coronavirus OC43 (PCR) Not Detected (NotDetected) Coronavirus HKU1 (PCR) Not Detected (NotDetected) Coronavirus 229E (PCR) Not Detected (NotDetected) SARS-CoV-2 (PCR) Not Detected (NotDetected) Coronavirus NL63 (PCR) Not Detected (NotDetected) Human Metapneumovir PCR Not Detected (NotDetected) Influenza Type A (PCR) Not Detected (NotDetected) Influenza Type B (PCR) Not Detected (NotDetected) M. pneumoniae (PCR) Not Detected (NotDetected) Parainfluenza 1 (PCR) Not Detected (NotDetected) Parainfluenza 2 (PCR) Not Detected (NotDetected) Parainfluenza 3 (PCR) Not Detected (NotDetected) Parainfluenza 4 (PCR) Not Detected (NotDetected) RSV (PCR) Not Detected (NotDetected) Entero/Rhino (PCR) Not Detected (NotDetected) Medications Administered Current Inpatient Medications Acetaminophen (Acetaminophen 325 Mg Tab) 325 mg PO DAILY@1400 [facility] Stop: 01/02/24 13:59 Acetaminophen (Acetaminophen 325 Mg Tab) 650 mg PO BID [facility] Stop: 01/01/24 22:46 Last Admin: 12/03/23 08:37 Dose: 650 mg Amlodipine Besylate (Amlodipine Besylate 5 Mg Tab) 10 mg PO [facility] Stop: 01/01/24 22:46 Last Admin: 12/02/23 23:55 Dose: 10 mg Aspirin (Aspirin 81 Mg Ectab) 81 mg PO HS [facility] Stop: 01/01/24 22:46 Last Admin: 12/03/23 00:36 Dose: Not Given Atorvastatin Calcium (Atorvastatin 40 Mg Tab) 40 mg PO [facility] Stop: 01/01/24 22:46 Last Admin: 12/02/23 23:57 Dose: 40 mg Gee Syrup (Gee Syrup 5 Ml Udp) 5 ml PO Q6 [facility] Stop: 12/13/23 00:00 Last Admin: 12/03/23 05:14 Dose: 5 ml Clopidogrel Bisulfate (Clopidogrel Bisulfate 75 Mg Tab) [facility] [place] [facility]: 01/02/24 08:59 Last Admin: 12/03/23 08:37 Dose: 75 mg Dextrose (Dextrose 50% 50 Ml Syringe) 25 - 50 ml IV UD PRN; Protocol PRN Reason: Hypoglycemia Protocol Stop: 01/01/24 22:46 Enoxaparin Sodium (Enoxaparin Inj 30 Mg/0.3 Ml Syr) 30 mg SQ [facility] Stop: 01/01/24 22:46 Last Admin: 12/03/23 00:04 Dose: 30 mg Escitalopram Oxalate (Escitalopram Oxalate 10 Mg Tab) 10 mg PO [facility] Stop: 01/01/24 22:46 Last Admin: 12/03/23 00:01 Dose: 10 mg Fexofenadine HCl (Fexofenadine Hcl 180 Mg Tab) 180 mg PO [facility] Stop: 01/02/24 08:59 Last Admin: 12/03/23 08:36 Dose: 180 mg Furosemide (Furosemide 20 Mg Tab) 20 mg PO [facility] Stop: 01/02/24 08:59 Last Admin: 12/03/23 08:37 Dose: 20 mg Glucagon (Glucagon For Inj 1 Mg Vial) 1 mg SQ UD PRN; Protocol PRN Reason: Hypoglycemia Protocol Stop: 01/01/24 22:46 Glucose (Glucose 10 Tab/Tube) 4 - 8 tab PO UD PRN; Protocol PRN Reason: Hypoglycemia Treatment Stop: 01/01/24 22:46 Glucose (Glucose 40% Gel 15 Gm Tube) 15 - 30 gm PO UD PRN; Protocol PRN Reason: Hypoglycemia Protocol Stop: 01/01/24 22:46 Sodium Chloride (Nss) 1,000 mls @ 80 mls/hr IV .[id number] [facility] Stop: 12/03/23 11:16 Last Admin: 12/03/23 00:03 Dose: 80 mls/hr Ceftriaxone Sodium 1,000 mg/ (Dextrose) 50 mls @ 100 mls/hr IV Q24H [facility]; Protocol Stop: 12/08/23 19:59 Insulin Aspart (Insulin Aspart Per Unit Charge) 0 units SC [facility] Stop: 01/01/24 22:46 Last Admin: 12/03/23 07:33 Dose: Not Given Insulin Glargine (Lantus Per Unit Charge) 8 units SQ HS [facility] Stop: 01/01/24 22:46 Last Admin: 12/03/23 00:24 Dose: 8 units Lactobacillus Acidophilus (Advanced Probiotic 1250 Mg Capsule) 2 cap PO DAILY [facility] Stop: 01/02/24 08:59 Last Admin: 12/03/23 08:36 Dose: 2 cap Metoprolol Tartrate (Metoprolol Tartrate 50 Mg Tab) 50 mg PO BID [facility] Stop: 01/01/24 22:46 Last Admin: 12/03/23 08:36 Dose: 50 mg Miscellaneous (Carbohydrates For Hypoglycemia ) 15 - 30 gm PO UD PRN PRN Reason: Hypoglycemia Protocol Stop: 01/01/24 22:46 Vancomycin HCl (Vancomycin Hcl 125 Mg/2.5ml Soln) 125 mg PO Q6 [facility] Stop: 12/13/23 00:00 Last Admin: 12/03/23 05:14 Dose: 125 mg (9) Hypertension Hypertension type: unspecified Qualified Code(s): I10 - Essential (primary) hypertension
--- OUTSIDE RECORDS SUMMARY | 2023-12-03 08:59 | External Medical Summary | Summary of Care ---
Author Name Unknown Organization [facility] Address [address] [place] [address] Phone [phone] Care Team Providers Care Optical Mechanic Name Role Phone Jhoan Maki DO Primary Care Provider [phone] Encounter Details Date Type Department Care Team (Late st Contact Info) Description 11/29/2023 Orders Only Family Practice [facility] [place] [address] [facility] [place] [address] [facility] [address] Allergies Active Allergy Reactions Criticality Noted Date Comments Buspirone 09/16/2023 Dust Medium 02/09/2012 Penicillins 09/04/2003 Ragweed 10/05/2012 Breathing problems Ezetimibe Edema face/lips/tongue Medium 12/24/2008 documented as of this encounter (statuses as of 11/29/2023) Medications Medication Sig Dispensed Refills Start Date End Date Status CALTRATE 600 + D 600-125 MG-IU PO TABSIndications:Loss of height 1 po bid 60 12 01/02/2008 Active COSAMIN DS 500-400 MG PO CAPS 2 cap daily at night 0 Active JASON 180 MG PO TABSIndications:Aller gic rhinitis due to other allergen one tab by mouth daily 90 Tab 3 12/18/2010 Active COENZYME Q10 200 MG PO CAPSIndications:Dysli pidemia, goal LDL below 100,Statin intolerance one tablet [...] 03/05/2019 Acti ve Blood Glucose Monitoring Suppl (Audio Network) w/Device KIT Use up to 4 times a day E11.9 1 Kit 0 12/18/2019 Active Glucose Blood (Audio Network) STRP Use up to 4 times a day E11.9 100 Strip 11 12/18/2019 Active Blood Glucose Monitoring Suppl (Audio Network) w/Device KIT Use up to 4 times a day E11.9 1 Kit 0 12/17/2019 Active Glucose Blood STRP Use as directed. 100 Strip 11 12/17/2019 Active ONETOUCH DELICA LANCETS 33G MISC Check 4 times daily 100 Each 6 12/18/2019 Active Misc. Devices AFO, right ankle/foot Weakness, right side; Balance issues 1 Each 0 09/22/2022 Active Insulin Glargine Solostar 100 UNIT/ML Subcutaneous Solution Pen-injector (Lantus SoloStar) Inject 8 Units under the skin every night at bedtime. 15 mL 3 04/01/2023 Active Furosemide 20 MG Oral Tablet (Lasix)Indications:Bi lateral lower extremity edema Take 1 Tablet by mouth in the morning. 90 Tablet 2 05/09/2023 Active Pen Fowler 32G X 4 MMIndications:Type 2 diabetes mellitus with hemoglobin A1c goal of less than 8.0% ([facility]) Use to inject insulin once daily. 100 Each 3 05/30/2023 Active Metoprolol Tartrate 50 MG Oral Tablet (Lopressor)Indication s:Kidney disease, chronic, stage III (GFR 30-59 ml/min) ([facility]),HTN, goal below 140/90 Take 1 tablet by mouth twice daily 180 Tablet 1 06/17/2023 Active metFORMIN HCl 1000 MG Oral Tablet (Glucophage)Indicatio ns:DM type 2, not at goal ([facility]) Take 1 tablet by mouth once daily 90 Tablet 1 08/22/2023 Active amLODIPine Besylate 5 MG Oral Tablet (Norvasc)Indications: Hypertensive kidney disease with CKD stage III (HCC) TAKE 2 TABLETS BY MOUTH IN THE MORNING 180 Tablet 1 08/22/2023 Active Atorvastatin Calcium 40 MG Oral Tablet (Lipitor) TAKE 1 TABLET BY MOUTH AT BEDTIME 90 Tablet 1 08/22/2023 Active traMADol HCl 50 MG Oral Tablet (Ultram)Indications:H eel sore Take 1 Tablet by mouth 2 times a day as needed for Pain, Severe. 20 Tablet 0 09/16/2023 Active Escitalopram Oxalate 10 MG Oral Tablet (Lexapro)Indications: DUDLEY (generalized anxiety disorder) Take 1 Tablet by mouth in the morning. 30 Tablet 5 09/16/2023 Active Empagliflozin 25 MG Oral Tablet (Jardiance) Take 1 Tablet by mouth in the morning. 90 Tablet 0 10/03/2023 Active Multivitamin Adults Oral Tablet 1 Tablet. 0 10/15/2023 Active Lisinopril 10 MG Oral Tablet (Prinivil) Take 1 Tablet by mouth in the morning. 0 09/01/2023 Active Clindamycin HCl 300 MG Oral Capsule Take 1 Capsule by mouth in the morning and 1 Capsule at noon and 1 Capsule before bedtime. 0 10/31/2023 Active Magnesium Hydroxide 400 MG/5ML Oral Suspension (Mom) Take 30 mL by mouth. 0 08/27/2023 Active Clopidogrel Bisulfate 75 MG Oral Tablet (pLAVix)Indications:C erebrovascular disease, arteriosclerotic, post-stroke,Stroke with cerebral ischemia (HCC) TAKE 1 TABLET BY MOUTH IN THE MORNING 90 Tablet 1 11/23/2023 Active documented as of this encounter (statuses as of 11/29/2023) Active Problems Problem Noted Date Diagnosed Date Hypertensive kidney disease with stage 3a chronic kidney disease 08/25/2020 Overview: Per CKD protocol Need for prophylactic vaccin ation and inoculation against influenza 07/17/2020 Type 2 diabetes, controlled, with peripheral martha ropathy 05/08/2019 Thalamic stroke 05/08/2019 Brain aneurysm 05/08/2019 Neurologic gait dysfunction 01/31/2019 Type 2 diabetes mellitus with peripheral vascula r disease 11/07/2018 Diabetes mellitus with stage 3 chronic kidney di sease 03/28/2018 Overview: Per CKD protocol #1 PVD (peripheral vascular disease) 11/22/2017 Type 2 diabetes mellitus wit h hemoglobin A1c goal of less than 8.0% 01/12/2015 Overview: ICD-10 update of inactive term HTN, goal below 150/90 06/18/2014 Dyslipidemia, goal LDL below 100 04/21/2012 Other allergic rhinitis 09/04/2003 Overview: ICD-10 update of inactive term Essential and other specified forms of tremor documented as of this encounter (statuses as of 11/29/2023) Resolved Problems Problem Noted Date Diagnosed Date Resolved Date Hypertensive kidney disease with CKD stage III 11/07/2018 08/28/2020 Overview: Per CKD protocol Statin intolerance 09/15/2015 1 Kidney disease, chronic, sta ge III (GFR 30-59 ml/min) 10/03/2014 02/24/2017 Statin intolerance 04/21/2012 3 Acute sinusitis 07/31/2011 11/22/2017 HTN, goal below 130/80 11/13/200906/18 Overview: Per HTN Taxonomy. Type 2 diabetes mellitus wit h hemoglobin A1c goal of less than 7.0% 08/14/2009 01/12/2015 Overview: Per Diabetes Taxonomy. ICD-10 update of inactive term KIDNEY DZ,CHRONIC (GFR>30-59) STAGE III 11/03/2007 10/03/2014 Overview: Dx added based on GFR 52.5 on BMP from 6.30.07 Type 2 diabetes mellitus wit h hemoglobin A1c goal of less than 7.0% 09/04/2003 08/14/2009 Overview: Per Diabetes Taxonomy. ICD-10 update of inactive term HTN, goal below 140/90 09/04/200311/13 Overview: Per HTN Taxonomy. documented as of this encounter (statuses as of 11/29/2023) Immunizations Name Administration Dates Next Due COVID-19 mRNA, LNP-s, No Pre serve, 2-Dose Series (Intelliworks) 02/03/2022,07/15/2021,12/22/2020,2020 COVID-19, MRNA-LNP, 23-24, P F, 50 MCG/0.5 mL, 12 YRS AND ABOVE, IM (MODERNA-Spikevax) 08/12/2023 Covid-19, Mrna, Lnp-s, Pf, B ivalent, 30 Mcg, IM, 12 yrs and above (Pfizer) 10/15/2022 PPD 04/11/2014, 1,02/17/2009,2006 Pneumococcal Conjugate Vacc, 13 Valent (Prevnar) 09/14/2016 RSV Vac., Bivalent, Perfusio n F, Pf,0.5 Ml (Abrysvo) 11/11/2023 Season Influenza, Quad, PF, Adjuvanted, 65+ Yrs, IM (FLUAD) 07/17/2020 Seasonal Influenza, PF, 6 M & above, IM , (FluLaval or Fluzone) 08/14/2018 Seasonal Influenza, Quadriva lent Hd (Fluzone Hd) 07/31/2023,08/02/2022,07/24/2021 Seasonal Influenza, Quadriva lent, No Preserve, IM 09/14/2016,07/16/2015 Seasonal Influenza, Split, I IV3, With Preserve, Inj 09/25/2014,09/14/2013,09/01/2012,2010,08/10/2010,12/06/2007,09/07/2006 Seasonal Influenza, Trivalen t, Adjuvanted, 65+ yrs 09/06/2019 Seasonal Influenza, Trivalen t, High Dose, No Preserve, IM 07/25/2017 TB Amy Test 09/05/2023,08/27/2023 TD, Preservative Free 02/17/2009 TDAP (age 10 and older)(Boostrix) 05/05/2017 Zoster Vaccine Recombinant (Shingrix) 02/10/2021 documented as of this encounter Social History Tobacco Use Types Packs/Day Years Used Date Smoking Tobacco: Never Smokeless Tobacco: Never Alcohol Use Standard Drinks/Week Comments Yes 0 (1 standard drink = 0.6 oz pur e alcohol) rare PHQ-2 Answer Date Recorded PHQ-2 Score 0 12/05/2019 Hunger Vital Sign Answer Date Recorded Within the past 12 months, y ou worried that your food would run out before you got the money to buy more. Never true 11/25/19 21 Within the past 12 months, t he food you bought just didn't last and you didn't have money to get more. Never true 11/25/2020 Sex and Gender Information Value Date Recorded Sex Assigned at Not on file Gender Identity Not on file Sexual Orientation Not on file Job Start Date Occupation Industry Not on file Not on file Not on file documented as of this encounter Plan of Treatment Upcoming Encounters Date Type Department Care Team (Late st Contact Info) Description 05/11/2024 2:00 PM EDT Office Visit Pharmacy, State [facility] Cano [address] [place] [address] Pharmacist1, [facility] [address] [facility] [place] [address] Health Maintenance Due Date Last Done Comments Hepatitis B (1 of 3 - Risk 3-dose series) 1999 Depression Screening 12/05/2020 12/05/2019 Zoster Vaccines (2 of 2) 04/07/2021 02/10/2021 CKD HGB USE SMARTSET 07704 03/09/202303/09, 11/25/2020, 12/06/2019, Additional history exists CKD PHOS USE SMARTSET 35970 03/09/202302/15, 11/25/2020, 03/09/2019, Additional history exists GFR 09/20/2023 03/21/2023, 02/15, 09/08/2021, Additional history exists Diabetic Eye Exam 02/04/2024 02/03/2023, , 12/01/2017, Additional history exists Albumin/Creatinine Ratio 03/21/2024 023, 03/09/2022, 12/15/2020, Additional history exists B-12 03/21/2024 03/21/2023, 08/18, 01/17/2019, Additional history exists HbA1c 05/11/2024 11/11/2023, 06/0 02/2023, 09/27/2022, Additional history exists Diabetic Foot Exam 11/11/2024 11/11/2023, 0 11/11/2023, 03/09/2022, Additional history exists DTaP,Tdap,and Td Vaccines (2 - Td or Tdap) 05/05/2027 05/05/2017, 02/17/2009, 02/14/1994 Pneumococcal Vaccine: 65+ Years Completed 09/14/2016, 09/22/2005 Influenza Vaccine (FLU shot) Completed , 08/02/2022, 07/24/2021, Additional history exists COVID-19 Vaccine Completed 08/12/2023, , 02/03/2022, Additional history exists GARDASIL-HPV IMMUNIZATION SERIES Aged Out No longer eligible based on patient's age to complete this topic MENINGOCOCCAL (MENACTRA/MENVEO) Aged Out No longer eligible based on patient's age to complete this topic documented as of this encounter Medical Devices Implanted Type Area Bight Maker Device Identifier Shelf Expiration Date Model / Serial / Lot Lens Intraoc 23.0 - [id number] - [id number] Implanted:Qty: 1 on 12/22/2021 by Long Huddleston MD at [facility] Left: Eye [employer] 06/16/2026 [id number] / [id number] / [id number] Lens Intraoc 22.0 - [id number] - [id number] Implanted:Qty: 1 on 01/05/2022 by Long Huddleston MD at OR [facility] Right: Eye [employer] 07/16/2026 [id number] / [id number] / [id number] documented as of this encounter Procedures Procedure Name Priority Date/Time Associated Diagnosis Comments OUTSIDE LAB-CORONAVIRUS (COVID-19) Routine 11/27/2023 documented in this encounter Results * OUTSIDE LAB-CORONAVIRUS (COVID-19) (11/27/2023) [id number] DE LAB NOT DETECTED NOT DETECTED OUTSIDE LAB (SEE SCANNED REPORT) 11/27/2023 History Per Patient LABORATORY OUTSIDE LAB (SEE SCANNED REPORT) documented in this encounter Care Teams Optical Mechanic Relationship Specialty Start Date End Date Jhoan Maki DO [address] [place], [place] [id number] PCP - General Family Medicine 11/07/18 documented as of this encounter
[2023-12-03] MEDS: ALBUMIN 25% 25 GM/100 ML VIAL IV ONE ×2 (12:33→16:14)
[2023-12-03] MEDS: POTASSIUM CHLORIDE CRTAB 20 MEQ TABCR PO STA (13:40)
[2023-12-03] MEDS: ACETAMINOPHEN 325 MG TAB PO SCH (13:40)
--- NOTE | 2023-12-03 16:00 | Electrocardiogram Report ---
Test Reason : Blood Pressure : / mmHG Vent. Rate : 073 BPM Atrial Rate : 073 BPM P-R Int : 130 ms QRS Dur : 088 ms QT Int : 392 ms P-R-T Axes : 043 017 046 degrees QTc Int : 431 ms Normal sinus rhythm Normal ECG When compared with ECG of 27-NOV-2023 20:09, No significant change was found Confirmed by Yon Dan ([id number]) on 12/03/2023 4:00:07 PM Referred By: Confirmed By:Yon Dan
[2023-12-03] MEDS ORDERED: VANCOMYCIN HCL 125 MG/2.5ML SOLN PO SCH (18:00)
[2023-12-03] MEDS: VANCOMYCIN HCL 250 MG/5 ML SOLN PO SCH (18:02)
[2023-12-03 19:53] LABS: Hematocrit (blood only) 35.9 % (37.0-47.0); Hemoglobin 11.7 g/dl (12.0-16.0); Mean Corpuscular Hemoglobin 28.5 pg (25.0-34.0); Mean Corpuscular Hgb Conc 32.6 g/dL (32.0-36.0); Mean Corpuscular Volume 87.3 fL (80.0-100.0); Mean Platelet Volume 11.8 fL (9.4-12.4); Platelet Count 159 K/uL (130-400); RDW Coefficient of Variation 13.2 % (11.5-14.5); RDW Standard Deviation 42.6 fL (36.4-46.3); Red Blood Count 4.11 M/uL (4.20-5.40); White Blood Count 4.07 K/ul (4.8-10.8)
[2023-12-03 20:09] LABS: Creatinine Clr Calc Pharmacy 32.3 ml/min; Est GFR (African American) 59.9 ml/min; Est GFR (Non-African American) 51.7 ml/min; Magnesium 1.8 mg/dl (1.7-2.4); Phosphorus 2.2 mg/dl (2.5-4.9); Potassium 3.6 mmol/L (3.5-5.1)
[2023-12-03] MEDS: cefTRIAXone SODIUM 1,000 MG in DEXTROSE 5 % MINI-B 50 ML IV SCH (20:42)
--- NOTE | 2023-12-04 07:51 | Hospitalist Progress Note ---
Date of Service December 04, 2023 Assessment & Plan (1) Diarrhea: (2) C. difficile diarrhea: Plan: Patient is 83 yo F with PMH HTN, dyslipidemia, DM II, CKD III, stroke, LE edema, PVD, SHAYY, foot wounds presented to ER with complaint of lethargy and watery diar felicita x 3 days. Denies fever, chills, abdominal pain. Recent oral antibiotic treatment with clindamycin, doxycycline in 10/2023 for foot wounds In ER given 500 mL NSS + C. difficile gene and toxin Isolation precautions Start oral vancomycin Gentle IVF - continue as BP still on lower side monitor CBC, BMP in am (3) Lethargy: Plan: Increased lethargy noticed past day Likely secondary to underlying infection Monitor PT/OT eval Patient receiving home physical therapy currently Pt is laying in bed, somewhat drowsy, but per pt's she is looking better. (4) Abnormal urinalysis: Plan: UTI UA: 2+ leuk esterase,> 30 WBC, 2+ bacteria Patient reported dysuria U cultx posit. for E.coli cont. Rocephin (5) Hyperglycemia: (6) Diabetes mellitus, type II, insulin dependent: Plan: A1c: 7.4 on 11/11/2023 In ER noted to be hyperglycemic with glucose of 335. Was given 500 mL NSS with repeat BSG 177 Continue home Lantus NovoLog sliding scale per protocol Hold home oral glycemic agents (7) Hyponatremia: Plan: Na 131 corrected for glucose 295 Received NSS Monitor (8) CKD (chronic kidney disease), stage III: Plan: Cr: 0.9. Baseline creatinine 0.9 Monitor renal functions, avoid nephrotoxic agents when possible (9) Hypertension: Plan: Continue amlodipine, Toprol tartrate (10) Peripheral arterial disease: Plan: S/p left lower extremity angioplasty stent in 10/08 Continue aspirin, Plavix, atorvastatin (11) Pressure ulcer of left heel, unstageable: (12) Unstageable pressure ulcer of right foot: Plan: Treated with clindamycin, doxycycline in 10/2023 Following with [facility] wound clinic Today no signs acute infection Continue offloading Wound nurse consult (13) Stroke: Plan: History of stroke with residual right-sided weakness Continue atorvastatin, aspirin (14) Leg edema: Plan: Continue Lasix (15) SHAYY (obstructive sleep apnea): Plan: CPAP at bedtime DVT Prophylaxis Lovenox SQ Full Code as per discussion with pt and pt's Follows with Dr Jhoan Maki for routine care Admission and Anticipated Discharge Date Admission Date: December 02, 2023 Subjective Pt seen in follow up of c. diff colitis and UTI Laying in bed in NAD Continues to have loose stools. Feels very tired. No fevers chills chest pain shortness of breath. No nausea vomiting. Review of Systems Review of Systems: All systems reviewed & are unremarkable except as noted in Subjective Physical Exam Physical Exam: General: no acute distress, thin elderly female Head: normocephalic, atraumatic Eyes: PERRL, EOM's intact, conjunctiva non-injected, anicteric ENT: normal inspection external ears, nose, mucous membranes moist Neck: supple Lungs: clear, no respiratory distress, no wheezing/rhonchi/rales CV: RRR, no murmur, 1+ pretibial edema Abd: normal BS, soft, non-tender to palpation Ext: + some tenderness to palpation BLE worse to right. Neuro: Drowsy but awakens easily and answers appropriately, +chronic right sided weakness, no other focal deficits noted, normal affect Skin: warm, dry, Left foot on heel with ulcer greatest dimension approximately 1.5 cm with slough without surrounding erythema or discharge. Right foot ulcer to plantar surface foot over distal 5th metatarsal approximately 2cm greatest dimension with serosanguineous drainage with slight erythema surrounding wound Results & Data Results & Data Vital Signs (Past 12 Hours) Vital Signs Temp Pulse Pulse Resp BP Pulse Ox O2 Del Method 12/04/23 07:40 Room Air, CPAP 12/04/23 07:15 36.6 C 93 H 18 120/64 93 Room Air 12/04/23 06:58 87 12/04/23 02:50 37.2 C 82 18 163/56 H 92 Room Air 12/03/23 23:10 65 12/03/23 22:21 37.6 C H 62 16 104/49 L 93 Room Air Laboratory Results 12/04/23 12/04/23 12/04/23 Range/Units 12:29 08:29 08:04 WBC 5.75 (4.8-10.8) K/ul RBC 4.01 L (4.20-5.40) M/uL Hgb 11.4 L (12.0-16.0) g/dl Hct 35.0 L (37.0-47.0) % MCV 87.3 (80.0-100.0) fL MCH 28.4 (25.0-34.0) pg MCHC 32.6 (32.0-36.0) g/dL RDW Std Deviation 42.2 (36.4-46.3) fL RDW Coeff of Abner 13.3 (11.5-14.5) % Plt Count 168 (130-400) K/uL MPV 11.5 (9.4-12.4) fL Sodium 136 (136-145) mmol/L Potassium 3.3 L (3.5-5.1) mmol/L Chloride 107 (98-107) mmol/L Carbon Dioxide 23 (21-32) mmol/L Anion Gap 6 (3-11) BUN 21 (6-23) mg/dl Creatinine 0.69 D (0.6-1.2) mg/dl Est Cr Clr Drug Dosing 44.9 ml/min Est GFR ( Amer) 92.6 ml/min Est GFR (Non-Af Amer) 79.9 ml/min BUN/Creatinine Ratio 30.4 H (10-20) Glucose 107 H (70-99(Fasting)) mg/dl POC Glucose 206 H 109 H (70-99) mg/dl Calcium 8.6 (8.6-10.3) mg/dl Phosphorus 2.0 L (2.5-4.9) mg/dl Magnesium 1.8 (1.7-2.4) mg/dl 12/03/23 12/03/23 Range/Units 19:36 18:01 WBC 4.07 L (4.8-10.8) K/ul RBC 4.11 L (4.20-5.40) M/uL Hgb 11.7 L (12.0-16.0) g/dl Hct 35.9 L (37.0-47.0) % MCV 87.3 (80.0-100.0) fL MCH 28.5 (25.0-34.0) pg MCHC 32.6 (32.0-36.0) g/dL RDW Std Deviation 42.6 (36.4-46.3) fL RDW Coeff of Abner 13.2 (11.5-14.5) % Plt Count 159 (130-400) K/uL MPV 11.8 (9.4-12.4) fL Sodium 135 L (136-145) mmol/L Potassium 3.6 (3.5-5.1) mmol/L Chloride 104 (98-107) mmol/L Carbon Dioxide 23 (21-32) mmol/L Anion Gap 8 (3-11) BUN 24 H (6-23) mg/dl Creatinine 1.00 (0.6-1.2) mg/dl Est Cr Clr Drug Dosing 32.3 ml/min Est GFR ( Amer) 59.9 ml/min Est GFR (Non-Af Amer) 51.7 ml/min BUN/Creatinine Ratio 24.0 H (10-20) Glucose 221 H (70-99(Fasting)) mg/dl POC Glucose 134 H (70-99) mg/dl Calcium 9.0 (8.6-10.3) mg/dl Phosphorus 2.2 L (2.5-4.9) mg/dl Magnesium 1.8 (1.7-2.4) mg/dl Medications Administered Current Inpatient Medications Acetaminophen (Acetaminophen 325 Mg Tab) 325 mg PO DAILY@1400 [place] Stop: 01/02/24 13:59 Last Admin: 12/03/23 13:40 Dose: 325 mg Acetaminophen (Acetaminophen 325 Mg Tab) 650 mg PO BID NEYDA Stop: 01/01/24 22:46 Last Admin: 12/03/23 20:44 Dose: 650 mg Amlodipine Besylate (Amlodipine Besylate 5 Mg Tab) 10 mg PO HS [place]YDA Stop: 01/01/24 22:46 Last Admin: 12/03/23 20:43 Dose: 10 mg Aspirin (Aspirin 81 Mg Ectab) 81 mg PO HS [place]YDA Stop: 01/01/24 22:46 Last Admin: 12/03/23 20:43 Dose: 81 mg Atorvastatin Calcium (Atorvastatin 40 Mg Tab) 40 mg PO HS [place]YDA Stop: 01/01/24 22:46 Last Admin: 12/03/23 20:43 Dose: 40 mg Gee Syrup (Gee Syrup 5 Ml Udp) 5 ml PO Q6 [place]DA Stop: 12/13/23 00:00 Last Admin: 12/04/23 05:57 Dose: 5 ml Clopidogrel Bisulfate (Clopidogrel Bisulfate 75 Mg Tab) 75 mg PO QAM [facility] Stop: 01/02/24 08:59 Last Admin: 12/03/23 08:37 Dose: 75 mg Dextrose (Dextrose 50% 50 Ml Syringe) 25 - 50 ml IV UD PRN; Protocol PRN Reason: Hypoglycemia Protocol Stop: 01/01/24 22:46 Enoxaparin Sodium (Enoxaparin Inj 30 Mg/0.3 Ml Syr) 30 mg SQ [facility] Stop: 01/01/24 22:46 Last Admin: 12/03/23 20:41 Dose: 30 mg Escitalopram Oxalate (Escitalopram Oxalate 10 Mg Tab) 10 mg PO HS [facility] Stop: 01/01/24 22:46 Last Admin: 12/03/23 20:43 Dose: 10 mg Fexofenadine HCl (Fexofenadine Hcl 180 Mg Tab) 180 mg PO [facility] Stop: 01/02/24 08:59 Last Admin: 12/03/23 08:36 Dose: 180 mg Furosemide (Furosemide 20 Mg Tab) 20 mg PO [facility] Stop: 01/02/24 08:59 Last Admin: 12/03/23 08:37 Dose: 20 mg Glucagon (Glucagon For Inj 1 Mg Vial) 1 mg SQ UD PRN; Protocol PRN Reason: Hypoglycemia Protocol Stop: 01/01/24 22:46 Glucose (Glucose 10 Tab/Tube) 4 - 8 tab PO UD PRN; Protocol PRN Reason: Hypoglycemia Treatment Stop: 01/01/24 22:46 Glucose (Glucose 40% Gel 15 Gm Tube) 15 - 30 gm PO UD PRN; Protocol PRN Reason: Hypoglycemia Protocol Stop: 01/01/24 22:46 Ceftriaxone Sodium 1,000 mg/ (Dextrose) 50 mls @ 100 mls/hr IV Q24H [facility]; Protocol Stop: 12/08/23 19:59 Last Infusion: 12/03/23 21:53 Dose: Infused Insulin Aspart (Insulin Aspart Per Unit Charge) 0 units SC ACHS [facility] Stop: 01/01/24 22:46 Last Admin: 12/03/23 20:54 Dose: Not Given Insulin Glargine (Lantus Per Unit Charge) 8 units SQ HS [facility] Stop: 01/01/24 22:46 Last Admin: 12/03/23 20:55 Dose: 8 units Lactobacillus Acidophilus (Advanced Probiotic 1250 Mg Capsule) 2 cap PO DAILY [facility] Stop: 01/02/24 08:59 Last Admin: 12/03/23 08:36 Dose: 2 cap Metoprolol Tartrate (Metoprolol Tartrate 50 Mg Tab) 50 mg PO BID [facility] Stop: 01/01/24 22:46 Last Admin: 12/03/23 20:43 Dose: 50 mg Miscellaneous (Carbohydrates For Hypoglycemia ) 15 - 30 gm PO UD PRN PRN Reason: Hypoglycemia Protocol Stop: 01/01/24 22:46 Vancomycin HCl (Vancomycin Hcl 250 Mg/5 Ml Soln) 250 mg PO Q6 [facility] Stop: 12/13/23 17:59 Last Admin: 12/04/23 05:57 Dose: 250 mg (9) Hypertension Hypertension type: unspecified Qualified Code(s): I10 - Essential (primary) hypertension
[2023-12-04 08:32] LABS: Hemoglobin 11.4 g/dl (12.0-16.0); Mean Corpuscular Hemoglobin 28.4 pg (25.0-34.0); Mean Corpuscular Hgb Conc 32.6 g/dL (32.0-36.0); Mean Corpuscular Volume 87.3 fL (80.0-100.0); Mean Platelet Volume 11.5 fL (9.4-12.4); Platelet Count 168 K/uL (130-400); RDW Coefficient of Variation 13.3 % (11.5-14.5); RDW Standard Deviation 42.2 fL (36.4-46.3); Red Blood Count 4.01 M/uL (4.20-5.40); White Blood Count 5.75 K/ul (4.8-10.8)
[2023-12-04 08:48] LABS: BUN Creatinine Ratio 30.4 (10-20); Calcium 8.6 mg/dl (8.6-10.3); Creatinine Clr Calc Pharmacy 44.9 ml/min; Est GFR (African American) 92.6 ml/min; Est GFR (Non-African American) 79.9 ml/min; Magnesium 1.8 mg/dl (1.7-2.4); Potassium 3.3 mmol/L (3.5-5.1)
[2023-12-04] MEDS: SODIUM CHLORIDE 0.9% 1,000 ML IV SCH (14:31)
[2023-12-04] MEDS: POTASSIUM CHLORIDE CRTAB 20 MEQ TABCR PO STA (18:02)
[2023-12-04] MEDS: POT PHOSPHATE MONOBASIC W/ SOD TAB PO SCH (18:02)
[2023-12-05] MEDS ORDERED: PHARMACY GLYCEMIC MGMT CONSULT PRN (07:12)
--- NOTE | 2023-12-05 07:14 | Hospitalist Progress Note ---
Date of Service December 05, 2023 Assessment & Plan (1) Diarrhea: (2) C. difficile diarrhea: Plan: Patient is 83 yo F with PMH HTN, dyslipidemia, DM II, CKD III, stroke, LE edema, PVD, SHAYY, foot wounds presented to ER with complaint of lethargy and watery diar felicita x 3 days. Denies fever, chills, abdominal pain. Recent oral antibiotic treatment with clindamycin, doxycycline in 10/2023 for foot wounds In ER given 500 mL NSS + C. difficile gene and toxin Isolation precautions Continue oral vancomycin IVF prn for lower BP monitor CBC, BMP in am (3) Lethargy: Plan: Increased lethargy noticed past day Likely secondary to underlying infection Monitor PT/OT eval Patient receiving home physical therapy currently More awake and alert today. (4) Abnormal urinalysis: Plan: UTI UA: 2+ leuk esterase,> 30 WBC, 2+ bacteria Patient reported dysuria U cultx posit. for E.coli cont. Rocephin (5) Hyperglycemia: (6) Diabetes mellitus, type II, insulin dependent: Plan: A1c: 7.4 on 11/11/2023 In ER noted to be hyperglycemic with glucose of 335. Was given 500 mL NSS with repeat BSG 177 Continue home Lantus NovoLog sliding scale per protocol Hold home oral glycemic agents (7) Hyponatremia: Plan: Na 131 corrected for glucose 295 Received NSS Monitor (8) CKD (chronic kidney disease), stage III: Plan: Cr: 0.9. Baseline creatinine 0.9 Monitor renal functions, avoid nephrotoxic agents when possible (9) Hypertension: Plan: Continue amlodipine, Toprol tartrate (10) Peripheral arterial disease: Plan: S/p left lower extremity angioplasty stent in 10/08 Continue aspirin, Plavix, atorvastatin (11) Pressure ulcer of left heel, unstageable: (12) Unstageable pressure ulcer of right foot: Plan: Treated with clindamycin, doxycycline in 10/2023 Following with [facility] wound clinic no signs acute infection Continue offloading Wound nurse consult (13) Stroke: Plan: History of stroke with residual right-sided weakness Continue atorvastatin, aspirin (14) Leg edema: Plan: Continue Lasix (15) SHAYY (obstructive sleep apnea): Plan: CPAP at bedtime DVT Prophylaxis Lovenox SQ Full Code as per discussion with pt and pt's Follows with Dr Jhoan Maki for routine care Admission and Anticipated Discharge Date Admission Date: December 02, 2023 Subjective Pt seen in follow up of c. diff colitis and UTI Sitting up in bed in NAD. She is more awake and alert today. Per at the bedside, she ate breakfast. Continues to have loose stools. No fevers chills chest pain shortness of breath. No nausea vomiting. Review of Systems Review of Systems: All systems reviewed & are unremarkable except as noted in Subjective Physical Exam Physical Exam: General: no acute distress, thin elderly female Head: normocephalic, atraumatic Eyes: PERRL, EOM's intact, conjunctiva non-injected, anicteric ENT: normal inspection external ears, nose, mucous membranes moist Neck: supple Lungs: clear, no respiratory distress, no wheezing/rhonchi/rales CV: RRR, no murmur, 1+ pretibial edema Abd: normal BS, soft, non-tender to palpation Ext: + some tenderness to palpation BLE worse to right. Neuro: Awake, alert and answers appropriately, +chronic right sided weakness, no other focal deficits noted, normal affect Skin: warm, dry, Left foot on heel with ulcer greatest dimension approximately 1.5 cm with slough without surrounding erythema or discharge. Right foot ulcer to plantar surface foot over distal 5th metatarsal approximately 2cm greatest dimension with serosanguineous drainage with slight erythema surrounding wound Results & Data Results & Data Vital Signs (Past 12 Hours) Vital Signs Temp Pulse Pulse Resp BP Pulse Ox O2 Del Method 12/05/23 05:47 36.5 C 73 18 138/70 95 CPAP 12/05/23 00:13 60 12/04/23 23:25 Room Air, Nasal CPAP 12/04/23 23:04 36.9 C 62 18 110/54 L 93 Room Air 12/04/23 20:32 37.4 C 12/04/23 19:37 37.8 C H 88 18 151/72 H 93 Room Air Laboratory Results 12/05/23 12/05/23 12/04/23 Range/Units 08:04 07:32 20:17 WBC 6.02 (4.8-10.8) K/ul RBC 4.00 L (4.20-5.40) M/uL Hgb 11.4 L (12.0-16.0) g/dl Hct 35.5 L (37.0-47.0) % MCV 88.8 (80.0-100.0) fL MCH 28.5 (25.0-34.0) pg MCHC 32.1 (32.0-36.0) g/dL RDW Std Deviation 44.2 (36.4-46.3) fL RDW Coeff of Abner 13.4 (11.5-14.5) % Plt Count 170 (130-400) K/uL MPV 11.6 (9.4-12.4) fL Sodium 136 (136-145) mmol/L Potassium 3.4 L (3.5-5.1) mmol/L Chloride 107 (98-107) mmol/L Carbon Dioxide 22 (21-32) mmol/L Anion Gap 7 (3-11) BUN 20 (6-23) mg/dl Creatinine 0.65 (0.6-1.2) mg/dl Est Cr Clr Drug Dosing 50.2 ml/min Est GFR ( Amer) 94.5 ml/min Est GFR (Non-Af Amer) 81.5 ml/min BUN/Creatinine Ratio 30.8 H (10-20) Glucose 118 H (70-99(Fasting)) mg/dl POC Glucose 111 H 266 H (70-99) mg/dl Calcium 8.5 L (8.6-10.3) mg/dl Phosphorus 2.0 L (2.5-4.9) mg/dl Magnesium 1.8 (1.7-2.4) mg/dl 12/04/23 12/04/23 Range/Units 17:09 12:29 WBC (4.8-10.8) K/ul RBC (4.20-5.40) M/uL Hgb (12.0-16.0) g/dl Hct (37.0-47.0) % MCV (80.0-100.0) fL MCH (25.0-34.0) pg MCHC (32.0-36.0) g/dL RDW Std Deviation (36.4-46.3) fL RDW Coeff of Abner (11.5-14.5) % Plt Count (130-400) K/uL MPV (9.4-12.4) fL Sodium (136-145) mmol/L Potassium (3.5-5.1) mmol/L Chloride (98-107) mmol/L Carbon Dioxide (21-32) mmol/L Anion Gap (3-11) BUN (6-23) mg/dl Creatinine (0.6-1.2) mg/dl Est Cr Clr Drug Dosing ml/min Est GFR ( Amer) ml/min Est GFR (Non-Af Amer) ml/min BUN/Creatinine Ratio (10-20) Glucose (70-99(Fasting)) mg/dl POC Glucose 235 H 206 H (70-99) mg/dl Calcium (8.6-10.3) mg/dl Phosphorus (2.5-4.9) mg/dl Magnesium (1.7-2.4) mg/dl Medications Administered Current Inpatient Medications Acetaminophen (Acetaminophen 325 Mg Tab) 325 mg PO DAILY@1400 [facility] Stop: 01/02/24 13:59 Last Admin: 12/04/23 19:18 Dose: 325 mg Acetaminophen (Acetaminophen 325 Mg Tab) 650 mg PO BID [facility] Stop: 01/01/24 22:46 Last Admin: 12/04/23 20:40 Dose: Not Given Amlodipine Besylate (Amlodipine Besylate 5 Mg Tab) 10 mg PO HS [facility] Stop: 01/01/24 22:46 Last Admin: 12/04/23 20:40 Dose: 10 mg Aspirin (Aspirin 81 Mg Ectab) 81 mg PO HS [facility] Stop: 01/01/24 22:46 Last Admin: 12/04/23 20:40 Dose: 81 mg Atorvastatin Calcium (Atorvastatin 40 Mg Tab) 40 mg PO HS [facility] Stop: 01/01/24 22:46 Last Admin: 12/04/23 20:40 Dose: 40 mg Gee Syrup (Gee Syrup 5 Ml Udp) 5 ml PO Q6 [facility] Stop: 12/13/23 00:00 Last Admin: 12/05/23 05:31 Dose: 5 ml Clopidogrel Bisulfate (Clopidogrel Bisulfate 75 Mg Tab) 75 mg PO QAM [facility] Stop: 01/02/24 08:59 Last Admin: 12/04/23 09:12 Dose: 75 mg Dextrose (Dextrose 50% 50 Ml Syringe) 25 - 50 ml IV UD PRN; Protocol PRN Reason: Hypoglycemia Protocol Stop: 01/01/24 22:46 Enoxaparin Sodium (Enoxaparin Inj 30 Mg/0.3 Ml Syr) 30 mg SQ HS [facility] Stop: 01/01/24 22:46 Last Admin: 12/04/23 20:39 Dose: 30 mg Escitalopram Oxalate (Escitalopram Oxalate 10 Mg Tab) 10 mg PO HS [facility] Stop: 01/01/24 22:46 Last Admin: 12/04/23 20:40 Dose: 10 mg Fexofenadine HCl (Fexofenadine Hcl 180 Mg Tab) 180 mg PO QAM [facility] Stop: 01/02/24 08:59 Last Admin: 12/04/23 09:12 Dose: 180 mg Furosemide (Furosemide 20 Mg Tab) 20 mg PO QAM [facility] Stop: 01/02/24 08:59 Last Admin: 12/03/23 08:37 Dose: 20 mg Glucagon (Glucagon For Inj 1 Mg Vial) 1 mg SQ UD PRN; Protocol PRN Reason: Hypoglycemia Protocol Stop: 01/01/24 22:46 Glucose (Glucose 10 Tab/Tube) 4 - 8 tab PO UD PRN; Protocol PRN Reason: Hypoglycemia Treatment Stop: 01/01/24 22:46 Glucose (Glucose 40% Gel 15 Gm Tube) 15 - 30 gm PO UD PRN; Protocol PRN Reason: Hypoglycemia Protocol Stop: 01/01/24 22:46 Ceftriaxone Sodium 1,000 mg/ (Dextrose) 50 mls @ 100 mls/hr IV Q24H [facility]; Protocol Stop: 12/08/23 19:59 Last Infusion: 12/04/23 19:55 Dose: Infused Sodium Chloride (Nss) 1,000 mls @ 80 mls/hr IV .[id number] [facility] Stop: 01/03/24 14:14 Last Admin: 12/05/23 02:51 Dose: 80 mls/hr Insulin Aspart (Insulin Aspart Per Unit Charge) 0 units SC ACHS [facility] Stop: 01/01/24 22:46 Last Admin: 12/04/23 20:51 Dose: 3 units Insulin Glargine (Lantus Per Unit Charge) 8 units SQ HS [facility] Stop: 01/01/24 22:46 Last Admin: 12/04/23 20:51 Dose: 8 units Lactobacillus Acidophilus (Advanced Probiotic 1250 Mg Capsule) 2 cap PO DAILY [facility] Stop: 01/02/24 08:59 Last Admin: 12/04/23 09:11 Dose: 2 cap Metoprolol Tartrate (Metoprolol Tartrate 50 Mg Tab) 50 mg PO BID [facility] Stop: 01/01/24 22:46 Last Admin: 12/04/23 20:42 Dose: 50 mg Miscellaneous (Carbohydrates For Hypoglycemia ) 15 - 30 gm PO UD PRN PRN Reason: Hypoglycemia Protocol Stop: 01/01/24 22:46 Miscellaneous Information (Pharmacy Glycemic Mgmt Consult) 1 each N/A UD PRN; Protocol PRN Reason: Consult Stop: 01/04/24 07:11 Potassium Phosphate (Pot Phosphate Monobasic W/ Sod Tab) 1 tab PO QID [facility] Stop: 01/03/24 16:59 Last Admin: 12/04/23 20:40 Dose: 1 tab Vancomycin HCl (Vancomycin Hcl 250 Mg/5 Ml Soln) 250 mg PO Q6 [facility] Stop: 12/13/23 17:59 Last Admin: 12/05/23 05:31 Dose: 250 mg (9) Hypertension Hypertension type: unspecified Qualified Code(s): I10 - Essential (primary) hypertension
[2023-12-05 07:56] LABS: Hematocrit (blood only) 35.5 % (37.0-47.0); Hemoglobin 11.4 g/dl (12.0-16.0); Mean Corpuscular Hemoglobin 28.5 pg (25.0-34.0); Mean Corpuscular Hgb Conc 32.1 g/dL (32.0-36.0); Mean Corpuscular Volume 88.8 fL (80.0-100.0); Mean Platelet Volume 11.6 fL (9.4-12.4); Platelet Count 170 K/uL (130-400); RDW Coefficient of Variation 13.4 % (11.5-14.5); RDW Standard Deviation 44.2 fL (36.4-46.3); White Blood Count 6.02 K/ul (4.8-10.8)
[2023-12-05 08:22] LABS: Magnesium 1.8 mg/dl (1.7-2.4)
[2023-12-05 10:08] LABS: BUN Creatinine Ratio 30.8 (10-20); Calcium 8.5 mg/dl (8.6-10.3); Creatinine Clr Calc Pharmacy 50.2 ml/min; Est GFR (African American) 94.5 ml/min; Est GFR (Non-African American) 81.5 ml/min; Potassium 3.4 mmol/L (3.5-5.1)
--- NOTE | 2023-12-05 10:32 | Pharmacy Report ---
Pharmacy Glycemic Short Note 2 - Date of Service December 05, 2023 - Glycemic Short BSG Results (Last 24 hours): 12/04/23 12/04/23 12/04/23 12:29 17:09 20:17 Glucose POC Glucose 206 H 235 H 266 H 12/05/23 12/05/23 07:32 08:04 Glucose 118 H POC Glucose 111 H OUTPATIENT ANTIDIABETIC REGIMEN: * jardiance 25 mg daily, Lantus 8 units HS, metformin 1 gm daily ASSESSMENT: * 83 year old admitted with lethargy/cdiff infection - pharmacy consulted for glycemic management. Patient received total of 19 units of insulin yesterday, of which 8 units were basal insulin. Fasting BSG 111 mg/dl - reasonable to continue same basal insulin * BSGs trending up yesterday throughout the day as patient eats, will tighten CF/CR this AM PLAN FOR INPATIENT GLYCEMIC CONTROL: * Hold outpatient oral diabetes medications * Basal insulin * Lantus 8 units hs * Bolus insulin * NovoLog per scale ACHS or Q6hrs while NPO * Goal Range: Low 120 mg/dL - High 160 mg/dL * Correction Factor: 35 mg/dL/unit * Nutritional / Prandial insulin per carb ratio of 1 unit per 11 grams CHO consumed
[2023-12-06 08:05] LABS: Hematocrit (blood only) 38.8 % (37.0-47.0); Hemoglobin 12.9 g/dl (12.0-16.0); Mean Corpuscular Hemoglobin 28.4 pg (25.0-34.0); Mean Corpuscular Hgb Conc 33.2 g/dL (32.0-36.0); Mean Corpuscular Volume 85.5 fL (80.0-100.0); Mean Platelet Volume 11.3 fL (9.4-12.4); Platelet Count 217 K/uL (130-400); RDW Standard Deviation 41.1 fL (36.4-46.3); Red Blood Count 4.54 M/uL (4.20-5.40); White Blood Count 5.99 K/ul (4.8-10.8)
[2023-12-06 08:29] LABS: BUN Creatinine Ratio 31.6 (10-20); Calcium 8.4 mg/dl (8.6-10.3); Creatinine Clr Calc Pharmacy 60.4 ml/min; Est GFR (African American) 98.7 ml/min; Est GFR (Non-African American) 85.1 ml/min; Magnesium 1.8 mg/dl (1.7-2.4); Phosphorus 2.3 mg/dl (2.5-4.9); Potassium 3.3 mmol/L (3.5-5.1)
--- NOTE | 2023-12-06 10:54 | Hospitalist Progress Note ---
Date of Service December 06, 2023 Assessment & Plan (1) Diarrhea: (2) C. difficile diarrhea: Plan: Patient is 83 yo F with PMH HTN, dyslipidemia, DM II, CKD III, stroke, LE edema, PVD, SHAYY, foot wounds presented to ER with complaint of lethargy and watery diar felicita x 3 days. Denies fever, chills, abdominal pain. Recent oral antibiotic treatment with clindamycin, doxycycline in 10/2023 for foot wounds In ER given 500 mL NSS + C. difficile gene and toxin Isolation precautions Continue oral vancomycin IVF prn for lower BP monitor CBC, BMP in am (3) Lethargy: Plan: Increased lethargy noticed past day Likely secondary to underlying infection Monitor PT/OT eval Patient receiving home physical therapy currently More awake and alert today. (4) Abnormal urinalysis: Plan: UTI UA: 2+ leuk esterase,> 30 WBC, 2+ bacteria Patient reported dysuria U cultx posit. for E.coli cont. Rocephin (5) Hyperglycemia: (6) Diabetes mellitus, type II, insulin dependent: Plan: A1c: 7.4 on 11/11/2023 In ER noted to be hyperglycemic with glucose of 335. Was given 500 mL NSS with repeat BSG 177 Continue home Lantus NovoLog sliding scale per protocol Hold home oral glycemic agents (7) Hyponatremia: Plan: Na 131 corrected for glucose 295 Received NSS Monitor (8) CKD (chronic kidney disease), stage III: Plan: Cr: 0.9. Baseline creatinine 0.9 Monitor renal functions, avoid nephrotoxic agents when possible (9) Hypertension: Plan: Continue amlodipine, Toprol tartrate (10) Peripheral arterial disease: Plan: S/p left lower extremity angioplasty stent in 10/08 Continue aspirin, Plavix, atorvastatin (11) Pressure ulcer of left heel, unstageable: (12) Unstageable pressure ulcer of right foot: Plan: Treated with clindamycin, doxycycline in 10/2023 Following with [facility] wound clinic no signs acute infection Continue offloading Wound nurse consult (13) Stroke: Plan: History of stroke with residual right-sided weakness Continue atorvastatin, aspirin (14) Leg edema: Plan: Continue Lasix (15) SHAYY (obstructive sleep apnea): Plan: CPAP at bedtime DVT Prophylaxis Lovenox SQ Full Code as per discussion with pt and pt's Follows with Dr Jhoan Maki for routine care Admission and Anticipated Discharge Date Admission Date: December 02, 2023 Subjective Pt seen in follow up of c. diff colitis and UTI Sitting up in bed in NAD. She is more awake and alert today. at the bedside yesterday and updated. Continues to have loose stools. No fevers chills chest pain shortness of breath. No nausea vomiting. Review of Systems Review of Systems: All systems reviewed & are unremarkable except as noted in Subjective Physical Exam Physical Exam: General: no acute distress, thin elderly female Head: normocephalic, atraumatic Eyes: PERRL, EOM's intact, conjunctiva non-injected, anicteric ENT: normal inspection external ears, nose, mucous membranes moist Neck: supple Lungs: clear, no respiratory distress, no wheezing/rhonchi/rales CV: RRR, no murmur, 1+ pretibial edema Abd: normal BS, soft, non-tender to palpation Ext: + some tenderness to palpation BLE worse to right. Neuro: Awake, alert and answers appropriately, +chronic right sided weakness, no other focal deficits noted, normal affect Skin: warm, dry, Left foot on heel with ulcer greatest dimension approximately 1.5 cm with slough without surrounding erythema or discharge. Right foot ulcer to plantar surface foot over distal 5th metatarsal approximately 2cm greatest dimension with serosanguineous drainage with slight erythema surrounding wound Results & Data Results & Data Vital Signs (Past 12 Hours) Vital Signs Temp Pulse Pulse Resp BP Pulse Ox O2 Del Method 12/06/23 07:59 36.6 C 69 18 135/70 97 Room Air 12/06/23 03:00 36.6 C 65 19 149/70 H 96 Room Air 12/06/23 01:15 Room Air, Nasal CPAP 12/06/23 00:42 80 12/05/23 23:00 36.7 C 74 22 167/62 H 96 Room Air Laboratory Results 12/06/23 12/06/23 12/05/23 Range/Units 07:53 07:04 20:22 WBC 5.99 (4.8-10.8) K/ul RBC 4.54 (4.20-5.40) M/uL Hgb 12.9 (12.0-16.0) g/dl Hct 38.8 (37.0-47.0) % MCV 85.5 (80.0-100.0) fL MCH 28.4 (25.0-34.0) pg MCHC 33.2 (32.0-36.0) g/dL RDW Std Deviation 41.1 (36.4-46.3) fL RDW Coeff of Abner 13.0 (11.5-14.5) % Plt Count 217 (130-400) K/uL MPV 11.3 (9.4-12.4) fL Sodium 136 (136-145) mmol/L Potassium 3.3 L (3.5-5.1) mmol/L Chloride 106 (98-107) mmol/L Carbon Dioxide 24 (21-32) mmol/L Anion Gap 6 (3-11) BUN 18 (6-23) mg/dl Creatinine 0.57 L (0.6-1.2) mg/dl Est Cr Clr Drug Dosing 60.4 ml/min Est GFR ( Amer) 98.7 ml/min Est GFR (Non-Af Amer) 85.1 ml/min BUN/Creatinine Ratio 31.6 H (10-20) Glucose 172 H (70-99(Fasting)) mg/dl POC Glucose 183 H 248 H (70-99) mg/dl Calcium 8.4 L (8.6-10.3) mg/dl Phosphorus 2.3 L (2.5-4.9) mg/dl Magnesium 1.8 (1.7-2.4) mg/dl 12/05/23 12/05/23 Range/Units 17:42 12:17 WBC (4.8-10.8) K/ul RBC (4.20-5.40) M/uL Hgb (12.0-16.0) g/dl Hct (37.0-47.0) % MCV (80.0-100.0) fL MCH (25.0-34.0) pg MCHC (32.0-36.0) g/dL RDW Std Deviation (36.4-46.3) fL RDW Coeff of Abner (11.5-14.5) % Plt Count (130-400) K/uL MPV (9.4-12.4) fL Sodium (136-145) mmol/L Potassium (3.5-5.1) mmol/L Chloride (98-107) mmol/L Carbon Dioxide (21-32) mmol/L Anion Gap (3-11) BUN (6-23) mg/dl Creatinine (0.6-1.2) mg/dl Est Cr Clr Drug Dosing ml/min Est GFR ( Amer) ml/min Est GFR (Non-Af Amer) ml/min BUN/Creatinine Ratio (10-20) Glucose (70-99(Fasting)) mg/dl POC Glucose 161 H 192 H (70-99) mg/dl Calcium (8.6-10.3) mg/dl Phosphorus (2.5-4.9) mg/dl Magnesium (1.7-2.4) mg/dl Medications Administered Current Inpatient Medications Acetaminophen (Acetaminophen 325 Mg Tab) 325 mg PO DAILY@1400 [facility] Stop: 01/02/24 13:59 Last Admin: 12/06/23 13:53 Dose: 325 mg Acetaminophen (Acetaminophen 325 Mg Tab) 650 mg PO BID [facility] Stop: 01/01/24 22:46 Last Admin: 12/06/23 08:54 Dose: 650 mg Amlodipine Besylate (Amlodipine Besylate 5 Mg Tab) 10 mg PO HS [facility] Stop: 01/01/24 22:46 Last Admin: 12/05/23 21:31 Dose: 10 mg Aspirin (Aspirin 81 Mg Ectab) 81 mg PO HS [facility] Stop: 01/01/24 22:46 Last Admin: 12/05/23 21:31 Dose: 81 mg Atorvastatin Calcium (Atorvastatin 40 Mg Tab) 40 mg PO HS [facility] Stop: 01/01/24 22:46 Last Admin: 12/05/23 21:31 Dose: 40 mg Gee Syrup (Gee Syrup 5 Ml Udp) 5 ml PO Q6 [facility] Stop: 12/13/23 00:00 Last Admin: 12/06/23 11:42 Dose: 5 ml Clopidogrel Bisulfate (Clopidogrel Bisulfate 75 Mg Tab) 75 mg PO QAM [facility] Stop: 01/02/24 08:59 Last Admin: 12/06/23 08:52 Dose: 75 mg Dextrose (Dextrose 50% 50 Ml Syringe) 25 - 50 ml IV UD PRN; Protocol PRN Reason: Hypoglycemia Protocol Stop: 01/01/24 22:46 Enoxaparin Sodium (Enoxaparin Inj 30 Mg/0.3 Ml Syr) 30 mg SQ HS [facility] Stop: 01/01/24 22:46 Last Admin: 12/05/23 21:32 Dose: 30 mg Escitalopram Oxalate (Escitalopram Oxalate 10 Mg Tab) 10 mg PO HS [facility] Stop: 01/01/24 22:46 Last Admin: 12/05/23 21:31 Dose: 10 mg Fexofenadine HCl (Fexofenadine Hcl 180 Mg Tab) 180 mg PO QAM [facility] Stop: 01/02/24 08:59 Last Admin: 12/06/23 08:52 Dose: 180 mg Furosemide (Furosemide 20 Mg Tab) 20 mg PO QAM [facility] Stop: 01/02/24 08:59 Last Admin: 12/03/23 08:37 Dose: 20 mg Glucagon (Glucagon For Inj 1 Mg Vial) 1 mg SQ UD PRN; Protocol PRN Reason: Hypoglycemia Protocol Stop: 01/01/24 22:46 Glucose (Glucose 10 Tab/Tube) 4 - 8 tab PO UD PRN; Protocol PRN Reason: Hypoglycemia Treatment Stop: 01/01/24 22:46 Glucose (Glucose 40% Gel 15 Gm Tube) 15 - 30 gm PO UD PRN; Protocol PRN Reason: Hypoglycemia Protocol Stop: 01/01/24 22:46 Ceftriaxone Sodium 1,000 mg/ (Dextrose) 50 mls @ 100 mls/hr IV Q24H [facility]; Protocol Stop: 12/08/23 19:59 Last Infusion: 12/05/23 22:38 Dose: Infused Sodium Chloride (Nss) 1,000 mls @ 80 mls/hr IV .[id number] [facility] Stop: 01/03/24 14:14 Last Infusion: 12/05/23 09:05 Dose: Infused Insulin Aspart (Insulin Aspart Per Unit Charge) 0 units SC ACHS [facility] Stop: 01/01/24 22:46 Last Admin: 12/06/23 13:52 Dose: 7 units Insulin Glargine (Lantus Per Unit Charge) 10 units SQ HS [facility] Stop: 01/01/24 22:46 Lactobacillus Acidophilus (Advanced Probiotic 1250 Mg Capsule) 2 cap PO DAILY [facility] Stop: 01/02/24 08:59 Last Admin: 12/06/23 08:52 Dose: 2 cap Metoprolol Tartrate (Metoprolol Tartrate 50 Mg Tab) 50 mg PO BID [facility] Stop: 01/01/24 22:46 Last Admin: 12/06/23 08:52 Dose: 50 mg Miscellaneous (Carbohydrates For Hypoglycemia ) 15 - 30 gm PO UD PRN PRN Reason: Hypoglycemia Protocol Stop: 01/01/24 22:46 Miscellaneous Information (Pharmacy Glycemic Mgmt Consult) 1 each N/A UD PRN; Protocol PRN Reason: Consult Stop: 01/04/24 07:11 Potassium Phosphate (Pot Phosphate Monobasic W/ Sod Tab) 1 tab PO QID [facility] Stop: 01/03/24 16:59 Last Admin: 12/06/23 13:52 Dose: 1 tab Vancomycin HCl (Vancomycin Hcl 250 Mg/5 Ml Soln) 250 mg PO Q6 [facility] Stop: 12/13/23 17:59 Last Admin: 12/06/23 11:42 Dose: 250 mg (9) Hypertension Hypertension type: unspecified Qualified Code(s): I10 - Essential (primary) hypertension
[2023-12-06] MEDS: POTASSIUM CHLORIDE CRTAB 20 MEQ TABCR PO STA (11:42)
--- NOTE | 2023-12-06 12:50 | Pharmacy Report ---
Pharmacy Glycemic Short Note 2 - Date of Service December 06, 2023 - Glycemic Short BSG Results (Last 24 hours): 12/05/23 12/05/23 12/06/23 17:42 20:22 07:04 Glucose 172 H POC Glucose 161 H 248 H 12/06/23 12/06/23 07:53 11:58 Glucose POC Glucose 183 H 251 H OUTPATIENT ANTIDIABETIC REGIMEN: * Lantus 8 units SC HS * Jardiance 25 mg PO daily * Metformin 1 gm PO daily HbA1c: 7.7% (10/30/22) ASSESSMENT: 12/06/23: * BSGs elevated yesterday w/ conservative initial regimen * Received 20 units of insulin (8 units of basal and 12 units of prandial/correctional bolus) * Will tighten Novolog and increase basal dose today 12/05/23: * 83 year old admitted with lethargy/cdiff infection - pharmacy consulted for glycemic management. Patient received total of 19 units of insulin yesterday, of which 8 units were basal insulin. Fasting BSG 111 mg/dl - reasonable to continue same basal insulin * BSGs trending up yesterday throughout the day as patient eats, will tighten CF/CR this AM PLAN FOR INPATIENT GLYCEMIC CONTROL: * Hold outpatient oral diabetes medications * Basal insulin * Lantus 10 units hs * Bolus insulin * NovoLog per scale ACHS or Q6hrs while NPO * Goal Range: Low 120 mg/dL - High 150 mg/dL * Correction Factor: 30 mg/dL/unit * Nutritional / Prandial insulin per carb ratio of 1 unit per 8 grams CHO consumed
[2023-12-06] MEDS: LANTUS PER UNIT CHARGE SQ SCH (20:55)
[2023-12-07 06:16] LABS: Hematocrit (blood only) 38.6 % (37.0-47.0); Hemoglobin 12.3 g/dl (12.0-16.0); Mean Corpuscular Hemoglobin 27.9 pg (25.0-34.0); Mean Corpuscular Hgb Conc 31.9 g/dL (32.0-36.0); Mean Corpuscular Volume 87.5 fL (80.0-100.0); Mean Platelet Volume 11.2 fL (9.4-12.4); Platelet Count 229 K/uL (130-400); RDW Coefficient of Variation 13.3 % (11.5-14.5); RDW Standard Deviation 42.8 fL (36.4-46.3); Red Blood Count 4.41 M/uL (4.20-5.40); White Blood Count 4.48 K/ul (4.8-10.8)
[2023-12-07 06:20] LABS: Calcium 8.8 mg/dl (8.6-10.3); Creatinine Clr Calc Pharmacy 45.8 ml/min; Est GFR (African American) 84.8 ml/min; Est GFR (Non-African American) 73.2 ml/min; Magnesium 1.8 mg/dl (1.7-2.4); Phosphorus 3.2 mg/dl (2.5-4.9)
--- NOTE | 2023-12-07 15:49 | Hospitalist Progress Note ---
Date of Service December 07, 2023 Assessment & Plan (1) C. 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 Patient had recent oral antibiotic treatment with clindamycin and doxycycline in October 2023 for foot wound. She is being managed for the following: C. difficile diarrhea: Patient presenting with loose stool, came back positive for C. difficile and toxin. Maintain isolation precaution, continue p.o. vancomycin 12/03. Patient is still with liquidy stool but reports overall feeling better. Will continue to monitor clinically. Monitor replete electrolytes as appropriate. Labs in AM. Lethargy: Increased lethargy at presentation, likely secondary to underlying infection. PT/OT eval. Patient receiving home physical therapy at the time of presentation. More awake and alert today. UTI: Urine culture positive for E. coli. Continue Rocephin 12/03 for 5 days. Continue probiotic. Other chronic medical conditions: Continue with/resume home meds as and when able T2DM: A1c of 7.4 on 11/11/2023. Sliding scale insulin while in hospital. Mild hyponatremia: Appears chronic and intermittent, stable currently, monitor. CKD stage III: Baseline creatinine around 0.9, stable. Monitor. Hypertension: Continue home amlodipine and Toprol PAD: Status post LE angioplasty stenting 10/08. Continue aspirin, Plavix, statin. Pressure ulcer of left heel, unstageable/unstageable pressure ulcer of right foot: Treated with clindamycin and doxycycline in October 2023. Follows with [facility] wound clinic. No signs of acute infection. Continue offloading. Wound care nurse consult. Stroke: History of stroke with residual right-sided weakness. Continue statin and aspirin. Leg edema: Continue Lasix SHAYY: Continue CPAP at bedtime. DVT prophylaxis: Lovenox subcu Full code Admission and Anticipated Discharge Date Admission Date: December 02, 2023 Subjective Patient was seen and examined at bedside. Patient was lying in bed, on room air, NAD, resting comfortably. She is more awake and alert, reports having loose stools. Denies abdominal pain or fever or chills. Denies nausea and vomiting. Reports eating better. Physical Exam Physical Exam: General: no acute distress, thin elderly female Head: normocephalic, atraumatic Eyes: PERRL, EOM's intact, conjunctiva non-injected, anicteric ENT: normal inspection external ears, nose, mucous membranes moist Neck: supple Lungs: clear, no respiratory distress, no wheezing/rhonchi/rales CV: RRR, no murmur, 1+ pretibial edema Abd: normal BS, soft, non-tender to palpation Ext: + some tenderness to palpation BLE worse to right. Neuro: Awake, alert and answers appropriately, +chronic right sided weakness, no other focal deficits noted, normal affect Results & Data Results & Data Vital Signs (Past 12 Hours) Vital Signs Temp Pulse Pulse Resp BP Pulse Ox O2 Del Method 12/07/23 15:07 37 C 77 17 111/58 L 95 Room Air 12/07/23 11:42 36.6 C 59 L 17 116/55 L 96 Room Air 12/07/23 07:59 36.5 C 66 17 148/75 H 97 CPAP 12/07/23 07:36 54 L
[2023-12-08] MEDS: OPTIRAY 320 500ml IV ONE (02:02)
[2023-12-08] MEDS: KETOROLAC TROMETHAMINE 15 MG/ML VIAL IV ONE (02:29)
--- NOTE | 2023-12-08 03:36 | CT Scan Report ---
Exam(s): CT ABDOMEN + PELVIS With Contrast IV Amt: 84 ML OPTIRAY 320 EXAM: CT Abdomen and Pelvis With Intravenous Contrast CLINICAL HISTORY: Reason for exam: abd pain. TECHNIQUE: Axial computed tomography images of the abdomen and pelvis with intravenous contrast. CTDI is 13.11 mGy and DLP is 595.09 mGy-cm. Automated exposure control was utilized for the study. A dose lowering technique was utilized adhering to the principles of ALARA. CONTRAST: Patient received 84 ML OPTIRAY 320 of IV contrast COMPARISON: No relevant prior studies available. FINDINGS: Lung bases: Sections through the lower lungs demonstrate areas of mild bilateral lower lobe atelectasis. Pleural space: Trace pleural effusions. ABDOMEN: Liver: Unremarkable. No mass. Gallbladder and bile ducts: Gallstone. No ductal dilation. Pancreas: Unremarkable. No mass. No ductal dilation. Spleen: Unremarkable. No splenomegaly. Adrenals: Unremarkable. No mass. Kidneys and ureters: Unremarkable. No solid mass. No hydronephrosis. Stomach and bowel: Unremarkable. No mucosal thickening. No evidence of small bowel obstruction. PELVIS: Appendix: No findings to suggest acute appendicitis. Bladder: There appears to be some bladder wall thickening though the bladder is not optimally distended. Ill-defined rectal wall with perirectal edema. ABDOMEN and PELVIS: Intraperitoneal space: Unremarkable. No free air. No significant fluid collection. Bones/joints: No acute findings. Soft tissues: Diffuse edema and subcutaneous fat of the body wall. Vasculature: Very heavy calcification of the abdominal aorta and its major branches. No abdominal aortic aneurysm. Lymph nodes: Unremarkable. No enlarged lymph nodes. IMPRESSION: Gallstone. Appearance of bladder wall thickening. Correlate for cystitis. Ill-defined rectal wall with perirectal edema. This may represent proctitis. Electronically signed by: Nikko Armstrong MD 12/08/23 03:35 AM
--- NOTE | 2023-12-08 03:42 | Communication Note ---
Date of Service: December 08, 2023 Patient crying out because of abdominal pain as per RN. Large copious BM last night as per RN. CT abdomen pelvis: Gallstone. Appearance of bladder wall thickening. Correlate for cystitis. Ill-defined rectal wall with perirectal edema. This may represent proctitis. AP Abdominal pain Cystitis and proctitis on CT C. difficile ongoing oral vancomycin Rx Clear liquid diet for now Add Flagyl to ceftriaxone for proctitis
[2023-12-08] MEDS: metroNIDAZOLE 500 MG/100 ML BAG IV SCH (04:54)
[2023-12-08 05:17] LABS: Hematocrit (blood only) 35.1 % (37.0-47.0); Hemoglobin 11.5 g/dl (12.0-16.0); Mean Corpuscular Hemoglobin 28.4 pg (25.0-34.0); Mean Corpuscular Hgb Conc 32.8 g/dL (32.0-36.0); Mean Corpuscular Volume 86.7 fL (80.0-100.0); Platelet Count 250 K/uL (130-400); RDW Coefficient of Variation 13.3 % (11.5-14.5); RDW Standard Deviation 42.3 fL (36.4-46.3); Red Blood Count 4.05 M/uL (4.20-5.40); White Blood Count 6.76 K/ul (4.8-10.8)
[2023-12-08 05:25] LABS: Albumin Level 2.7 gm/dl (3.4-5.0); BUN Creatinine Ratio 40.3 (10-20); Bilirubin,Total 0.2 mg/dl (0.2-1.0); Calcium 8.4 mg/dl (8.6-10.3); Creatinine Clr Calc Pharmacy 51.3 ml/min; Est GFR (African American) 93.6 ml/min; Est GFR (Non-African American) 80.7 ml/min; Globulin 2.8 gm/dl (2.5-4.0); Magnesium 1.8 mg/dl (1.7-2.4); Phosphorus 3.1 mg/dl (2.5-4.9); Total Protein 5.5 gm/dl (6.0-8.3)
--- NOTE | 2023-12-08 09:58 | Pharmacy Report ---
Pharmacy Glycemic Short Note 2 - Date of Service December 08, 2023 - Glycemic Short BSG Results (Last 24 hours): 12/07/23 12/07/23 12/07/23 11:47 11:48 17:16 Glucose POC Glucose 302 H* 293 H 89 12/07/23 12/08/23 12/08/23 20:01 04:35 08:27 Glucose 149 H POC Glucose 201 H 127 H OUTPATIENT ANTIDIABETIC REGIMEN: * Lantus 8 units SC HS * Jardiance 25 mg PO daily * Metformin 1 gm PO daily HbA1c: 7.7% (10/30/22) ASSESSMENT: 12/08/23: * Janay received 26 units of insulin yesterday (10 were basal) * Fasting BSG within goal range this AM, continue current basal regimen * She continues on IV CTX and PO Vancomycin, IV Flagyl added early this morning due to abdominal pain, diet changed to clear liquids * She corrected significantly from lunch to dinner, loosened correction factor to prevent overcorrection, consider tightening carbohydrate ratio to prevent significant increases in BSG and overcorrection 12/06/23 * BSGs elevated yesterday w/ conservative initial regimen * Received 20 units of insulin (8 units of basal and 12 units of prandial/correctional bolus) * Will tighten Novolog and increase basal dose today 12/05/23: * 83 year old admitted with lethargy/cdiff infection - pharmacy consulted for glycemic management. Patient received total of 19 units of insulin yesterday, of which 8 units were basal insulin. Fasting BSG 111 mg/dl - reasonable to continue same basal insulin * BSGs trending up yesterday throughout the day as patient eats, will tighten CF/CR this AM PLAN FOR INPATIENT GLYCEMIC CONTROL: * Hold outpatient oral diabetes medications * Basal insulin * Lantus 10 units hs * Bolus insulin * NovoLog per scale ACHS or Q6hrs while NPO * Goal Range: Low 120 mg/dL - High 150 mg/dL * Correction Factor: 35 mg/dL/unit * Nutritional / Prandial insulin per carb ratio of 1 unit per 8 grams CHO consumed
--- NOTE | 2023-12-08 12:32 | Hospitalist Progress Note ---
Date of Service December 08, 2023 Assessment & Plan (1) C. 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 Patient had recent oral antibiotic treatment with clindamycin and doxycycline in October 2023 for foot wound. She is being managed for the following: C. difficile diarrhea: Patient presenting with loose stool, came back positive for C. difficile and toxin. Maintain isolation precaution, continue p.o. vancomycin 12/03. will continue 10 more days after rocephin is done on 12/08 Patient reports improving stool consistency. Will continue to monitor clinically. Monitor replete electrolytes as appropriate. Labs in AM. Metronidazole added 12/08 for concern of proctitis noted on CTAP. Will continue 7 days. Pt w/ no abdominal pain. Lethargy: Increased lethargy at presentation, likely secondary to underlying infection. PT/OT eval. Patient receiving home physical therapy at the time of presentation. More awake and alert lately. UTI: Urine culture positive for E. coli. Continue Rocephin 12/03 for 5 days. Continue probiotic. Other chronic medical conditions: Continue with/resume home meds as and when able T2DM: A1c of 7.4 on 11/11/2023. Sliding scale insulin while in hospital. Mild hyponatremia: Appears chronic and intermittent, stable currently, monitor. CKD stage III: Baseline creatinine around 0.9, stable. Monitor. Hypertension: Continue home amlodipine and Toprol PAD: Status post LE angioplasty stenting 10/08. Continue aspirin, Plavix, statin. Pressure ulcer of left heel, unstageable/unstageable pressure ulcer of right foot: Treated with clindamycin and doxycycline in October 2023. Follows with [facility] wound clinic. No signs of acute infection. Continue offloading. Wound care nurse consult. Stroke: History of stroke with residual right-sided weakness. Continue statin and aspirin. Leg edema: Continue Lasix SHAYY: Continue CPAP at bedtime. DVT prophylaxis: Lovenox subcu Full code Admission and Anticipated Discharge Date Admission Date: December 02, 2023 Subjective Patient was seen and examined at bedside. Patient was lying in bed, on room air, NAD, resting comfortably. She is awake and alert, reports having belly pain overnight which has already resolved by bedside exam She reports somewhat forming up stools. Can advance diet as yuri, communicated w/ rn. Denies abdominal pain or fever or chills. Denies nausea and vomiting. Reports eating better. Physical Exam Physical Exam: General: no acute distress, thin elderly female Head: normocephalic, atraumatic Eyes: PERRL, EOM's intact, conjunctiva non-injected, anicteric ENT: normal inspection external ears, nose, mucous membranes moist Neck: supple Lungs: clear, no respiratory distress, no wheezing/rhonchi/rales CV: RRR, no murmur, trace/1+ pretibial edema Abd: normal BS, soft, non-tender to palpation Ext: + some tenderness to palpation BLE worse to right. Neuro: Awake, alert and answers appropriately, +chronic right sided weakness, no other focal deficits noted, normal affect Results & Data Results & Data Vital Signs (Past 12 Hours) Vital Signs Temp Pulse Pulse Resp BP Pulse Ox Pulse Ox 12/08/23 11:42 37 C 60 12 108/51 L 97 12/08/23 08:00 95 12/08/23 07:54 62 12/08/23 07:45 36.7 C 69 126/66 95 12/08/23 03:15 36.5 C 70 18 134/61 97 12/08/23 01:37 36.9 C 66 18 151/74 H 96 O2 Del Method O2 Del Method 12/08/23 11:42 Room Air 12/08/23 08:00 Room Air 12/08/23 07:54 12/08/23 07:45 Room Air 12/08/23 03:15 Room Air 12/08/23 01:37 Room Air
[2023-12-09 06:21] LABS: BUN Creatinine Ratio 31.1 (10-20); Calcium 8.7 mg/dl (8.6-10.3); Est GFR (African American) 96.5 ml/min; Est GFR (Non-African American) 83.2 ml/min; Magnesium 1.9 mg/dl (1.7-2.4); Phosphorus 3.5 mg/dl (2.5-4.9)
--- NOTE | 2023-12-09 13:45 | Pharmacy Report ---
Pharmacy Glycemic Short Note 2 - Date of Service December 09, 2023 - Glycemic Short BSG Results (Last 24 hours): 12/08/23 12/08/23 12/09/23 17:25 20:04 05:45 Glucose 112 H POC Glucose 212 H 160 H 12/09/23 12/09/23 08:06 12:07 Glucose POC Glucose 142 H 286 H OUTPATIENT ANTIDIABETIC REGIMEN: * Lantus 8 units SC HS * Jardiance 25 mg PO daily * Metformin 1 gm PO daily HbA1c: 7.7% (10/30/22) ASSESSMENT: 12/09/23 * Janay received 26 units of insulin yesterday (10 were basal) * Fasting BSG within goal range, continue basal regimen * Lunchtime BSGs typically elevated, will trial tighter breakfast Novolog parameters 12/08/23 * Janay received 26 units of insulin yesterday (10 were basal) * Fasting BSG within goal range this AM, continue current basal regimen * She continues on IV CTX and PO Vancomycin, IV Flagyl added early this morning due to abdominal pain, diet changed to clear liquids * She corrected significantly from lunch to dinner, loosened correction factor to prevent overcorrection, consider tightening carbohydrate ratio to prevent significant increases in BSG and overcorrection 12/06/23 * BSGs elevated yesterday w/ conservative initial regimen * Received 20 units of insulin (8 units of basal and 12 units of prandial/correctional bolus) * Will tighten Novolog and increase basal dose today 12/05/23: * 83 year old admitted with lethargy/cdiff infection - pharmacy consulted for gl ycemic management. Patient received total of 19 units of insulin yesterday, of which 8 units were basal insulin. Fasting BSG 111 mg/dl - reasonable to continue same basal insulin * BSGs trending up yesterday throughout the day as patient eats, will tighten CF/CR this AM PLAN FOR INPATIENT GLYCEMIC CONTROL: * Hold outpatient oral diabetes medications * Basal insulin * Lantus 10 units hs * Bolus insulin- tighten breakfast * NovoLog per scale QDB * Goal Range: Low 120 mg/dL - High 150 mg/dL * Correction Factor: 30 mg/dL/unit * Nutritional / Prandial insulin per carb ratio of 1 unit per 6 grams CHO consumed * Bolus insulin * NovoLog per scale QDL, QDD, &HS or Q6hrs while NPO * Goal Range: Low 120 mg/dL - High 150 mg/dL * Correction Factor: 35 mg/dL/unit * Nutritional / Prandial insulin per carb ratio of 1 unit per 7 grams CHO consumed
--- NOTE | 2023-12-09 14:56 | Hospitalist Progress Note ---
Date of Service December 09, 2023 Assessment & Plan (1) C. 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 Patient had recent oral antibiotic treatment with clindamycin and doxycycline in October 2023 for foot wound. She is being managed for the following: C. difficile diarrhea: Patient presenting with loose stool, came back positive for C. difficile and toxin. Maintain isolation precaution, continue p.o. vancomycin 12/03. will continue 7 more days from last day of rocephin which was 12/07/23. Patient reports improving stool consistency. Will continue to monitor clinically. Monitor replete electrolytes as appropriate. Labs in AM. Metronidazole added 12/08 for concern of proctitis noted on CTAP. Will continue 7 days. Pt w/ no abdominal pain. Lethargy: Increased lethargy at presentation, likely secondary to underlying infection. PT/OT eval. Patient receiving home physical therapy at the time of presentation. More awake and alert lately. UTI: Urine culture positive for E. coli. Continue Rocephin 12/03 for 5 days. Continue probiotic. completed rocephin 12/07 evening. Other chronic medical conditions: Continue with/resume home meds as and when able T2DM: A1c of 7.4 on 11/11/2023. Sliding scale insulin while in hospital. Mild hyponatremia: Appears chronic and intermittent, stable currently, monitor. CKD stage III: Baseline creatinine around 0.9, stable. Monitor. Hypertension: Continue home amlodipine and Toprol PAD: Status post LE angioplasty stenting 10/08. Continue aspirin, Plavix, statin. Pressure ulcer of left heel, unstageable/unstageable pressure ulcer of right foot: Treated with clindamycin and doxycycline in October 2023. Follows with [facility] wound clinic. No signs of acute infection. Continue offloading. Wound care nurse consult. Stroke: History of stroke with residual right-sided weakness. Continue statin and aspirin. Leg edema: Continue Lasix SHAYY: Continue CPAP at bedtime. DVT prophylaxis: Lovenox subcu Full code Dipso: pt's wants to take her home. he was updated over the phone 12/09. he states he is not ready to take her home, will like to see her laya and decide. Admission and Anticipated Discharge Date Admission Date: December 02, 2023 Subjective Patient was seen and examined at bedside. Patient was lying in bed, on room air, NAD, resting comfortably. She is awake and alert, reports no belly pain, improving frequency/consistency of stool. Has been tolerating diet well. Denies abdominal pain or fever or chills. Denies nausea and vomiting. Reports eating better. Physical Exam Physical Exam: General: no acute distress, thin elderly female Head: normocephalic, atraumatic Eyes: PERRL, EOM's intact, conjunctiva non-injected, anicteric ENT: normal inspection external ears, nose, mucous membranes moist Neck: supple Lungs: clear, no respiratory distress, no wheezing/rhonchi/rales CV: RRR, no murmur, trace/1+ pretibial edema Abd: normal BS, soft, non-tender to palpation Ext: + some tenderness to palpation BLE worse to right. appears chronic problem. Neuro: Awake, alert and answers appropriately, +chronic right sided weakness, no other focal deficits noted, normal affect Results & Data Results & Data Vital Signs (Past 12 Hours) Vital Signs Temp Pulse Pulse Resp BP Pulse Ox O2 Del Method 12/09/23 11:51 36.6 C 64 18 95/53 L 94 Room Air 12/09/23 08:19 36.9 C 64 18 158/65 H 96 Room Air 12/09/23 06:00 79 12/09/23 03:07 36.9 C 66 18 150/66 H 96 Room Air
[2023-12-09] MEDS: INSULIN ASPART PER UNIT CHARGE SC SCH (17:38)
[2023-12-10 05:19] LABS: BUN Creatinine Ratio 36.5 (10-20); Calcium 8.8 mg/dl (8.6-10.3); Creatinine Clr Calc Pharmacy 69.2 ml/min; Est GFR (African American) 101.7 ml/min; Est GFR (Non-African American) 87.7 ml/min; Magnesium 1.8 mg/dl (1.7-2.4); Phosphorus 3.1 mg/dl (2.5-4.9); Potassium 3.7 mmol/L (3.5-5.1)
[2023-12-10] MEDS: INSULIN ASPART PER UNIT CHARGE SC SCH (09:17)
[2023-12-10] MEDS: POTASSIUM CHLORIDE CRTAB 20 MEQ TABCR PO STA (09:18)
--- NOTE | 2023-12-10 15:56 | Hospitalist Progress Note ---
Date of Service December 10, 2023 Assessment & Plan (1) C. 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 Patient had recent oral antibiotic treatment with clindamycin and doxycycline in October 2023 for foot wound. She is being managed for the following: C. difficile diarrhea: Patient presenting with loose stool, came back positive for C. difficile and toxin. Maintain isolation precaution, continue p.o. vancomycin 12/03. will continue 7 more days from last day of rocephin which was 12/07/23. Patient reports improving stool consistency. Will continue to monitor clinically. Monitor replete electrolytes as appropriate. Labs in AM. Metronidazole added 12/08 for concern of proctitis noted on CTAP. Will continue 7 days. Pt w/ no abdominal pain. Lethargy: Increased lethargy at presentation, likely secondary to underlying infection. PT/OT eval. Patient receiving home physical therapy at the time of presentation. More awake and alert lately. UTI: Urine culture positive for E. coli. Continue Rocephin 12/03 for 5 days. Continue probiotic. completed rocephin 12/07 evening. Other chronic medical conditions: Continue with/resume home meds as and when able T2DM: A1c of 7.4 on 11/11/2023. Sliding scale insulin while in hospital. Mild hyponatremia: Appears chronic and intermittent, stable currently, monitor. CKD stage III: Baseline creatinine around 0.9, stable. Monitor. Hypertension: Continue home amlodipine and Toprol PAD: Status post LE angioplasty stenting 10/08. Continue aspirin, Plavix, statin. Pressure ulcer of left heel, unstageable/unstageable pressure ulcer of right foot: Treated with clindamycin and doxycycline in October 2023. Follows with [facility] wound clinic. No signs of acute infection. Continue offloading. Wound care nurse consult. Stroke: History of stroke with residual right-sided weakness. Continue statin and aspirin. Leg edema: Continue Lasix SHAYY: Continue CPAP at bedtime. DVT prophylaxis: Lovenox subcu Full code Dipso: pt's now wants her to go to rehab, cm working on placement. Admission and Anticipated Discharge Date Admission Date: December 02, 2023 Subjective Patient was seen and examined at bedside. Patient was lying in bed, on room air, NAD, resting comfortably. She is awake and alert, reports no belly pain, improving frequency/consistency of stool. Has been tolerating diet well. Denies abdominal pain or fever or chills. Denies nausea and vomiting. Reports eating better. Physical Exam Physical Exam: General: no acute distress, thin elderly female Head: normocephalic, atraumatic Eyes: PERRL, EOM's intact, conjunctiva non-injected, anicteric ENT: normal inspection external ears, nose, mucous membranes moist Neck: supple Lungs: clear, no respiratory distress, no wheezing/rhonchi/rales CV: RRR, no murmur, trace/1+ pretibial edema Abd: normal BS, soft, non-tender to palpation Ext: + some tenderness to palpation BLE worse to right. appears chronic problem. Neuro: Awake, alert and answers appropriately, +chronic right sided weakness, no other focal deficits noted, normal affect Results & Data Results & Data Vital Signs (Past 12 Hours) Vital Signs Temp Pulse Pulse Resp BP Pulse Ox O2 Del Method 12/10/23 15:18 37.1 C 72 20 106/62 96 Room Air 12/10/23 11:11 37.1 C 75 20 115/54 L 98 Room Air 12/10/23 07:50 36.9 C 64 20 121/57 L 95 Room Air 12/10/23 07:11 67 12/10/23 04:31 37.0 C 73 18 167/69 H 94 Room Air
[2023-12-11 06:04] LABS: BUN Creatinine Ratio 40.8 (10-20); Calcium 8.6 mg/dl (8.6-10.3); Creatinine Clr Calc Pharmacy 50.5 ml/min; Est GFR (African American) 90.7 ml/min; Est GFR (Non-African American) 78.2 ml/min; Magnesium 1.8 mg/dl (1.7-2.4); Phosphorus 4.2 mg/dl (2.5-4.9); Potassium 4.2 mmol/L (3.5-5.1)
--- NOTE | 2023-12-11 14:23 | Pharmacy Report ---
Pharmacy Glycemic Short Note 2 - Date of Service December 11, 2023 - Glycemic Short BSG Results (Last 24 hours): 12/10/23 12/10/23 12/11/23 17:10 20:36 05:11 Glucose 102 H POC Glucose 218 H 196 H 12/11/23 12/11/23 07:57 12:16 Glucose POC Glucose 120 H 203 H OUTPATIENT ANTIDIABETIC REGIMEN: * Lantus 8 units SC HS * Jardiance 25 mg PO daily * Metformin 1 gm PO daily HbA1c: 7.7% (10/30/22) ASSESSMENT: 12/11/23: * Received 42 units of insulin yesterday; 10 units basal + 32 units bolus. * Fasting BSG today was 102 mg/dl. Basal dose continued the same. * Post prandial BSGs were elevated yesterday. Novolog parameters tightened. 12/09/23 * Janay received 26 units of insulin yesterday (10 were basal) * Fasting BSG within goal range, continue basal regimen * Lunchtime BSGs typically elevated, will trial tighter breakfast Novolog parameters 12/08/23 * Janay received 26 units of insulin yesterday (10 were basal) * Fasting BSG within goal range this AM, continue current basal regimen * She continues on IV CTX and PO Vancomycin, IV Flagyl added early this morning due to abdominal pain, diet changed to clear liquids * She corrected significantly from lunch to dinner, loosened correction factor to prevent overcorrection, consider tightening carbohydrate ratio to prevent significant increases in BSG and overcorrection 12/06/23 * BSGs elevated yesterday w/ conservative initial regimen * Received 20 units of insulin (8 units of basal and 12 units of prandial/correctional bolus) * Will tighten Novolog and increase basal dose today 12/05/23: * 83 year old admitted with lethargy/cdiff infection - pharmacy consulted for glycemic management. Patient received total of 19 units of insulin yesterday, of which 8 units were basal insulin. Fasting BSG 111 mg/dl - reasonable to continue same basal insulin * BSGs trending up yesterday throughout the day as patient eats, will tighten CF/CR this AM PLAN FOR INPATIENT GLYCEMIC CONTROL: * Hold outpatient oral diabetes medications * Basal insulin * Lantus 10 units hs * Bolus insulin- tighten breakfast * NovoLog per scale QDB * Goal Range: Low 120 mg/dL - High 150 mg/dL * Correction Factor: 30 mg/dL/unit * Nutritional / Prandial insulin per carb ratio of 1 unit per 4.5 grams CHO consumed * Bolus insulin * NovoLog per scale QDL, QDD, & HS or Q6hrs while NPO * Goal Range: Low 110 mg/dL - High 140 mg/dL * Correction Factor: 25 mg/dL/unit * Nutritional / Prandial insulin per carb ratio of 1 unit per 6 grams CHO consumed
--- NOTE | 2023-12-11 16:02 | Hospitalist Progress Note ---
Date of Service December 11, 2023 Assessment & Plan (1) C. difficile diarrhea: Plan 83-year-old female with PMH of HTN, HLD, T2DM, CKD stage III, stroke, LE edema, PVD, SHAYY, foot wounds presented to the ED with complaint of lethargy and watery diarrhea for [address] [employer]. 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 Patient had recent oral antibiotic treatment with clindamycin and doxycycline in October 2023 for foot wound. She is being managed for the following: C. difficile diarrhea: Patient presenting with loose stool, came back positive for C. difficile and toxin. Maintain isolation precaution, continue p.o. vancomycin 12/03. will continue 7 more days from last day of rocephin which was 12/07/23. Patient reports improving stool consistency. Will continue to monitor clinically. Monitor replete electrolytes as appropriate. Labs in AM. Metronidazole added 12/08 for concern of proctitis noted on CTAP. Will continue 7 days. Pt w/ no abdominal pain. Lethargy: Increased lethargy at presentation, likely secondary to underlying infection. PT/OT eval. Patient receiving home physical therapy at the time of presentation. More awake and alert lately. UTI: Urine culture positive for E. coli. Continue Rocephin 12/03 for 5 days. Continue probiotic. completed rocephin 12/07 evening. Other chronic medical conditions: Continue with/resume home meds as and when able T2DM: A1c of 7.4 on 11/11/2023. Sliding scale insulin while in hospital. Mild hyponatremia: Appears chronic and intermittent, stable currently, monitor. CKD stage III: Baseline creatinine around 0.9, stable. Monitor. Hypertension: Continue home amlodipine and Toprol PAD: Status post LE angioplasty stenting 10/08. Continue aspirin, Plavix, statin. Pressure ulcer of left heel, unstageable/unstageable pressure ulcer of right foot: Treated with clindamycin and doxycycline in October 2023. Follows with [facility] wound clinic. No signs of acute infection. Continue offloading. Wound care nurse consult. Stroke: History of stroke with residual right-sided weakness. Continue statin and aspirin. Leg edema: Continue Lasix SHAYY: Continue CPAP at bedtime. DVT prophylaxis: Lovenox subcu Full code Dipso: pt's now wants her to go to rehab, cm working on placement. Admission and Anticipated Discharge Date Admission Date: December 02, 2023 Subjective Patient was seen and examined at bedside. Patient was lying in bed, on room air, NAD, resting comfortably. She is awake and alert, reports no belly pain, improving frequency/consistency of stool. Has been tolerating diet well. Denies abdominal pain or fever or chills. Denies nausea and vomiting. Reports eating better. Per RN, loose BM x 1 overnight and x 1 in AM. Physical Exam Physical Exam: General: no acute distress, thin elderly female Head: normocephalic, atraumatic Eyes: PERRL, EOM's intact, conjunctiva non-injected, anicteric ENT: normal inspection external ears, nose, mucous membranes moist Neck: supple Lungs: clear, no respiratory distress, no wheezing/rhonchi/rales CV: RRR, no murmur, trace/1+ pretibial edema Abd: normal BS, soft, non-tender to palpation Ext: + some tenderness to palpation BLE worse to right. appears chronic problem per pt. Neuro: Awake, alert and answers appropriately, +chronic right sided weakness, no other focal deficits noted, normal affect Results & Data Results & Data Vital Signs (Past 12 Hours) Vital Signs Temp Pulse Pulse Resp BP Pulse Ox O2 Del Method 12/11/23 15:39 81 12/11/23 15:32 37.2 C 78 17 103/58 L 94 Room Air 12/11/23 11:26 36.9 C 78 20 103/55 L 96 Room Air 12/11/23 08:02 Room Air 12/11/23 07:25 36.7 C 71 20 160/78 H 95 Room Air 12/11/23 06:54 56 L 12/11/23 04:33 36.7 C 63 18 162/76 H 93 Room Air
--- NOTE | 2023-12-12 15:19 | Hospitalist Progress Note ---
Date of Service December 12, 2023 Assessment & Plan (1) C. difficile diarrhea: Plan 83-year-old female with PMH of HTN, HLD, T2DM, CKD stage III, stroke, LE edema, PVD, SHAYY, foot wounds presented to the ED with complaint of lethargy and watery diarrhea for 3 days [employer]. 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 Patient had recent oral antibiotic treatment with clindamycin and doxycycline in October 2023 for foot wound. She is being managed for the following: C. difficile diarrhea: Patient presenting with loose stool, came back positive for C. difficile and toxin. Maintain isolation precaution, continue p.o. vancomycin 12/03. will continue 7 or more days from last day of rocephin which was 12/07/23 depending on improvement in consistency/frequency of stool. Patient reports improving stool consistency but has not progressed much. Will continue to monitor clinically. Monitor replete electrolytes as appropriate. Labs in AM. Metronidazole added 12/08 for concern of proctitis noted on CTAP. Will continue 7 days. Pt w/ no abdominal pain. Will add quesetran, will follow. Lethargy: Increased lethargy at presentation, likely secondary to underlying infection. PT/OT eval. Patient receiving home physical therapy at the time of presentation. More awake and alert lately. UTI: Urine culture positive for E. coli. Continue Rocephin 12/03 for 5 days. Continue probiotic. completed rocephin 12/07 evening. Other chronic medical conditions: Continue with/resume home meds as and when able T2DM: A1c of 7.4 on 11/11/2023. Sliding scale insulin while in hospital. Mild hyponatremia: Appears chronic and intermittent, stable currently, monitor. CKD stage III: Baseline creatinine around 0.9, stable. Monitor. Hypertension: Continue home amlodipine and Toprol PAD: Status post LE angioplasty stenting 10/08. Continue aspirin, Plavix, statin. Pressure ulcer of left heel, unstageable/unstageable pressure ulcer of right foot: Treated with clindamycin and doxycycline in October 2023. Follows with [facility] wound clinic. No signs of acute infection. Continue offloading. Wound care nurse consult. Stroke: History of stroke with residual right-sided weakness. Continue statin and aspirin. Leg edema: Continue Lasix SHAYY: Continue CPAP at bedtime. DVT prophylaxis: Lovenox subcu Full code Dipso: pt's now wants her to go to rehab, cm working on placement. awaiting placement Admission and Anticipated Discharge Date Admission Date: December 02, 2023 Subjective Patient was seen and examined at bedside. Patient was lying in bed, on room air, NAD, resting comfortably. She is awake and alert, reports no belly pain, improving frequency/consistency of stool but not yet regular consistency Has been tolerating diet well. Denies abdominal pain or fever or chills. Denies nausea and vomiting. Reports eating better. at bedside, updated. Physical Exam 2 Physical Exam: General: no acute distress, thin elderly female Head: normocephalic, atraumatic Eyes: PERRL, EOM's intact, conjunctiva non-injected, anicteric ENT: normal inspection external ears, nose, mucous membranes moist Neck: supple Lungs: clear, no respiratory distress, no wheezing/rhonchi/rales CV: RRR, no murmur, trace/1+ pretibial edema Abd: normal BS, soft, non-tender to palpation Ext: + some tenderness to palpation BLE worse to right. appears chronic problem per pt. Neuro: Awake, alert and answers appropriately, +chronic right sided weakness, no other focal deficits noted, normal affect Results & Data Results & Data Vital Signs (Past 12 Hours) Vital Signs Temp Pulse Pulse Resp BP BP Pulse Ox 12/12/23 11:13 36.7 C 61 16 149/67 H 94 12/12/23 08:00 67 12/12/23 07:22 36.8 C 71 12 131/69 94 12/12/23 03:16 36.4 C L 77 18 109/58 L 96 O2 Del Method 12/12/23 11:13 Room Air 12/12/23 08:00 12/12/23 07:22 Room Air 12/12/23 03:16 Room Air
[2023-12-13] MEDS: CHOLESTYRAMINE LIGHT 4 GM PKT PO SCH (00:29)
--- NOTE | 2023-12-13 08:40 | Pharmacy Report ---
Pharmacy Glycemic Short Note 2 - Date of Service December 13, 2023 - Glycemic Short BSG Results (Last 24 hours): 12/12/23 12/12/23 12/12/23 12:16 16:52 20:41 POC Glucose 196 H 72 183 H 12/13/23 07:54 POC Glucose 120 H OUTPATIENT ANTIDIABETIC REGIMEN: * Lantus 8 units SC HS * Jardiance 25 mg PO daily * Metformin 1 gm PO daily HbA1c: 7.7% (10/30/22) ASSESSMENT: 12/13/23: * Patient received total of 43 units of insulin yesterday, of which 10 units were basal * Fasting BSG 120 mg/dL - continue same basal * Plan to loosen CF/CR at lunch time as BSGs trending down at dinner yesterday evening 12/11/23: * Received 42 units of insulin yesterday; 10 units basal + 32 units bolus. * Fasting BSG today was 102 mg/dl. Basal dose continued the same. * Post prandial BSGs were elevated yesterday. Novolog parameters tightened. 12/09/23 * Janay received 26 units of insulin yesterday (10 were basal) * Fasting BSG within goal range, continue basal regimen * Lunchtime BSGs typically elevated, will trial tighter breakfast Novolog parameters 12/08/23 * Janay received 26 units of insulin yesterday (10 were basal) * Fasting BSG within goal range this AM, continue current basal regimen * She continues on IV CTX and PO Vancomycin, IV Flagyl added early this morning due to abdominal pain, diet changed to clear liquids * She corrected significantly from lunch to dinner, loosened correction factor to prevent overcorrection, consider tightening carbohydrate ratio to prevent significant increases in BSG and overcorrection 12/06/23 * BSGs elevated yesterday w/ conservative initial regimen * Received 20 units of insulin (8 units of basal and 12 units of prandial/correctional bolus) * Will tighten Novolog and increase basal dose today 12/05/23: * 83 year old admitted with lethargy/cdiff infection - pharmacy consulted for glycemic management. Patient received total of 19 units of insulin yesterday, of which 8 units were basal insulin. Fasting BSG 111 mg/dl - reasonable to continue same basal insulin * BSGs trending up yesterday throughout the day as patient eats, will tighten CF/CR this AM PLAN FOR INPATIENT GLYCEMIC CONTROL: * Hold outpatient oral diabetes medications * Basal insulin * Lantus 10 units hs * Bolus insulin * NovoLog per scale QDB * Goal Range: Low 120 mg/dL - High 150 mg/dL * Correction Factor: 30 mg/dL/unit * Nutritional / Prandial insulin per carb ratio of 1 unit per 4 grams CHO consumed * Bolus insulin * NovoLog per scale QDL, QDD, & HS or Q6hrs while NPO * Goal Range: Low 110 mg/dL - High 140 mg/dL * Correction Factor: 30 mg/dL/unit * Nutritional / Prandial insulin per carb ratio of 1 unit per 7 grams CHO consumed
--- NOTE | 2023-12-13 12:39 | Discharge Summary ---
Date of Service December 13, 2023 Admission HPI Per Admitting Provider Patient is 83 year old female with PMH HTN, dyslipidemia, DM II, CKD III, stroke, LE edema, PVD, SHAYY, foot wounds presented to ER with complaint of lethargy and diarrhea. History obtained from patient, as well as outpatient and inpatient chart review. Has chronic right and left foot wounds. Is following with wound clinic. Was on clindamycin and doxycycline in 10/2023. reports has been dressing wounds daily at home and has improvement. Has boots for offloading that she has been wearing. Patient's states she receives home physical therapy and has home nursing. States that she is able to ambulate with use of walker and is able to do transfers. Has been has not noticed any increased weakness. States past 3 days has had watery foul-smelling diarrhea with 4 episodes daily. Patient denies any nausea, vomiting or abdominal pain. Reports patient has been eating and drinking well. states today patient was more lethargic than usual and he was concerned and brought patient to ER. He feels patient is at baseline currently. reports forgot to give patient her insulin last night. He noted her blood sugar was in the 300s today prior to ER arrival. Denies any falls. Patient reports has had some dysuria. Has chronic edema lower extremities and has been feels this is at baseline and has not noticed any increased edema. Denies fever/chills, diaphoresis, melena, hematochezia, WYLIE, dizziness, syncope, vision changes, neck pain, CP, SOB, palpitations, cough, sore throat, choking, rhinorrhea, abdominal pain, paresthesias, increased extremity edema, rashes, hem aturia. Admission Exam Per Admitting Provider General: no acute distress, thin elderly female Head: normocephalic, atraumatic Eyes: PERRL, EOM's intact, conjunctiva non-injected, anicteric ENT: normal inspection external ears, nose, mucous membranes moist Neck: supple, trachea midline Lungs: clear, no respiratory distress, no wheezing/rhonchi/rales CV: RRR, no murmur, 1+ pretibial edema Abd: normal BS, soft, non-tender to palpation Ext: no cyanosis, no erythema, +diffuse tenderness to palpation BLE worse to right. Neuro: A&O x 3, Slow to respond to questions, but responds with appropriate answers, +chronic right sided weakness, no other focal deficits noted, normal affect Skin: warm, dry, Left foot on heel with ulcer greatest dimension approximately 1.5 cm with slough without surrounding erythema or discharge. Right foot ulcer to plantar surface foot over distal 5th metatarsal approximately 2cm greatest dimension with serosanguineous drainage with slight erythema surrounding wound Principal Diagnosis C. 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 appears chronic problem per pt. Neuro: Awake, alert and answers appropriately, +chronic right sided weakness, no other focal deficits noted, normal affect Discharge Data Allergies Allergy/AdvReac Type Severity Reaction Status Date / Time house dust mite Allergy Severe Breathing Verified 11/28/23 11:13 issues ragweed pollen Allergy Severe Breathing Verified 11/28/23 11:13 issues buspirone Allergy Unknown Verified 11/28/23 11:13 ezetimibe [From Zetia] Allergy Unknown Verified 11/28/23 11:13 Penicillins Allergy Unknown Verified 11/28/23 11:13 Moebojc-ZKP-HeB Reductase AdvReac Intermediate Foot cramps Verified 11/28/23 11:13 Inhibitor [Swuwhfl-Dyr-Mqx Reductase Inhibitor] Consultations 12/02/23 18:49 ED Decision to Admit Stat Ordered Studies 12/02/23 15:22 CT head/brain wo con Stat 12/08/23 01:45 CT Abd and Pelvis [CT abd pelvis IV con only] Stat Hospital Course (1) C. difficile diarrhea: Plan 83-year-old female with PMH of HTN, HLD, T2DM, CKD stage III, stroke, LE edema, PVD, SHAYY, foot wounds presented to the ED with complaint of lethargy and watery diarrhea for 3 days [employer]. 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 Patient had recent oral antibiotic treatment with clindamycin and doxycycline in October 2023 for foot wound. She was managed for the following: C. difficile diarrhea: Patient presenting with loose stool, came back positive for C. difficile and toxin. Maintain isolation precaution, continue p.o. vancomycin 12/03. will continue 7 or more days from last day of rocephin which was 12/07/23 depending on improvement in consistency/frequency of stool. 5 more days at the time of discharge. Patient reports improving stool consistency gradually. Monitor replete electrolytes as appropriate. Labs in AM. Metronidazole added 12/08 for concern of proctitis noted on CTAP. Will continue 7 days. Pt w/ no abdominal pain. Cholestyramine seems to be helping patient, continue for 5 more days. Lethargy: Increased lethargy at presentation, likely secondary to underlying infection. PT/OT eval. Patient receiving home physical therapy at the time of presentation. More awake and alert lately. UTI: Urine culture positive for E. coli. Continue Rocephin 12/03 for 5 days. Continue probiotic. completed rocephin 12/07 evening. Other chronic medical conditions: Continue with/resume home meds as and when able T2DM: A1c of 7.4 on 11/11/2023. Sliding scale insulin while in hospital. Mild hyponatremia: Appears chronic and intermittent, stable currently, monitor. CKD stage III: Baseline creatinine around 0.9, stable. Monitor. Hypertension: Continue home amlodipine and Toprol PAD: Status post LE angioplasty stenting 10/08. Continue aspirin, Plavix, statin. Pressure ulcer of left heel, unstageable/unstageable pressure ulcer of right foot: Treated with clindamycin and doxycycline in October 2023. Follows with [facility] wound clinic. No signs of acute infection. Continue offloading. Wound care nurse consult. Stroke: History of stroke with residual right-sided weakness. Continue statin and aspirin. Leg edema: Continue Lasix SHAYY: Continue CPAP at bedtime. DVT prophylaxis: Lovenox subcu Full code Patient is being discharged to rehab with following instruction at the point of discharge: Follow-up with your primary care physician within a week time and likely you will need labs CBC/CMP/magnesium/phosphorus. You have been treated for C. difficile diarrhea, since you were also on treatment for UTI during this process, your p.o. vancomycin dose has been prolonged then standard regimen. Take for 5 more days upon discharge. Continue with physical therapy at rehab. Follow-up with wound care. Take your medications as prescribed. Please make sure that you are able to get your medications today by calling your pharmacy before you leave the hospital so that your treatment continuity is not broken. Home Health Attestation I certify that this patient is under my care and that I, or a physicians patient care assistant working with me, had a face to-face encounter that meets the home health [id number] encounter requirements with this patient. The encounter with the patient was in whole, or in part, for the following medical condition, which is the primary reason for home health care (list medical condition): I certify that, based on my findings, the following services are medically necessary home health services: My clinical findings support the need for the above services because: Further, I certify that my clinical findings support that this patient is homebound (i.e. absences from home require considerable and taxing effort and are for medical reasons or voodoo services or infrequently or of short duration when for other reasons) because: Certification for Home Health Services: Based on the above findings, I certify that this patient is confined to the home and needs intermittent residential care, physical therapy and/or speech therapy or continues to need occupational therapy. The patient is under my care, and I have initiated the establishment of the plan of care. This patient will be followed by a physician who will periodically review the plan of care. Total Time Total Time Spent Total Time Spent (In Minutes): 45 Discharge Plan Discharge Items Patient Disposition: Transfer Residential Fac Reason For Visit: LETHARGY, CDIFF Discharge Diagnosis: C. 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 You have been treated for C. difficile diarrhea, since you were also on treatment for UTI during this process, your p.o. vancomycin dose has been prolonged then standard regimen. Take for 5 more days upon discharge. Continue with physical therapy at rehab. Follow-up with wound care. Take your medications as prescribed. Please make sure that you are able to get your medications today by calling your pharmacy before you leave the hospital so that your treatment continuity is not broken. Pending Studies at Discharge: No Stand-Alone Forms: My [facility] Skilled Items Patient informed of condition?: Yes DNR: No Discharge Level of Care: Skilled Communicable Disease: No Discharge Prognosis: Stable Lines: None Urinary Catheter: No Medications and DC Order Prescriptions: New vancomycin 250 mg capsule 250 mg PO Q6H 5 Days Qty: 20 0RF cholestyramine-aspartame [Prevalite] 4 gram Powder In Packet 1 ea PO BID@1000,2200 5 Days Qty: 10 0RF Advanced Probiotic 625 mg (10 billion cell) Capsule 2 cap PO DAILY 14 Days Qty: 28 0RF metronidazole 500 mg tablet 500 mg PO TID 2 Days Qty: 6 0RF Continued escitalopram oxalate [Lexapro] 10 mg tablet 10 mg PO HS fexofenadine [Allergy Relief (fexofenadine)] 180 mg Tablet 180 mg PO QAM clopidogrel 75 mg Tablet 75 mg PO QAM 30 Days Qty: 30 1RF metformin 1,000 mg tablet 1,000 mg PO QAM metoprolol tartrate 50 mg tablet 50 mg PO BID Caltrate 600 plus D 600 mg (1,500 mg)-800 unit Tablet,Chewable 1 tab PO QDL coenzyme Q10 [CoQ-10] 100 mg Capsule 200 mg PO QDL PreserVision AREDS-2 250-90-40-1 mg Capsule 1 tab PO BID aspirin 81 mg tablet,delayed release (DR/EC) 81 mg PO HS multivitamin Tablet 1 tab PO DAILYBL acetaminophen 325 mg Tablet 325 mg PO .QAFTERNOON atorvastatin 40 mg tablet 40 mg PO HS amlodipine 5 mg tablet 10 mg PO HS furosemide 20 mg tablet 20 mg PO QAM insulin glargine [Lantus Solostar U-100 Insulin] 100 unit/mL (3 mL) insulin pen 8 unit SUBCUT HS Jardiance 25 mg tablet 25 mg PO QAM vitamin B complex Tablet 1 tab PO QDL glucosamine-chondroitin [Cosamin DS] 500-400 mg Tablet 1 tab PO QDL acetaminophen [Tylenol] 325 mg Tablet 650 mg PO .QAM & HS Discharge Orders: Discharge Order (Routine); Ordered 12/13/23 Ordered By: Zachariah Landers/Other Patient Handouts: Nutrition for Wound Healing, Managing Type 2 Diabetes Admission Data Admit Date/Time: 12/02/23 19:37 Attending Provider: Zachariah Cabrales Admit Provider: Sheela Booker Primary Care Provider: Jhoan Maki Other Providers: Sheela Booker; [facility],Home Healthcare; Trevor Covarrubias [facility]
--- NOTE | 2023-12-14 15:10 | Coding Query ---
To promote full compliance with coding requirements relating to patient care, provider participation is requested in all cases of sales and service specialist uncertainty. Please assist us with the question(s) below: Coding Question(s): The diagnosis below was documented in the Addendum on the 12/08 Progress Note, then subsequently fell off all further documentation. Please indicate if it is still a possible diagnosis or ruled out. Physician's Response(s): LIKELY METABOLIC ENCEPHALOPATHY (documented on addendum on the 12/08 Progress Note) (x ) Diagnosed and POA ( ) Diagnosed and not POA ( ) Ruled out ( ) Other (please specify) MTDD
--- NOTE | 2023-12-14 15:12 | Coding Query ---
MALNUTRITION To promote full compliance with coding requirements relating to patient care, physician participation is requested in all cases of credit coordinator uncertainty. Please assist us with the question(s) below: Please place an X within the parenthesis (x). If other, please document: "Likely Malnutrition" is documented in this record on the addendum on the 12/08 Progress Note: If possible, please check the box that provides a more specific diagnosis: (x ) Mild malnutrition ( ) Moderate malnutrition ( ) Severe malnutrition ( ) Protein malnutrition (kwashiorkor) ( ) Severe protein calorie malnutrition ( ) Protein calorie malnutrition, unspecified ( ) Other (please specify): ( ) Ruled Out Was this diagnosis present on admission? Please place an X within the parenthesis (x). (x ) Present on admission ( ) Not present on admission ( ) Unable to be clinically determined ( ) Ruled Out Thank you Angela Kamara [facility]
== END 2023-12-13 14:10 | DRG 371 ==
LOC: ED 14:58 → SUATTDRO 19:37 → EDINP 19:37 → 2W 22:48

== ENCOUNTER 2025-07-02 14:02 | Inpatient (IN) ==
[2025-07-02] MEDS: SODIUM CHLORIDE 0.9% 500 ML IV SCH (14:31)
--- NOTE | 2025-07-02 14:32 | Emergency Department Note ---
Impression & Plan Acute alteration in mental status, Acute dehydration ED Provider Note NAME: RACHEL WILKINSON AGE: 85 SEX: F : 1940 ARRIVES VIA: Ambulance INFORMANT: Patient, EMS ED PROVIDER(S): Km Miguel DO CHIEF COMPLAINT: Altered mental status HPI: The patient is a 85-year-old female who presented to the emergency department for an evaluation of altered mental status. The patient was started on Cipro as an outpatient for urinary tract infection. Reportedly she has been taking her medications. The called the ambulance today because ever since this morning the patient has not been acting herself. The patient does not have any complaints and does respond to verbal commands. There is no reported fever or vomiting. The patient denies having any chest pain or difficulty breathing. ROS: See above HPI for pertinent positives & negatives. A total of 10 systems reviewed and were otherwise negative. PAST MEDICAL HISTORY: See Below PAST SURGICAL HISTORY: See Below FAMILY HISTORY: See Below SOCIAL HISTORY: See Below HOME MEDICATIONS: See Below ALLERGIES: See Below VITALS: See Below PHYSICAL EXAMINATION: GENERAL: The patient was awake and alert. She does not appear to be uncomfortable. EYES: The conjunctivae are clear. The pupils are round and reactive. EARS, NOSE, MOUTH AND THROAT: The nose is without any evidence of any deformity. Mucous membranes are dry. NECK: The neck is nontender and supple. RESPIRATORY: Normal respiratory effort is noted there is no evidence of wheezing rhonchi or rales CARDIOVASCULAR: Regular rate and rhythm noted there no murmurs rubs or gallops normal S1 normal S2. GASTROINTESTINAL: The abdomen is soft. Abdomen is nontender. MUSCULOSKELETAL/EXTREMITIES: There is no evidence of gross deformity full range of motion is noted in the hips and shoulders. SKIN: Skin is warm and dry. Trace pedal edema is noted bilaterally. NEUROLOGIC: The patient is awake to verbal commands. She does follow commands slowly but appropriately. Speech was soft but clear. Strength was symmetric but diminished bilaterally. MEDICAL DECISION MAKING: The patient is an 85-year-old female who presented to the emergency department for an evaluation of altered mental status. The patient was having symptoms through the weekend. Her significant other did a home test on her urine which he was felt to be consistent with urinary tract infection. He called the on- call nurse and a prescription for Cipro was called in. The patient was having worsening symptoms she was not eating or drinking. The patient called 911 and the patient arrived via ambulance. The patient was treated with IV fluids in the emergency department. On reevaluation the patient did look somewhat improved. I discussed the patient's laboratory and radiographic studies with the significant other. He does still feel the patient may have still been not at her baseline. For this reason I will discuss her condition with the on-call [facility] hospitalist. Triage Nursing notes reviewed. Prior medical records reviewed Vital Signs: reviewed and remarkable for hypertension. Differential diagnosis: Infection, hypoglycemia, electrolyte abnormalities, overdose, toxicologic, cardiac sources, intracerebral event, neurologic, trauma, as well as other pathologies. ER treatment provided: See below Diagnostics interpreted by me: ECG: EKG was obtained in the emergency department. My interpretation is normal sinus rhythm at [address] abnormalities were noted. This was compared to a tracing from February 21, 2025. No specific changes were noted. Cardiac Monitoring: An order was placed for continuous cardiac monitoring. The monitor shows a rate of 58 bpm with sinus bradycardia. Laboratory studies: As stated above and show below. Imaging studies: See below. Radiographic imaging was reviewed by myself Consultation(s): I discussed this case with Dr. Gallo who is on-call for the [facility] group. Past Med/Surg History Problem List (Updated 07/02/25 @ 16:45 by Km Miguel DO) Acute dehydration (Acute) Acute alteration in mental status (Acute) Avulsion of toenail Stage III pressure ulcer of left heel (Acute) C. difficile diarrhea (Acute) Generalized weakness (Acute) Hyponatremia (Acute) Diabetes mellitus, type II, insulin dependent Hyperglycemia Abnormal urinalysis Lethargy C. difficile diarrhea Diarrhea SHAYY (obstructive sleep apnea) PVD (peripheral vascular disease) Peripheral arterial disease (Chronic) Unstageable pressure ulcer Abnormal ankle brachial index Leg edema Dyslipidemia Stroke Hypertensive urgency Ambulatory dysfunction (Acute) Hypertension (Acute) Weakness (Acute) Encephalopathy COVID (Acute) CKD (chronic kidney disease), stage III Hypertension (Chronic) Diabetes type 2, controlled (Chronic) Medical History History of CVA (cerebrovascular accident) Anxiety Neuropathy Surgical History H/O angioplasty 10/04/23, LLE angioplasty and stent. Dr Ramirez History of cataract surgery Family History Mother Lung disease Father Lung disease Social History Smoking Status: Never smoker Second Hand Exposure: No; Do You Dip or Chew Tobacco: No; Hx Alcohol Use: No Hx Substance Use: No Preferred Language: [place] Verdean Communication Ability: Impaired Geological Aide Required: No Beliefs That Will Affect Care: None marital status: Current Living Situation: Spouse current occupational status: retired Feels Safe at Home: Yes Diet: diabetic caffeine: Yes Physical Activity Frequency: 1-2 Times per Week Do you think of yourself as: straight/heterosexual Gender Identity: Female Assistive Devices: Walker and Wheelchair Allergies Allergies Allergy/AdvReac Type Severity Reaction Status Date / Time house dust mite Allergy Severe Breathing Verified 12/08/24 01:53 issues ragweed pollen Allergy Severe Breathing Verified 12/08/24 01:53 issues buspirone Allergy Unknown ON JUNIPER Verified 12/08/24 01:53 [facility] ezetimibe [From Zetia] Allergy Unknown ON JUNIPER Verified 12/08/24 01:53 [facility] Penicillins Allergy Unknown ON JUNIPER Verified 12/08/24 01:53 [facility] Owingqx-ZZI-IpR Reductase AdvReac Intermediate Foot cramps Verified 12/08/24 01:53 Inhibitor [Guyqnma-Sli-Fsd Reductase Inhibitor] Home Meds Home Medications Medication Instructions Recorded Confirmed calcium 600 mg (as carbonate)-vit 1 tab PO QDL 03/05/19 07/02/25 D3 20 mcg (800 unit) chewable tablet (Caltrate plus D) metformin 1,000 mg tablet 1,000 mg PO QAM 03/05/19 07/02/25 metoprolol tartrate 50 mg tablet 50 mg PO BID 03/05/19 07/02/25 fexofenadine 180 mg tablet 180 mg PO QAM 12/07/19 07/02/25 (Allergy Relief (fexofenadine)) amlodipine 5 mg tablet 5 mg PO QAM 07/10/22 07/02/25 atorvastatin 40 mg tablet 40 mg PO HS 07/10/22 07/02/25 empagliflozin 25 mg tablet 25 mg PO QAM 07/10/22 07/02/25 (Jardiance) furosemide 20 mg tablet 20 mg PO QAM PRN swelling 07/10/22 07/02/25 glucosamine-chondroitin 500 mg-400 1 tab PO QDL 07/10/22 07/02/25 mg tablet (Cosamin DS) vitamin B complex 1 tab PO QDL 07/10/22 07/02/25 coenzyme Q10 100 mg capsule 200 mg PO QDL 08/19/23 07/02/25 (CoQ-10) vit C 250 mg-vit E 90 mg-zinc 40 1 tab PO BID 10/09/23 07/02/25 mg-copper 1 vr-odvtlf-zudigj capsule (PreserVision AREDS-2) multivitamin 1 tab PO QDL 10/15/23 07/02/25 acetaminophen 325 mg tablet 650 mg PO Q4H PRN Pain 12/14/23 07/02/25 (Tylenol) sertraline 25 mg tablet (Zoloft) 25 mg PO DAILY 01/11/24 07/02/25 insulin glargine 100 unit/mL (3 14 unit subcut HS 06/05/24 07/02/25 mL) subcutaneous pen (Lantus Solostar U-100 Insulin) L.acidophil,rhamnosus-B.breve,longum 3 cap PO QAM 12/08/24 07/02/25 20 billion cell sprinkle capsule (Probiotic) gabapentin 100 mg capsule 100 mg PO BID 12/08/24 07/02/25 sitagliptin phosphate 50 mg tablet 50 mg PO QAM 12/08/24 07/02/25 (Januvia) ciprofloxacin HCl 250 mg tablet 250 mg PO BID .for 5 days 07/02/25 07/02/25 Previous Rx's Medication Instructions Recorded clopidogrel 75 mg tablet 75 mg PO QAM 30 days #30 tabs 12/08/19 Results & Data (ED) Vital Signs Vital Signs - 24 hr 07/02/25 14:05 07/02/25 14:14 07/02/25 14:27 Temperature 37.1 C Temperature Source Oral Pulse Rate 69 71 63 Respiratory Rate 20 15 Respiratory Effort / Characteristics Non-Labored Respiratory Depth Normal Respiratory Pattern Regular Blood Pressure 169/104 H Blood Pressure Mean 125 Pulse Oximetry 99 98 Oxygen Delivery Method Room Air Room Air Sepsis Recent Fever Within 48 Hours No Sepsis New/Unexplained Change in Mental Status Yes Sepsis Action Taken by Nursing No Action Required 07/02/25 15:00 07/02/25 15:00 07/02/25 16:13 Temperature Temperature Source Pulse Rate 62 60 58 L Respiratory Rate 12 14 14 Respiratory Effort / Characteristics Respiratory Depth Respiratory Pattern Blood Pressure 127/55 L 127/55 L 171/86 H Blood Pressure Mean 88 88 129 Pulse Oximetry 97 96 94 Oxygen Delivery Method Sepsis Recent Fever Within 48 Hours Sepsis New/Unexplained Change in Mental Status Sepsis Action Taken by [facility] Medications Current Medication List: was personally reviewed by me Laboratory Data Attestation: I reviewed the patient's lab results. 07/02/25 14:12 07/02/25 14:12 Lab Results 07/02/25 Range/Units 14:12 WBC 5.77 (4.8-10.8) K/ul RBC 5.43 H (4.20-5.40) M/uL Hgb 15.8 (12.0-16.0) g/dl Hct 47.0 (37.0-47.0) % MCV 86.6 (80.0-100.0) fL MCH 29.1 (25.0-34.0) pg MCHC 33.6 (32.0-36.0) g/dL RDW Std Deviation 41.9 (36.4-46.3) fL RDW Coeff of Abner 13.2 (11.5-14.5) % Plt Count 204 (130-400) K/uL MPV 11.1 (9.4-12.4) fL Immature Gran % (Auto) 0.2 % Neut % (Auto) 60.6 % Lymph % (Auto) 27.6 % [place] % (Auto) 6.8 % Eos % (Auto) 4.5 % Baso % (Auto) 0.3 % Neut # (Auto) 3.50 (1.40-6.50) K/uL Lymph # (Auto) 1.59 (1.20-3.40) K/uL [place] # (Auto) 0.39 (0.11-0.59) K/uL Eos # (Auto) 0.26 (0.00-0.50) K/uL Baso # (Auto) 0.02 (0.00-0.20) K/uL Immature Gran # (Auto) 0.01 (0.01-0.20) K/uL Sodium 137 (136-145) mmol/L Potassium 4.4 (3.5-5.1) mmol/L Chloride 100 (98-107) mmol/L Carbon Dioxide 31 (21-32) mmol/L Anion Gap 6 (3-11) BUN 38 H (6-23) mg/dl Creatinine 0.81 (0.6-1.2) mg/dl Est Cr Clr Drug Dosing 42.6 ml/min eGFR 70.65 BUN/Creatinine Ratio 46.9 H (10-20) Glucose 135 H (70-99(Fasting)) mg/dl Calcium 10.1 (8.6-10.3) mg/dl Magnesium 2.2 (1.7-2.4) mg/dl Total Bilirubin 0.3 (0.2-1.0) mg/dl AST 15 (13-39) U/L ALT 12 (7-52) U/L Alkaline Phosphatase 51 (34-104) U/L Total Creatine Kinase 103 (26-192) U/L Troponin I High Sens 5.5 (0-14) pg/ml Total Protein 7.8 (6.0-8.3) gm/dl Albumin 3.8 (3.4-5.0) gm/dl Globulin 4.0 (2.5-4.0) gm/dl Albumin/Globulin Ratio 1.0 (0.9-2) TSH 1.280 (0.300-4.500) uIu/ml Urine Color Yellow Urine Appearance Clear (Clear) Urine pH 6.5 (4.5-7.5) Ur Specific Ramer 1.025 (1.000-1.030) Urine Protein Negative (Negative) Urine Glucose (UA) 3+ H (Negative) Urine Ketones Negative (Negative) Urine Blood 2+ H (Negative) Urine Nitrite Negative (Negative) Urine Bilirubin Negative (Negative) Urine Urobilinogen Negative (Negative) Ur Leukocyte Esterase Negative (Negative) Urine WBC (Auto) 0-5 (0-5) /hpf Urine RBC (Auto) 11-20 H (0-2) /hpf U Hyaline Cast (Auto) 0-2 (0-2) /lpf U Epithel Cells (Auto) 0-2 (0-2) /hpf Urine Bacteria (Auto) None Seen (None Seen) Urine Comment Administered Medications Discontinued Medications Sodium Chloride (Nss) 500 mls @ 999 mls/hr IV .Q31M NEYDA Stop: 07/02/25 15:00 Last Infusion: 07/02/25 15:02 Dose: Infused Documented By: Admin: 07/02/25 14:31 Dose: 999 mls/hr Documented By: [email or web address] Imaging Data Attestation: I personally reviewed and interpreted this imaging study as follows: My Impression: 1 view chest x-ray was obtained in the emergency department. My interpretation is no free air or definite infiltrate, final report below. Radiologist's Impression: Chest X-Ray 07/02/25 14:24 XR chest 1V portable CLINICAL HISTORY: weakness COMPARISON STUDY: 02/21/2025 FINDINGS: Heart size and pulmonary vasculature are normal. No consolidation or pleural effusion. No pneumothorax. IMPRESSION: No acute findings. ACT 112: Negative or not required by law. Electronically signed by: Filiberto Campuzano M.D. 07/02/2025 2:[address] 07/02/25 14:25 Clinical History: Altered mental status Technique: Axial computed tomography images were obtained of the brain without intravenous contrast. Comparison is made to the prior CT dated 12/02/2023 Findings: There is unchanged cerebral atrophy, within expected limits for the patient's age. Areas of decreased attenuation are seen within the periventricular white matter, likely representing chronic small vessel ischemic disease. There is no definite sign of acute or old infarction. No intracranial hemorrhage is evident. No definite mass lesion is seen on this noncontrast examination. There is no midline shift or other form of herniation. There is unchanged ventricular prominence that is likely due to the cerebral atrophy. No definite hydrocephalus is seen. No fracture is identified. The orbits and the visualized paranasal sinuses appear unremarkable. There is partial opacification of the left mastoid air cells Impression: 1. Cerebral atrophy and chronic small vessel ischemic disease 2. Partial opacification of the left mastoid air cells, concerning for inflammatory mastoiditis Electronically signed by Maurice Serrano 07-02-2025 4:25 PM Discharge Plan Visit Data Chief Complaint: Urinary Symptoms ED Provider: Km Miguel Discharge Problem: Acute alteration in mental status, Acute dehydration Patient Disposition: Being Evaluated by Hospitalist Condition: Fair Forms Stand Alone Forms: [employer] Prescriptions Prescriptions: No Action sertraline [Zoloft] 25 mg tablet 25 mg PO DAILY fexofenadine [Allergy Relief (fexofenadine)] 180 mg Tablet 180 mg PO QAM Patient Comments: 07/02- otc unable to verify clopidogrel 75 mg Tablet 75 mg PO QAM 30 Days Qty: 30 1RF metformin 1,000 mg tablet 1,000 mg PO QAM metoprolol tartrate 50 mg tablet 50 mg PO BID Caltrate 600 plus D 600 mg (1,500 mg)-800 unit Tablet,Chewable 1 tab PO QDL Patient Comments: 07/02- otc unable to verify coenzyme Q10 [CoQ-10] 100 mg Capsule 200 mg PO QDL Patient Comments: 07/02- otc unable to verify PreserVision AREDS-2 250-90-40-1 mg Capsule 1 tab PO BID Patient Comments: 07/02- otc unable to verify multivitamin Tablet 1 tab PO QDL Patient Comments: 07/02- otc unable to verify atorvastatin 40 mg tablet 40 mg PO HS amlodipine 5 mg tablet 5 mg PO QAM furosemide 20 mg tablet 20 mg PO QAM PRN (Reason: swelling) Rx Instructions: Takes about once a week Jardiance 25 mg tablet 25 mg PO QAM vitamin B complex Tablet 1 tab PO QDL Patient Comments: 07/02- otc unable to verify glucosamine-chondroitin [Cosamin DS] 500-400 mg Tablet 1 tab PO QDL Patient Comments: 07/02- otc unable to verify insulin glargine [Lantus Solostar U-100 Insulin] 100 unit/mL (3 mL) insulin pen 14 unit SUBCUT HS acetaminophen [Tylenol] 325 mg Tablet 650 mg PO Q4H PRN (Reason: Pain) Patient Comments: 07/02- otc unable to verify gabapentin 100 mg capsule 100 mg PO BID Januvia 50 mg tablet 50 mg PO QAM Probiotic 20 billion cell Capsule, Sprinkle 3 cap PO QAM Patient Comments: 07/02- otc unable to verify Rx Instructions: reported she takes 60 billion cell ciprofloxacin HCl 250 mg tablet 250 mg PO BID Patient Comments: filled 06/29 Referrals Referrals: Jhoan Maki, DO [Primary Care Provider] -
[2025-07-02 14:39] LABS: Hematocrit (blood only) 47.0 % (37.0-47.0); Hemoglobin 15.8 g/dl (12.0-16.0); Immature Granulocytes # (auto) 0.01 K/uL (0.01-0.20); Immature Granulocytes % (auto) 0.2 %; Mean Corpuscular Hemoglobin 29.1 pg (25.0-34.0); Mean Corpuscular Volume 86.6 fL (80.0-100.0); Platelet Count 204 K/uL (130-400); RDW Standard Deviation 41.9 fL (36.4-46.3); Red Blood Count 5.43 M/uL (4.20-5.40); White Blood Count 5.77 K/ul (4.8-10.8)
--- NOTE | 2025-07-02 14:40 | XRay Report ---
XR chest 1V portable CLINICAL HISTORY: weakness COMPARISON STUDY: 02/21/2025 FINDINGS: Heart size and pulmonary vasculature are normal. No consolidation or pleural effusion. No p neumothorax. IMPRESSION: No acute findings. ACT 112: Negative or not required by law. Electronically signed by: Filiberto Campuzano M.D. 07/02/2025 2:39 PM
[2025-07-02 15:05] LABS: Alanine Aminotransferase 12.0 U/L (7-52); Albumin Globulin Ratio 1.0 (0.9-2); Alkaline Phosphatase 51.0 U/L (34-104); Anion Gap 6.0 (3-11); Bilirubin,Total 0.3 mg/dl (0.2-1.0); Blood Urea Nitrogen 38.0 mg/dl (6-23); Calcium 10.1 mg/dl (8.6-10.3); Carbon Dioxide 31.0 mmol/L (21-32); Chloride 100.0 mmol/L (98-107); Creatine Kinase 103.0 U/L (26-192); Creatinine Clr Calc Pharmacy 42.6 ml/min; Globulin 4.0 gm/dl (2.5-4.0); Glucose 135.0 mg/dl (70-99(Fasting)); Magnesium 2.2 mg/dl (1.7-2.4); Potassium 4.4 mmol/L (3.5-5.1); Sodium 137.0 mmol/L (136-145); Total Protein 7.8 gm/dl (6.0-8.3)
[2025-07-02 15:11] LABS: Appearance Urine Clear (Clear); Bacteria Urine Automated None Seen (None Seen); Cast Urine Automated 0-2 /lpf (0-2); Epithelial Cell Urine Auto 0-2 /hpf (0-2); Glucose Urine UA 3+ (Negative); WBC Urine Automated 0-5 /hpf (0-5)
[2025-07-02 15:21] LABS: Thyroid Stimulating Hormone 1.28 uIu/ml (0.300-4.500)
--- NOTE | 2025-07-02 16:26 | CT Scan Report ---
Clinical History: Altered mental status Technique: Axial computed tomography images were obtained of the brain without intravenous contrast. Comparison is made to the prior CT dated 12/02/2023 Findings: There is unchanged cerebral atrophy, within expected limits for the patient's age. Areas of decreased attenuation are seen within the periventricular white matter, likely representing chronic small vessel ischemic disease. There is no definite sign of acute or old infarction. No intracranial hemorrhage is evident. No definite mass lesion is seen on this noncontrast examination. There is no midline shift or other form of herniation. There is unchanged ventricular prominence that is likely due to the cerebral atrophy. No definite hydrocephalus is seen. No fracture is identified. The orbits and the visualized paranasal sinuses appear unremarkable. There is partial opacification of the left mastoid air cells Impression: 1. Cerebral atrophy and chronic small vessel ischemic disease 2. Partial opacification of the left mastoid air cells, concerning for inflammatory mastoiditis Electronically signed by Maurice Serrano 07-02-2025 4:25 PM
[2025-07-02] MEDS ORDERED: NovoLIN-R INSULIN PER UNIT CHARGE IV STA (17:47)
--- NOTE | 2025-07-02 18:10 | History & Physical Report ---
Date of Service July 02, 2025 Assessment & Plan (1) Acute alteration in mental status: Plan: Noted to have acute confusion likely secondary to effect of Cipro and/or dehydration No evidence of any infection and CAT scan has been unremarkable Confusion resolved in the emergency room Will give minimal amount of intravenous fluid and observe her overnight Likely discharge tomorrow following PT OT evaluation (2) Acute dehydration: Plan: As above hold Lasix while in the hospital (3) Generalized weakness: Plan: [place] more weak since Tuesday Will get PT OT evaluation (4) Diabetes mellitus, type II, insulin dependent: Plan: Will hold Januvia and metformin Continue with her insulin and get sliding scale insulin coverage while in the hospital (5) SHAYY (obstructive sleep apnea): Plan: She wears her CPAP at nighttime which will be continued (6) Stroke: Plan: History of stroke with right-sided hemiparesis Right lower extremity is weaker than the other extremities She requires help with ambulation (7) Ambulatory dysfunction: (8) Hypertension: Plan: Her blood pressure is stable at 129/73 Will continue current medications (9) Pressure ulcer of right foot, stage 3: Plan: Wound care consult (10) Hyperkalemia: Plan: Potassium level is found to be 5.7 on the same day it was 4.4 about 3 hours ago She will be given insulin dextrose and will be checking tomorrow DVT prophylaxis Subcu heparin CODE STATUS Full History of Present Illness Chief Complaint: Acute confusion since this morning Primary Care Provider: Jhoan Maki DO She is an 85 years old female significant past medical history of hypertension, hyperlipidemia, type 2 diabetes, CKD stage III, history of stroke with right- sided hemiparesis, peripheral vascular disease, SHAYY on CPAP at night also history of left foot wound has been noted to be a G on Tuesday and Tuesday at home. The son did a home urine test which was positive and contacted the physician on-call we started her on Cipro for possible UTI she has been taking Cipro since Tuesday evening and did not have any symptoms since then. She was noted to be more lethargic and confusion this morning which improved before lunch and then confusion came back again at the time the son decided to call 911. No fever and no chills, no abdominal pain nausea no vomiting, no chest pain or shortness of breath. He is labs are unremarkable in the ER she received 500 mL of normal saline and her condition improved. During my examination she was almost back to her baseline and she was admitted for observation overnight and likely discharge tomorrow afternoon. Allergies Allergy/AdvReac Type Severity Reaction Status Date / Time house dust mite Allergy Severe Breathing Verified 12/08/24 01:53 issues ragweed pollen Allergy Severe Breathing Verified 12/08/24 01:53 issues buspirone Allergy Unknown ON [facility] Verified 12/08/24 01:53 [facility] MED LIST ezetimibe [From Zetia] Allergy Unknown ON [facility] Verified 12/08/24 01:53 [facility] MED LIST Penicillins Allergy Unknown ON [facility] Verified 12/08/24 01:53 [facility] MED LIST [id number]-BWK-[id number] Reductase AdvReac Intermediate Foot cramps Verified 12/08/24 01:53 Inhibitor [Ugknurm-Rka-Sgs Reductase Inhibitor] Home Medications Medication Instructions Recorded Confirmed Type calcium 600 mg (as carbonate)-vit 1 tab PO QDL 03/05/19 07/02/25 History D3 20 mcg (800 unit) chewable tablet (Caltrate plus D) metformin 1,000 mg tablet 1,000 mg PO QAM 03/05/19 07/02/25 History metoprolol tartrate 50 mg tablet 50 mg PO BID 03/05/19 07/02/25 History fexofenadine 180 mg tablet 180 mg PO QAM 12/07/19 07/02/25 History (Allergy Relief (fexofenadine)) clopidogrel 75 mg tablet 75 mg PO QAM 30 days #30 tabs 12/08/19 07/02/25 Rx amlodipine 5 mg tablet 5 mg PO QAM 07/10/22 07/02/25 History atorvastatin 40 mg tablet 40 mg PO HS 07/10/22 07/02/25 History empagliflozin 25 mg tablet 25 mg PO QAM 07/10/22 07/02/25 History (Jardiance) furosemide 20 mg tablet 20 mg PO QAM PRN swelling 07/10/22 07/02/25 History glucosamine-chondroitin 500 mg-400 1 tab PO QDL 07/10/22 07/02/25 History mg tablet (Cosamin DS) vitamin B complex 1 tab PO QDL 07/10/22 07/02/25 History coenzyme Q10 100 mg capsule 200 mg PO QDL 08/19/23 07/02/25 History (CoQ-10) vit C 250 mg-vit E 90 mg-zinc 40 1 tab PO BID 10/09/23 07/02/25 History mg-copper 1 jl-pdxxch-clsumt capsule (PreserVision AREDS-2) multivitamin 1 tab PO QDL 10/15/23 07/02/25 History acetaminophen 325 mg tablet 650 mg PO Q4H PRN Pain 12/14/23 07/02/25 History (Tylenol) sertraline 25 mg tablet (Zoloft) 25 mg PO DAILY 01/11/24 07/02/25 History insulin glargine 100 unit/mL (3 14 unit subcut HS 06/05/24 07/02/25 History mL) subcutaneous pen (Lantus Solostar U-100 Insulin) L.acidophil,rhamnosus-B.breve,longum 3 cap PO QAM 12/08/24 07/02/25 History 20 billion cell sprinkle capsule (Probiotic) gabapentin 100 mg capsule 100 mg PO BID 12/08/24 07/02/25 History sitagliptin phosphate 50 mg tablet 50 mg PO QAM 12/08/24 07/02/25 History (Januvia) ciprofloxacin HCl 250 mg tablet 250 mg PO BID .for 5 days 07/02/25 07/02/25 History Past Med/Surg History Problem List (Updated 07/02/25 @ 18:06 by Kale Gallo MD) Hyperkalemia Acute dehydration (Acute) Acute alteration in mental status (Acute) Avulsion of toenail Stage III pressure ulcer of left heel (Acute) C. difficile diarrhea (Acute) Generalized weakness (Acute) Hyponatremia (Acute) Diabetes mellitus, type II, insulin dependent Hyperglycemia Abnormal urinalysis Lethargy C. difficile diarrhea Diarrhea SHAYY (obstructive sleep apnea) PVD (peripheral vascular disease) Peripheral arterial disease (Chronic) Unstageable pressure ulcer Abnormal ankle brachial index Leg edema Dyslipidemia Stroke Hypertensive urgency Ambulatory dysfunction (Acute) Hypertension (Acute) Weakness (Acute) Encephalopathy COVID (Acute) CKD (chronic kidney disease), stage III Hypertension (Chronic) Diabetes type 2, controlled (Chronic) Medical History History of CVA (cerebrovascular accident) Anxiety Neuropathy Surgical History H/O angioplasty 10/04/23, LLE angioplasty and stent. Dr Ramirez History of cataract surgery Family History Mother Lung disease Father Lung disease Social History Smoking Status: Never smoker Second Hand Exposure: No; Do You Dip or Chew Tobacco: No; Hx Alcohol Use: No Hx Substance Use: No Preferred Language: Lao Communication Ability: Impaired Pipe Roller Required: No Beliefs That Will Affect Care: None marital status: Current Living Situation: Spouse current occupational status: retired Feels Safe at Home: Yes Diet: diabetic caffeine: Yes Physical Activity Frequency: 1-2 Times per Week Do you think of yourself as: straight/heterosexual Gender Identity: Female Assistive Devices: Walker and Wheelchair Review of Systems Review of Systems: All systems reviewed and are unremarkable except as noted below Physical Exam Physical Exam: Lying in bed without any acute distress Constitutional: average body habitus; not ill appearing Eyes: PERRL, conjunctivae normal, anicteric sclerae ENMT: external ear and nose normal, oropharynx normal Neck: trachea midline, no thyromegaly Respiratory: no respiratory distress Auscultation: + diminished lung sounds and + crackles (Minimal crackles at the bases) Cardiovascular: Rate/Rhythm: regular rate and regular rhythm; not tachycardic Heart Sounds: normal S1, normal S2 and + murmur Extremities: + edema (Trace edema on the right side) Gastrointestinal (Abdomen): Inspection/Auscultation: normal bowel sounds; abdomen not distended Percussion/Palpation: abdomen soft; abdomen nontender Musculoskeletal: No acute arthritis involving any of the joint Neurologic: normal touch/pain/proprioception; + does not move all extremities (Minimal movement involving the right lower extremity. Flexible deformities) Speech / Cognition: normal speech Results & Data Results & Data Vital Signs (Past 12 Hours) Vital Signs Temp Pulse Resp BP Pulse Ox O2 Del Method 07/02/25 17:30 67 22 159/73 H 96 07/02/25 17:00 64 12 167/85 H 94 07/02/25 16:13 58 L 14 171/86 H 94 07/02/25 15:00 60 14 127/55 L 96 07/02/25 15:00 62 12 127/55 L 97 07/02/25 14:27 63 15 98 Room Air 07/02/25 14:14 71 07/02/25 14:05 37.1 C 69 20 169/104 H 99 Room Air Laboratory Results Short CBC 07/02/25 Range/Units 14:12 WBC 5.77 (4.8-10.8) K/ul Hgb 15.8 (12.0-16.0) g/dl Hct 47.0 (37.0-47.0) % Plt Count 204 (130-400) K/uL BMP 07/02/25 14:12 Sodium 137 Potassium 4.4 Chloride 100 Carbon Dioxide 31 BUN 38 H Creatinine 0.81 Glucose 135 H Calcium 10.1 Cardiac Enzymes 07/02/25 Range/Units 14:12 Total Creatine Kinase 103 (26-192) U/L Liver Function 07/02/25 Range/Units 14:12 Total Bilirubin 0.3 (0.2-1.0) mg/dl AST 15 (13-39) U/L ALT 12 (7-52) U/L Alkaline Phosphatase 51 (34-104) U/L Albumin 3.8 (3.4-5.0) gm/dl Urine 07/02/25 Range/Units 14:12 Urine Color Yellow Urine Appearance Clear (Clear) Urine pH 6.5 (4.5-7.5) Ur Specific [place] 1.025 (1.000-1.030) Urine Protein Negative (Negative) Urine Glucose (UA) 3+ H (Negative) Medications Administered Current Inpatient Medications Dextrose (Dextrose 50% 50 Ml Syringe) 50 ml IV NOW ONE Stop: 07/02/25 17:48 Heparin Sodium (Porcine) (Heparin Sod 5,000 Unit/0.5 Ml Vial) 5,000 units SQ Q12 NEYDA Stop: 08/01/25 20:59 Sodium Chloride (Nss) 1,000 mls @ 80 mls/hr IV .[id number] NEYDA Stop: 07/03/25 18:44 Insulin Human Regular (Novolin-R Insulin Per Unit Charge) 6 units IV NOW STA Stop: 07/02/25 17:48 Code Status & VTE Plan VTE Prophylaxis Plan VTE Prophylaxis will be ordered: Yes (8) Hypertension Hypertension type: unspecified Qualified Code(s): I10 - Essential (primary) hypertension
[2025-07-02] MEDS ORDERED: ACETAMINOPHEN 325 MG TAB PO PRN (18:36)
[2025-07-02] MEDS: SODIUM CHLORIDE 0.9% 1,000 ML IV SCH (18:53)
[2025-07-02] MEDS ORDERED: GLUCAGON FOR INJ 1 MG VIAL SQ PRN (19:00)
[2025-07-02] MEDS ORDERED: GLUCOSE 40% GEL 15 GM TUBE PO PRN (19:00)
[2025-07-02] MEDS ORDERED: DEXTROSE 50% 50 ML SYRINGE IV PRN (19:00)
[2025-07-02] MEDS ORDERED: CARBOHYDRATES FOR HYPOGLYCEMIA PO PRN (19:00)
[2025-07-02] MEDS ORDERED: GLUCOSE 10 TAB/TUBE PO PRN (19:00)
[2025-07-02] MEDS: DEXTROSE 50% 50 ML SYRINGE IV ONE (20:36)
[2025-07-02] MEDS: INSULIN HUMAN REGULAR PER UNIT 6 UNITS in SYRINGE 5.94 ML IV ONE (20:37)
[2025-07-02] MEDS: INSULIN ASPART PER UNIT CHARGE SC SCH (21:16)
[2025-07-03] MEDS: CEROVITE ADV FORMULA TAB PO SCH (00:32)
[2025-07-03] MEDS: METOPROLOL TARTRATE 50 MG TAB PO SCH (00:32)
[2025-07-03] MEDS: ATORVASTATIN 40 MG TAB PO SCH (00:32)
[2025-07-03] MEDS: HEPARIN SOD 5,000 UNIT/0.5 ML VIAL SQ SCH (00:38)
[2025-07-03] MEDS: LANTUS PER UNIT CHARGE SC SCH (00:50)
[2025-07-03 06:24] LABS: Hematocrit (blood only) 39.9 % (37.0-47.0); Hemoglobin 13.6 g/dl (12.0-16.0); Immature Granulocytes # (auto) 0.01 K/uL (0.01-0.20); Immature Granulocytes % (auto) 0.2 %; Mean Corpuscular Hemoglobin 29.1 pg (25.0-34.0); Mean Corpuscular Volume 85.4 fL (80.0-100.0); Platelet Count 178 K/uL (130-400); RDW Standard Deviation 41.0 fL (36.4-46.3); Red Blood Count 4.67 M/uL (4.20-5.40); White Blood Count 5.04 K/ul (4.8-10.8)
[2025-07-03 06:46] LABS: Anion Gap 6.0 (3-11); Blood Urea Nitrogen 24.0 mg/dl (6-23); Calcium 8.6 mg/dl (8.6-10.3); Carbon Dioxide 27.0 mmol/L (21-32); Chloride 108.0 mmol/L (98-107); Creatinine Clr Calc Pharmacy 56.7 ml/min; Glucose 87.0 mg/dl (70-99(Fasting)); Magnesium 1.9 mg/dl (1.7-2.4); Potassium 3.6 mmol/L (3.5-5.1); Sodium 141.0 mmol/L (136-145)
[2025-07-03] MEDS: ADVANCED PROBIOTIC 625 MG CAPSULE PO SCH (07:39)
[2025-07-03] MEDS: FEXOFENADINE HCL 180 MG TAB PO SCH (07:41)
[2025-07-03] MEDS: SERTRALINE HCL 50 MG TABLET PO SCH (07:42)
[2025-07-03] MEDS: CLOPIDOGREL BISULFATE 75 MG TAB PO SCH (07:42)
[2025-07-03 09:57] VITALS: RESP 18; TEMP 97.3; O2SAT 96
[2025-07-03] MEDS: VITAMIN B COMPLEX TAB PO SCH (10:42)
[2025-07-03] MEDS: CALCIUM 600MG + VIT D 400 IU TAB PO SCH (10:43)
[2025-07-03] MEDS: MULTIVITAMIN TAB PO SCH (10:43)
[2025-07-03] MEDS ORDERED: GLUCOSAMINE CHONDROITIN PO SCH (11:30)
--- NOTE | 2025-07-03 12:09 | Hospitalist Progress Note ---
Date of Service July 03, 2025 Assessment & Plan (1) Acute alteration in mental status: Plan: Acute metabolic encephalopathy likely secondary to ciprofloxacin --CT Head:Cerebral atrophy and chronic small vessel ischemic disease. Partial opacification of the left mastoid air cells, concerning for inflammatory mastoiditis Mental status back to baseline Received IV fluids for some dehydration PT OT evaluation Plan to be discharged home today (2) Acute dehydration: Plan: Lasix on hold (3) Generalized weakness: Plan: PT OT Fall precautions Patient/family prefers home with home health (4) Diabetes mellitus, type II, insulin dependent: Plan: Will hold Januvia and metformin Continue insulin while hospitalized Monitor blood glucose levels (5) SHAYY (obstructive sleep apnea): Plan: Continue CPAP at bedtime (6) Stroke: Plan: History of stroke with right-sided hemiparesis Chronic ambulatory dysfunction Continue Plavix, Lipitor (7) Ambulatory dysfunction: Plan: As above (8) Hypertension: Plan: Blood pressure elevated today Asymptomatic Monitor (9) Pressure ulcer of right foot, stage 3: Plan: Wound care consult No open wound, scabbed (10) Hyperkalemia: Plan: Hypokalemia resolved DVT Px: Heparin SQ CODE STATUS Full Disposition Home with home health Admission and Anticipated Discharge Date Admission Date: July 02, 2025 Subjective Patient is seen and examined at bedside Offers no complaints this morning Discussed with patient's at bedside who agrees that her mental status is back to baseline and prefers her to be discharged home today Evaluated by PT OT earlier today Denies any chest pain, dyspnea, nausea, vomiting, abdominal pain, dizziness Review of Systems Review of Systems: All systems reviewed & are unremarkable except as noted in Subjective Physical Exam Physical Exam: Physical Exam: Vitals signs as noted above General Appearance: Thin, frail, elderly, no apparent distress Head: normocephalic, Atraumatic Eyes: normal inspection, EOMI Neck: supple, Trachea midline Respiratory/Chest: Decreased breath sounds, CTA, No accessory muscle use Cardiovascular: S1, S2, No murmur Abdomen/GI:Soft, Non tender, protuberant, bowel sounds present Extremities/Musculoskeletal:normal inspection, trace pedal edema Neurologic/Psych:AAOX3, Chronic RUE/RLE weakness Skin: normal color, warm Results & Data Results & Data Vital Signs (Past 12 Hours) Vital Signs Temp Pulse Pulse Resp BP BP Pulse Ox 07/03/25 10:58 68 07/03/25 09:50 07/03/25 08:00 36.3 C L 63 18 179/77 H 96 07/03/25 03:45 36.5 C 61 17 170/80 H 97 07/03/25 01:46 78 07/03/25 00:56 74 07/03/25 00:56 07/03/25 00:37 36.7 C 83 16 184/91 H 94 O2 Del Method 07/03/25 10:58 07/03/25 09:50 Room Air 07/03/25 08:00 Room Air 07/03/25 03:45 Room Air 07/03/25 01:46 07/03/25 00:56 07/03/25 00:56 Room Air 07/03/25 00:37 Room Air Laboratory Results Short CBC 07/02/25 07/03/25 Range/Units 14:12 05:59 WBC 5.77 5.04 (4.8-10.8) K/ul Hgb 15.8 13.6 (12.0-16.0) g/dl Hct 47.0 39.9 (37.0-47.0) % Plt Count 204 178 (130-400) K/uL BMP 07/02/25 07/02/25 07/03/25 14:12 18:32 05:59 Sodium 137 141 Potassium 4.4 4.1 3.6 Chloride 100 108 H Carbon Dioxide 31 27 BUN 38 H 24 H Creatinine 0.81 0.63 Glucose 135 H 87 Calcium 10.1 8.6 Cardiac Enzymes 07/02/25 Range/Units 14:12 Total Creatine Kinase 103 (26-192) U/L Liver Function 07/02/25 Range/Units 14:12 Total Bilirubin 0.3 (0.2-1.0) mg/dl AST 15 (13-39) U/L ALT 12 (7-52) U/L Alkaline Phosphatase 51 (34-104) U/L Albumin 3.8 (3.4-5.0) gm/dl Urine 07/02/25 Range/Units 14:12 Urine Color Yellow Urine Appearance Clear (Clear) Urine pH 6.5 (4.5-7.5) Ur Specific [place] 1.025 (1.000-1.030) Urine Protein Negative (Negative) Urine Glucose (UA) 3+ H (Negative) (8) Hypertension Hypertension type: unspecified Qualified Code(s): I10 - Essential (primary) hypertension
--- NOTE | 2025-07-03 12:25 | Discharge Summary ---
Date of Service July 03, 2025 Admission HPI Per Admitting Provider She is an 85 years old female significant past medical history of hypertension, hyperlipidemia, type 2 diabetes, CKD stage III, history of stroke with right- sided hemiparesis, peripheral vascular disease, SHAYY on CPAP at night also history of left foot wound has been noted to be a G on Tuesday and Tuesday at home. The son did a home urine test which was positive and contacted the physician on-call we started her on Cipro for possible UTI she has been taking Cipro since Tuesday evening and did not have any symptoms since then. She was noted to be more lethargic and confusion this morning which improved before lunch and then confusion came back again at the time the son decided to call 911. No fever and no chills, no abdominal pain nausea no vomiting, no chest pain or shortness of breath. He is labs are unremarkable in the ER she received 500 mL of normal saline and her condition improved. During my examination she was almost back to her baseline and she was admitted for observation overnight and l ikely discharge tomorrow afternoon. Admission Exam Per Admitting Provider Physical Exam: Lying in bed without any acute distress Constitutional: average body habitus; not ill appearing Eyes: PERRL, conjunctivae normal, anicteric sclerae ENMT: external ear and nose normal, oropharynx normal Neck: trachea midline, no thyromegaly Respiratory: no respiratory distress Auscultation: + diminished lung sounds and + crackles (Minimal crackles at the bases) Cardiovascular: Rate/Rhythm: regular rate and regular rhythm; not tachycardic Heart Sounds: normal S1, normal S2 and + murmur Extremities: + edema (Trace edema on the right side) Gastrointestinal (Abdomen): Inspection/Auscultation: normal bowel sounds; abdomen not distended Percussion/Palpation: abdomen soft; abdomen nontender Musculoskeletal: No acute arthritis involving any of the joint Neurologic: normal touch/pain/proprioception; + does not move all extremities (Minimal movement involving the right lower extremity. Flexible deformities) Speech / Cognition: normal speech Principal Diagnosis Acute metabolic encephalopathy likely secondary to ciprofloxacin Dehydration Chronic ambulatory dysfunction History of CVA Hypertension Discharge Data Allergies Allergy/AdvReac Type Severity Reaction Status Date / Time house dust mite Allergy Severe Breathing Verified 12/08/24 01:53 issues ragweed pollen Allergy Severe Breathing Verified 12/08/24 01:53 issues buspirone Allergy Unknown ON SAMMI Verified 12/08/24 01:53 [facility] ezetimibe [From Zetia] Allergy Unknown ON FRANKIPER Verified 12/08/24 01:53 [facility] MED LIST Penicillins Allergy Unknown ON JUNIPER Verified 12/08/24 01:53 [facility] MED LIST Blsehix-GRC-[id number] Reductase AdvReac Intermediate Foot cramps Verified 12/08/24 01:53 Inhibitor [Sgmvbtm-Isi-Npd Reductase Inhibitor] Consultations 07/02/25 17:01 ED Decision to Admit Stat Procedures Performed Laboratory Results WBC 5.04 K/ul (4.8-10.8) 07/03/25 05:59 RBC 4.67 M/uL (4.20-5.40) 07/03/25 05:59 Hgb 13.6 g/dl (12.0-16.0) 07/03/25 05:59 POC Hgb 14.3 g/dl (12.0-16.0) 07/02/25 17:07 Hct 39.9 % (37.0-47.0) 07/03/25 05:59 POC Hct 42 % (37-47) 07/02/25 17:07 MCV 85.4 fL (80.0-100.0) 07/03/25 05:59 MCH 29.1 pg (25.0-34.0) 07/03/25 05:59 MCHC 34.1 g/dL (32.0-36.0) 07/03/25 05:59 RDW Std Deviation 41.0 fL (36.4-46.3) 07/03/25 05:59 RDW Coeff of Abner 13.2 % (11.5-14.5) 07/03/25 05:59 Plt Count 178 K/uL (130-400) 07/03/25 05:59 MPV 10.9 fL (9.4-12.4) 07/03/25 05:59 Immature Gran % (Auto) 0.2 % 07/03/25 05:59 Neut % (Auto) 56.6 % 07/03/25 05:59 Lymph % (Auto) 28.0 % 07/03/25 05:59 [place] % (Auto) 8.1 % 07/03/25 05:59 Eos % (Auto) 6.3 % 07/03/25 05:59 Baso % (Auto) 0.8 % 07/03/25 05:59 Neut # (Auto) 2.85 K/uL (1.40-6.50) 07/03/25 05:59 Lymph # (Auto) 1.41 K/uL (1.20-3.40) 07/03/25 05:59 [place] # (Auto) 0.41 K/uL (0.11-0.59) 07/03/25 05:59 Eos # (Auto) 0.32 K/uL (0.00-0.50) 07/03/25 05:59 Baso # (Auto) 0.04 K/uL (0.00-0.20) 07/03/25 05:59 Immature Gran # (Auto) 0.01 K/uL (0.01-0.20) 07/03/25 05:59 POC Sodium 139 mmol/L (135-144) 07/02/25 17:07 Sodium 141 mmol/L (136-145) 07/03/25 05:59 POC Potassium 5.7 mmol/L (3.3-5.0) H 07/02/25 17:07 Potassium 3.6 mmol/L (3.5-5.1) 07/03/25 05:59 POC Chloride 106 mmol/L (101-112) 07/02/25 17:07 Chloride 108 mmol/L (98-107) H 07/03/25 05:59 Carbon Dioxide 27 mmol/L (21-32) 07/03/25 05:59 POC Total CO2 29 mmol/L (24-31) 07/02/25 17:07 Anion Gap 6 (3-11) 07/03/25 05:59 POC Anion Gap 10.0 mmol/L (16-25) L 07/02/25 17:07 POC BUN 51 mg/dl (7-18) H 07/02/25 17:07 BUN 24 mg/dl (6-23) H 07/03/25 05:59 Creatinine 0.63 mg/dl (0.6-1.2) 07/03/25 05:59 POC Creatinine 0.9 mg/dl (0.6-1.3) 07/02/25 17:07 Est Cr Clr Drug Dosing 56.7 ml/min 07/03/25 05:59 eGFR 86.34 07/03/25 05:59 BUN/Creatinine Ratio 38.1 (10-20) H 07/03/25 05:59 Glucose 87 mg/dl (70-99(Fasting)) 07/03/25 05:59 POC Glucose 99 mg/dl (70-99) 07/03/25 12:08 POC Glucose (other) 108 mg/dl (70-99) H 07/02/25 17:07 Calcium 8.6 mg/dl (8.6-10.3) 07/03/25 05:59 POC Ioniz Calcium Malik 1.14 mmol/l (1.12-1.32) 07/02/25 17:07 Phosphorus 3.4 mg/dl (2.5-4.9) 07/03/25 05:59 Magnesium 1.9 mg/dl (1.7-2.4) 07/03/25 05:59 Total Bilirubin 0.3 mg/dl (0.2-1.0) 07/02/25 14:12 AST 15 U/L (13-39) 07/02/25 14:12 ALT 12 U/L (7-52) 07/02/25 14:12 Alkaline Phosphatase 51 U/L (34-104) 07/02/25 14:12 Total Creatine Kinase 103 U/L (26-192) 07/02/25 14:12 Troponin I High Sens 5.5 pg/ml (0-14) 07/02/25 14:12 Total Protein 7.8 gm/dl (6.0-8.3) 07/02/25 14:12 Albumin 3.8 gm/dl (3.4-5.0) 07/02/25 14:12 Globulin 4.0 gm/dl (2.5-4.0) 07/02/25 14:12 Albumin/Globulin Ratio 1.0 (0.9-2) 07/02/25 14:12 TSH 1.280 uIu/ml (0.300-4.500) 07/02/25 14:12 Urine Color Yellow 07/02/25 14:12 Urine Appearance Clear (Clear) 07/02/25 14:12 Urine pH 6.5 (4.5-7.5) 07/02/25 14:12 Ur Specific [place] 1.025 (1.000-1.030) 07/02/25 14:12 Urine Protein Negative (Negative) 07/02/25 14:12 Urine Glucose (UA) 3+ (Negative) H 07/02/25 14:12 Urine Ketones Negative (Negative) 07/02/25 14:12 Urine Blood 2+ (Negative) H 07/02/25 14:12 Urine Nitrite Negative (Negative) 07/02/25 14:12 Urine Bilirubin Negative (Negative) 07/02/25 14:12 Urine Urobilinogen Negative (Negative) 07/02/25 14:12 Ur Leukocyte Esterase Negative (Negative) 07/02/25 14:12 Urine WBC (Auto) 0-5 /hpf (0-5) 07/02/25 14:12 Urine RBC (Auto) 11-20 /hpf (0-2) H 07/02/25 14:12 U Hyaline Cast (Auto) 0-2 /lpf (0-2) 07/02/25 14:12 U Epithel Cells (Auto) 0-2 /hpf (0-2) 07/02/25 14:12 Urine Bacteria (Auto) None Seen (None Seen) 07/02/25 14:12 Urine Comment 07/02/25 14:12 Impressions Chest X-Ray 07/02/25 14:24 XR chest 1V portable CLINICAL HISTORY: weakness COMPARISON STUDY: 02/21/2025 FINDINGS: Heart size and pulmonary vasculature are normal. No consolidation or pleural effusion. No pneumothorax. IMPRESSION: No acute findings. ACT 112: Negative or not required by law. Electronically signed by: Filiberto Campuzano M.D. 07/02/2025 2:[address] 07/02/25 14:25 Clinical History: Altered mental status Technique: Axial computed tomography images were obtained of the brain without intravenous contrast. Comparison is made to the prior CT dated 12/02/2023 Findings: There is unchanged cerebral atrophy, within expected limits for the patient's age. Areas of decreased attenuation are seen within the periventricular white matter, likely representing chronic small vessel ischemic disease. There is no definite sign of acute or old infarction. No intracranial hemorrhage is evident. No definite mass lesion is seen on this noncontrast examination. There is no midline shift or other form of herniation. There is unchanged ventricular prominence that is likely due to the cerebral atrophy. No definite hydrocephalus is seen. No fracture is identified. The orbits and the visualized paranasal sinuses appear unremarkable. There is partial opacification of the left mastoid air cells Impression: 1. Cerebral atrophy and chronic small vessel ischemic disease 2. Partial opacification of the left mastoid air cells, concerning for inflammatory mastoiditis Electronically signed by Maurice Serrano 07-02-2025 4:25 PM Ordered Studies 07/02/25 14:25 CT head/brain wo con Stat Hospital Course (1) Acute alteration in mental status: Acute metabolic encephalopathy likely secondary to ciprofloxacin --CT Head:Cerebral atrophy and chronic small vessel ischemic disease. Partial opacification of the left mastoid air cells, concerning for inflammatory mastoiditis Mental status back to baseline Received IV fluids for some dehydration PT OT evaluation Plan to be discharged home today Microscopic hematuria ? Due to recent UTI Advise repeat urinalysis as outpatient and follow-up with urology (2) Acute dehydration: Lasix on hold (3) Generalized weakness: PT OT Fall precautions Patient/family prefers home with home health (4) Diabetes mellitus, type II, insulin dependent: Will hold Januvia and metformin Continue insulin while hospitalized Monitor blood glucose levels (5) SHAYY (obstructive sleep apnea): Continue CPAP at bedtime (6) Stroke: History of stroke with right-sided hemiparesis Chronic ambulatory dysfunction Continue Plavix, Lipitor (7) Ambulatory dysfunction: As above (8) Hypertension: Blood pressure elevated today Asymptomatic Monitor (9) Pressure ulcer of right foot, stage 3: Wound care consult No open wound, scabbed (10) Hyperkalemia: Hypokalemia resolved DVT Px: Heparin SQ CODE STATUS Full Disposition Home with home health Total Time Total Time Spent Total Time Spent (In Minutes): 50 minutes Discharge Plan Discharge Items Patient Disposition: Home - Self-Care Reason For Visit: CHANGE IN MENTAL STATUS Discharge Diagnosis: Acute metabolic encephalopathy likely secondary to ciprofloxacin Dehydration Chronic ambulatory dysfunction History of CVA Hypertension Microscopic hematuria Condition on Discharge: Fair Activity: Per Instructions section Exercise/Sports: Gradually increase as tolerated Non-emergency contact: Primary Care Provider Call non-emergency contact if: you have any medication questions, your symptoms worsen, your pain is concerning for you and you have a fever Follow-up/Referrals: Jhoan Maki DO [Primary Care Provider] - Dietitian Info: Minced and moist diet Diet: Carb Consistent or DM2 Addtl Attending Provider Instructions: -- Follow-up with your primary care physician in 1 week -- Your blood pressure was noted to be slightly elevated while you are hospitalized. Monitor your blood pressure regularly and discuss with your primary care physician for further adjustment of medications as needed. --Get repeat urinalysis in 1 week and follow-up with your urologist if needed for further evaluation of minimal blood in your urine as advised Seek immediate medical attention if your symptoms reoccur or worsen Please review medication list provided on discharge for any medication changes as instructed. Please call if you have any questions or problems. You can reach a [facility] hospitalist on duty at [facility] 24 hours a day by calling [phone] Pending Studies at Discharge: No Stand-Alone Forms: My [facility] [employer], Smoking Cessation Medications and DC Order Prescriptions: Continued sertraline [Zoloft] 25 mg tablet 25 mg PO DAILY fexofenadine [Allergy Relief (fexofenadine)] 180 mg Tablet 180 mg PO QAM Patient Comments: 07/02- otc unable to verify clopidogrel 75 mg Tablet 75 mg PO QAM 30 Days Qty: 30 1RF metformin 1,000 mg tablet 1,000 mg PO QAM metoprolol tartrate 50 mg tablet 50 mg PO BID Caltrate 600 plus D 600 mg (1,500 mg)-800 unit Tablet,Chewable 1 tab PO QDL Patient Comments: 07/02- otc unable to verify coenzyme Q10 [CoQ-10] 100 mg Capsule 200 mg PO QDL Patient Comments: 07/02- otc unable to verify PreserVision AREDS-2 250-90-40-1 mg Capsule 1 tab PO BID Patient Comments: 07/02- otc unable to verify multivitamin Tablet 1 tab PO QDL Patient Comments: 07/02- otc unable to verify atorvastatin 40 mg tablet 40 mg PO HS amlodipine 5 mg tablet 5 mg PO QAM furosemide 20 mg tablet 20 mg PO QAM PRN (Reason: swelling) Rx Instructions: Takes about once a week Jardiance 25 mg tablet 25 mg PO QAM vitamin B complex Tablet 1 tab PO QDL Patient Comments: 07/02- otc unable to verify glucosamine-chondroitin [Cosamin DS] 500-400 mg Tablet 1 tab PO QDL Patient Comments: 07/02- otc unable to verify insulin glargine [Lantus Solostar U-100 Insulin] 100 unit/mL (3 mL) insulin pen 14 unit SUBCUT HS acetaminophen [Tylenol] 325 mg Tablet 650 mg PO Q4H PRN (Reason: Pain) Patient Comments: 07/02- otc unable to verify gabapentin 100 mg capsule 100 mg PO BID Januvia 50 mg tablet 50 mg PO QAM Probiotic 20 billion cell Capsule, Sprinkle 3 cap PO QAM Patient Comments: 07/02- otc unable to verify Rx Instructions: reported she takes 60 billion cell Discontinued ciprofloxacin HCl 250 mg tablet 250 mg PO BID Patient Comments: filled 06/29 Discharge Orders: Discharge Order (Routine); Ordered 07/03/25 Ordered By: Ovi Borden Admission Data Admit Date/Time: 07/02/25 17:43 Attending Provider: Ovi Borden Admit Provider: Kale Gallo Primary Care Provider: Jhoan Maki Other Providers: Kale Gallo
[2025-07-03 12:45] VITALS: BP 184/91; PULSE 63
--- NOTE | 2025-07-06 08:13 | Electrocardiogram Report ---
Test Reason : Blood Pressure : */* mmHG Vent. Rate : 67 BPM Atrial Rate : 67 BPM P-R Int : 154 ms QRS Dur : 76 ms QT Int : 412 ms P-R-T Axes : -5 -11 -2 degrees QTcB Int : 435 ms Normal sinus rhythm Inferior infarct , age undetermined Abnormal ECG When compared with ECG of 21-Feb-2025 18:53, Inferior infarct is now Present T wave inversion now evident in Inferior leads Confirmed by Yon Dan ([id number]) on 07/06/2025 8:13:25 AM Referred By: REFERRED SELF Confirmed By: Yon Dan
== END 2025-07-03 14:15 | disposition home or self-care (01) | DRG 91 ==
LOC: ED 14:02 → SUATTDRO 17:43 → EDINP 17:43 → 4W 07-03 00:25